=== PATIENT | male | born 1955 | race Caucasian/White ===

== ENCOUNTER 2017-01-02 00:42 | Observation (INO) ==
[2017-01-02] MEDS ORDERED: 0.9 % Sodium Chloride 1,000 ML IVC ONE (00:58)
[2017-01-02] MEDS ORDERED: Ondansetron 4 MG/2 ML VIAL IVP ONE (01:01)
[2017-01-02 01:06] LABS: Basophils # 0.1 K/mcL (0.0-0.2); Basophils % 0.8 %; Eosinophils % 0.2 %; Hematocrit 44.1 % (37.5-50.1); Hemoglobin 15.4 g/dL (12.9-16.9); Immature Granulocytes % 0.3 % (0-4); Lymphocytes # 1.6 K/mcL (0.6-4.6); Lymphocytes % 24.7 %; Mean Corpuscular HGB Conc 34.9 g/dL (31.6-35.5); Mean Corpuscular Hemoglobin 32.9 pg (28.0-33.3); Mean Corpuscular Volume 94.2 fL (83.0-100.0); Mean Platelet Volume 9.6 fL (9.4-12.4); Monocytes # 0.7 K/mcL (0.0-1.3); Monocytes % 10.8 %; Platelet Count 380 K/mcL (140-400); Red Blood Count 4.68 M/mcL (4.19-5.50); Red Cell Distribution Width 13.6 % (11.5-14.5); Segmented Neutrophils % 63.2 %
[2017-01-02 01:17] LABS: Alanine Aminotransferase 23 Units/L (0-55); Albumin 4.1 g/dL (3.5-5.0); Albumin/Globulin Ratio 1.1 (1.1-2.2); Alkaline Phosphatase 78 Units/L (38-126); Aspartate Amino Transferase 31 Units/L (5-34); BUN/Creatinine Ratio 8 (6-26); Bilirubin,Total 0.4 mg/dL (0.2-1.2); Blood Urea Nitrogen 6 mg/dL (8-26); Calcium 9.8 mg/dL (8.6-10.8); Carbon Dioxide 26 mEq/L (19-29); Chloride 92 mEq/L (98-109); Ethanol 34 mg/dL (0-10); Globulin 3.9 g/dL (2.4-3.5); Glucose 122 mg/dL (70-99); Lipase 61 Units/L (8-78); Magnesium 1.7 mg/dL (1.6-2.6); Osmolality,Calculated 271 (280-300); Phosphorous 2.1 mg/dL (2.3-4.7); Potassium 4.5 mEq/L (3.5-4.5); Sodium 131 mEq/L (136-145); eGFR For African Americans > 60 (> 60); eGFR For Non-African Americans > 60 (> 60)
[2017-01-02] MEDS ORDERED: *HR* LORazepam 2 MG/ML VIAL IVP ONE (01:19)
[2017-01-02] MEDS ORDERED: Folic Acid 1 MG TABLET PO ONE (01:28)
--- NOTE | 2017-01-02 01:31 | Emergency Department Note ---
Disposition Clinical Impression: Elevated blood pressure reading, Hyponatremia Alcohol withdrawal syndrome Qualifiers: Complication of substance-induced condition: uncomplicated Qualified Code(s): F10.230 - Alcohol dependence with withdrawal, uncomplicated Disposition: Admitted As Inpatient Condition: Fair Time of Disposition: 02:49 Alcohol HPI - General Chief Complaint: ED Alcohol Abuse Stated Complaint: ETOH withdrawal Time Seen by Provider: 01/02/17 00:48 Source: patient, EMS Mode of arrival: EMS Limitations: no limitations Nursing Notes Reviewed: Yes Vital Signs Reviewed: Yes - History of Present Illness HPI Narrative: 61-year-old male with a history of alcoholic disease presents for evaluation of alcohol withdrawal. Patient states that his last alcohol beverages approximately 18 hours ago. States that he typically drinks 10-15, 12-24 ounce out all beverages a day. States that he would like to withdraw and stop drinking. Recalls approximately year ago the patient did require inpatient management for alcohol withdrawal. Notes that he began to have midepigastric abdominal pain as well as persistent nausea vomiting that occurred around noon today. Denies any fevers or chest pain. Denies any cough. Patient states that earlier today started C black spots but denies any delusions or hallucinations. - Related Data Allergies Allergy/AdvReac Type Severity Reaction Status Date / Time No Known Allergies Allergy Verified 01/02/17 00:44 All systems ED: reviewed and negative except as stated. Constitutional: Reports: as per HPI. Denies: fever Eyes: Reports: as per HPI ENT ED: Reports: as per HPI Cardiovascular: Reports: as per HPI. Denies: chest pain Respiratory: Reports: as per HPI. Denies: dyspnea Gastrointestinal: Reports: as per HPI, abdominal pain, nausea, vomiting Genitourinary: Reports: as per HPI Musculoskeletal: Reports: as per HPI Integumentary: Reports: as per HPI Neurological: Reports: as per HPI Psychiatric: Reports: as per HPI Endocrine: Reports: as per HPI Hematological/Lymphatic: Reports: as per HPI Past Medical History - Past Medical History Medical history: Reports: no medical history Psychiatric history: Reports: no psych history - Social History Smoking Status: Current every day smoker Smokeless Tobacco Status: No Alcohol use: Reports: heavy Drug use: Reports: none Physical Exam - General Limitations: no limitations General appearance: alert, in no apparent distress, anxious, other (Diaphoresis) - Head Head exam: atraumatic, normocephalic, normal inspection - Eye Eye exam: Present: normal appearance, EOMI - ENT ENT exam: normal exam, mucous membranes moist - Neck Neck exam: Present: normal inspection - Chest Chest inspection: Present: normal inspection, symmetric chest wall rise - Respiratory Respiratory exam: Present: prolonged expiratory phase. Absent: respiratory distress - Cardiovascular Cardiovascular exam: Present: regular rate, normal rhythm - Abdominal Exam Abdominal exam: Present: soft, tenderness (Mild epigastric). Absent: distention , guarding, rebound - Extremities Exam Extremities exam: Present: normal inspection. Absent: pedal edema - Back Exam Back exam: Present: normal inspection - Neurological Exam Neurological exam: Present: alert, oriented X3, CN II-XII intact - Psychiatric Psychiatric exam: Present: anxious - Skin Skin exam: Present: warm, dry, intact, normal color Course Course Narrative: 61-year-old male with history of alcohol disease presents for evaluation of alcohol withdrawal. Patient's last of all beverages approximately 18 hours prior to arrival. Patient appears to be going through acute withdrawal. Patient's borderline tachycardic with diaphoresis. Patient is not witnessing any delusions or hallucinations. Patient is requesting help from alcohol withdrawal. Does have a strong alcohol history with 10-15 alcoholic beverages a day. Patient received labs IV fluids anti-medics and anxiolytics. Patient's EKG shows normal sinus rhythm with no acute ST or T-wave changes. Patient was given thiamine and folate. - Reevaluation(s) Reevaluation #1: Patient symptoms have appeared to improve following the ativan. Appears more relaxed. Awaiting hospitalist Time: 02:32 Reevaluation #2: Patient updated on plan of care. Patient appears resting comfortably. Nicotine patch ordered. Awaiting transfer to the floor. Time: 02:47 Vital Signs Temperature 98.4 F 01/02/17 00:44 Pulse Rate 100 01/02/17 00:44 Respiratory Rate 24 01/02/17 00:44 Blood Pressure 153/110 01/02/17 00:44 O2 Sat by Pulse Oximetry 98 01/02/17 00:44 Temperature 98.4 F 01/02/17 00:44 Pulse Rate 88 01/02/17 02:31 Respiratory Rate 18 01/02/17 02:31 Blood Pressure 162/93 01/02/17 02:31 O2 Sat by Pulse Oximetry 98 01/02/17 02:31 Oxygen Delivery Oxygen Delivery Room Air Alcohol - MDM Narrative Medical decision making narrative: 61-year-old male penis for evaluation for alcohol withdrawal. Patient does have an extensive alcohol history. Patient did appear to be in acute withdrawal. Patient's blood alcohol level was noted to be low. Patient was borderline tachycardic and diaphoretic on exam. Patient was vomiting. The patient's abdominal exam was nonsurgical. Patient basically laboratory evaluation for electrolytes as well as lipase. Patient's labs reviewed. Patient was supplemented with thiamine and folate. Patient's hyponatremia likely secondary to alcohol. Patient received a milligram of Ativan. Patient was resting comfortably. Patient received IV fluids. Patient was not experiencing any delusions or hallucinations in the emergency department. Patient does wish to quit drinking. Patient will be admitted to hospital service for alcohol withdrawal. - Lab Data Lab results reviewed: Yes I reviewed the patient's lab results. Result diagrams: 01/02/17 00:53 01/02/17 00:53 Lab Results 01/02/17 01/02/17 Range/Units 00:53 00:53 WBC 6.3 (4.3-11.1) K/mcL RBC 4.68 (4.19-5.50) M/mcL Hgb 15.4 (12.9-16.9) g/dL Hct 44.1 (37.5-50.1) % MCV 94.2 (83.0-100.0) fL MCH 32.9 (28.0-33.3) pg MCHC 34.9 (31.6-35.5) g/dL RDW 13.6 (11.5-14.5) % Plt Count 380 (140-400) K/mcL MPV 9.6 (9.4-12.4) fL Immature Gran % 0.3 (0-4) % Seg Neutrophils % 63.2 % Lymphocytes % 24.7 % Monocytes % 10.8 % Eosinophils % 0.2 % Basophils % 0.8 % Neutrophils # 4.0 (1.6-8.9) K/mcL Lymphocytes # 1.6 (0.6-4.6) K/mcL Monocytes # 0.7 (0.0-1.3) K/mcL Eosinophils # 0.0 (0.0-0.6) K/mcL Basophils # 0.1 (0.0-0.2) K/mcL Sodium 131 L (136-145) mEq/L Potassium 4.5 (3.5-4.5) mEq/L Chloride 92 L (98-109) mEq/L Carbon Dioxide 26 (19-29) mEq/L BUN 6 L (8-26) mg/dL Creatinine 0.73 (0.72-1.25) mg/dL Est GFR ( Amer) > 60 (> 60) Est GFR (Non-Af Amer) > 60 (> 60) BUN/Creatinine Ratio 8 (6-26) Glucose 122 H (70-99) mg/dL Calculated Osmolality 271 L (280-300) Calcium 9.8 (8.6-10.8) mg/dL Phosphorus 2.1 L (2.3-4.7) mg/dL Magnesium 1.7 (1.6-2.6) mg/dL Total Bilirubin 0.4 (0.2-1.2) mg/dL AST 31 (5-34) Units/L ALT 23 (0-55) Units/L Alkaline Phosphatase 78 (38-126) Units/L Serum Total Protein 8.0 (6.0-8.3) g/dL Albumin 4.1 (3.5-5.0) g/dL Globulin 3.9 H (2.4-3.5) g/dL Albumin/Globulin Ratio 1.1 (1.1-2.2) Lipase 61 (8-78) Units/L Ethyl Alcohol 34 H (0-10) mg/dL - EKG Data EKG attestation: Yes I reviewed and interpreted this EKG. EKG shows normal: sinus rhythm Rate: normal Rhythm: NSR Smiley/QRS: normal P waves: other (Inversions in V1) Q waves: aVL T wave inversions noted in: aVR Interpretation: no acute changes Attestation Statement - Attestation Attestation: I, Nash Berger MD, personally evaluated this patient and discussed their management with the resident physician. I reviewed the resident's note and agree with the documented findings, medical decision making, and plan of care. 61-year-old male presents to the emergency department with a complaint of alcohol withdrawal symptoms. Patient states he drinks 12-18 beers daily. His last beer was about 18 hours prior to arrival. He states he wants to quit. He presents complaining of shakes with nausea and vomiting. No chest pain. No seizures. On examination patient is a well-developed well-nourished male in no acute distress. He is alert and oriented 3. There is no cyanosis or diaphoresis. He is mildly tremulous. Chest is nontender to palpation. Breath sounds are clear and equal bilaterally. Heart regular with a mild tachycardia. Abdomen soft and nontender with normal bowel sounds. No gross focal neurological deficits. Labs reviewed. The hospitalist, Dr. Mane, was consulted and accepted admission of the patient.
[2017-01-02] MEDS ORDERED: Thiamine (B-1) 100 MG TABLET PO SCH ×3 (01:34→09:00)
[2017-01-02] MEDS ORDERED: Nicotine 21 MG PATCH.TD24 TD ONE (02:36)
[2017-01-02] MEDS ORDERED: *HR* LORazepam 2 MG/ML VIAL IVP PRN (03:16)
[2017-01-02] MEDS ORDERED: Naloxone 0.4 MG/ML INJ IVP PRN (03:17)
[2017-01-02] MEDS ORDERED: Magnesium Sulfate 2 GM in D5% in Water 100 ML IVPB ONE (03:21)
[2017-01-02] MEDS ORDERED: Albuterol 2.5 MG/3 ML NEBULIZER IH PRN (03:56)
--- NOTE | 2017-01-02 04:02 | Internal Med History&Physical ---
Date of Encounter: 01/02/17 Time of Encounter: 03:57 Assessment and Plan (1) Alcohol withdrawal syndrome Current visit: Yes Status: Acute patient with heavy alcohol use comes in with signs and symptoms concerning for alcohol withdrawal, we will admit for CIWA protocol, aspiration, fall and seizure precautions will be observed, he has been counseled on cessation, will add multivites, replace electrolytes PRN Qualifiers: Complication of substance-induced condition: uncomplicated Qualified Code(s ): F10.230 - Alcohol dependence with withdrawal, uncomplicated (2) COPD (chronic obstructive pulmonary disease) Current visit: Yes Status: Chronic heavy smoking hx and has COPD on inhalers at home, he was wheezing at the time of exam, we will continue inhalers with nebs PRN Qualifiers: COPD type: chronic bronchitis Chronic bronchitis type: simple Qualified Code(s): J41.0 - Simple chronic bronchitis (3) Tobacco abuse Current visit: Yes Status: Chronic 3ppd since a tender age, we have counseled him on cessation, he will be placed on a patch meanwhile Internal Medicine - H&P: HPI Chief complaint: tremors from not drinking alcohol Admitted From: Emergency Dept Plans for Post Hospital Care: Home History of present illness: Mr. Aldana is a 61 year old male with a hx of alcohol abuse was brought in via [facility] for tremors concerning for alcohol withdrawal. He reports that he was in his usual state of health until the morning of 01/01 at around 6am when he started shaking so he went for a 3 pack of beer and after consuming it he still felt the shakes. He reports that he has been trying to quit so he rather tried ice cubes in an attempt to avoid drinking more alcohol but it was not working and his tremors continued, he was also sweating and felt nauseous, with vomiting and abdominal pain. He at that point called [facility] to be brought to the ER for further management. In the ER he was tachycardic and hypertensive. PAST MEDICAL HISTORY COPD EtoH abuse PAST SURGICAL HISTORY None SOCIAL HISTORY He is single, has 5 adult children, 3 males and 2 females, he has been drinking alcohol since the age of [age] years old about 10-18 cans daily, he was sober for a period of 2 years at the [place] rehab but started drinking again, smokes 3ppd of cigarettes since the age of 8 years. He used cocaine briefly-via snorting, denies heroin use but admits to prescriptions drug abuse at some point. Patient is a . FAMILY HISTORY Both parents are , mother was on multiple medications but he has no idea what medical condition his mother had, father had CAD s/p CABG, maternal uncle had colon cancer Past Med Surg Social Fam HX - Past Medical History Medical history: no medical history Psychiatric history: no psych history - Social History Smoking Status: Current every day smoker Smokeless Tobacco Status: No Alcohol use: heavy Drug use: none - Family History Father Hx Family Cardiac Disorders: Yes (CAD, Bypass) Hx Family Respiratory Disorders: No Hx Family Cancer: No Hx Family GI Disorders: No Hx Family Genitourinary Disorders: No Hx Family Endocrine Disorder: No Hx Family Musculoskeletal Disorders: No Hx Family Neuromuscular Disorders: No Hx Family Neurologic Disorders: Yes (Alzheimers) Hx Family HEENT Disorders: No Hx Family Autoimmune Disorders: No Hx Family Reproductive Disorders: No Hx Family Psychosocial Disorders: No Hx Family Medical Disorders: No Internal Medicine - H&P: Meds Allergies No Known Allergies Allergy (Verified 01/02/17 00:44) All Systems PM: A 10-system review of systems was performed and is negative for pertinent findings except as documented above in the HPI. - Constitutional Vitals: Temp Pulse Resp BP Pulse Ox 98.5 F 92 18 156/84 95 01/02/17 03:13 01/02/17 03:13 01/02/17 03:13 01/02/17 03:13 01/02/17 03:13 GENERAL: Adult male, looks far older than stated age, thin habitus, heavily bearded, Alert, not in acute distress, HEENT: NC/AT, EOMI, PERRLA, anicteric sclera, normal conjunctiva, supple, clear nares, moist mucous membranes, RESP: End expiratory wheeze through all nascimento with prolonged expiratory phase , CARDIO: Normal hearts sounds; S1 and 2, RRR with no murmurs, no JVD, no ankle edema GI: Soft, full, no tenderness, no organomegaly felt, normal bowel sounds heard MUSCULOSKELETAL: grossly normal movements bilaterally, no deformities noted, NEUROLOGIC: CN 2-12 intact grossly. No gross motor/sensory deficit appreciated, PSYCHIATRY: AAO x 3, SKIN: multiple tattoos with sun lopez on the upper extremities Internal Med - H&P Results - Labs CBC & Chem 7: 01/02/17 00:53 01/02/17 00:53 - EKG Data -: EKG Interpreted by Myself EKG shows normal: sinus rhythm
[2017-01-02] MEDS: Nicotine 21 MG PATCH.TD24 TD SCH (07:48)
[2017-01-02] MEDS: Vitamin B Complex/Vit C/Vit E 1 EACH TABLET PO SCH (07:48)
[2017-01-02] MEDS: *HR* LORazepam 2 MG/ML VIAL IVP PRN ×2 (07:49→20:02)
[2017-01-02] MEDS: Budesonide/Formoterol 160/4.5 MDI IH SCH ×2 (08:08→23:10)
[2017-01-02] MEDS: Tiotropium 18 MCG inhalation IH SCH (08:14)
[2017-01-02] MEDS ORDERED: Folic Acid 1 MG TABLET PO SCH (09:00)
--- NOTE | 2017-01-02 10:29 | Electrocardiograph Report ---
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
[2017-01-02] MEDS ORDERED: Melatonin 3 MG TABLET PO PRN (14:57)
[2017-01-02] MEDS ORDERED: Methocarbamol 750 MG TABLET PO PRN (14:57)
[2017-01-02] MEDS ORDERED: Acetaminophen 325 MG TABLET PO SCH (18:00)
--- NOTE | 2017-01-02 18:40 | Event Note ---
Date of Encounter: 01/02/17 Time of Encounter: 18:33 61-year-old male with past medical history of COPD and heavy alcohol abuse who was brought because of severe tremors and concerns for alcohol withdrawal. Patient is trying to quit alcohol but it is not working and he complains of severe tremors, diaphoresis, nausea, vomiting and abdominal pain. She was started on CIWA protocol including IV fluids, and IV Ativan. During my examination, patient is alert oriented 3. He denies any complaints at this time. He reports that his tremors are better. Chest clear to position bilaterally. Heart regular rate. Abdomen soft nontender nondistended. Extremities no edema. Mild intentional tremors. Gait not assessed. A/P: 1) alcohol withdrawal. 2) heavy alcohol abuse. IV fluids. Thiamine. po Ativan tid. CIWA protocol. 3) COPD. not in exacerbation. nebs. symbicort.
[2017-01-02] MEDS: Acetaminophen 325 MG TABLET PO PRN (18:54)
[2017-01-02] MEDS ORDERED: Water for inj. (sterile) 10 ML IV ONE (19:58)
[2017-01-02] MEDS: *HR* LORazepam 1 MG TABLET PO SCH (22:30)
[2017-01-02] MEDS ORDERED: traZODone 50 MG TABLET PO SCH (22:30)
[2017-01-02] MEDS: Budesonide/Formoterol 80/4.5 MDI IH SCH (23:10)
[2017-01-03] MEDS: Acetaminophen 325 MG TABLET PO PRN (05:15)
[2017-01-03 05:40] LABS: Basophils % 0.5 %; Eosinophils % 0.3 %; Hematocrit 39.2 % (37.5-50.1); Hemoglobin 13.3 g/dL (12.9-16.9); Immature Granulocytes % 0.3 % (0-4); Lymphocytes # 1.5 K/mcL (0.6-4.6); Mean Corpuscular HGB Conc 33.9 g/dL (31.6-35.5); Mean Corpuscular Hemoglobin 32.8 pg (28.0-33.3); Mean Corpuscular Volume 96.8 fL (83.0-100.0); Mean Platelet Volume 10.1 fL (9.4-12.4); Monocytes # 0.8 K/mcL (0.0-1.3); Monocytes % 11.4 %; Neutrophils # 4.3 K/mcL (1.6-8.9); Platelet Count 279 K/mcL (140-400); Red Blood Count 4.05 M/mcL (4.19-5.50); Red Cell Distribution Width 13.8 % (11.5-14.5); Segmented Neutrophils % 65.5 %
[2017-01-03 05:59] LABS: BUN/Creatinine Ratio 7 (6-26); Calcium 9.6 mg/dL (8.6-10.8); Carbon Dioxide 30 mEq/L (19-29); Chloride 100 mEq/L (98-109); Glucose 100 mg/dL (70-99); Magnesium 1.9 mg/dL (1.6-2.6); Osmolality,Calculated 279 (280-300); Potassium 3.9 mEq/L (3.5-4.5); Sodium 136 mEq/L (136-145); eGFR For African Americans > 60 (> 60); eGFR For Non-African Americans > 60 (> 60)
[2017-01-03] MEDS ORDERED: *HR* Enoxaparin 30 MG/0.3 ML SYRINGE SQ SCH (06:00)
[2017-01-03 06:05] LABS: Blood Urea Nitrogen 5 mg/dL (8-26)
[2017-01-03 06:43] VITALS: BP 136/78
[2017-01-03] MEDS: Budesonide/Formoterol 80/4.5 MDI IH SCH (08:30)
[2017-01-03] MEDS: Tiotropium 18 MCG inhalation IH SCH (08:30)
[2017-01-03] MEDS: Nicotine 21 MG PATCH.TD24 TD SCH (08:52)
[2017-01-03] MEDS: *HR* LORazepam 1 MG TABLET PO SCH (08:52)
[2017-01-03] MEDS: Vitamin B Complex/Vit C/Vit E 1 EACH TABLET PO SCH (08:52)
[2017-01-03] MEDS ORDERED: Thiamine (B-1) 100 MG TABLET PO SCH (09:00)
[2017-01-03] MEDS ORDERED: Folic Acid 1 MG TABLET PO SCH (09:00)
[2017-01-03] MEDS ORDERED: Venlafaxine XR (24 HR) 150 MG CAP.ER.24H PO SCH (09:00)
--- NOTE | 2017-01-03 09:17 | Discharge Summary ---
Date of Encounter: 01/03/17 Time of Encounter: 09:12 - Discharge Diagnosis (1) Alcohol withdrawal syndrome Priority: Primary Status: Acute Qualifiers: Complication of substance-induced condition: uncomplicated Qualified Code(s ): F10.230 - Alcohol dependence with withdrawal, uncomplicated (2) COPD (chronic obstructive pulmonary disease) Priority: Secondary Status: Chronic Qualifiers: COPD type: chronic bronchitis Chronic bronchitis type: simple Qualified Code(s): J41.0 - Simple chronic bronchitis (3) Tobacco abuse Priority: Secondary Status: Chronic - Discharge Medications Prescriptions: Ipratropium/Albuterol Neb [Duoneb] 3 ml IH Q6HR PRN 30 Days PRN Reason: BREATHING Fluticasone/Salmeterol [Advair 100-50 Diskus] 1 each IH BID #1 blst.w.dev Ipratropium/Albuterol Sulfate [Combivent Respimat Inhal [place]] 1 puff IH QID PRN #1 PRN Reason: BREATHING LORazepam [Ativan] 1 mg PO AD #16 tab Nicotine Patch [Nicoderm] 21 mg TD DAILY #30 Tiotropium [Spiriva] 18 mcg IH DAILY@0700 #1 inh Home Medications: Acetaminophen [Tylenol] 650 mg PO Q6HR PRN 01/02/17 [History] Cholecalciferol (Vitamin D3) [Vitamin D3] 1,200 units PO DAILY 01/02/17 [History ] Folic Acid 2 mg PO DAILY 01/02/17 [History] Gabapentin [Neurontin] 800 mg PO TID 01/02/17 [History] GuaiFENesin/Dextromethorphan [Tussin Dm Syrup] 10 ml PO Q6H PRN 01/02/17 [ History] Melatonin [Melatin] 12 mg PO HS PRN 01/02/17 [History] Methocarbamol [Robaxin-750] 750 mg PO QID PRN 01/02/17 [History] Omeprazole [PriLOSEC] 20 mg PO BID 01/02/17 [History] Thiamine (B-1) [Vitamin B-1] 100 mg PO DAILY 01/02/17 [History] Trazodone HCl 200 mg PO HS 01/02/17 [History] Venlafaxine XR (24 HR) [Effexor Xr] 150 mg PO DAILY 01/02/17 [History] Fluticasone/Salmeterol [Advair 100-50 Diskus] 1 each IH BID #1 blst.w.dev [Rx] Ipratropium/Albuterol Neb [Duoneb] 3 ml IH Q6HR PRN 30 Days 01/03/17 [Rx] Ipratropium/Albuterol Sulfate [Combivent Respimat Inhal [place]] 1 puff IH QID PRN #1 01/03/17 [Rx] LORazepam [Ativan] 1 mg PO AD #16 tab 01/03/17 [Rx] Meloxicam 15 mg PO DAILY PRN #0 01/03/17 [Rx] Nicotine Patch [Nicoderm] 21 mg TD DAILY #30 01/03/17 [Rx] Tiotropium [Spiriva] 18 mcg IH DAILY@0700 #1 inh 01/03/17 [Rx] Allergies/Adverse Reactions: Allergies No Known Allergies Allergy (Verified 01/02/17 09:35) Date of admission: 01/02/17 02:44 [facility] - Patient Status Disposition: Home, Self-Care Condition: Good Functional capacity at discharge: independent ambulation Overall status at discharge: patient is progressing back to baseline - Discharge Instructions Instructions: Lorazepam (By mouth), Nicotine (Absorbed through the skin), Ipratropium/Albuterol (By breathing), Fluticasone/Salmeterol (By breathing), Tiotropium (By breathing), Hyponatremia (DC), Alcohol Withdrawal (DC) Follow [facility]: [facility] [Primary Care Provider[facility] - - Diet and Activity Activity: resume usual activities as tolerated Diet: regular diet Interval History: Patient has no complains. He is eager to go home. Hospital course: Mr. Aldana is a 61 year old male with past medical history of chronic alcohol abuse and COPD who presented with a chief complaint of severe tremors due to alcohol withdrawal syndrome. Patient admits his eagerness to quit drinking alcohol, he was started on oral lorazepam, IV fluids and CIWA protocol with improvement of his tremors. PLAN: Oral lorazepam. Patient will follow up in the detox center on Thursday. - Time Spent with Patient Total time spent providing and/or coordinating discharge services: - Constitutional Vitals: Temp Pulse Resp BP Pulse Ox 98.1 F 59 16 136/78 96 01/03/17 06:42 01/03/17 06:42 01/03/17 08:32 01/03/17 06:42 01/03/17 08:32 General appearance: Present: cooperative, A&O X 3, pleasant, no acute distress, answers questions appropriately - Neck Neck exam general surgery: Present: supple, trachea midline. Absent: lymphadenopathy - Respiratory Respiratory exam: Present: CTAB. Absent: wheezes - Cardiovascular Cardiovascular exam: Present: RRR - GI/Abdominal GI/Abdominal exam: Present: normal bowel sounds, soft. Absent: distended, tenderness - Extremities Exam Extremities exam: Absent: pedal edema - Back Exam Back exam: Absent: CVA tenderness (L), CVA tenderness (R) - Neurological Exam Neurological exam: Present: alert, oriented X3, no focal deficits, strengths equal and symetr throughout. Absent: facial droop, speech deficit - Skin Skin exam: Absent: rash
== END 2017-01-03 09:57 | disposition home or self-care (01) ==
LOC: 3BNU 00:42 → EMEROO 00:42 → SUATTDRO 02:44 → 3BNU 03:18
PROVIDERS: ADMIT Internal Medicine; ATTEND Internal Medicine

== ENCOUNTER 2018-02-23 19:09 | Observation (INO) ==
[2018-02-23] MEDS ORDERED: *HR* LORazepam 2 MG/ML VIAL IVP ONE (19:11)
[2018-02-23] MEDS ORDERED: MVI, adult with vitamin K 10 ML in 0.9 % Sodium Chloride 1,000 ML IVC ONE (19:11)
[2018-02-23] MEDS ORDERED: 0.9 % Sodium Chloride 1,000 ML IVC ONE (19:11)
[2018-02-23] MEDS ORDERED: *HR* Dextrose 50 % in Water (Syg) 50 ML SYRINGE IVP ONE (19:11)
--- NOTE | 2018-02-23 19:24 | Emergency Department Note ---
Disposition Clinical Impression: Alcohol dependence with withdrawal Qualifiers: Complication of substance-induced condition: uncomplicated Qualified Code(s): F10.230 - Alcohol dependence with withdrawal, uncomplicated Disposition: Admitted As Inpatient General Adult HPI - General Chief complaint: ED Fall Stated complaint: ETOH withdrawl and fall Time Seen by Provider: 02/23/18 19:10 Source: patient, EMS Limitations: no limitations - History of Present Illness Pain Scale: 6 - Related Data Home Medications Medication Instructions Recorded Confirmed Acetaminophen [Tylenol] 650 mg PO Q6HR PRN 01/02/17 03/05/17 Cholecalciferol (Vitamin D3) 1,200 units PO DAILY 01/02/17 03/05/17 [Vitamin D3] Folic Acid 2 mg PO DAILY 01/02/17 03/05/17 Gabapentin [Neurontin] 800 mg PO TID 01/02/17 03/05/17 GuaiFENesin/Dextromethorphan 10 ml PO Q6H PRN 01/02/17 03/05/17 [Tussin Dm Syrup] Melatonin [Melatin] 12 mg PO HS PRN 01/02/17 03/05/17 Methocarbamol [Robaxin-750] 750 mg PO QID PRN 01/02/17 03/05/17 Omeprazole [PriLOSEC] 20 mg PO BID 01/02/17 03/05/17 Thiamine (B-1) [Vitamin B-1] 100 mg PO DAILY 01/02/17 03/05/17 Trazodone HCl 200 mg PO HS 01/02/17 03/05/17 Venlafaxine XR (24 HR) [Effexor Xr] 150 mg PO DAILY 01/02/17 03/05/17 Albuterol Neb [AccuNeb] 1 aerosol IH Q4H PRN 03/05/17 03/05/17 Albuterol Sulfate [Albuterol 2 puff IH Q4H PRN 03/05/17 03/05/17 Inhaler] Benzonatate [Tessalon] 100 mg PO TID PRN 03/05/17 03/05/17 Budesonide/Formoterol 80/4.5 2 puff IH BID 03/05/17 03/05/17 [Symbicort] Tiotropium [Spiriva] 2 puff IH DAILY 09/21/17 09/21/17 Previous Rx's Medication Instructions Recorded Meloxicam 15 mg PO DAILY PRN #0 01/03/17 Doxycycline 100 mg PO BID #14 capsule 09/22/17 PredniSONE [Deltasone] 60 mg PO DAILY #15 tablet 09/22/17 Allergies Allergy/AdvReac Type Severity Reaction Status Date / Time No Known Allergies Allergy Verified 01/02/17 09:35 Past Medical History - Past Medical History Medical history: Reports: asthma, COPD, GERD Psychiatric history: Reports: no psych history - Social History Smoking Status: Current every day smoker Smokeless Tobacco Status: No Alcohol use: Reports: heavy Drug use: Reports: none Physical Exam - General Limitations: no limitations General appearance: alert, in no apparent distress Course Vital Signs Temperature 96.9 F L 02/23/18 19:09 Pulse Rate 89 02/23/18 19:09 Respiratory Rate 18 02/23/18 19:09 Blood Pressure 168/95 02/23/18 19:09 O2 Sat by Pulse Oximetry 99 02/23/18 19:09 Temperature 96.9 F L 02/23/18 19:09 Pulse Rate 89 02/23/18 19:09 Respiratory Rate 18 02/23/18 19:09 Blood Pressure 168/95 02/23/18 19:09 O2 Sat by Pulse Oximetry 99 02/23/18 19:09 Oxygen Delivery Oxygen Delivery Room Air Attestation Statement - Attestation Attestation: I examined this patient and my medical decision-making was reviewed with the Resident Physician. I agree with the documented findings, disposition and treatment plan as described except to the extent set forth below. 62 year old male presents to the ED with complaints of ETOH withdralw and fall yesterday. Hao states that he is a chronic alcoholic and [facility] and just finished a 3 weeks drinking binge and ran out of money and his last drink was 0630 this morning and states that last night he fell and injured his head and right side of his neck and right lower lateral side of his chest with rib pain. Hao appears to be agitated and anxious at bedside and appears to midly tremulous. We will start CIWA protocol for etoh withdralw and a trauma evaluation in addition to rule out bleed or cervical fracture in addition to placing cerivcal collar and CT chest to josh out fracture vs pnuemo. breath sound bilaterally and neurovascuarly in tact
--- NOTE | 2018-02-23 19:30 | Emergency Department Note ---
Disposition Clinical Impression: Chest wall pain Alcohol dependence with withdrawal Qualifiers: Complication of substance-induced condition: uncomplicated Qualified Code(s): F10.230 - Alcohol dependence with withdrawal, uncomplicated Fall Qualifiers: Encounter type: initial encounter Qualified Code(s): W19.XXXA - Unspecified fall, initial encounter Disposition: Admitted As Inpatient Condition: Fair [facility]errals: [facility]Primary Care Provider[facility] - Forms: ED Satisfaction Letter Time of Disposition: 20:37 General Adult HPI - General Chief complaint: ED Fall Stated complaint: ETOH withdrawl and fall Time Seen by Provider: 02/23/18 19:10 Source: patient, EMS Mode of arrival: EMS Limitations: no limitations Nursing Notes Reviewed: Yes Vital Signs Reviewed: Yes - History of Present Illness HPI Narrative: 62-year-old male with a history of alcoholism presents for evaluation of possibility with an alcohol withdrawal. Patient also notes right-sided rib and flank pain. States that he fell yesterday. States the reason for the fall was that he was drunk. States he caught himself between it coffee table and a wall. This was unwitnessed. States he did lose consciousness. Notes pain is primarily along the right lateral chest wall. Denies any vomiting but did note some nausea this morning. No shortness of breath, fevers or cough. Patient does admit to drinking approximately 11 - 26 ounces of beer a day. Notes his last drink was this morning because he ran out of money. States that he feels like he is about to go and withdrawal. States that he has been admitted for withdrawal symptoms in the past. Pain Scale: 6 - Related Data Home Medications Medication Instructions Recorded Confirmed Acetaminophen [Tylenol] 650 mg PO Q6HR PRN 01/02/17 03/05/17 Cholecalciferol (Vitamin D3) 1,200 units PO DAILY 01/02/17 03/05/17 [Vitamin D3] Folic Acid 2 mg PO DAILY 01/02/17 03/05/17 Gabapentin [Neurontin] 800 mg PO TID 01/02/17 03/05/17 GuaiFENesin/Dextromethorphan 10 ml PO Q6H PRN 01/02/17 03/05/17 [Tussin Dm Syrup] Melatonin [Melatin] 12 mg PO HS PRN 01/02/17 03/05/17 Methocarbamol [Robaxin-750] 750 mg PO QID PRN 01/02/17 03/05/17 Omeprazole [PriLOSEC] 20 mg PO BID 01/02/17 03/05/17 Thiamine (B-1) [Vitamin B-1] 100 mg PO DAILY 01/02/17 03/05/17 Trazodone HCl 200 mg PO HS 01/02/17 03/05/17 Venlafaxine XR (24 HR) [Effexor Xr] 150 mg PO DAILY 01/02/17 03/05/17 Albuterol Neb [AccuNeb] 1 aerosol IH Q4H PRN 03/05/17 03/05/17 Albuterol Sulfate [Albuterol 2 puff IH Q4H PRN 03/05/17 03/05/17 Inhaler] Benzonatate [Tessalon] 100 mg PO TID PRN 03/05/17 03/05/17 Budesonide/Formoterol 80/4.5 2 puff IH BID 03/05/17 03/05/17 [Symbicort] Tiotropium [Spiriva] 2 puff IH DAILY 03/05/17 03/05/17 Previous Rx's Medication Instructions Recorded Meloxicam 15 mg PO DAILY PRN #0 01/03/17 Doxycycline 100 mg PO BID #14 capsule 09/22/17 PredniSONE [Deltasone] 60 mg PO DAILY #15 tablet 09/22/17 Allergies Allergy/AdvReac Type Severity Reaction Status Date / Time No Known Allergies Allergy Verified 01/02/17 09:35 All systems ED: reviewed and negative except as stated. Constitutional: Denies: fever, chills Cardiovascular: Reports: chest pain Respiratory: Denies: cough, dyspnea Gastrointestinal: Reports: nausea. Denies: abdominal pain Past Medical History - Past Medical History Source: patient Medical history: Reports: asthma, COPD, GERD Psychiatric history: Reports: no psych history - Social History Smoking Status: Current every day smoker Smokeless Tobacco Status: No Alcohol use: Reports: heavy Drug use: Reports: none Physical Exam - General Limitations: no limitations General appearance: alert, in no apparent distress, other (Appears chronically ill) - Head Head exam: atraumatic, normocephalic, normal inspection - Eye Eye exam: Present: normal appearance, PERRL, EOMI. Absent: scleral icterus - ENT ENT exam: normal exam, normal oropharynx - Neck Neck exam: Present: normal inspection. Absent: tenderness - Chest Chest inspection: Present: normal inspection, symmetric chest wall rise - Respiratory Respiratory exam: Present: normal lung sounds bilaterally - Cardiovascular Cardiovascular exam: Present: regular rate, normal rhythm. Absent: systolic murmur - Abdominal Exam Abdominal exam: Present: soft, Non-Tender - Extremities Exam Extremities exam: Present: normal inspection. Absent: pedal edema - Expanded Lower Extremity Exam Neurovascular/Tendon exam: Present: normal capillary refill - Back Exam Back exam: Present: normal inspection - Neurological Exam Neurological exam: Present: alert, oriented X3, CN II-XII intact - Skin Skin exam: Present: warm, dry, intact, normal color Course Course Narrative: Patient seen and examined. Patient does appear older than stated age. Does admit to chronic alcoholism. Patient does present after a fall. Will get CT imaging of the head chest and neck. Patient also get basic labs, Ativan as well as multivitamins. Disposition likely admission as the patient is high risk for detox as he does live alone and is out of money for his EtOH. Vital Signs Temperature 96.9 F L 02/23/18 19:09 Pulse Rate 89 02/23/18 19:09 Respiratory Rate 18 02/23/18 19:09 Blood Pressure 168/95 02/23/18 19:09 O2 Sat by Pulse Oximetry 99 02/23/18 19:09 Temperature 96.9 F L 02/23/18 19:09 Pulse Rate 80 02/23/18 20:18 Respiratory Rate 18 02/23/18 20:18 Blood Pressure 161/100 02/23/18 20:18 O2 Sat by Pulse Oximetry 98 02/23/18 20:18 Oxygen Delivery Oxygen Delivery Room Air Medical Decision Making - [facility] Narrative Medical decision making narrative: Patients is 62-year-old male presented for evaluation of a fall. States he fell yesterday unwitnessed. States he was talking. Patient does have a pretty extensive alcoholic history. States that he does not have any money for alcohol feels that he may be in withdrawal. Patient had a mechanical fall yesterday. He imaging of the described area. Likely muscular skeletal etiology of the pain. Given the patient's apical is a CT of the head as well as cervical spine was obtained. Patient was given Ativan. Patient was given a Lidoderm patch. Given the patient having chronic alcoholism with negative alcoholism currently the patient is high risk of withdrawal. Patient will be admitted for concerns of withdrawal symptoms. Patient was counseled on alcohol abuse. Patient is denying any hallucinations or delusions. - Lab Data Lab results reviewed: Yes I reviewed the patient's lab results. Result diagrams: 02/23/18 19:20 02/23/18 19:20 Lab Results 02/23/18 02/23/18 02/23/18 Range/Units 19:20 19:20 19:20 WBC 9.2 (4.3-11.1) K/mcL RBC 4.36 (4.19-5.50) M/mcL Hgb 13.2 (12.9-16.9) g/dL Hct 39.0 (37.5-50.1) % MCV 89.4 (83.0-100.0) fL MCH 30.3 (28.0-33.3) pg MCHC 33.8 (31.6-35.5) g/dL RDW 17.8 H (11.5-14.5) % Plt Count 275 (140-400) K/mcL MPV 9.9 (9.4-12.4) fL Immature Gran % 0.5 (0-4) % Seg Neutrophils % 63.7 % Lymphocytes % 23.3 % Monocytes % 10.4 % Eosinophils % 1.7 % Basophils % 0.4 % Neutrophils # 5.9 (1.6-8.9) K/mcL Lymphocytes # 2.2 (0.6-4.6) K/mcL Monocytes # 1.0 (0.0-1.3) K/mcL Eosinophils # 0.2 (0.0-0.6) K/mcL Basophils # 0.0 (0.0-0.2) K/mcL PT 10.9 (9.4-12.1) Seconds INR 1.0 Sodium 132 L (136-145) mEq/L Potassium 4.0 (3.5-5.1) mEq/L Chloride 97 L (98-107) mEq/L Carbon Dioxide 28 (23-29) mEq/L BUN 5 L (8-23) mg/dL Creatinine 0.59 L (0.70-1.30) mg/dL Est GFR ( Amer) > 60 (> 60) Est GFR (Non-Af Amer) > 60 (> 60) BUN/Creatinine Ratio 8 (6-26) Glucose 94 (70-105) mg/dL Calculated Osmolality 271 L (280-300) Calcium 9.5 (8.6-10.3) mg/dL Phosphorus 3.0 (2.7-4.5) mg/dL Magnesium 1.7 (1.6-2.6) mg/dL Total Bilirubin 0.4 (0.3-1.0) mg/dL AST 19 (13-39) Units/L ALT 13 (7-52) Units/L Alkaline Phosphatase 94 (34-104) Units/L Serum Total Protein 7.4 (6.4-8.9) g/dL Albumin 4.5 (3.5-5.7) g/dL Globulin 2.9 (2.4-3.5) g/dL Albumin/Globulin Ratio 1.6 (1.1-2.2) Lipase 38 (11-82) Units/L Urine Color (Yellow) Urine Clarity (Clear) Urine pH (5.0-8.0) pH Units Ur Specific [place] (1.010-1.025) Urine Protein (Neg-Trace) mg/dL Urine Glucose (UA) (Normal) mg/dL Urine Ketones (Negative) mg/dL Urine Blood (Negative) Urine Nitrite (Negative) Urine Bilirubin (Negative) Urine Urobilinogen (Normal) mg/dL Ur Leukocyte Esterase (Negative) Urine Opiates Screen (Qrnjnp=913) ng/mL Ur Barbiturates Screen (Huqnjg=082) ng/mL Ur Phencyclidine Scrn (Cutoff=25) ng/mL Ur Amphetamines Screen (Mmaxpy=5992) ng/mL U Benzodiazepines Scrn (Ufevbd=686) ng/mL Urine Cocaine Screen (Cutoff= 300) ng/mL U Marijuana (THC) Screen (Cutoff = 50) ng/mL Ur Drug Screen Interp Ethyl Alcohol < 10 (Less than 10) mg/dL 02/23/18 02/23/18 Range/Units 19:47 19:47 WBC (4.3-11.1) K/mcL RBC (4.19-5.50) M/mcL Hgb (12.9-16.9) g/dL Hct (37.5-50.1) % MCV (83.0-100.0) fL MCH (28.0-33.3) pg MCHC (31.6-35.5) g/dL RDW (11.5-14.5) % Plt Count (140-400) K/mcL MPV (9.4-12.4) fL Immature Gran % (0-4) % Seg Neutrophils % % Lymphocytes % % Monocytes % % Eosinophils % % Basophils % % Neutrophils # (1.6-8.9) K/mcL Lymphocytes # (0.6-4.6) K/mcL Monocytes # (0.0-1.3) K/mcL Eosinophils # (0.0-0.6) K/mcL Basophils # (0.0-0.2) K/mcL PT (9.4-12.1) Seconds INR Sodium (136-145) mEq/L Potassium (3.5-5.1) mEq/L Chloride (98-107) mEq/L Carbon Dioxide (23-29) mEq/L BUN (8-23) mg/dL Creatinine (0.70-1.30) mg/dL Est GFR ( Amer) (> 60) Est GFR (Non-Af Amer) (> 60) BUN/Creatinine Ratio (6-26) Glucose (70-105) mg/dL Calculated Osmolality (280-300) Calcium (8.6-10.3) mg/dL Phosphorus (2.7-4.5) mg/dL Magnesium (1.6-2.6) mg/dL Total Bilirubin (0.3-1.0) mg/dL AST (13-39) Units/L ALT (7-52) Units/L Alkaline Phosphatase (34-104) Units/L Serum Total Protein (6.4-8.9) g/dL Albumin (3.5-5.7) g/dL Globulin (2.4-3.5) g/dL Albumin/Globulin Ratio (1.1-2.2) Lipase (11-82) Units/L Urine Color Yellow (Yellow) Urine Clarity Clear (Clear) Urine pH 7.0 (5.0-8.0) pH Units Ur Specific [place] < 1.005 L (1.010-1.025) Urine Protein Negative (Neg-Trace) mg/dL Urine Glucose (UA) Normal (Normal) mg/dL Urine Ketones Negative (Negative) mg/dL Urine Blood Negative (Negative) Urine Nitrite Negative (Negative) Urine Bilirubin Negative (Negative) Urine Urobilinogen Normal (Normal) mg/dL Ur Leukocyte Esterase Negative (Negative) Urine Opiates Screen Negative (Rfhzcd=913) ng/mL Ur Barbiturates Screen Negative (Agtguz=852) ng/mL Ur Phencyclidine Scrn Negative (Cutoff=25) ng/mL Ur Amphetamines Screen Negative (Gdsieg=3190) ng/mL U Benzodiazepines Scrn Negative (Dzimpy=194) ng/mL Urine Cocaine Screen Negative (Cutoff= 300) ng/mL U Marijuana (THC) Screen Negative (Cutoff = 50) ng/mL Ur Drug Screen Interp See Below Ethyl Alcohol (Less than 10) mg/dL - Radiology Data Radiology results reviewed: Yes I reviewed the patient's radiology results. J Luis - J Luis Situation: Demographics Background: Presenting Complaint Assessment: Vital Signs, Course and respsone to treatment, Patient/Family Expectation Recommendation: Barrier(s) to disposition, Recommendation based on pending studies, treatments, or consults SMago Report Given to: Dr. Omi Dietz Repor Time: 20:33
[2018-02-23 19:32] LABS: Basophils % 0.4 %; Eosinophils # 0.2 K/mcL (0.0-0.6); Eosinophils % 1.7 %; Hemoglobin 13.2 g/dL (12.9-16.9); Immature Granulocytes % 0.5 % (0-4); Lymphocytes # 2.2 K/mcL (0.6-4.6); Lymphocytes % 23.3 %; Mean Corpuscular HGB Conc 33.8 g/dL (31.6-35.5); Mean Corpuscular Hemoglobin 30.3 pg (28.0-33.3); Mean Corpuscular Volume 89.4 fL (83.0-100.0); Mean Platelet Volume 9.9 fL (9.4-12.4); Monocytes % 10.4 %; Neutrophils # 5.9 K/mcL (1.6-8.9); Platelet Count 275 K/mcL (140-400); Red Blood Count 4.36 M/mcL (4.19-5.50); Red Cell Distribution Width 17.8 % (11.5-14.5); Segmented Neutrophils % 63.7 %
[2018-02-23 19:39] LABS: Prothrombin Time 10.9 Seconds (9.4-12.1)
[2018-02-23 19:58] LABS: Alanine Aminotransferase 13 Units/L (7-52); Albumin 4.5 g/dL (3.5-5.7); Albumin/Globulin Ratio 1.6 (1.1-2.2); Alkaline Phosphatase 94 Units/L (34-104); Aspartate Amino Transferase 19 Units/L (13-39); BUN/Creatinine Ratio 8 (6-26); Bilirubin,Total 0.4 mg/dL (0.3-1.0); Blood Urea Nitrogen 5 mg/dL (8-23); Calcium 9.5 mg/dL (8.6-10.3); Carbon Dioxide 28 mEq/L (23-29); Chloride 97 mEq/L (98-107); Ethanol < 10 mg/dL (Less than 10); Globulin 2.9 g/dL (2.4-3.5); Glucose 94 mg/dL (70-105); Lipase 38 Units/L (11-82); Magnesium 1.7 mg/dL (1.6-2.6); Osmolality,Calculated 271 (280-300); Sodium 132 mEq/L (136-145); Total Protein 7.4 g/dL (6.4-8.9); eGFR For Non-African Americans > 60 (> 60)
[2018-02-23 19:59] LABS: Bilirubin,Urine Negative (Negative); Blood,Urine Negative (Negative); Clarity,Urine Clear (Clear); Color,Urine Yellow (Yellow); Glucose,Urine (UA) Normal (Normal); Ketones,Urine Negative (Negative); Leukocyte Esterase,Urine Negative (Negative); Nitrite,Urine Negative (Negative); Protein,Urine Negative (Neg-Trace); Specific Gravity,Urine < 1.005 (1.010-1.025); Urobilinogen,Urine Normal (Normal)
[2018-02-23 20:18] LABS: Amphetamine Screen,Urine Negative ng/mL (Cutoff=1000); Barbiturate Screen,Urine Negative ng/mL (Cutoff=200); Benzodiazepines Screen,Urine Negative ng/mL (Cutoff=200); Cannabinoid Screen,Urine Negative ng/mL (Cutoff = 50); Cocaine Screen,Urine Negative ng/mL (Cutoff= 300); Opiate Screen,Urine Negative ng/mL (Cutoff=300); Phencyclidine Screen,Urine Negative ng/mL (Cutoff=25)
--- NOTE | 2018-02-23 21:02 | Emergency Department Note ---
Disposition Clinical Impression: Chest wall pain, Pulmonary nodules, Tobacco abuse, Lesion of adrenal gland Alcohol dependence with withdrawal Qualifiers: Complication of substance-induced condition: uncomplicated Qualified Code(s): F10.230 - Alcohol dependence with withdrawal, uncomplicated Fall Qualifiers: Encounter type: initial encounter Qualified Code(s): W19.XXXA - Unspecified fall, initial encounter Disposition: Admitted As Inpatient Condition: Fair [facility]: [facility] [Primary Care Provider[facility] - Forms: ED Satisfaction Letter General Adult HPI - General Chief complaint: ED Fall Stated complaint: ETOH withdrawl and fall Time Seen by Provider: 02/23/18 19:10 Source: patient, EMS Mode of arrival: EMS Limitations: no limitations - History of Present Illness Pain Scale: 6 - Related Data Home Medications Medication Instructions Recorded Confirmed Acetaminophen [Tylenol] 650 mg PO Q6HR PRN 01/02/17 03/05/17 Cholecalciferol (Vitamin D3) 1,200 units PO DAILY 01/02/17 03/05/17 [Vitamin D3] Folic Acid 2 mg PO DAILY 01/02/17 03/05/17 Gabapentin [Neurontin] 800 mg PO TID 01/02/17 03/05/17 GuaiFENesin/Dextromethorphan 10 ml PO Q6H PRN 01/02/17 03/05/17 [Tussin Dm Syrup] Melatonin [Melatin] 12 mg PO HS PRN 01/02/17 03/05/17 Methocarbamol [Robaxin-750] 750 mg PO QID PRN 01/02/17 03/05/17 Omeprazole [PriLOSEC] 20 mg PO BID 01/02/17 03/05/17 Thiamine (B-1) [Vitamin B-1] 100 mg PO DAILY 01/02/17 03/05/17 Trazodone HCl 200 mg PO HS 01/02/17 03/05/17 Venlafaxine XR (24 HR) [Effexor Xr] 150 mg PO DAILY 01/02/17 03/05/17 Albuterol Neb [AccuNeb] 1 aerosol IH Q4H PRN 03/05/17 03/05/17 Albuterol Sulfate [Albuterol 2 puff IH Q4H PRN 03/05/17 03/05/17 Inhaler] Benzonatate [Tessalon] 100 mg PO TID PRN 03/05/17 03/05/17 Budesonide/Formoterol 80/4.5 2 puff IH BID 03/05/17 03/05/17 [Symbicort] Tiotropium [Spiriva] 2 puff IH DAILY 03/05/17 03/05/17 Previous Rx's Medication Instructions Recorded Meloxicam 15 mg PO DAILY PRN #0 01/03/17 Doxycycline 100 mg PO BID #14 capsule 09/22/17 PredniSONE [Deltasone] 60 mg PO DAILY #15 tablet 09/22/17 Allergies Allergy/AdvReac Type Severity Reaction Status Date / Time No Known Allergies Allergy Verified 01/02/17 09:35 Constitutional: Denies: fever, chills Cardiovascular: Reports: chest pain Respiratory: Denies: cough, dyspnea Gastrointestinal: Reports: nausea. Denies: abdominal pain Past Medical History - Past Medical History Medical history: Reports: asthma, COPD, GERD Psychiatric history: Reports: no psych history - Social History Smoking Status: Current every day smoker Smokeless Tobacco Status: No Alcohol use: Reports: heavy Drug use: Reports: none Physical Exam - General Limitations: no limitations General appearance: alert, in no apparent distress, other (Appears chronically ill) Course Vital Signs Temperature 96.9 F L 02/23/18 19:09 Pulse Rate 89 02/23/18 19:09 Respiratory Rate 18 02/23/18 19:09 Blood Pressure 168/95 02/23/18 19:09 O2 Sat by Pulse Oximetry 99 02/23/18 19:09 Temperature 96.9 F L 02/23/18 19:09 Pulse Rate 86 02/23/18 20:43 Respiratory Rate 17 02/23/18 20:43 Blood Pressure 159/97 02/23/18 20:43 O2 Sat by Pulse Oximetry 96 02/23/18 20:43 Oxygen Delivery Oxygen Delivery Room Air Medical Decision Making - Lab Data Result diagrams: 02/23/18 19:20 02/23/18 19:20 Lab Results 02/23/18 02/23/18 02/23/18 Range/Units 19:20 19:20 19:20 WBC 9.2 (4.3-11.1) K/mcL RBC 4.36 (4.19-5.50) M/mcL Hgb 13.2 (12.9-16.9) g/dL Hct 39.0 (37.5-50.1) % MCV 89.4 (83.0-100.0) fL MCH 30.3 (28.0-33.3) pg MCHC 33.8 (31.6-35.5) g/dL RDW 17.8 H (11.5-14.5) % Plt Count 275 (140-400) K/mcL MPV 9.9 (9.4-12.4) fL Immature Gran % 0.5 (0-4) % Seg Neutrophils % 63.7 % Lymphocytes % 23.3 % Monocytes % 10.4 % Eosinophils % 1.7 % Basophils % 0.4 % Neutrophils # 5.9 (1.6-8.9) K/mcL Lymphocytes # 2.2 (0.6-4.6) K/mcL Monocytes # 1.0 (0.0-1.3) K/mcL Eosinophils # 0.2 (0.0-0.6) K/mcL Basophils # 0.0 (0.0-0.2) K/mcL PT 10.9 (9.4-12.1) Seconds INR 1.0 Sodium 132 L (136-145) mEq/L Potassium 4.0 (3.5-5.1) mEq/L Chloride 97 L (98-107) mEq/L Carbon Dioxide 28 (23-29) mEq/L BUN 5 L (8-23) mg/dL Creatinine 0.59 L (0.70-1.30) mg/dL Est GFR ( Amer) > 60 (> 60) Est GFR (Non-Af Amer) > 60 (> 60) BUN/Creatinine Ratio 8 (6-26) Glucose 94 (70-105) mg/dL Calculated Osmolality 271 L (280-300) Calcium 9.5 (8.6-10.3) mg/dL Phosphorus 3.0 (2.7-4.5) mg/dL Magnesium 1.7 (1.6-2.6) mg/dL Total Bilirubin 0.4 (0.3-1.0) mg/dL AST 19 (13-39) Units/L ALT 13 (7-52) Units/L Alkaline Phosphatase 94 (34-104) Units/L Serum Total Protein 7.4 (6.4-8.9) g/dL Albumin 4.5 (3.5-5.7) g/dL Globulin 2.9 (2.4-3.5) g/dL Albumin/Globulin Ratio 1.6 (1.1-2.2) Lipase 38 (11-82) Units/L Urine Color (Yellow) Urine Clarity (Clear) Urine pH (5.0-8.0) pH Units Ur Specific [place] (1.010-1.025) Urine Protein (Neg-Trace) mg/dL Urine Glucose (UA) (Normal) mg/dL Urine Ketones (Negative) mg/dL Urine Blood (Negative) Urine Nitrite (Negative) Urine Bilirubin (Negative) Urine Urobilinogen (Normal) mg/dL Ur Leukocyte Esterase (Negative) Urine Opiates Screen (Dpxhcw=045) ng/mL Ur Barbiturates Screen (Pnmngp=139) ng/mL Ur Phencyclidine Scrn (Cutoff=25) ng/mL Ur Amphetamines Screen (Lmvctc=1810) ng/mL U Benzodiazepines Scrn (Utwesi=834) ng/mL Urine Cocaine Screen (Cutoff= 300) ng/mL U Marijuana (THC) Screen (Cutoff = 50) ng/mL Ur Drug Screen Interp Ethyl Alcohol < 10 (Less than 10) mg/dL 02/23/18 02/23/18 Range/Units 19:47 19:47 WBC (4.3-11.1) K/mcL RBC (4.19-5.50) M/mcL Hgb (12.9-16.9) g/dL Hct (37.5-50.1) % MCV (83.0-100.0) fL MCH (28.0-33.3) pg MCHC (31.6-35.5) g/dL RDW (11.5-14.5) % Plt Count (140-400) K/mcL MPV (9.4-12.4) fL Immature Gran % (0-4) % Seg Neutrophils % % Lymphocytes % % Monocytes % % Eosinophils % % Basophils % % Neutrophils # (1.6-8.9) K/mcL Lymphocytes # (0.6-4.6) K/mcL Monocytes # (0.0-1.3) K/mcL Eosinophils # (0.0-0.6) K/mcL Basophils # (0.0-0.2) K/mcL PT (9.4-12.1) Seconds INR Sodium (136-145) mEq/L Potassium (3.5-5.1) mEq/L Chloride (98-107) mEq/L Carbon Dioxide (23-29) mEq/L BUN (8-23) mg/dL Creatinine (0.70-1.30) mg/dL Est GFR ( Amer) (> 60) Est GFR (Non-Af Amer) (> 60) BUN/Creatinine Ratio (6-26) Glucose (70-105) mg/dL Calculated Osmolality (280-300) Calcium (8.6-10.3) mg/dL Phosphorus (2.7-4.5) mg/dL Magnesium (1.6-2.6) mg/dL Total Bilirubin (0.3-1.0) mg/dL AST (13-39) Units/L ALT (7-52) Units/L Alkaline Phosphatase (34-104) Units/L Serum Total Protein (6.4-8.9) g/dL Albumin (3.5-5.7) g/dL Globulin (2.4-3.5) g/dL Albumin/Globulin Ratio (1.1-2.2) Lipase (11-82) Units/L Urine Color Yellow (Yellow) Urine Clarity Clear (Clear) Urine pH 7.0 (5.0-8.0) pH Units Ur Specific [place] < 1.005 L (1.010-1.025) Urine Protein Negative (Neg-Trace) mg/dL Urine Glucose (UA) Normal (Normal) mg/dL Urine Ketones Negative (Negative) mg/dL Urine Blood Negative (Negative) Urine Nitrite Negative (Negative) Urine Bilirubin Negative (Negative) Urine Urobilinogen Normal (Normal) mg/dL Ur Leukocyte Esterase Negative (Negative) Urine Opiates Screen Negative (Genkjv=585) ng/mL Ur Barbiturates Screen Negative (Tfinok=675) ng/mL Ur Phencyclidine Scrn Negative (Cutoff=25) ng/mL Ur Amphetamines Screen Negative (Ltdrbo=0629) ng/mL U Benzodiazepines Scrn Negative (Jgbevj=185) ng/mL Urine Cocaine Screen Negative (Cutoff= 300) ng/mL U Marijuana (THC) Screen Negative (Cutoff = 50) ng/mL Ur Drug Screen Interp See Below Ethyl Alcohol (Less than 10) mg/dL - Radiology Data Radiology results reviewed: Yes I reviewed the patient's radiology results. Cervical Spine CT 02/23/18 19:11 IMPRESSION: No acute abnormality of the cervical spine. D/ / Donnell Lewis MD / Donnell Lewis MD Interpreting Provider: Donnell Lewis MD Chest CT 02/23/18 19:11 IMPRESSION: No acute intrathoracic process identified. Emphysema. 2 noncalcified right upper lobe pulmonary nodules, each measuring 9 mm. Comparison with prior remote studies would be helpful to confirm stability. Otherwise, short-term follow-up is recommended as below. Very large bilateral adrenal gland lesions measuring up to 5.5 cm. Again, comparison with remote studies would be helpful. Although they are low in attention and may represent benign adenomas, surgical consultation is recommended given their large size. RECOMMENDATIONS: Fleischner Society guidelines for follow-up and management of incidentally detected pulmonary nodules: Nodule size greater than 8 mm In a low-risk patient, CT at 3-6 months, then consider CT at 18-24 months. In a high-risk patient, CT at 3-6 months, then CT at 18-24 months. - Low risk patients include individuals with minimal or absent history of smoking and other known risk factors. - High risk patients include individuals with a history or smoking or known risk factors. Radiology 2017 http://pubs.rsna.org/doi/full/10.1148/radiol.[email or web address] D/ / Ruma Lange Cha, MD / Ruma Lange Cha, MD Interpreting Provider: Ruma Lange Cha, MD Head CT 02/23/18 19:11 IMPRESSION: No acute intracranial abnormality. D/ / Donnell Lewis MD / Donnell Lewis MD Interpreting Provider: Donnell Lewis MD - EKG Data EKG #1 EKG attestation: Yes I reviewed and interpreted this EKG. EKG shows normal: sinus rhythm Rate: normal Rhythm: NSR [place]/QRS: normal T wave inversions noted in: v1 Interpretation: no acute changes, nonspecific ST-T wave changes
[2018-02-23] MEDS ORDERED: Naloxone 0.4 MG/ML INJ IVP PRN (23:00)
[2018-02-23] MEDS ORDERED: *HR* LORazepam 2 MG/ML VIAL IVP PRN ×3 (23:00)
--- NOTE | 2018-02-23 23:41 | Internal Med History&Physical ---
Date of Encounter: 02/24/18 Time of Encounter: 23:39 Internal Medicine - H&P: HPI Chief complaint: right rib pain Admitted From: Home Plans for Post Hospital Care: Home History of present illness: Mr. Aldana is a 62 year old male presented with chief complaint of right rib pain. Patient reports yesterday he fell in his living room while being intoxicated and her alcohol. Patient fell forward onto some furniture and hit his right ribs, mid upper abdomen and his head and reported that he was unconscious for a couple hours. He lives at home alone. After he woke up he continued to have right rib pain is sharp, worsened with deep inspiration and cough. Patient reports he drinks extensive amount of alcohol: 11x 26 ounces of beer a day. His last drink was this morning. He states since then he has started having diaphoresis, upper extremity tremors. He reports he has had withdrawal symptoms in the past but denies seizures, DTs. In the ER, underwent ct head, chest, cervical spine which were all negative for acute abnormalities. Patient reports he does not want to drink alcohol anymore and would like help with withdrawal. Past Med Surg Social Fam HX - Past Medical History Medical history: asthma, COPD, GERD Psychiatric history: no psych history - Past Surgical History Additional surgical history: b/l femer fracture repair - Social History Smoking Status: Current every day smoker Packs per day: 2 1/2 Smokeless Tobacco Status: No Alcohol use: heavy Drug use: none Current living situation: Home - Independent Activity Level: Independent ambulation - Family History Father Hx Family Cardiac Disorders: Yes (CAD, Bypass) Hx Family Respiratory Disorders: No Hx Family Cancer: No Hx Family GI Disorders: No Hx Family Endocrine Disorder: No Hx Family Neuromuscular Disorders: No Hx Family Neurologic Disorders: Yes (Alzheimers) Hx Family HEENT Disorders: No Hx Family Autoimmune Disorders: No Brother Adopted: No Family Member Ethnicity: Non- Living Status: Still Living Hx Family Cardiac Disorders: No Hx Family Respiratory Disorders: No Hx Family Cancer: Yes (bowel) Hx Family GI Disorders: Yes (CA bowels) Hx Family Endocrine Disorder: No Hx Family Neuromuscular Disorders: No Hx Family Neurologic Disorders: No Hx Family HEENT Disorders: No Hx Family Autoimmune Disorders: No Internal Medicine - H&P: Meds Cholecalciferol (Vitamin D3) [Vitamin D3] 1,200 units PO DAILY 01/02/17 [History ] Melatonin [Melatin] 12 mg PO HS PRN 01/02/17 [History] Methocarbamol [Robaxin-750] 750 mg PO QID PRN 01/02/17 [History] Omeprazole [PriLOSEC] 20 mg PO BID 01/02/17 [History] Venlafaxine XR (24 HR) [Effexor Xr] 150 mg PO DAILY 01/02/17 [History] Albuterol Neb [AccuNeb] 1 aerosol IH Q4H PRN 03/05/17 [History] Albuterol Sulfate [Albuterol Inhaler] 2 puff IH Q4H PRN 03/05/17 [History] Budesonide/Formoterol 80/4.5 [Symbicort] 2 puff IH BID 03/05/17 [History] Tiotropium [Spiriva] 2 puff IH DAILY 03/05/17 [History] Trazodone HCl 100 mg PO HS 02/23/18 [History] clonazePAM [Clonazepam] 0.5 mg PO HS 02/23/18 [History] 3 Allergy/AdvReac Type Severity Reaction Status Date / Time No Known Allergies Allergy Verified 02/23/18 21:42 All Systems PM: A 10-system review of systems was performed and is negative for pertinent findings except as documented above in the HPI. Review of systems: Constitutional: Denies fever, chills HEENT: Denies headache, blurry vision, eye discharge, ear pain, ear discharge neck pain, sore throat, rhinorrhea. reports fall with head trauma Heart: Denies chest pain palpitations, LE edema Lungs: Denies shortness of breath cough Abdomen: Denies abdominal pain nausea vomiting diarrhea MSK: Denies back pain, joint pain. Reports right rib pain Kidney: Denies dysuria, hematuria Skin: Denies rash, ulcers Neuro: Denies numbness and tingling Psych: denies axniety, depression - Constitutional Vitals: Temp Pulse Resp BP Pulse Ox 96.9 F L 86 20 145/74 96 02/23/18 19:09 02/23/18 20:43 02/23/18 21:46 02/23/18 21:46 02/23/18 20:43 Exam: General: pleasant, without distress HEENT: Head atraumatic, normocephalic, EOMI, PERRL, absent ear discharge or trauma, Moist Mucous Membranes, uvula midline Neck: nontender to palpation, absent lymphadenopathy, Cardiovascualr: Regular rate and rhythm with no murmur, absent gallops or rubs, absent pedal edema, radial pulses 2 out of 4 Lungs: Clear to auscultation bilaterally, not in respiratory distress Abdomen: Soft nontender, nondistended positive bowel sounds, absent hepatomegaly Skin: warm and dry, absent rash, absent open wounds and nodules MSK: absent clubbing, cyanosis, joints without swelling. Right rib wall pain with palpation Neuro: Cranial nerves II through XII intact, UE and LE sensation equal bilaterally, UE and LEstrength 5/5, alert oriented 3, Psych: poor insight and judgment, Internal Med - H&P Results - Labs CBC & Chem 7: 02/23/18 19:20 02/23/18 19:20 - Assessment and plan (1) Alcohol dependence with withdrawal Current Visit: Yes Status: Acute Assessment and plan: patient drinks 11x25 ounces of beer a day last drink was this morning he reports tremors and diaphoresis reports having hx of alcohol withdrawal. Denies DTs/seizure plan: CIWA protocol, ativan, folic acid, vitamin B complex, regular diet Qualifiers: Complication of substance-induced condition: uncomplicated Qualified Code(s ): F10.230 - Alcohol dependence with withdrawal, uncomplicated (2) Fall Current Visit: Yes Status: Acute Assessment and plan: 62M presents with cc of right chest wall pain after fall while under intoxicaion of alcohol Ct chest, cervical spine and head negative continues to have right chest wall pain likley MSK lidocaine patch applied. Qualifiers: Encounter type: initial encounter Qualified Code(s): W19.XXXA - Unspecified fall, initial encounter (3) COPD (chronic obstructive pulmonary disease) Current Visit: Yes Status: Chronic Assessment and plan: hx of copd not in exacerbation continue home meds Qualifiers: COPD type: chronic bronchitis Chronic bronchitis type: simple Qualified Code(s): J41.0 - Simple chronic bronchitis (4) Tobacco abuse Current Visit: Yes Status: Chronic Assessment and plan: 120pack year history patient educated on smoking cessation nicotine patch (5) Pulmonary nodules Current Visit: Yes Status: Acute Assessment and plan: Chest ct showed 2 right upper lobe pulmonary nodules 9mm each follow up with pcp (6) Lesion of adrenal gland Current Visit: Yes Status: Acute Assessment and plan: Chest Ct also showed b/l adrenal gland lesions 5.5cm each patient will need to followup with his pcp for further evaluation - Time Spent With Patient Total time spent is greater than 50% in coordination of care (as documented) at patient's floor/unit and/or counseling patient:
[2018-02-24] MEDS: Melatonin 3 MG TABLET PO PRN ×2 (00:54→21:39)
[2018-02-24] MEDS: Methocarbamol 750 MG TABLET PO PRN ×4 (01:08→21:39)
[2018-02-24] MEDS: Nicotine 21 MG PATCH.TD24 TD SCH ×2 (01:08→21:39)
[2018-02-24] MEDS: traZODone 50 MG TABLET PO SCH ×2 (01:08→21:38)
[2018-02-24] MEDS: *HR* Heparin 5,000 UNIT/ML VIAL SQ SCH ×2 (05:47→18:09)
[2018-02-24] MEDS ORDERED: Nicotine 21 MG PATCH.TD24 TD SCH (09:00)
[2018-02-24] MEDS: Thiamine (B-1) 100 MG TABLET PO SCH (10:37)
[2018-02-24] MEDS: Vitamin B Complex/Vit C/Vit E 1 EACH TABLET PO SCH (10:37)
[2018-02-24] MEDS: Folic Acid 1 MG TABLET PO SCH (10:37)
--- NOTE | 2018-02-24 11:27 | Internal Med Progress Note ---
Hospitalist Progress Note - Encounter Date of Encounter: 02/24/18 Time of Encounter: 11:28 - Subjective Interval History: Pt denies chest pain or SOB. He does complain of R rib pain. He is requesting is effexor and something for pain. He denies fever, chills, N/V or diarrhea. - Exam Vitals: Temp Pulse Resp BP Pulse Ox 98.0 F 78 17 169/85 94 02/24/18 06:55 02/24/18 06:55 02/24/18 06:55 02/24/18 06:55 02/24/18 06:55 Exam: General: pleasant, without distress HEENT: Head atraumatic, normocephalic, EOMI, PERRL, absent ear discharge or trauma, Moist Mucous Membranes, uvula midline Neck: nontender to palpation, absent lymphadenopathy, Cardiovascualr: Regular rate and rhythm with no murmur, absent gallops or rubs, absent pedal edema, radial pulses 2 out of 4 Lungs: Clear to auscultation bilaterally, not in respiratory distress Abdomen: Soft nontender, nondistended positive bowel sounds, absent hepatomegaly Skin: warm and dry, absent rash, absent open wounds and nodules MSK: absent clubbing, cyanosis, joints without swelling. Right rib wall pain with palpation Neuro: Cranial nerves II through XII intact, UE and LE sensation equal bilaterally, UE and LEstrength 5/5, alert oriented 3, Psych: poor insight and judgment, - Assessment and Plan (1) Adrenal mass Current Visit: Yes Status: Acute Assessment and Plan: Pt with known hx of HTN. Pt noted to have B/L adrenal masses measuring about 5.5 cm. Case discussed with Endocrinology and recommending 24 hr catecholamine plasma renin 24 hour and random Cortisol level Aldosterone level Metanephrine levels Adrenal masses size are concerning because of their sizes. Immediate adrenalectomy is recommended for a hyperfunctioning mass of any size and for nonfunctioning masses >4 cm. Pt will need endocrinology follow up at discharge and possible surgical consult. Will give referral for Dr. Preciado out pt. (2) Alcohol dependence with withdrawal Current Visit: Yes Status: Acute Assessment and Plan: Currently not in withdrawal. ETOH level <10. Will monitor for withdrawal symptoms. (3) Incidental lung nodule, greater than or equal to 8mm Current Visit: Yes Status: Acute Assessment and Plan: Per guideline, Pt will need repeat chest CT in 3 to 6 months. (4) Fall Current Visit: Yes Status: Acute Assessment and Plan: Pt's non contrast CTH negative for acute process. Cervical x ray negative. Ambulating without assistance and with steady gait. (5) COPD (chronic obstructive pulmonary disease) Current Visit: Yes Status: Chronic Assessment and Plan: Not in exacerbation. Will add prn nebs (6) Tobacco abuse Current Visit: Yes Status: Chronic Assessment and Plan: Cessation strongly advised. (7) Hyponatremia Current Visit: No Status: Acute Assessment and Plan: Will check Na level today. DVT Prophylaxis: Heparin - Summary of Assessment and Plan Summary of Assessment and Plan: Mr. Aldana is a 62 year old male presented with chief complaint of right rib pain. Patient reports yesterday he fell in his living room while being intoxicated and her alcohol. Patient fell forward onto some furniture and hit his right ribs, mid upper abdomen and his head and reported that he was unconscious for a couple hours. He lives at home alone. After he woke up he continued to have right rib pain is sharp, worsened with deep inspiration and cough. Patient reports he drinks extensive amount of alcohol: 11x 26 ounces of beer a day. His last drink was this morning, 02/23/2018. - Time Spent with Patient Total time spent is greater than 50% in coordination of care (as documented) at patient's floor/unit and/or counseling patient: 25 - 35 minutes Plan of Care Discussed with: patient Internal Medicine: Result - Labs CBC & Chem 7: 02/23/18 19:20 02/23/18 19:20 - ABG Interpretation ABG results: PT/INR, D-dimer PT 10.9 Seconds (9.4-12.1) 02/23/18 19:20 Consult Discharge Plan - Plan [facility]errals: [facility] [Primary Care Provider[facility] - (2) Alcohol dependence with withdrawal Qualifiers: Complication of substance-induced condition: uncomplicated Qualified Code(s) : F10.230 - Alcohol dependence with withdrawal, uncomplicated (4) Fall Qualifiers: Encounter type: initial encounter Qualified Code(s): W19.XXXA - Unspecified fall, initial encounter (5) COPD (chronic obstructive pulmonary disease) Qualifiers: COPD type: chronic bronchitis Chronic bronchitis type: simple Qualified Code (s): J41.0 - Simple chronic bronchitis
--- NOTE | 2018-02-24 11:32 | Internal Med Progress Note ---
Hospitalist Progress Note - Encounter Date of Encounter: 02/24/18 - Exam Vitals: Temp Pulse Resp BP Pulse Ox 98.0 F 78 17 169/85 94 02/24/18 06:55 02/24/18 06:55 02/24/18 06:55 02/24/18 06:55 02/24/18 06:55 - Time Spent with Patient Total time spent is greater than 50% in coordination of care (as documented) at patient's floor/unit and/or counseling patient: Internal Medicine: Result - Labs CBC & Chem 7: 02/23/18 19:20 02/23/18 19:20 - ABG Interpretation ABG results: PT/INR, D-dimer PT 10.9 Seconds (9.4-12.1) 02/23/18 19:20 Consult Discharge Plan - Plan Referrals: [facility] [Primary Care Provider] -
[2018-02-24] MEDS: *HR* HYDROcodone/Acet 5/325 mg TABLET PO PRN (11:59)
[2018-02-24] MEDS: Venlafaxine XR (24 HR) 75 MG CAP.ER.24H PO SCH (13:25)
--- NOTE | 2018-02-24 17:52 | Electrocardiograph Report ---
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
[2018-02-24] MEDS ORDERED: traZODone 50 MG TABLET PO SCH (21:00)
[2018-02-25] MEDS: *HR* Heparin 5,000 UNIT/ML VIAL SQ SCH (05:33)
[2018-02-25] MEDS: *HR* HYDROcodone/Acet 5/325 mg TABLET PO PRN ×2 (05:34→13:44)
[2018-02-25] MEDS: Thiamine (B-1) 100 MG TABLET PO SCH (07:39)
[2018-02-25] MEDS: Folic Acid 1 MG TABLET PO SCH (07:39)
[2018-02-25] MEDS: Venlafaxine XR (24 HR) 75 MG CAP.ER.24H PO SCH (07:39)
[2018-02-25] MEDS: Vitamin B Complex/Vit C/Vit E 1 EACH TABLET PO SCH (07:40)
[2018-02-25] MEDS: Methocarbamol 750 MG TABLET PO PRN (09:55)
--- NOTE | 2018-02-25 11:00 | Internal Med Progress Note ---
Hospitalist Progress Note - Encounter Date of Encounter: 02/25/18 Time of Encounter: 09:00 - Subjective Interval History: Patient was admitted d/t fall and concerns for alcohol withdrawal s/s. Further review of lab work revealed low sodium of 132, Chlorides low @97. CT scan of chest was reviewed and shows emphysematous changes, with 2 9mm non- calcified nodules in the upper right lobe. Ancillary findings of bilateral adrenal mass and lesions, measuring up to 5.5 cm. Surgical consult was made and patient is to f/u with Dr. Flores as outpatient for further evaluation. Will repeat CT chest in 6 months to evaluate stability of pulmonary nodules. CT of cervical spine was negative for any acute changes . - Exam Vitals: Temp Pulse Resp BP Pulse Ox 98.0 F 64 17 160/92 93 02/25/18 07:57 02/25/18 07:57 02/25/18 07:57 02/25/18 07:57 02/25/18 07:57 Exam: no acute distress, back to baseline , will discharge to home today with out patient f/u with Dr. Flores - Assessment and Plan (1) COPD (chronic obstructive pulmonary disease) Current Visit: Yes Status: Chronic Assessment and Plan: Denies dyspnea , continues with feelings of shortness of breath, cough, wheezing , chronic , d/t nursing home hx of smoking Discussed quitting smoking after discharge. Not willing at this time (2) Tobacco abuse Current Visit: Yes Status: Chronic Assessment and Plan: Advised and encouraged to quit smoking (3) Alcohol dependence with withdrawal Current Visit: Yes Status: Acute Assessment and Plan: Discussed alcohol cessation , encouraged to attend AA/DA routinely. (4) Fall Current Visit: Yes Status: Acute Assessment and Plan: Continues with MSK pain and discomfort right lateral ribs. no bruising noted. Advised use of home Tylenol and ice upon discharge (5) Pulmonary nodules Current Visit: Yes Status: Acute Assessment and Plan: 9mm nodules noted per CT on 02/23/2018 non-calcified right upper lobe x 2 . Will have f/u CT scan in 6 months to check for stability (6) Lesion of adrenal gland Current Visit: Yes Status: Acute Assessment and Plan: CT scan chest positive for ancillary findings of bilateral adrenal gland lesion measuring up to 5.5cm. Surgical consult was completed with Dr. Flores . Patient is to f/u with Dr. Flores on an outpatient basis. - Summary of Assessment and Plan Summary of Assessment and Plan: Mr. Aldana is a 62 year old male presented with chief complaint of right rib pain. Patient reports he fell in his living room while being intoxicated; alcohol. Patient fell forward onto some furniture and hit his right ribs, mid upper abdomen and his head and reported that he was unconscious for a couple hours. He lives at home alone. After he woke up he continued to have right rib pain is sharp, worsened with deep inspiration and cough. Patient reports he drinks extensive amount of alcohol: 11x 26 ounces of beer a day. His last drink was 02/23/2018. Patient was admitted d/t fall and concerns for alcohol withdrawal s/s. Further review of lab work revealed low sodium of 132, Chlorides low @97. CT scan of chest was reviewed and shows emphysematous changes, with 2 9mm non- calcified nodules in the upper right lobe. Ancillary findings of bilateral adrenal mass and lesions, measuring up to 5.5 cm. Surgical consult was made and patient is to f/u with Dr. Flores as outpatient for further evaluation. Will repeat CT chest in 6 months to evaluate stability of pulmonary nodules. CT of cervical spine was negative for any acute changes . Patient has returned to base line, and is willing to be discharged today, with f /u with Dr. Flores for sugical consult as outpatient. Will discharge home today - Time Spent with Patient Total time spent is greater than 50% in coordination of care (as documented) at patient's floor/unit and/or counseling patient: less than 15 minutes Plan of Care Discussed with: patient Internal Medicine: Result - Labs CBC & Chem 7: 02/23/18 19:20 02/23/18 19:20 - ABG Interpretation ABG results: PT/INR, D-dimer PT 10.9 Seconds (9.4-12.1) 02/23/18 19:20 Consult Discharge Plan - Plan Instructions: Chest Pain (DC), Fall Prevention (DC) Referrals: Tj Flores MD [Partnered Physician] - [facility]Primary Care Provider[facility] - (To schedule with Dr. Flores Surgical consult regarding adrenal mass ) (1) COPD (chronic obstructive pulmonary disease) Qualifiers: COPD type: chronic bronchitis Chronic bronchitis type: mucopurulent Qualified Code(s): J41.1 - Mucopurulent chronic bronchitis (3) Alcohol dependence with withdrawal Qualifiers: Complication of substance-induced condition: uncomplicated Qualified Code(s) : F10.230 - Alcohol dependence with withdrawal, uncomplicated (4) Fall Qualifiers: Encounter type: initial encounter Qualified Code(s): W19.XXXA - Unspecified fall, initial encounter
--- NOTE | 2018-02-25 11:03 | Discharge Summary ---
- NOTES TO OUTPATIENT PROVIDER Notes to Outpatient Provider: Dr. Flores Orders not resulted at time of discharge: Pending orders 02/24/18 11:23 Catecholamine,Ur [place] or 24hr Routine Cortisol Fr,Ur Random or 24hr Routine 02/24/18 11:36 Aldosterone, Blood Routine Metanephrines, Plasma (Free) Routine Renin, Activity Routine Date of Encounter: 02/25/18 Time of Encounter: 11:01 - Discharge Diagnosis (1) Fall Priority: Primary Status: Acute Assessment and Plan: 62M presents with cc of right chest wall pain after fall while under intoxicaion of alcohol Ct chest, cervical spine and head negative continues to have right chest wall pain likley MSK lidocaine patch applied. Comments: Reports that he was haging a wall clock, while intoxicated, lost his balance and fell striking a coffee table and bedside stand, on the right rib and lateral back area. Qualifiers: Encounter type: initial encounter Qualified Code(s): W19.XXXA - Unspecified fall, initial encounter (2) COPD (chronic obstructive pulmonary disease) Priority: Primary Status: Chronic Assessment and Plan: hx of copd not in exacerbation continue home meds Comments: Discussed continuation of smoking sensation. Encouraged to quit smoking d/t 9 mm lung nodules , and emphysema, per CT scan on 02/23/2018. Qualifiers: (3) Pulmonary nodules Priority: Secondary Status: Acute Assessment and Plan: 9mm nodules noted per CT on 02/23/2018 non-calcified right upper lobe x 2 . Will have f/u CT scan in 6 months to check for stability (4) Lesion of adrenal gland Priority: Secondary Status: Acute Assessment and Plan: CT scan chest positive for ancillary findings of bilateral adrenal gland lesion measuring up to 5.5cm. Surgical consult was completed with Dr. Flores . Patient is to f/u with Dr. Flores on an outpatient basis. (5) Alcohol dependence with withdrawal Priority: Secondary Status: Acute Assessment and Plan: Discussed alcohol cessation , encouraged to attend AA/DA routinely. Qualifiers: Complication of substance-induced condition: uncomplicated Qualified Code(s ): F10.230 - Alcohol dependence with withdrawal, uncomplicated (6) Tobacco abuse Priority: Secondary Status: Chronic Assessment and Plan: Advised and encouraged to quit smoking Hospital course: Mr. Aldana is a 62 year old male whom was admitted from ED on 02/23/2018 after sustaining a fall while hanging a wall clock. States he lost his balance falling and striking his right ribs, and lower abdomen on 2 pieces of furniture side (table and TV stand). When was admitted to patient was found to be intoxicated with alcohol level of < 10. Well known history of alcohol dependence. Patient was admitted d/t fall and concerns for alcohol withdrawal s /s. Further review of lab work revealed low sodium of 132, Chlorides low @97. CT scan of chest was reviewed and shows emphysematous changes, with 2 9mm non- calcified nodules in the upper right lobe. Ancillary findings of bilateral adrenal mass and lesions, measuring up to 5.5 cm. Surgical consult was made and patient is to f/u with Dr. Flores as outpatient for further evaluation. Will repeat CT chest in 6 months to evaluate stability of pulmonary nodules. CT of cervical spine was negative for any acute changes . Hospital course was uneventful. Will discharge home with current medications as listed. Referral for outpatient consult with Dr. Flores kathe be placed and patient is to repeat CT chest in 6 months. Encouraged to quit smoking,and to stop Alcohol use and abuse, will give information on AA/DA and encourage to attend regular meetings. Discharge discussed with: patient Time spent discussing smoking cessation with patient: 3 to 10 minutes - Time Spent with Patient Total time spent providing and/or coordinating discharge services: Less than 30 minutes - Discharge Medications Home Medications: Cholecalciferol (Vitamin D3) [Vitamin D3] 1,200 units PO DAILY 01/02/17 [History ] Methocarbamol [Robaxin-750] 750 mg PO QID PRN 01/02/17 [History] Omeprazole [PriLOSEC] 20 mg PO BID 01/02/17 [History] Venlafaxine XR (24 HR) [Effexor Xr] 150 mg PO DAILY 01/02/17 [History] Albuterol Neb [AccuNeb] 1 aerosol IH Q4H PRN 03/05/17 [History] Albuterol Sulfate [Albuterol Inhaler] 2 puff IH Q4H PRN 03/05/17 [History] Budesonide/Formoterol 80/4.5 [Symbicort 80/4.5] 2 puff IH BID 03/05/17 [History ] Tiotropium [Spiriva] 2 puff IH DAILY 03/05/17 [History] Trazodone HCl 100 mg PO HS 02/23/18 [History] Folic Acid 1 mg PO DAILY tablet 02/25/18 [Rx] Nicotine Patch [Nicoderm] 21 mg TD HS patch.td24 02/25/18 [Rx] Thiamine (B-1) [Vitamin B-1] 100 mg PO DAILY tablet 02/25/18 [Rx] Vitamin B Complex/Vit C/Vit E [Stresstab] 1 each PO DAILY tablet 02/25/18 [Rx] Allergies/Adverse Reactions: 3 Allergy/AdvReac Type Severity Reaction Status Date / Time No Known Allergies Allergy Verified 02/23/18 21:42 Date of admission: 02/23/18 21:25 [facility] care [facility]: [facility] Consults: 02/25/18 10:50 Consult to Surgery [CONS] Routine Consulting Provider: [facility] Reason for Consult: 5.5 cm mass bilateral adrenasl Time Notified: 10:56 Call Completed: Yes To follow up with Dr. Flores as outpatient Discharging clinician: Chinyere Martínez Anticipated date of discharge: 02/25/18 - Constitutional Vitals: Temp Pulse Resp BP Pulse Ox 98.0 F 64 17 160/92 93 02/25/18 07:57 02/25/18 07:57 02/25/18 07:57 02/25/18 07:57 02/25/18 07:57 General appearance: Present: A&O X 3, no acute distress Exam: No acute distress today, denies, dizziness, chest pain, swelling of feet or legs , anxiety, visual hallucination. Continues to have CC of right lateral chest wall pain with movement and deep breath. - Head Head exam: Present: atraumatic, normocephalic - Eye Eye exam: Present: PERRL, conjuntiva pink, sclera anicteric Pupils: Present: PERRL - Neck Neck exam general surgery: Present: supple, trachea midline. Absent: lymphadenopathy - Respiratory Respiratory exam: Present: wheezes Additional comments: mildly diminished breath sounds bilateral bases - Cardiovascular Cardiovascular exam: Present: RRR, +S1, +S2. Absent: diastolic murmur, gallop, rubs, systolic murmur - GI/Abdominal GI/Abdominal exam: Present: normal bowel sounds Additional comments: mild right lower quad tenderness with palp, with noted bruising from previous fall . no mass flluid shift, wave, or rebound was noted - Extremities Exam Extremities exam: Present: warm, radial pulses palpable and symmetrical. Absent : calf tenderness, cyanotic, pedal edema - Back Exam Back exam: Present: full ROM, tenderness Additional comments: positive right lateral tenderness with palp, intercostal muscles, no s/s of bruising. - Neurological Exam Neurological exam: Present: CN II-XII intact, oriented X3, no focal deficits. Absent: pronater drift, facial droop, speech deficit - Skin Skin exam: Present: dry, intact - Patient Status Disposition: Home, Self-Care Condition: Fair Functional capacity at discharge: independent ambulation Overall status at discharge: patient is back to baseline - Discharge Instructions Instructions: Fall Prevention (DC), Chest Pain (DC) Follow Up With: [facility] [Primary Care Provider] - (To schedule with Dr. Flores Surgical consult regarding adrenal mass ) Tj Flores MD [Partnered Physician] - - Diet and Activity Activity: resume usual activities as tolerated Diet: regular diet
[2018-02-25 14:04] VITALS: BP 142/82
[2018-02-26 20:41] LABS: Metanephrine, Plasma 0.14 nmol/L (0.00-0.49)
[2018-03-01 13:09] LABS: Urine Collection Duration 24 hr; Urine Collection Volume 2819 mL
[2018-03-02 13:20] LABS: Urine Creatinine mg/d 846 mg/d (800-2100)
== END 2018-02-25 14:34 | disposition home or self-care (01) ==
LOC: EMEROOARM 19:09 → 3BNU 19:09
PROVIDERS: ADMIT Family Medicine; ATTEND Family Medicine

== ENCOUNTER 2018-07-26 13:55 | Inpatient (IN) ==
[2018-07-26 16:28] LABS: Bacteria,Urine None Seen per hpf (None-Few); Bilirubin,Urine Moderate (Negative); Blood,Urine Trace (Negative); Clarity,Urine Clear (Clear); Color,Urine Yellow (Yellow); Glucose,Urine (UA) Normal (Normal); Hyaline Casts,Urine None Seen per lpf (None-Few); Ketones,Urine 40 mg/dL (Negative); Leukocyte Esterase,Urine Negative (Negative); Nitrite,Urine Negative (Negative); PH,Urine 5.5 pH Units (5.0-8.0); Protein,Urine Negative (Neg-Trace); RBC,Urine 0-3 per hpf (0-3); Specific Gravity,Urine 1.022 (1.010-1.025); Squamous Epithelial Cell,Urine Moderate per lpf (None-Few); Urobilinogen,Urine Normal (Normal); WBC,Urine 0-3 per hpf (0-3)
[2018-07-26] MEDS ORDERED: 0.9 % Sodium Chloride 1,000 ML IVC ONE (16:39)
[2018-07-26] MEDS ORDERED: *HR* Morphine 2 MG/ML SYRINGE IVP ONE (16:39)
[2018-07-26] MEDS ORDERED: Ondansetron 4 MG/2 ML VIAL IVP ONE (16:39)
--- NOTE | 2018-07-26 16:42 | Emergency Department Note ---
Disposition Clinical Impression: Hyponatremia, Adrenal mass Abdominal pain Qualifiers: Abdominal location: generalized Qualified Code(s): R10.84 - Generalized abdominal pain Disposition: Admitted As Inpatient Condition: Fair Time of Disposition: 18:19 Abdominal Pain HPI - General Chief Complaint: ED Abdominal Pain Stated Complaint: Weakness Time Seen by Provider: 07/26/18 16:15 Nursing Notes Reviewed: Yes Vital Signs Reviewed: Yes - History of Present Illness HPI Narrative: 63-year-old male who presents from a urology office with complaints of abdominal pain, nausea, and generalized weakness, worsening over the last few days. He was diagnosed with cancer, likely primary lung in late June of this year at the [facility]. He was scheduled to with the urologist today and was told to come to the emergency department for further evaluation. He states he has been unable to eat or drink for the past several days and feels very weak. He notes significant pain which is keeping him awake at night. The pain is worse in his lower abdomen. He otherwise denies any shortness of breath, chest pain, fever, chills, diarrhea, dysuria, hematuria. Pain Scale: 8 - Related Data Home Medications Medication Instructions Recorded Confirmed Cholecalciferol (Vitamin D3) 1,200 units PO DAILY 01/02/17 02/23/18 [Vitamin D3] Methocarbamol [Robaxin-750] 750 mg PO QID PRN 01/02/17 02/23/18 Omeprazole [PriLOSEC] 20 mg PO BID 01/02/17 02/23/18 Venlafaxine XR (24 HR) [Effexor Xr] 150 mg PO DAILY 01/02/17 02/23/18 Albuterol Neb [AccuNeb] 1 aerosol IH Q4H PRN 03/05/17 02/23/18 Albuterol Sulfate [Albuterol 2 puff IH Q4H PRN 03/05/17 02/23/18 Inhaler] Budesonide/Formoterol 80/4.5 2 puff IH BID 03/05/17 02/23/18 [Symbicort 80/4.5] Tiotropium [Spiriva] 2 puff IH DAILY 03/05/17 02/23/18 Trazodone HCl 100 mg PO HS 02/23/18 02/23/18 Previous Rx's Medication Instructions Recorded Folic Acid 1 mg PO DAILY tablet 02/25/18 Nicotine Patch [Nicoderm] 21 mg TD HS patch.td24 02/25/18 Thiamine (B-1) [Vitamin B-1] 100 mg PO DAILY tablet 02/25/18 Vitamin B Complex/Vit C/Vit E 1 each PO DAILY tablet 02/25/18 [Stresstab] Allergies Allergy/AdvReac Type Severity Reaction Status Date / Time No Known Allergies Allergy Verified 02/23/18 21:42 Review of Systems: In addition to that documented in the HPI above, the additional ROS was obtained: General: Denies fever. Denies chills. ADMITS weight loss. Denies behavioral change. Eyes: Denies visual changes. ENT: Denies nasal congestion. Denies sore throat. Denies hearing change. Cardio: Denies chest pain. Denies palpitations. Respiratory: Denies cough. Denies shortness of breath. Denies wheezing. GI: ADMITS nausea, DENIES vomiting or diarrhea. Denies hematochezia or melena. ADMITS abdominal pain. ADMITS constipation. : Denies dysuria, hematuria, or urinary retention MSK: ADMITS back pain. Denies joint swelling. Neuro: Denies slurred speech. ADMITS numbness or tingling. Denies focal weakness. Denies headache. Denies loss of consciousness. Psych: Denies mood changes. All systems ED: reviewed and negative except as stated. Abdominal Pain PMH - Past Medical History Medical history: Reports: asthma, COPD, GERD Male Surgical History: Reports: no surgical history, orthopedic, other Psychiatric history: Reports: no psych history - Social History Smoking status: Current every day smoker Alcohol use: Reports: heavy Drug use: Reports: none Physical Exam General: Conversant. No apparent distress. Follow commands. Appears stated age. Cachectic. Neck: No JVD. Trachea midline. Neck supple. Eyes: PERRL. No scleral icterus. HENT: Normocephalic and atraumatic. Moist mucus membranes. Cardiovascular: Regular rate and rhythm. Normal S1 and S2. No murmurs appreciated. Normal capillary refill. Extremities well perfused with 2+ distal pulses bilaterally. No edema. Pulmonary: Normal and equal breath sounds bilaterally, anteriorly and posteriorly. No wheezes, rales, or rhonchi. Not in respiratory distress. Speaks in full sentences. Abdomen: Significant diffuse tenderness, nondistended, No bruits or masses. Mild guarding. Neuro: Alert and oriented x3. No slurred speech. No focal deficits noted. Skin: No rashes noted on visualized skin. Musculoskeletal: No bony abnormalities visualized. Moves all extremities. Psych: Normal mood. Pleasant. Makes appropriate eye contact. - General Limitations: no limitations Course Vital Signs Temperature 97.4 F L 07/26/18 14:49 Pulse Rate 92 07/26/18 14:49 Respiratory Rate 16 07/26/18 14:49 Blood Pressure 93/71 07/26/18 14:49 O2 Sat by Pulse Oximetry 99 07/26/18 14:49 Temperature 97.4 F L 07/26/18 16:33 Pulse Rate 80 07/26/18 18:36 Respiratory Rate 18 07/26/18 18:36 Blood Pressure 103/67 07/26/18 18:36 O2 Sat by Pulse Oximetry 100 07/26/18 18:36 Oxygen Delivery Oxygen Delivery Room Air Abdominal Pain - MDM Narrative Medical decision making narrative: 63-year-old male with history of lung cancer and adrenal masses who presents the emergency department from urologist office complaining of abdominal pain. On initial exam the patient's abdomen is diffusely tender. His vital signs show slight hypertension but no tachycardia or fever. He does note weakness to bilateral lower extremities but neuro exam shows no focal deficits. Obtained basic lab work including CBC, BMP, troponin, EKG, CT lumbar spine and CT abdomen pelvis. Lab work does show evidence of hyponatremia which could explain his weakness. Pain well controlled here with IV morphine and zofran Otherwise CT abdomen shows no evidence of small bowel obstruction or other acute findings. CT lumbar spine shows no evidence of osteolytic lesions. EKG unremarkable. 1 L fluid bolus of normal saline given and initiated 125 mL per hour for hyponatremia. Discussed case with on-call hospitalist Dr. Trinh who agrees with plan for admission and accepts the patient to the inpatient service. Patient agrees with and understands course of treatment plan including plan for admission. All questions answered. - Medical Records Medical records reviewed: Yes I reviewed the patient's medical records. - Lab Data Lab results reviewed: Yes I reviewed the patient's lab results. Result diagrams: 07/26/18 17:18 07/26/18 17:18 Lab Results 07/26/18 07/26/18 07/26/18 Range/Units 15:45 17:18 17:18 WBC 10.2 (4.3-11.1) K/mcL RBC 4.66 (4.19-5.50) M/mcL Hgb 13.3 (12.9-16.9) g/dL Hct 38.1 (37.5-50.1) % MCV 81.8 L (83.0-100.0) fL MCH 28.5 (28.0-33.3) pg MCHC 34.9 (31.6-35.5) g/dL RDW 15.5 H (11.5-14.5) % Plt Count 401 H (140-400) K/mcL MPV 10.5 (9.4-12.4) fL Immature Gran % 0.7 (0-4) % Seg Neutrophils % 69.7 % Lymphocytes % 17.9 % Monocytes % 10.2 % Eosinophils % 1.0 % Basophils % 0.5 % Neutrophils # 7.1 (1.6-8.9) K/mcL Lymphocytes # 1.8 (0.6-4.6) K/mcL Monocytes # 1.0 (0.0-1.3) K/mcL Eosinophils # 0.1 (0.0-0.6) K/mcL Basophils # 0.1 (0.0-0.2) K/mcL Sodium 112 L* (136-145) mEq/L Potassium 5.1 (3.5-5.1) mEq/L Chloride 77 L (98-107) mEq/L Carbon Dioxide 22 L (23-29) mEq/L BUN 14 (8-23) mg/dL Creatinine 0.87 (0.70-1.30) mg/dL Est GFR ( Amer) > 60 (> 60) Est GFR (Non-Af Amer) > 60 (> 60) BUN/Creatinine Ratio 16 (6-26) Glucose 67 L (70-105) mg/dL Calculated Osmolality 233 L (280-300) Lactic Acid (0.5-2.2) mmol/L Calcium 10.1 (8.6-10.3) mg/dL Magnesium 1.7 (1.6-2.6) mg/dL Urine Color Yellow (Yellow) Urine Clarity Clear (Clear) Urine pH 5.5 (5.0-8.0) pH Units Ur Specific [place] 1.022 (1.010-1.025) Urine Protein Negative (Neg-Trace) mg/dL Urine Glucose (UA) Normal (Normal) mg/dL Urine Ketones 40 H (Negative) mg/dL Urine Blood Trace H (Negative) Urine Nitrite Negative (Negative) Urine Bilirubin Moderate H (Negative) Urine Urobilinogen Normal (Normal) mg/dL Ur Leukocyte Esterase Negative (Negative) Urine Microscopic RBC 0-3 (0-3) per hpf Urine Microscopic WBC 0-3 (0-3) per hpf Ur Squamous Epith Cells Moderate H (None-Few) per lpf Urine Bacteria None Seen (None-Few) per hpf Hyaline Casts None Seen (None-Few) per lpf Ur Culture Indicated? NO (NO) 07/26/18 Range/Units 17:18 WBC (4.3-11.1) K/mcL RBC (4.19-5.50) M/mcL Hgb (12.9-16.9) g/dL Hct (37.5-50.1) % MCV (83.0-100.0) fL MCH (28.0-33.3) pg MCHC (31.6-35.5) g/dL RDW (11.5-14.5) % Plt Count (140-400) K/mcL MPV (9.4-12.4) fL Immature Gran % (0-4) % Seg Neutrophils % % Lymphocytes % % Monocytes % % Eosinophils % % Basophils % % Neutrophils # (1.6-8.9) K/mcL Lymphocytes # (0.6-4.6) K/mcL Monocytes # (0.0-1.3) K/mcL Eosinophils # (0.0-0.6) K/mcL Basophils # (0.0-0.2) K/mcL Sodium (136-145) mEq/L Potassium (3.5-5.1) mEq/L Chloride (98-107) mEq/L Carbon Dioxide (23-29) mEq/L BUN (8-23) mg/dL Creatinine (0.70-1.30) mg/dL Est GFR ( Amer) (> 60) Est GFR (Non-Af Amer) (> 60) BUN/Creatinine Ratio (6-26) Glucose (70-105) mg/dL Calculated Osmolality (280-300) Lactic Acid 1.5 (0.5-2.2) mmol/L Calcium (8.6-10.3) mg/dL Magnesium (1.6-2.6) mg/dL Urine Color (Yellow) Urine Clarity (Clear) Urine pH (5.0-8.0) pH Units Ur Specific [place] (1.010-1.025) Urine Protein (Neg-Trace) mg/dL Urine Glucose (UA) (Normal) mg/dL Urine Ketones (Negative) mg/dL Urine Blood (Negative) Urine Nitrite (Negative) Urine Bilirubin (Negative) Urine Urobilinogen (Normal) mg/dL Ur Leukocyte Esterase (Negative) Urine Microscopic RBC (0-3) per hpf Urine Microscopic WBC (0-3) per hpf Ur Squamous Epith Cells (None-Few) per lpf Urine Bacteria (None-Few) per hpf Hyaline Casts (None-Few) per lpf Ur Culture Indicated? (NO) - Radiology Data Radiology results reviewed: Yes I reviewed the patient's radiology results. Abdomen/Pelvis CT 07/26/18 16:33 IMPRESSION: Bilateral adrenal gland metastases. Suspected mild fatty infiltration of the liver. D/ / Ruma Lange Cha, MD / Ruma Lange Cha, MD Interpreting Provider: Ruma Lange Cha, MD Lumbar Spine CT 07/26/18 16:33 IMPRESSION: No destructive osseous lesion in the lumbar spine. Suspect moderate-severe degenerative canal stenosis at L4-5 and L5-S1. There is significant multilevel neural foraminal narrowing. D/ / Herber Gates MD / Herber Gates MD Interpreting Provider: Herber Gates MD Chest X-Ray 07/26/18 16:35 IMPRESSION: No acute findings. D/ / Herber Gates MD / Herber Gates MD Interpreting Provider: Herber Gates MD - EKG Data EKG attestation: Yes I reviewed and interpreted this EKG. EKG results narrative: Normal sinus rhythm rate of 93. Normal axis. MS depression but no evidence of ST elevations. MS 146, QRS 103, QTC 345, QTC 430.
--- NOTE | 2018-07-26 16:54 | Emergency Department Note ---
Disposition Clinical Impression: Hyponatremia, Adrenal mass Abdominal pain Qualifiers: Abdominal location: generalized Qualified Code(s): R10.84 - Generalized abdominal pain Disposition: Admitted As Inpatient Condition: Fair General Adult HPI - General Chief complaint: ED Abdominal Pain Stated complaint: Weakness Time Seen by Provider: 07/26/18 16:15 Source: patient Limitations: no limitations Nursing Notes Reviewed: Yes Vital Signs Reviewed: Yes - History of Present Illness Pain Scale: 8 - Related Data Home Medications Medication Instructions Recorded Confirmed Cholecalciferol (Vitamin D3) 1,200 units PO DAILY 01/02/17 02/23/18 [Vitamin D3] Methocarbamol [Robaxin-750] 750 mg PO QID PRN 01/02/17 02/23/18 Omeprazole [PriLOSEC] 20 mg PO BID 01/02/17 02/23/18 Venlafaxine XR (24 HR) [Effexor Xr] 150 mg PO DAILY 01/02/17 02/23/18 Albuterol Neb [AccuNeb] 1 aerosol IH Q4H PRN 03/05/17 02/23/18 Albuterol Sulfate [Albuterol 2 puff IH Q4H PRN 03/05/17 02/23/18 Inhaler] Budesonide/Formoterol 80/4.5 2 puff IH BID 03/05/17 02/23/18 [Symbicort 80/4.5] Tiotropium [Spiriva] 2 puff IH DAILY 03/05/17 02/23/18 Trazodone HCl 100 mg PO HS 02/23/18 02/23/18 Previous Rx's Medication Instructions Recorded Folic Acid 1 mg PO DAILY tablet 02/25/18 Nicotine Patch [Nicoderm] 21 mg TD HS patch.td24 02/25/18 Thiamine (B-1) [Vitamin B-1] 100 mg PO DAILY tablet 02/25/18 Vitamin B Complex/Vit C/Vit E 1 each PO DAILY tablet 02/25/18 [Stresstab] Allergies Allergy/AdvReac Type Severity Reaction Status Date / Time No Known Allergies Allergy Verified 02/23/18 21:42 Past Medical History - Past Medical History Medical history: Reports: asthma, COPD, GERD Psychiatric history: Reports: anxiety, depression - Social History Smoking Status: Current every day smoker Smokeless Tobacco Status: No Alcohol use: Reports: heavy Drug use: Reports: none Physical Exam - General Limitations: no limitations General appearance: alert Course Vital Signs Temperature 97.4 F L 07/26/18 14:49 Pulse Rate 92 07/26/18 14:49 Respiratory Rate 16 07/26/18 14:49 Blood Pressure 93/71 07/26/18 14:49 O2 Sat by Pulse Oximetry 99 07/26/18 14:49 Temperature 97.6 F 07/26/18 19:57 Pulse Rate 82 07/26/18 19:57 Respiratory Rate 16 07/26/18 19:57 Blood Pressure 131/103 07/26/18 19:57 O2 Sat by Pulse Oximetry 98 07/26/18 19:57 Oxygen Delivery Oxygen Delivery Room Air Medical Decision Making - Lab Data Result diagrams: 07/26/18 17:18 07/26/18 17:18 Lab Results 07/26/18 07/26/18 07/26/18 Range/Units 15:45 17:18 17:18 WBC 10.2 (4.3-11.1) K/mcL RBC 4.66 (4.19-5.50) M/mcL Hgb 13.3 (12.9-16.9) g/dL Hct 38.1 (37.5-50.1) % MCV 81.8 L (83.0-100.0) fL MCH 28.5 (28.0-33.3) pg MCHC 34.9 (31.6-35.5) g/dL RDW 15.5 H (11.5-14.5) % Plt Count 401 H (140-400) K/mcL MPV 10.5 (9.4-12.4) fL Immature Gran % 0.7 (0-4) % Seg Neutrophils % 69.7 % Lymphocytes % 17.9 % Monocytes % 10.2 % Eosinophils % 1.0 % Basophils % 0.5 % Neutrophils # 7.1 (1.6-8.9) K/mcL Lymphocytes # 1.8 (0.6-4.6) K/mcL Monocytes # 1.0 (0.0-1.3) K/mcL Eosinophils # 0.1 (0.0-0.6) K/mcL Basophils # 0.1 (0.0-0.2) K/mcL Sodium 112 L* (136-145) mEq/L Potassium 5.1 (3.5-5.1) mEq/L Chloride 77 L (98-107) mEq/L Carbon Dioxide 22 L (23-29) mEq/L BUN 14 (8-23) mg/dL Creatinine 0.87 (0.70-1.30) mg/dL Est GFR ( Amer) > 60 (> 60) Est GFR (Non-Af Amer) > 60 (> 60) BUN/Creatinine Ratio 16 (6-26) Glucose 67 L (70-105) mg/dL Calculated Osmolality 233 L (280-300) Lactic Acid (0.5-2.2) mmol/L Calcium 10.1 (8.6-10.3) mg/dL Magnesium 1.7 (1.6-2.6) mg/dL Urine Color Yellow (Yellow) Urine Clarity Clear (Clear) Urine pH 5.5 (5.0-8.0) pH Units Ur Specific [place] 1.022 (1.010-1.025) Urine Protein Negative (Neg-Trace) mg/dL Urine Glucose (UA) Normal (Normal) mg/dL Urine Ketones 40 H (Negative) mg/dL Urine Blood Trace H (Negative) Urine Nitrite Negative (Negative) Urine Bilirubin Moderate H (Negative) Urine Urobilinogen Normal (Normal) mg/dL Ur Leukocyte Esterase Negative (Negative) Urine Microscopic RBC 0-3 (0-3) per hpf Urine Microscopic WBC 0-3 (0-3) per hpf Ur Squamous Epith Cells Moderate H (None-Few) per lpf Urine Bacteria None Seen (None-Few) per hpf Hyaline Casts None Seen (None-Few) per lpf Ur Culture Indicated? NO (NO) 07/26/18 Range/Units 17:18 WBC (4.3-11.1) K/mcL RBC (4.19-5.50) M/mcL Hgb (12.9-16.9) g/dL Hct (37.5-50.1) % MCV (83.0-100.0) fL MCH (28.0-33.3) pg MCHC (31.6-35.5) g/dL RDW (11.5-14.5) % Plt Count (140-400) K/mcL MPV (9.4-12.4) fL Immature Gran % (0-4) % Seg Neutrophils % % Lymphocytes % % Monocytes % % Eosinophils % % Basophils % % Neutrophils # (1.6-8.9) K/mcL Lymphocytes # (0.6-4.6) K/mcL Monocytes # (0.0-1.3) K/mcL Eosinophils # (0.0-0.6) K/mcL Basophils # (0.0-0.2) K/mcL Sodium (136-145) mEq/L Potassium (3.5-5.1) mEq/L Chloride (98-107) mEq/L Carbon Dioxide (23-29) mEq/L BUN (8-23) mg/dL Creatinine (0.70-1.30) mg/dL Est GFR ( Amer) (> 60) Est GFR (Non-Af Amer) (> 60) BUN/Creatinine Ratio (6-26) Glucose (70-105) mg/dL Calculated Osmolality (280-300) Lactic Acid 1.5 (0.5-2.2) mmol/L Calcium (8.6-10.3) mg/dL Magnesium (1.6-2.6) mg/dL Urine Color (Yellow) Urine Clarity (Clear) Urine pH (5.0-8.0) pH Units Ur Specific [place] (1.010-1.025) Urine Protein (Neg-Trace) mg/dL Urine Glucose (UA) (Normal) mg/dL Urine Ketones (Negative) mg/dL Urine Blood (Negative) Urine Nitrite (Negative) Urine Bilirubin (Negative) Urine Urobilinogen (Normal) mg/dL Ur Leukocyte Esterase (Negative) Urine Microscopic RBC (0-3) per hpf Urine Microscopic WBC (0-3) per hpf Ur Squamous Epith Cells (None-Few) per lpf Urine Bacteria (None-Few) per hpf Hyaline Casts (None-Few) per lpf Ur Culture Indicated? (NO) Critical Care Time Critical Care Time: Yes Total Critical Care Time: 35 Attestation: Critical care performed: Time is exclusive of separately billable procedures. Time includes: direct patient care, patient reassessment, coordination of patient care, interpretation of data (laboratory data, radiology data, and respiratory data), review of patient's medical records, medical consultation and documentation of patient care. Procedures included in critical care time: Procedures excluded from critical care time: Attestation Statement - Attestation Attestation: I examined this patient and my medical decision-making was reviewed with the Resident Physician. I agree with the documented findings, disposition and treatment plan as described except to the extent set forth below. Patient presents to the ED with a chief complaint of weakness. Decreased appetite. Patient was recently seen at the [facility] and diagnosed with metastatic cancer. He states he has not had an appetite. His been nauseated. Unable to eat. Losing weight. Was sent for follow-up with urology. They sent him here. He has not followed up with oncology yet. Heart exam he is cachectic. Flat affect. Dry mucous membranes. Lungs clear. Abdomen soft with diffuse tenderness. Plan. Patient's workup shows a hyponatremia. Normal mental status. He has not had a seizure. Likely hypovolemic. Patient will be admitted.
[2018-07-26 17:40] LABS: Basophils # 0.1 K/mcL (0.0-0.2); Basophils % 0.5 %; Eosinophils # 0.1 K/mcL (0.0-0.6); Hematocrit 38.1 % (37.5-50.1); Hemoglobin 13.3 g/dL (12.9-16.9); Immature Granulocytes % 0.7 % (0-4); Lymphocytes # 1.8 K/mcL (0.6-4.6); Lymphocytes % 17.9 %; Mean Corpuscular HGB Conc 34.9 g/dL (31.6-35.5); Mean Corpuscular Hemoglobin 28.5 pg (28.0-33.3); Mean Corpuscular Volume 81.8 fL (83.0-100.0); Mean Platelet Volume 10.5 fL (9.4-12.4); Monocytes % 10.2 %; Neutrophils # 7.1 K/mcL (1.6-8.9); Platelet Count 401 K/mcL (140-400); Red Blood Count 4.66 M/mcL (4.19-5.50); Red Cell Distribution Width 15.5 % (11.5-14.5); Segmented Neutrophils % 69.7 %
[2018-07-26 18:01] LABS: BUN/Creatinine Ratio 16 (6-26); Blood Urea Nitrogen 14 mg/dL (8-23); Calcium 10.1 mg/dL (8.6-10.3); Carbon Dioxide 22 mEq/L (23-29); Chloride 77 mEq/L (98-107); Glucose 67 mg/dL (70-105); Magnesium 1.7 mg/dL (1.6-2.6); Osmolality,Calculated 233 (280-300); Potassium 5.1 mEq/L (3.5-5.1); Sodium 112 mEq/L (136-145); eGFR For Non-African Americans > 60 (> 60)
[2018-07-26] MEDS ORDERED: 0.9 % Sodium Chloride 1,000 ML IVC SCH (18:15)
[2018-07-26] MEDS ORDERED: Ipratropium/Albuterol Neb 3 ML IH ONE (20:31)
[2018-07-26] MEDS ORDERED: *HR* LORazepam 2 MG/ML VIAL IVP PRN ×3 (20:42)
[2018-07-26] MEDS ORDERED: Methocarbamol 750 MG TABLET PO PRN (20:44)
--- NOTE | 2018-07-26 20:51 | Internal Med History&Physical ---
<Justin Mcneil - Last Filed: 07/26/18 22:12> Date of Encounter: 07/26/18 Time of Encounter: 20:51 Internal Medicine - H&P: HPI Chief complaint: abdominal pain, back pain, weakness History of present illness: Mr. Aldana is a 63 year old male who presented to the emergency department today from the urology office with concern for abdominal pain and back pain. Reports from previous documentation states that patient has lung cancer. CT scan of the abdomen and pelvis reveals evidence of bilateral adrenal metastasis. Patient is unaware of those as well. Patient moved to the hospital secondary to hyponatremia. He had a sodium of 112 in the emergency department. He was given a liter of normal saline bolus. Patient reports recent weight loss of 15 pounds in the last 2 months. He also states that he drinks nine 25 ounce bud ice cans daily. Past Med Surg Social Fam HX - Past Medical History Medical history: asthma, COPD, GERD Additional medical history: recent lung dx Psychiatric history: no psych history - Past Surgical History Surgical History: orthopedic, other Additional surgical history: b/l femer fracture repair. screw to right hip - Social History Smoking Status: Current every day smoker Packs per day: 2 Smokeless Tobacco Status: No Alcohol use: heavy Drug use: none - Family History Father Living Status: Hx Family Cardiac Disorders: Yes (CAD, Bypass) Hx Family Respiratory Disorders: No Hx Family Cancer: No Hx Family GI Disorders: No Hx Family Endocrine Disorder: No Hx Family Neuromuscular Disorders: No Hx Family Neurologic Disorders: Yes (Alzheimers) Hx Family HEENT Disorders: No Hx Family Autoimmune Disorders: No Hx Family Reproductive Disorders: No Hx Family Psychosocial Disorders: No Hx Family Medical Disorders: No Brother Adopted: No Family Member Ethnicity: Non- Living Status: Still Living Hx Family Cardiac Disorders: No Hx Family Respiratory Disorders: No Hx Family Cancer: Yes (bowel) Hx Family GI Disorders: Yes (CA bowels) Hx Family Endocrine Disorder: No Hx Family Neuromuscular Disorders: No Hx Family Neurologic Disorders: No Hx Family HEENT Disorders: No Hx Family Autoimmune Disorders: No Internal Medicine - H&P: Meds Cholecalciferol (Vitamin D3) [Vitamin D3] 1,200 units PO DAILY 01/02/17 [History] Methocarbamol [Robaxin-750] 750 mg PO QID PRN 01/02/17 [History] Omeprazole [PriLOSEC] 20 mg PO BID 01/02/17 [History] Venlafaxine XR (24 HR) [Effexor Xr] 150 mg PO DAILY 01/02/17 [History] Albuterol Neb [AccuNeb] 1 aerosol IH Q4H PRN 03/05/17 [History] Albuterol Sulfate [Albuterol Inhaler] 2 puff IH Q4H PRN 03/05/17 [History] Budesonide/Formoterol 80/4.5 [Symbicort 80/4.5] 2 puff IH BID 03/05/17 [History] Tiotropium [Spiriva] 2 puff IH DAILY 03/05/17 [History] Trazodone HCl 100 mg PO HS 02/23/18 [History] Folic Acid 1 mg PO DAILY tablet 02/25/18 [Rx] Nicotine Patch [Nicoderm] 21 mg TD HS patch.td24 02/25/18 [Rx] Thiamine (B-1) [Vitamin B-1] 100 mg PO DAILY tablet 02/25/18 [Rx] Vitamin B Complex/Vit C/Vit E [Stresstab] 1 each PO DAILY tablet 02/25/18 [Rx] Allergy/AdvReac Type Severity Reaction Status Date / Time No Known Allergies Allergy Verified 02/23/18 21:42 All Systems PM: A 10-system review of systems was performed and is negative for pertinent findings except as documented above in the HPI. - Constitutional Constitutional: anorexia, weakness, weight loss - Cardiovascular Cardiovascular ROS IM: dyspnea on exertion - Respiratory Respiratory: no cough - Gastrointestinal Gastrointestinal: abdominal pain, no hematochezia - Musculoskeletal Musculoskeletal ROS IM: back pain - Neurological Neurological ROS: no paresthesias - Constitutional Vitals: Temp Pulse Resp BP Pulse Ox 97.6 F 82 16 131/103 98 07/26/18 19:57 07/26/18 19:57 07/26/18 19:57 07/26/18 19:57 07/26/18 19:57 General appearance: Present: cachectic, A&O X 3 Exam: Patient not in any acute distress - Head Head exam: Present: normal inspection, normocephalic - ENT ENT exam: Present: mucous membranes dry - Neck Neck exam general surgery: Present: full ROM - Respiratory Respiratory exam: Present: CTAB. Absent: respiratory distress - Cardiovascular Cardiovascular exam: Present: RRR. Absent: JVD - GI/Abdominal GI/Abdominal exam: Present: soft. Absent: distended, guarding - Extremities Exam Extremities exam: Absent: calf tenderness - Neurological Exam Neurological exam: Present: oriented X3, no focal deficits - Skin Skin exam: Absent: rash Internal Med - H&P Results - Labs CBC & Chem 7: 07/26/18 17:18 07/26/18 20:55 Labs: Short CBC 07/26/18 Range/Units 17:18 WBC 10.2 (4.3-11.1) K/mcL Hgb 13.3 (12.9-16.9) g/dL Hct 38.1 (37.5-50.1) % Plt Count 401 H (140-400) K/mcL Neutrophils # 7.1 (1.6-8.9) K/mcL BMP 07/26/18 17:18 Sodium 112 L* Potassium 5.1 Chloride 77 L Carbon Dioxide 22 L BUN 14 Creatinine 0.87 Glucose 67 L Calcium 10.1 Urine 07/26/18 Range/Units 15:45 Urine Color Yellow (Yellow) Urine Clarity Clear (Clear) Urine pH 5.5 (5.0-8.0) pH Units Ur Specific [place] 1.022 (1.010-1.025) Urine Protein Negative (Neg-Trace) mg/dL Urine Glucose (UA) Normal (Normal) mg/dL - Impressions ITS Impressions Abdomen/Pelvis CT 07/26/18 16:33 IMPRESSION: Bilateral adrenal gland metastases. Suspected mild fatty infiltration of the liver. D/ / Ruma Lange Cha, MD / Ruma Lange Cha, MD Interpreting Provider: Ruma Lange Cha, MD Lumbar Spine CT 07/26/18 16:33 IMPRESSION: No destructive osseous lesion in the lumbar spine. Suspect moderate-severe degenerative canal stenosis at L4-5 and L5-S1. There is significant multilevel neural foraminal narrowing. D/ / Herber Gates MD / Herber Gates MD Interpreting Provider: Herber Gates MD Chest X-Ray 07/26/18 16:35 IMPRESSION: No acute findings. D/ / Herber Gates MD / Herber Gates MD Interpreting Provider: Herber Gates MD - Assessment and plan (1) Hyponatremia Current Visit: Yes Status: Acute Assessment and plan: Sodium was 112 in the emergency department. It is currently 114 after administration of 1 L normal saline. Patient's hyponatremia could be multifactorial. Patient has adrenal masses which may have made patient have adrenal insufficiency. Patient also has a primary lung mass which could be causing SIADH. Patient also consumes over a 12 pack of beer daily which could be contributing as well. -50 mg hydrocortisone every 8 hours -Fluid restrictions to 1 can of beer 3 times daily -Plan to consult nephrology tomorrow -Every 4 hour BMP to monitor sodium (2) Adrenal insufficiency Current Visit: Yes Status: Acute Assessment and plan: Patient has random cortisol of 7.0. Blood pressures have become soft with a systolic in the low 90s. Treatment as mentioned above. (3) Alcohol withdrawal syndrome Current Visit: Yes Status: Acute Assessment and plan: Patient has extensive history of alcohol abuse and is alcohol dependent. He has had episodes of withdrawal before. -Give 50 mg of Librium every 8 hours -Give one can of beer 3 times daily -CIWA protocol (4) Pulmonary nodules Current Visit: No Status: Acute Assessment and plan: Consult oncology tomorrow (5) Adrenal mass Current Visit: Yes Status: Acute Assessment and plan: See above (6) Hypoglycemia Current Visit: Yes Status: Acute Assessment and plan: Patient's initial glucose in the emergency department was 67. Repeat was 100. -Full diet (7) COPD (chronic obstructive pulmonary disease) Current Visit: No Status: Chronic Assessment and plan: Normal chest x-ray, patient not in an acute exacerbation. Give one DuoNeb every 4 hours as needed. Qualifiers: COPD type: chronic bronchitis Chronic bronchitis type: mucopurulent Qualified Code(s): J41.1 - Mucopurulent chronic bronchitis (8) Tobacco abuse Current Visit: No Status: Chronic Assessment and plan: Nicotine patch 14 mg every 24 hours (9) DVT prophylaxis Current Visit: Yes Status: Acute Assessment and plan: SCDs until normal hepatic function as patient could be coagulopathic secondary to his chronic alcoholism. - Time Spent With Patient Total time spent is greater than 50% in coordination of care (as documented) at patient's floor/unit and/or counseling patient: <Neftali Chambers - Last Filed: 07/27/18 02:38> Date of Encounter: 07/26/18 Time of Encounter: 22:45 - Constitutional Constitutional: anorexia, weight loss, no fever(s) - EENT Eyes: no blurry vision, no change in vision Ears: no ear pain, no tinnitus Nose, mouth and throat: no nasal congestion, no sinus pressure, no sore throat - Cardiovascular Cardiovascular ROS IM: dyspnea on exertion, no chest pain, no dyspnea, no orthopnea, no paroxysmal nocturnal dyspnea - Respiratory Respiratory: wheezing, no hemoptysis, no chest congestion, no excessive phlegm production, no change in phlegm color - Gastrointestinal Gastrointestinal: diarrhea, nausea, no hematemesis, no hematochezia, no melena, no vomiting - Musculoskeletal Musculoskeletal ROS IM: back pain, muscle weakness, no myalgias - Integumentary Integumentary IM: no rash, no jaundice - Neurological Neurological ROS: no convulsions, no disequilibrium, no dizziness, no focal wea kness, no frequent falls, no headache(s) - Psychiatric Psychiatric: no anxiety, no depression - Endocrine Endocrine IM: fatigue, no cold intolerance, no heat intolerance, no polydipsia, no polyphagia - Allergic/Immunologic Allergic/Immunologic: no GI upset with certain foods - Constitutional Vitals: Temp Pulse Resp BP Pulse Ox 97.6 F 72 16 88/58 95 07/27/18 00:00 07/27/18 02:00 07/27/18 02:00 07/27/18 02:00 07/27/18 02:00 General appearance: Present: cachectic, A&O X 3, no acute distress, answers questions appropriately Exam: appears euvolemic - Head Head exam: Present: atraumatic, normal inspection - Eye Eye exam: Present: EOMI, PERRL. Absent: scleral icterus Pupils: Present: normal accommodation - ENT ENT exam: Present: mucous membranes moist, normal exam, normal oropharynx - Neck Neck exam general surgery: Present: supple, trachea midline - Respiratory Respiratory exam: Present: CTAB. Absent: chest wall tenderness, rales, rhonchi, wheezes - Cardiovascular Cardiovascular exam: Present: RRR, +S1, +S2. Absent: diastolic murmur, systolic murmur - GI/Abdominal GI/Abdominal exam: Present: normal bowel sounds, soft. Absent: hepatomegaly, mass, splenomegaly, tenderness - Extremities Exam Extremities exam: Present: normal capillary refill, warm, radial pulses palpable and symmetrical. Absent: calf tenderness, joint swelling, pedal edema, tenderness - Back Exam Back exam: Absent: CVA tenderness (L), CVA tenderness (R) - Neurological Exam Neurological exam: Present: alert, oriented X3, no focal deficits, strengths equal and symetr throughout - Psychiatric Psychiatric exam: Present: normal affect, normal mood - Skin Skin exam: Present: dry, intact, warm Internal Med - H&P Results - Labs CBC & Chem 7: 07/26/18 17:18 07/26/18 20:55 Labs: Short CBC 07/26/18 Range/Units 17:18 WBC 10.2 (4.3-11.1) K/mcL Hgb 13.3 (12.9-16.9) g/dL Hct 38.1 (37.5-50.1) % Plt Count 401 H (140-400) K/mcL Neutrophils # 7.1 (1.6-8.9) K/mcL BMP 07/26/18 07/26/18 07/26/18 11:05 17:18 20:55 Sodium 115 L* 112 L* 114 L* Potassium 4.3 5.1 4.6 Chloride 83 L 77 L 81 L Carbon Dioxide 23 22 L 25 BUN 12 14 13 Creatinine 0.68 L 0.87 0.75 Glucose 98 67 L 130 H Calcium 9.3 10.1 9.3 Urine 07/26/18 Range/Units 15:45 Urine Color Yellow (Yellow) Urine Clarity Clear (Clear) Urine pH 5.5 (5.0-8.0) pH Units Ur Specific [place] 1.022 (1.010-1.025) Urine Protein Negative (Neg-Trace) mg/dL Urine Glucose (UA) Normal (Normal) mg/dL - Impressions ITS Impressions Abdomen/Pelvis CT 07/26/18 16:33 IMPRESSION: Bilateral adrenal gland metastases. Suspected mild fatty infiltration of the liver. D/ / Ruma Lange Cha, MD / Ruma Lange Cha, MD Interpreting Provider: Ruma Lange Cha, MD Lumbar Spine CT 07/26/18 16:33 IMPRESSION: No destructive osseous lesion in the lumbar spine. Suspect moderate-severe degenerative canal stenosis at L4-5 and L5-S1. There is significant multilevel neural foraminal narrowing. D/ / Herber Gates MD / Herber Gates MD Interpreting Provider: Herber Gates MD Chest X-Ray 07/26/18 16:35 IMPRESSION: No acute findings. D/ / Herber Gates MD / Herber Gates MD Interpreting Provider: Herber Gates MD - Diagnostic Studies Chest x-ray Status: image reviewed by me (negative) - Time Spent With Patient Total time spent is greater than 50% in coordination of care (as documented) at patient's floor/unit and/or counseling patient: - Attending Attestation I discussed the patient [place], past medical history, review of systems, lab data, exam findings, and imaging findings with Dr. Jacinto. I then saw and examined patient independently. Patient gives a vague history of possible lung cancer diagnosed at the [facility] recently. However, he is unsure of the diagnoses and has not had a biopsy. CT scan imaging performed today by ER reveals patient has bilateral adrenal masses concerning for malignancy. He complains of unintentional weight loss, nausea, fatigue, muscle weakness, and diarrhea. He also reports excessive alcohol use roughly 12-18 beers per day or 6-9 beers of 25 ounce cans. He has gone through alcohol withdrawal in the past, and he has had a seizure in the past with alcohol withdrawal. Given his critical hyponatremia, alcohol abuse history, suspected adrenal insufficiency, and likely yet to be diagnosed lung cancer, I am quite concerned about his critical state. We will treat him prophylactically with beer and scheduled Librium to blunt any alcohol withdrawal. Additionally, we will keep him on CIWA protocol. Meanwhile, we will keep him on frequent chemistry lab draws and allow him to eat regular diet. He appears to be euvolemic. Additionally, for concerns of adrenal insufficiency, we will give him IV Solu-Cortef and monitor him closely. Other than my comments above and noted exam findings, I agree with Dr. Jacinto's assessment and plan.
[2018-07-26 21:53] LABS: BUN/Creatinine Ratio 17 (6-26); Blood Urea Nitrogen 13 mg/dL (8-23); Calcium 9.3 mg/dL (8.6-10.3); Carbon Dioxide 25 mEq/L (23-29); Chloride 81 mEq/L (98-107); Glucose 130 mg/dL (70-105); Osmolality,Calculated 240 (280-300); Potassium 4.6 mEq/L (3.5-5.1); Sodium 114 mEq/L (136-145); eGFR For Non-African Americans > 60 (> 60)
[2018-07-26] MEDS: Hydrocortisone 10 MG TABLET PO SCH (22:36)
[2018-07-26] MEDS ORDERED: Ipratropium/Albuterol Neb 3 ML IH PRN (22:45)
[2018-07-26] MEDS: Beer can PO SCH (22:50)
[2018-07-26 23:42] LABS: BUN/Creatinine Ratio 18 (6-26); Blood Urea Nitrogen 12 mg/dL (8-23); Calcium 9.3 mg/dL (8.6-10.3); Carbon Dioxide 23 mEq/L (23-29); Chloride 83 mEq/L (98-107); Glucose 98 mg/dL (70-105); Osmolality,Calculated 240 (280-300); Potassium 4.3 mEq/L (3.5-5.1); Sodium 115 mEq/L (136-145); eGFR For Non-African Americans > 60 (> 60)
[2018-07-27 03:26] LABS: Basophils % 0.1 %; Eosinophils % 0.1 %; Hematocrit 33.2 % (37.5-50.1); Hemoglobin 11.7 g/dL (12.9-16.9); Immature Granulocytes % 0.5 % (0-4); Lymphocytes # 0.8 K/mcL (0.6-4.6); Lymphocytes % 9.5 %; Mean Corpuscular HGB Conc 35.2 g/dL (31.6-35.5); Mean Corpuscular Hemoglobin 28.7 pg (28.0-33.3); Mean Corpuscular Volume 81.4 fL (83.0-100.0); Mean Platelet Volume 10.1 fL (9.4-12.4); Monocytes # 0.5 K/mcL (0.0-1.3); Monocytes % 6.4 %; Neutrophils # 6.8 K/mcL (1.6-8.9); Platelet Count 379 K/mcL (140-400); Red Blood Count 4.08 M/mcL (4.19-5.50); Red Cell Distribution Width 15.7 % (11.5-14.5); Segmented Neutrophils % 83.4 %
[2018-07-27 03:48] LABS: Alanine Aminotransferase 8 Units/L (7-52); Albumin 4.3 g/dL (3.5-5.7); Albumin/Globulin Ratio 1.3 (1.1-2.2); Alkaline Phosphatase 85 Units/L (34-104); Aspartate Amino Transferase 17 Units/L (13-39); BUN/Creatinine Ratio 16 (6-26); Bilirubin,Total 0.3 mg/dL (0.3-1.0); Blood Urea Nitrogen 12 mg/dL (8-23); Calcium 9.9 mg/dL (8.6-10.3); Carbon Dioxide 24 mEq/L (23-29); Chloride 84 mEq/L (98-107); Globulin 3.3 g/dL (2.4-3.5); Glucose 118 mg/dL (70-105); Osmolality,Calculated 247 (280-300); Sodium 118 mEq/L (136-145); Total Protein 7.6 g/dL (6.4-8.9); eGFR For Non-African Americans > 60 (> 60)
[2018-07-27] MEDS: Hydrocortisone 10 MG TABLET PO SCH ×3 (06:06→21:15)
[2018-07-27] MEDS: *HR* Heparin 5,000 UNIT/ML VIAL SQ SCH ×2 (06:06→18:01)
[2018-07-27] MEDS: Beer can PO SCH ×2 (08:11→11:42)
--- NOTE | 2018-07-27 08:39 | Event Note ---
Date of Encounter: 07/27/18 Time of Encounter: 08:32 Patient was seen and examined. I agree with the progress note as written by the resident physician Patient is not the best historian but he is here from [place] [facility] due to hyponatremia. Not exactly sure what prompted him to go to the [facility] but he tells me he had abdominal pain. He is currently is pain-free. He had laboratory workup that showed significant hyponatremia. His sodium was as low as 112. In our ER he had a CT abdomen and pelvis which showed findings consistent with tika al metastatic disease. He says that he was told that he has [facility] couple [facility] but has not followed with anybody yet. He is a CT of chest done in our system back in February 2018 that showed 2 noncalcified right upper lobe pulmonary nodules each measuring 9 mm. There was a very large bilateral adrenal gland lesions measuring up to 5.[address] head at that time that was negative. There is an those scans were done is because the patient had presented to our ED intoxicated and had right-sided rib and flank pain after a fall while intoxicated. The patient still is a daily drinker and now admitted had put him on Beer areas he is also on Librium as well as Ativan. GEN: NAD CVS: RRR. S1, S2, No m/r/g RESP: CTAB ABD: Soft, NT, ND, +BS EXT: No edema. 2+ DP. No rashes NEURO: Nonfocal Hyponatremia is improving. Multifactorial possibly with chronic alcohol use, tachycardia lung cancer causing SIADH, malnourishment, dehydration, adrenal insufficiency and He was given IV fluids. Also on Cortef for possible adrenal insufficiency. Consult nephrology. Serial sodium checks Check TSH. Consult oncology Repeat CT chest with contrast. May need MRI of brain but we will leave that up to oncology. [facility] protocol stop beer Banana bag today and do PO vitamins tomorrow DVT prophylaxis
[2018-07-27] MEDS ORDERED: Thiamine (B-1) 100 MG, Folic Acid 1 MG, MVI, adult with vitamin K 10 ML in 0.9 % Sodi... IVPB ONE (08:45)
[2018-07-27 08:53] LABS: BUN/Creatinine Ratio 14 (6-26); Blood Urea Nitrogen 10 mg/dL (8-23); Calcium 9.9 mg/dL (8.6-10.3); Carbon Dioxide 25 mEq/L (23-29); Chloride 87 mEq/L (98-107); Glucose 136 mg/dL (70-105); Osmolality,Calculated 251 (280-300); Potassium 5.1 mEq/L (3.5-5.1); Sodium 120 mEq/L (136-145); eGFR For Non-African Americans > 60 (> 60)
[2018-07-27] MEDS ORDERED: Nicotine 14 MG PATCH.TD24 TD SCH (09:00)
--- NOTE | 2018-07-27 09:54 | Internal Med Progress Note ---
Hospitalist Progress Note - Encounter Date of Encounter: 07/27/18 Time of Encounter: 09:00 - Subjective Interval History: The patient was seen at bed side this morning in no acute distress. He admits mild nausea that persists for about 20 minutes and resolves on its own as well as some lightheadedness when first standing from a seated position. Another c omplaint is that he has noticed a hernia in the left lower pubic area that is tender to touch that began about a week ago. He cannot recall a specific trauma or straining and the pain is dull but constant. The patient also admits a chronic cough with white sputum and dyspnea on exertion. - Exam Vitals: Temp Pulse Resp BP Pulse Ox 97.5 F L 77 18 94/72 97 07/27/18 08:41 07/27/18 06:00 07/27/18 06:00 07/27/18 06:00 07/27/18 06:00 Exam: General: well developed, well nourished male in no acute distress Head: normocephalic and atraumatic Eyes: PERRL, EOMI, sclera anicteric, conjunctiva pink Neck: supple, trachea midline Lungs: CTA brianna, no wheezes, rales, or rhonchi Heart: RRR +s1 +s2 No murmurs, clicks, or rubs GI: L inguinal hernia ~0.5 inch tender to palpation, irreducible, abdomen soft, non-distended. normoactive bowel sounds x4 Extremities: warm, peripheral pulses palpable and symmetrical. no edema, cyanosis, or calf tenderness. Neuro: A&Ox3. CNII-XII grossly intact, no focal deficits. no speech difficulty or abnormality Skin: warm, dry, intact - Assessment and Plan (1) Hyponatremia Current Visit: Yes Status: Acute Assessment and Plan: Hyponatremia likely multifactorial including adrenal insufficiency from brianna adrenal masses, SIADH from lung masses, and effects of alcohol intake. Na at 120, up from 115 that was 24 hours prior. -Check TSH -Continue hydrocortisone -Start banana bag today with transition to PO vitamins tomorrow -Fluid restriction up to 1.5L -Monitor BMP q4H with neuro checks (2) Adrenal insufficiency Current Visit: Yes Status: Acute Assessment and Plan: Random cortisol of 7.0. BP stabilizing to around >100/80. -Management as above (3) Alcohol withdrawal syndrome Current Visit: Yes Status: Acute Assessment and Plan: History of extensive use and dependence with prior withdrawal -Continue librium; discontinue beer -CIWA protocol (4) Pulmonary nodules Current Visit: No Status: Acute Assessment and Plan: CXR without acute findings. CT chest from February 2018 showed 2 noncalcified RUL nodules each 9mm. Oncology to be consulted; appreciate their recommendations for management. May consider MRI of brain for metastasis pending oncology. -Repeat CT chest with contrast (5) Adrenal mass Current Visit: Yes Status: Acute Assessment and Plan: CT abdomen significant for brianna adrenal gland masses, larger on left 5.6x3.9 cm, most compatible with metastatic disease. Oncology to be consulted as above. -Management as above pulmonary nodules (6) COPD (chronic obstructive pulmonary disease) Current Visit: No Status: Chronic Assessment and Plan: Patient not in acute exacerbation -Duonebx1 q4H PRN (7) Hypoglycemia Current Visit: Yes Status: Resolved Assessment and Plan: Serum glucose 118, stabilizing >100. -Continue full diet (8) Tobacco abuse Current Visit: No Status: Chronic Assessment and Plan: History of >50 pack-years -Continue nicotine patch 14 mg q24H DVT Prophylaxis: Heparin 5k units q12H SQ - Time Spent with Patient Total time spent is greater than 50% in coordination of care (as documented) at patient's floor/unit and/or counseling patient: Internal Medicine: Result - Labs CBC & Chem 7: 07/27/18 02:59 07/27/18 12:17 Labs: Short CBC 07/26/18 07/27/18 Range/Units 17:18 02:59 WBC 10.2 8.1 (4.3-11.1) K/mcL Hgb 13.3 11.7 L D (12.9-16.9) g/dL Hct 38.1 33.2 L (37.5-50.1) % Plt Count 401 H 379 (140-400) K/mcL Neutrophils # 7.1 6.8 (1.6-8.9) K/mcL BMP 07/26/18 07/26/18 07/26/18 11:05 17:18 20:55 Sodium 115 L* 112 L* 114 L* Potassium 4.3 5.1 4.6 Chloride 83 L 77 L 81 L Carbon Dioxide 23 22 L 25 BUN 12 14 13 Creatinine 0.68 L 0.87 0.75 Glucose 98 67 L 130 H Calcium 9.3 10.1 9.3 07/27/18 07/27/18 02:59 08:14 Sodium 118 L* 120 L* Potassium 5.0 5.1 Chloride 84 L 87 L Carbon Dioxide 24 25 BUN 12 10 Creatinine 0.73 0.70 Glucose 118 H 136 H Calcium 9.9 9.9 Liver Function 07/27/18 Range/Units 02:59 Total Bilirubin 0.3 (0.3-1.0) mg/dL AST 17 (13-39) Units/L ALT 8 (7-52) Units/L Alkaline Phosphatase 85 (34-104) Units/L Albumin 4.3 (3.5-5.7) g/dL Urine 07/26/18 Range/Units 15:45 Urine Color Yellow (Yellow) Urine Clarity Clear (Clear) Urine pH 5.5 (5.0-8.0) pH Units Ur Specific [place] 1.022 (1.010-1.025) Urine Protein Negative (Neg-Trace) mg/dL Urine Glucose (UA) Normal (Normal) mg/dL - ABG Interpretation ABG results: PT/INR, D-dimer PT 11.0 Seconds (9.4-12.1) 07/27/18 02:59 - Impressions Impressions Abdomen/Pelvis CT 07/26/18 16:33 IMPRESSION: Bilateral adrenal gland metastases. Suspected mild fatty infiltration of the liver. D/ / Ruma Lange Cha, MD / Ruma Lange Cha, MD Interpreting Provider: Ruma Lange Cha, MD Lumbar Spine CT 07/26/18 16:33 IMPRESSION: No destructive osseous lesion in the lumbar spine. Suspect moderate-severe degenerative canal stenosis at L4-5 and L5-S1. There is significant multilevel neural foraminal narrowing. D/ / Herber Gates MD / Herber Gates MD Interpreting Provider: Herber Gates MD Chest X-Ray 07/26/18 16:35 IMPRESSION: No acute findings. D/ / Herber Gates MD / Herber Gates MD Interpreting Provider: Herber Gates MD Consult Discharge Plan - Plan [facility]errals: [facility] [Primary Care Provider] - (3) Alcohol withdrawal syndrome Qualifiers: Complication of substance-induced condition: uncomplicated Qualified Code(s): F10.230 - Alcohol dependence with withdrawal, uncomplicated (6) COPD (chronic obstructive pulmonary disease) Qualifiers: COPD type: chronic bronchitis Chronic bronchitis type: mucopurulent Qualified Code(s): J41.1 - Mucopurulent chronic bronchitis
[2018-07-27 12:51] LABS: BUN/Creatinine Ratio 17 (6-26); Blood Urea Nitrogen 14 mg/dL (8-23); Carbon Dioxide 24 mEq/L (23-29); Chloride 87 mEq/L (98-107); Glucose 114 mg/dL (70-105); Osmolality,Calculated 251 (280-300); Potassium 4.9 mEq/L (3.5-5.1); Sodium 120 mEq/L (136-145); eGFR For Non-African Americans > 60 (> 60)
[2018-07-27] MEDS ORDERED: Isovue-370 500 ML BOTTLE IVP ONE (14:38)
[2018-07-27 17:01] LABS: BUN/Creatinine Ratio 18 (6-26); Blood Urea Nitrogen 17 mg/dL (8-23); Calcium 9.2 mg/dL (8.6-10.3); Carbon Dioxide 25 mEq/L (23-29); Chloride 87 mEq/L (98-107); Glucose 96 mg/dL (70-105); Osmolality,Calculated 257 (280-300); Potassium 4.6 mEq/L (3.5-5.1); Sodium 123 mEq/L (136-145); eGFR For Non-African Americans > 60 (> 60)
--- NOTE | 2018-07-27 18:28 | Oncology Inp Consult Note ---
<Haley Silver Chayito - Last Filed: 07/28/18 06:34> Date of Encounter: 07/27/18 Time of Encounter: 15:00 Assessment and Plan (1) Adrenal mass Status: Acute Assessment and plan: Mr. Aldana is a 63 year old male who presented from urology for abdominal pain and severe hyponatremia Oncology consulted for further evaluation of CT imaging. CT chest obtained today reveals- (report lists conflicting left versus right? will need to clarify) suspicious hilar lymph node measures 2.4 x 1.7 cm which appears to be new from prior exam in February 2018, Large bilateral adrenal nodules are not significantly changed but are noted to be concerning for metas tatic disease, as well as noted bilateral pulmonary nodules that are not significantly changes since exam in February 2018, however there is note of spiculated nodule in medial left lung apex measuring 3.0 x 1.7 cm that is said not not significant had changed, however, I do not see mention of this on prior imaging. In meantime, we will also obtain records from [place]-there seems to be some conflicting information as patient records state he has "diagnosed metastatic lung CA" however, patient states he has not had prior biopsy/evaluation by oncology. Nothing in [facility] to confirm prior pathology report. Plan: Will need to discuss imaging further with radiology/discuss in tumor board---further plan for biopsy is TBD [facility] May consider abdominal MRI (2) Hyponatremia Status: Acute Assessment and plan: Improving since admission, likely multifactorial in setting of heavy alcohol abuse and concern for adrenal insufficiency Currently on hydrocortisone and fluid restriction, banana bag - Data of Consult Patient: new to practice Consult date: 07/28/18 Requesting Physician: Bijan Trinh MD Primary Care Provider[facility] - Consult Narrative Reason for consult: Lung nodules, bilateral adrenal masses History of present illness: Mr. Aldana is a 63 year old male with past medical history significant for COPD, GERD, alcohol abuse (drinks about 10 give or take 25 ounce bud ice cans/day), long standing tobacco abuse (avg. ~2-3 PPD x55 years). He was asked to present to [facility] ED by urology for concern for abdominal/back pain. He was found to be severly hyponatremic with Na 115 on presentation. He had a CT of the abdomen/pelvis with IV contrast which had shown bilateral adrenal gland masses, larger on the left measuring 5.6 x 3.9 cm, noted on CT imaging to be most compatible with metastatic disease, as well as mild hepatic steatosis. Of note, patient had CT imaging of chest in 02/2018 which had shown 2 small ANSON noncalcified lung nodules each measuring about 9 mm as well as large bilateral adrenal lesions measuring about 5.5 cm felt to be consistent with benign adenomas. Outpatient surgical consultation was arranged with Dr. Flores. It appears that there has been documentation that patient has "diagnosed metastatic lung cancer", however, patient states he has never had a prior biopsy, been evaluated or treated by oncology. [facility] or pathology report, he has not previously been evaluated by oncology at [place]. [facility]. Mr. Aldana lives in housing arranged by [facility], apparently was previously homeless. Alcohol use and tobacco abuse as noted above. He lives alone. Has arranged transportation with [facility] hospice social worker. He does endorse about a 15 pound weight loss over past month, states this is secondary to not eating, states he drinks beer all day with very little, if any, food intake. He has SOB and cough at baseline, does not use home O2. Denies fevers, chills, nausea, vomiting, bowel changes, urinary complaint. reports chronic back pain. History of falls at home, denies hitting head or losing consciousness. Past Med Surg Social Fam HX - Past Medical History Medical history: asthma, COPD, GERD Additional medical history: recent lung dx Psychiatric history: no psych history - Past Surgical History Surgical History: orthopedic, other Additional surgical history: b/l femer fracture repair. screw to right hip - Social History Smoking Status: Current every day smoker Packs per day: 2 Smokeless Tobacco Status: No Alcohol use: heavy Drug use: none - Family History Brother Adopted: No Family Member Ethnicity: Non- Living Status: Still Living Hx Family Cardiac Disorders: No Hx Family Respiratory Disorders: No Hx Family Cancer: Yes (bowel) Hx Family GI Disorders: Yes (CA bowels) Hx Family Endocrine Disorder: No Hx Family Neuromuscular Disorders: No Hx Family Neurologic Disorders: No Hx Family HEENT Disorders: No Hx Family Autoimmune Disorders: No Father Living Status: Hx Family Cardiac Disorders: Yes (CAD, Bypass) Hx Family Respiratory Disorders: No Hx Family Cancer: No Hx Family GI Disorders: No Hx Family Endocrine Disorder: No Hx Family Neuromuscular Disorders: No Hx Family Neurologic Disorders: Yes (Alzheimers) Hx Family HEENT Disorders: No Hx Family Autoimmune Disorders: No Hx Family Reproductive Disorders: No Hx Family Psychosocial Disorders: No Hx Family Medical Disorders: No Medications and Allergies RX: Cholecalciferol (Vitamin D3) [Vitamin D3] 2,000 units PO DAILY 01/02/17 [History] RX: Methocarbamol [Robaxin-750] 750 mg PO QID PRN 01/02/17 [History] RX: Albuterol Sulfate [Albuterol Inhaler] 2 puff IH Q4H PRN 03/05/17 [History] RX: Tiotropium [Spiriva] 2 puff IH DAILY 03/05/17 [History] RX: Trazodone HCl 100 mg PO HS PRN 02/23/18 [History] RX: Folic Acid 1 mg PO DAILY tablet 02/25/18 [Rx] RX: Thiamine (B-1) [Vitamin B-1] 100 mg PO DAILY tablet 02/25/18 [Rx] RX: HYDROcodone/Acet 5/325 mg [[place] 5-325 mg] 1 tab PO Q6H PRN 07/27/18 [History] RX: Lactobacillus [Culturelle] 1 each PO BID 07/27/18 [History] RX: Melatonin [Melatin] 9 mg PO HS 07/27/18 [History] RX: Naproxen [Naprosyn] 500 mg PO BIDWM 07/27/18 [History] RX: Paroxetine HCl [Paxil] 20 mg PO DAILY 07/27/18 [History] RX: Ranitidine HCl [Heartburn Relief] 150 mg PO BID 07/27/18 [History] RX: hydrOXYzine pamoate [HydrOXYzine Pamoate] 25 mg PO QID PRN 07/27/18 [History] Hydrocortisone [Cortef] 10 mg PO TAPER #31 tablet 07/28/18 [Rx] Allergy/AdvReac Type Severity Reaction Status Date / Time No Known Allergies Allergy Verified 02/23/18 21:42 Constitutional: Present: anorexia, fatigue, frequent falls, weakness, weight loss. Absent: chills, fever(s) Eyes: Absent: change in vision Nose, mouth and throat: Absent: dysphagia, odynophagia Cardiovascular: Absent: chest pain Respiratory: Present: cough, dyspnea on exertion Gastrointestinal: Present: abdominal pain. Absent: change in bowel habits, diarrhea, hematemesis, hematochezia, melena, nausea, vomiting Genitourinary: Absent: dysuria Musculoskeletal: Present: muscle weakness Integumentary: Absent: rash, wounds Neurological: Present: disequilibrium, frequent falls. Absent: focal weakness, headache(s), syncope Psychiatric: Present: as per HPI Endocrine: Present: as per HPI Hematologic/Lymphatic: Present: as per HPI Oncology - Exam - Constitutional General appearance: cooperative, disheveled, no acute distress, thin, no febrile - Head Head exam: Present: atraumatic - ENT ENT exam: Present: mucous membranes moist, normal oropharynx - Neck Neck exam: Absent: lymphadenopathy - Respiratory Respiratory exam: Present: decreased breath sounds. Absent: respiratory distress - Cardiovascular Cardiovascular exam: Present: RRR, +S1, +S2 - GI/Abdominal GI/Abdominal exam: Present: normal bowel sounds, soft. Absent: tenderness - Extremities Exam Extremities exam: Present: normal inspection. Absent: calf tenderness - Neurological Exam Neurological exam: Present: alert, oriented X3, no focal deficits, strengths equal and symetr throughout - Psychiatric Psychiatric exam: Present: normal affect, normal mood - Skin Skin exam: Present: dry, intact, normal color, warm Consult Discharge Plan - Plan [facility]errals: [facility] [Primary Care Provider] - Prescriptions: Hydrocortisone [Cortef] 10 mg PO TAPER #31 tablet Inpatient Charges Provider: Dr. Cj Gray <IsaacMissael S - Last Filed: 07/28/18 22:39> Date of Encounter: 07/27/18 - Data of Consult Requesting Physician: Bijan Trinh MD Primary Care Provider: PCP [facility] Inpatient Charges Provider: Dr. Cj Gray Consult - Inpatient: [id number] - Attending Attestation I examined this patient and my medical decision-making was reviewed with the Advanced Practice Nurse. I agree with the documented findings, disposition and treatment plan as described except to the extent set forth below. 1. Hyponatremia sodium 115 on admission currently improved to 123. This is multifactorial. Chronic alcohol use place a role. Also adrenal insufficiency is playing a role. On hydrocortisone supplement 2. Bilateral adrenal masses about 5 cm. Could be benign adenomavs metastasis. These were reported on CAT scan chest February 2019. Also reviewed the CAT scan chest from today 07/27/2018. 3 cam subpleural lung lesion was mentioned.. Emphysema mostly in the upper lobes. We will discuss the adrenal lesions further at thoracic tumor Board on 07/29/18. If necessary would evaluate this further with MRIor biopsy. 3. Chronic tobacco abuse since age 8. Strongly advised to quit smoking w
--- NOTE | 2018-07-27 18:45 | Electrocardiograph Report ---
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
[2018-07-27 20:49] LABS: BUN/Creatinine Ratio 23 (6-26); Blood Urea Nitrogen 19 mg/dL (8-23); Calcium 9.4 mg/dL (8.6-10.3); Carbon Dioxide 25 mEq/L (23-29); Chloride 89 mEq/L (98-107); Glucose 135 mg/dL (70-105); Osmolality,Calculated 258 (280-300); Potassium 4.9 mEq/L (3.5-5.1); Sodium 122 mEq/L (136-145); eGFR For Non-African Americans > 60 (> 60)
[2018-07-27] MEDS ORDERED: Melatonin 3 MG TABLET PO PRN (21:14)
[2018-07-28 00:13] LABS: BUN/Creatinine Ratio 26 (6-26); Blood Urea Nitrogen 18 mg/dL (8-23); Calcium 9.4 mg/dL (8.6-10.3); Carbon Dioxide 24 mEq/L (23-29); Chloride 89 mEq/L (98-107); Glucose 189 mg/dL (70-105); Osmolality,Calculated 259 (280-300); Potassium 4.6 mEq/L (3.5-5.1); Sodium 121 mEq/L (136-145); eGFR For Non-African Americans > 60 (> 60)
[2018-07-28 05:23] LABS: BUN/Creatinine Ratio 28 (6-26); BUN/Creatinine Ratio 29 (6-26); Blood Urea Nitrogen 16 mg/dL (8-23); Calcium 9.8 mg/dL (8.6-10.3); Calcium 9.9 mg/dL (8.6-10.3); Carbon Dioxide 25 mEq/L (23-29); Chloride 90 mEq/L (98-107); Glucose 142 mg/dL (70-105); Osmolality,Calculated 262 (280-300); Potassium 4.6 mEq/L (3.5-5.1); Sodium 124 mEq/L (136-145); eGFR For Non-African Americans > 60 (> 60)
[2018-07-28] MEDS: Hydrocortisone 10 MG TABLET PO SCH (06:31)
[2018-07-28] MEDS: *HR* Heparin 5,000 UNIT/ML VIAL SQ SCH (06:31)
--- NOTE | 2018-07-28 08:42 | Internal Med Progress Note ---
Hospitalist Progress Note - Encounter Date of Encounter: 07/28/18 Time of Encounter: 09:30 - Subjective Interval History: The patient was seen at bed side this morning in no acute distress. He admits mild nausea that persists for about 20 minutes and resolves on its own as well as some lightheadedness when first standing from a seated position. Another c omplaint is that he has noticed a hernia in the left lower pubic area that is tender to touch that began about a week ago. He cannot recall a specific trauma or straining and the pain is dull but constant. The patient also admits a chronic cough with white sputum and dyspnea on exertion. - Exam Vitals: Temp Pulse Resp BP Pulse Ox 97.4 F L 82 22 119/79 97 07/28/18 06:46 07/28/18 06:46 07/28/18 06:46 07/28/18 06:46 07/28/18 06:46 - Assessment and Plan (1) Hyponatremia Current Visit: Yes Status: Acute (2) Adrenal insufficiency Current Visit: Yes Status: Acute (3) Alcohol withdrawal syndrome Current Visit: Yes Status: Acute (4) Pulmonary nodules Current Visit: No Status: Acute (5) Adrenal mass Current Visit: Yes Status: Acute (6) COPD (chronic obstructive pulmonary disease) Current Visit: No Status: Chronic (7) Hypoglycemia Current Visit: Yes Status: Resolved (8) Tobacco abuse Current Visit: No Status: Chronic - Time Spent with Patient Total time spent is greater than 50% in coordination of care (as documented) at patient's floor/unit and/or counseling patient: Internal Medicine: Result - Labs CBC & Chem 7: 07/27/18 02:59 07/28/18 04:20 Labs: BMP 07/27/18 07/27/18 07/27/18 08:14 12:17 16:17 Sodium 120 L* 120 L* 123 L Potassium 5.1 4.9 4.6 Chloride 87 L 87 L 87 L Carbon Dioxide 25 24 25 BUN 10 14 17 Creatinine 0.70 0.84 0.96 Glucose 136 H 114 H 96 Calcium 9.9 10.0 9.2 07/27/18 07/27/18 07/28/18 19:58 23:41 04:20 Sodium 122 L 121 L 124 L Potassium 4.9 4.6 4.6 Chloride 89 L 89 L 90 L Carbon Dioxide 25 24 25 BUN 19 18 16 Creatinine 0.83 0.70 0.58 L Glucose 135 H 189 H 142 H Calcium 9.4 9.4 9.8 07/28/18 04:20 Sodium 124 L Potassium 4.6 Chloride 90 L Carbon Dioxide 25 BUN 16 Creatinine 0.56 L Glucose 142 H Calcium 9.9 - ABG Interpretation ABG results: PT/INR, D-dimer PT 11.0 Seconds (9.4-12.1) 07/27/18 02:59 - Impressions Impressions Chest CT 07/27/18 17:00 IMPRESSION: Bilateral pulmonary nodules have not significantly changed in size. Right hilar lymph node is consistent with metastatic disease. Large bilateral adrenal nodules are not significantly changed and are concerning for metastatic disease. D/ / 07/27/2018 18:35:03 Robert Trinh MD / bcarter Interpreting Provider: Robert Trinh MD Consult Discharge Plan - Plan [facility]errals: [facility] [Primary Care Provider] - (3) Alcohol withdrawal syndrome Qualifiers: Complication of substance-induced condition: uncomplicated Qualified Code(s): F10.230 - Alcohol dependence with withdrawal, uncomplicated (6) COPD (chronic obstructive pulmonary disease) Qualifiers: COPD type: chronic bronchitis Chronic bronchitis type: mucopurulent Qualified Code(s): J41.1 - Mucopurulent chronic bronchitis
[2018-07-28] MEDS ORDERED: Multivit/Ca/Min/Fe/FA 1 TAB TABLET PO SCH (09:00)
[2018-07-28] MEDS ORDERED: Thiamine (B-1) 100 MG TABLET PO SCH (09:00)
[2018-07-28] MEDS ORDERED: Folic Acid 1 MG TABLET PO SCH (09:00)
[2018-07-28] MEDS ORDERED: Hydrocortisone 10 MG TABLET PO SCH (10:45)
[2018-07-28 11:31] VITALS: BP 99/74
[2018-07-28 12:21] LABS: BUN/Creatinine Ratio 22 (6-26); Blood Urea Nitrogen 16 mg/dL (8-23); Calcium 9.5 mg/dL (8.6-10.3); Carbon Dioxide 25 mEq/L (23-29); Chloride 90 mEq/L (98-107); Glucose 333 mg/dL (70-105); Osmolality,Calculated 270 (280-300); Potassium 3.6 mEq/L (3.5-5.1); Sodium 123 mEq/L (136-145); eGFR For Non-African Americans > 60 (> 60)
--- NOTE | 2018-07-28 14:18 | Discharge Summary ---
<Kody Nathan - Last Filed: 07/28/18 14:16> - NOTES TO OUTPATIENT PROVIDER Notes to Outpatient Provider: Patient presented with low back pain and lower abdominal pain found ot have hyponatremia, left ama. Sodium on discharge was 123. Orders not resulted at time of discharge: Pending orders 07/28/18 16:00 BMP [Basic Metabolic Panel] Q4H 07/28/18 20:00 BMP [Basic Metabolic Panel] Q4H Date of Encounter: 07/28/18 Time of Encounter: 14:16 - Discharge Diagnosis (1) Hyponatremia Priority: Primary Status: Acute (2) Alcohol withdrawal syndrome Priority: Secondary Status: Acute Qualifiers: Complication of substance-induced condition: uncomplicated Qualified Code(s): F10.230 - Alcohol dependence with withdrawal, uncomplicated (3) COPD (chronic obstructive pulmonary disease) Priority: Secondary Status: Chronic Qualifiers: COPD type: chronic bronchitis Chronic bronchitis type: mucopurulent Qualified Code(s): J41.1 - Mucopurulent chronic bronchitis (4) Pulmonary nodules Priority: Secondary Status: Acute (5) Adrenal mass Priority: Secondary Status: Acute (6) Adrenal insufficiency Priority: Secondary Status: Acute Hospital course: Mr. Aldana is a 63 year old male presented for abdominal pain and weakness. Patient underwent CT abdomen pelvis and was found to have b/l adrenal masses. [facility] which showed a lung mass. Patient was also found to have hyponatremia and hypotension. He reprots he drinks nine 25 ounce cans of bud light. Hyponatremia 2nd to adrenal insufficiency, possible SIADH, and beer potomania. He was started on solucortef. Improved with 1L normal saline and then was on fluid restricted diet as well as regular diet with increased salt. Sodium improved from 112 to 123 over 48 hours. However this is not at baseline. Oncology was consulted for evaluation and CT chest showeed b/l pulmonary nodules (not changed since previous) and right hilar lymphnode consistent with metastatic disease. Oncology unclear if this is malignancy. Patient wanted to leave today. He was explained the risks of leaving and how he still needs treatment to resolve his hyponatremia as well as workup for the lung/adrenal masses. Patient was explained the risks of , coma, seizure, and worsening weakness. He understood and repeated the situation as well as the consequences back to me and Dr. Walters. He still decided to leave [place]. He was given a solucoref taper. Discharge discussed with: patient, family - Time Spent with Patient Total time spent providing and/or coordinating discharge services: - Discharge Medications Prescriptions: Hydrocortisone [Cortef] 10 mg PO TAPER #31 tablet Home Medications: Cholecalciferol (Vitamin D3) [Vitamin D3] 2,000 units PO DAILY 01/02/17 [History] Methocarbamol [Robaxin-750] 750 mg PO QID PRN 01/02/17 [History] Albuterol Sulfate [Albuterol Inhaler] 2 puff IH Q4H PRN 03/05/17 [History] Tiotropium [Spiriva] 2 puff IH DAILY 03/05/17 [History] Trazodone HCl 100 mg PO HS PRN 02/23/18 [History] Folic Acid 1 mg PO DAILY tablet 02/25/18 [Rx] Thiamine (B-1) [Vitamin B-1] 100 mg PO DAILY tablet 02/25/18 [Rx] HYDROcodone/Acet 5/325 mg [[place] 5-325 mg] 1 tab PO Q6H PRN 07/27/18 [History] Lactobacillus [Culturelle] 1 each PO BID 07/27/18 [History] Melatonin [Melatin] 9 mg PO HS 07/27/18 [History] Naproxen [Naprosyn] 500 mg PO BIDWM 07/27/18 [History] Paroxetine HCl [Paxil] 20 mg PO DAILY 07/27/18 [History] Ranitidine HCl [Heartburn Relief] 150 mg PO BID 07/27/18 [History] hydrOXYzine pamoate [HydrOXYzine Pamoate] 25 mg PO QID PRN 07/27/18 [History] Hydrocortisone [Cortef] 10 mg PO TAPER #31 tablet 07/28/18 [Rx] Allergies/Adverse Reactions: Allergy/AdvReac Type Severity Reaction Status Date / Time No Known Allergies Allergy Verified 02/23/18 21:42 Date of admission: 07/26/18 23:27 Primary care physician: [facility] Consults: 07/26/18 20:14 Consult to Nutrition [CONS] Routine Comment: recent weight loss of 15# Consulting Provider: NUTRITION Reason for Dietary Consult: Other Consult to Curriculum Coach [CONS] Routine Reason for SW Consult: discharge planning, primarily deals with [facility]. 07/27/18 08:07 Consult to Oncology [CONS] Routine Consulting Provider: [facility] Reason for Consult: metastatic lung cancer Call Completed: Yes 07/28/18 10:34 Consult to Occupational Therapy [CONS] Routine Comment: Evaluate, develop and implement POC Reason for Consult: physical deconditioning Does patient have active BEDREST order?: No Is patient medically & hemodynamically stable?: Yes Consult to Physical Therapy [CONS] Routine Comment: Evaluate, develop and implement POC Reason for Consult: physical deconditioning Does patient have active BEDREST order?: No Is patient medically & hemodynamically stable?: Yes Discharging clinician: Kody Nathan Anticipated date of discharge: 07/28/18 - Constitutional Vitals: Temp Pulse Resp BP Pulse Ox 97.4 F L 75 17 99/74 94 07/28/18 11:24 07/28/18 11:24 07/28/18 11:24 07/28/18 11:24 07/28/18 11:24 General appearance: Present: cachectic, A&O X 3, no acute distress, answers questions appropriately Exam: General: well developed, well nourished male in no acute distress Head: normocephalic and atraumatic Eyes: PERRL, EOMI, sclera anicteric, conjunctiva pink Neck: supple, trachea midline Lungs: CTA brianna, no wheezes, rales, or rhonchi Heart: RRR +s1 +s2 No murmurs, clicks, or rubs GI: abdomen soft, non-distended. normoactive bowel sounds x4 Extremities: warm, peripheral pulses palpable and symmetrical. no edema, cyanosis, or calf tenderness. Neuro: A&Ox3. CNII-XII grossly intact, no focal deficits. no speech difficulty or abnormality Skin: warm, dry, intact - Patient Status Disposition: Left Against Medical Advice Condition: Fair Functional capacity at discharge: independent ambulation Overall status at discharge: patient is not back to baseline - Discharge Instructions Follow Up With: [facility] [Primary Care Provider] - - Diet and Activity Activity: increase activity as tolerated Diet: advance to your usual diet <Ronnie Walters - Last Filed: 07/28/18 18:42> Date of Encounter: 07/28/18 Hospital course: Mr. Aldana is a 63 year old male - Time Spent with Patient Total time spent providing and/or coordinating discharge services: Date of admission: 07/26/18 23:27 Primary care physician: [facility] Consults: 07/26/18 20:14 Consult to Nutrition [CONS] Routine Comment: recent weight loss of 15# Consulting Provider: NUTRITION Reason for Dietary Consult: Other Consult to Curriculum Coach [CONS] Routine Reason for SW Consult: discharge planning, primarily deals with [facility]. 07/27/18 08:07 Consult to Oncology [CONS] Routine Consulting Provider: [facility] Reason for Consult: metastatic lung cancer Call Completed: Yes 07/28/18 10:34 Consult to Occupational Therapy [CONS] Routine Comment: Evaluate, develop and implement POC Reason for Consult: physical deconditioning Does patient have active BEDREST order?: No Is patient medically & hemodynamically stable?: Yes Consult to Physical Therapy [CONS] Routine Comment: Evaluate, develop and implement POC Reason for Consult: physical deconditioning Does patient have active BEDREST order?: No Is patient medically & hemodynamically stable?: Yes - Constitutional Vitals: Temp Pulse Resp BP Pulse Ox 97.4 F L 75 17 99/74 94 07/28/18 11:24 07/28/18 11:24 07/28/18 11:24 07/28/18 11:24 07/28/18 11:24 - Attending Attestation I examined this patient and my medical decision-making was reviewed with the Resident Physician. I agree with the documented findings, disposition and treatment plan as described except to the extent set forth below. Patient desired to leave AMA despite not completing treatment of AMS, hyponatremia, possible adrenal insufficiency. He did exhibit adequate decision- making capacity. Risks of leaving AMA explained to patient including worsening hyponatremia, weakness, seizures, encephalopahty and in severe cases. Patient understood these risks and decided to leave AMA despite this.
--- NOTE | 2018-07-28 15:09 | Oncology Inp Progress Note ---
Date of Encounter: 07/28/18 Time of Encounter: 13:00 (1) Adrenal mass Status: Acute Assessment and plan: Mr. Aldana is a 63 year old male who presented from urology for abdominal pain and severe hyponatremia Oncology consulted for further evaluation of CT imaging. CT chest obtained today reveals- (report lists conflicting left versus right? will need to clarify) suspicious hilar lymph node measures 2.4 x 1.7 cm which appears to be new from prior exam in February 2018, Large bilateral adrenal nodules are not significantly changed but are noted to be concerning for metastatic disease, as well as noted bilateral pulmonary nodules that are not significantly changes since exam in February 2018, however there is note of spiculated nodule in medial left lung apex measuring 3.0 x 1.7 cm that is said to have not significantly changed, however, I do not see mention of this on prior imaging. Plan: Will need to discuss imaging further with radiology/discuss in tumor board I discussed new findings on CT chest imaging concerning for malignant process, likely primary metastatic lung CA, and that biopsy would be warranted next step. Patient understands that he has concerning findings on CT as well as hyponatremia, placing him at risk for deterioration at home, however, he is adamant that he is leaving today with no further treatment or workup as an inpatient. Discussed with Dr. Walters that patient is requesting to leave AMA, according to their documentation despite their attempts to warn patients of risks of leaving AMA, patient did indeed proceed to do so. We will arrange for outpatient follow up with Dr. Gray [facility]btain [facility] records May consider abdominal MRI Likely recommend CT guided adrenal lesion biopsy Oncology: Subj Interval history: Mr. Aldana was seen and examined at bedside with his brother and sister present. [place] through our conversation patients [facility] case technician arrived. Patient is agitated and sitting in chair, fully dressed and stating that he is leaving. He is alert and oriented but appears to be somewhat drowsy. We discussed his CT of the chest which is concerning for malignant process and that biopsy would be warranted. He appears to understand points from our discussion but is adamant that he is leaving today. - Constitutional General appearance: disheveled, no acute distress, thin, no febrile - Head Head exam: Present: atraumatic - ENT ENT exam: Present: mucous membranes moist, normal oropharynx - Respiratory Respiratory exam: Present: decreased breath sounds. Absent: respiratory distress - Cardiovascular Cardiovascular exam: Present: RRR, +S1, +S2 - GI/Abdominal GI/Abdominal exam: Present: normal bowel sounds, soft. Absent: guarding, rebound Additional comments: diffuse tenderness - Extremities Exam Extremities exam: Present: normal inspection. Absent: calf tenderness - Neurological Exam Neurological exam: Present: alert, oriented X3, no focal deficits, strengths equal and symetr throughout - Psychiatric Psychiatric exam: Present: normal affect, normal mood - Skin Skin exam: Present: dry, intact, normal color, warm Oncology: Obj Data - Labs CBC & Chem 7: 07/27/18 02:59 07/28/18 11:42 Consult Discharge Plan - Plan Referrals: [facility] [Primary Care Provider] - Prescriptions: Hydrocortisone [Cortef] 10 mg PO TAPER #31 tablet
== END 2018-07-28 14:50 | disposition left against medical advice (07) | DRG 426 ==
LOC: EMEROOARM 13:55 → ICNU 13:55 → SUATTDRO 23:27 → 2SOUTHHOLD 07-28 06:21
PROVIDERS: ADMIT Internal Medicine; ATTEND Student in an Organized Health Care Education/Training Program

== ENCOUNTER 2018-08-07 16:20 | Inpatient (IN) ==
[2018-08-07] MEDS ORDERED: Isovue-370 500 ML BOTTLE IVP ONE (16:41)
[2018-08-07] MEDS ORDERED: 0.9 % Sodium Chloride 1,000 ML IVC ONE (16:42)
[2018-08-07] MEDS ORDERED: Ondansetron 4 MG/2 ML VIAL IVP ONE (16:42)
[2018-08-07] MEDS ORDERED: *HR* FentaNYL (PF) 100 MCG/2 ML VIAL IVP ONE (16:42)
--- NOTE | 2018-08-07 16:53 | Emergency Department Note ---
Disposition Clinical Impression: Hyponatremia Abdominal pain Qualifiers: Abdominal location: periumbilical Qualified Code(s): R10.33 - Periumbilical pain Disposition: Still a Patient Condition: Good Referrals: [facility],PCP [Primary Care Provider] - Forms: ED Satisfaction Letter, Work/School Release Abdominal Pain HPI - General Chief Complaint: ED Abdominal Pain Stated Complaint: abd pain Time Seen by Provider: 08/07/18 16:27 Source: EMS Mode of arrival: EMS Limitations: no limitations Nursing Notes Reviewed: Yes Vital Signs Reviewed: Yes - History of Present Illness HPI Narrative: 63-year-old male with a history of chronic alcoholism with recent diagnosis of suspected cancer who presents to the ER with abdominal pain. He has had abdominal pain for the last 2-3 days. It is around his umbilicus. Also reports some suprapubic tenderness. He states he has been nauseous but no vomiting. Has had some loose bowel movement. No dysuria, hematuria, penile discharge, testicular pain or tenderness. No prior history of abdominal surgeries. No other complaints. Pt Subjective Complaint: abdominal pain Onset (ago): day(s) Consistency: constant Location: periumbilical Pain Scale: 7 Migration to: no migration Improves with: nothing Worsens with: nothing Associated symptoms: Reports: nausea, vomiting, diarrhea. Denies: fever, dysuria, hematuria Treatments prior to arrival: none - Related Data Home Medications Medication Instructions Recorded Confirmed Cholecalciferol (Vitamin D3) 2,000 units PO DAILY 01/02/17 07/27/18 [Vitamin D3] Methocarbamol [Robaxin-750] 750 mg PO QID PRN 01/02/17 07/27/18 Albuterol Sulfate [Albuterol 2 puff IH Q4H PRN 03/05/17 07/27/18 Inhaler] Tiotropium [Spiriva] 2 puff IH DAILY 03/05/17 07/27/18 Trazodone HCl 100 mg PO HS PRN 02/23/18 07/27/18 HYDROcodone/Acet 5/325 mg [[place] 1 tab PO Q6H PRN 07/27/18 07/27/18 5-325 mg] Lactobacillus [Culturelle] 1 each PO BID 07/27/18 07/27/18 Melatonin [Melatin] 9 mg PO HS 07/27/18 07/27/18 Naproxen [Naprosyn] 500 mg PO BIDWM 07/27/18 07/27/18 Paroxetine HCl [Paxil] 20 mg PO DAILY 07/27/18 07/27/18 Ranitidine HCl [Heartburn Relief] 150 mg PO BID 07/27/18 07/27/18 hydrOXYzine pamoate [HydrOXYzine 25 mg PO QID PRN 07/27/18 07/27/18 Pamoate] Previous Rx's Medication Instructions Recorded Folic Acid 1 mg PO DAILY tablet 02/25/18 Thiamine (B-1) [Vitamin B-1] 100 mg PO DAILY tablet 02/25/18 Hydrocortisone [Cortef] 10 mg PO TAPER #31 tablet 07/28/18 Allergies Allergy/AdvReac Type Severity Reaction Status Date / Time No Known Allergies Allergy Verified 02/23/18 21:42 All systems ED: reviewed and negative except as stated. Constitutional: Denies: fever Gastrointestinal: Reports: abdominal pain, nausea, diarrhea. Denies: vomiting Genitourinary: Denies: dysuria, hematuria, discharge, testicular pain, testicular mass Abdominal Pain PMH - Past Medical History Medical history: Reports: asthma, COPD, GERD Male Surgical History: Reports: no surgical history, orthopedic, other Psychiatric history: Reports: no psych history - Social History Smoking status: Current every day smoker Alcohol use: Reports: heavy Drug use: Reports: none Physical Exam - General Limitations: no limitations General appearance: alert, in no apparent distress - Head Head exam: atraumatic, normocephalic, normal inspection - Eye Eye exam: Present: normal appearance - ENT ENT exam: normal exam - Neck Neck exam: Present: normal inspection - Chest Chest inspection: Present: normal inspection, symmetric chest wall rise - Respiratory Respiratory exam: Present: normal lung sounds bilaterally - Cardiovascular Cardiovascular exam: Present: regular rate, normal rhythm, normal heart sounds - Abdominal Exam Abdominal exam: Present: soft, tenderness (Patient has moderate tenderness around the umbilicus without distention guarding or rigidity. Suprapubically there is a firm mobile tender roughly 0.5 x 0.5 cm area that feels like a lymph node.) - Male exam: Present: normal inspection, normal testicular lie - Extremities Exam Extremities exam: Present: normal inspection, full ROM - Expanded Upper Extremity Exam Shoulder exam: Present: normal inspection, full ROM Arm exam: Present: normal inspection, full ROM Elbow exam: Present: normal inspection, full ROM Forearm/Wrist exam: Present: normal inspection, full ROM Hand exam: Present: normal inspection, full ROM - Expanded Lower Extremity Exam Hip/Pelvis exam: Present: normal inspection, full ROM Upper leg exam: Present: normal inspection, full ROM Knee exam: Present: normal inspection, full ROM Lower leg exam: Present: normal inspection, full ROM Ankle exam: Present: normal inspection, full ROM Foot/toe exam: Present: normal inspection, full ROM - Skin Skin exam: Present: warm, dry Course Course Narrative: Patient seen and examined. Vital signs reviewed. Plan for CT imaging, labs and urinalysis. We will give him some IV fluids, antiemetics and analgesics. Vital Signs Temperature 97.8 F 08/07/18 16:27 Pulse Rate 99 08/07/18 16:27 Respiratory Rate 18 08/07/18 16:27 Blood Pressure 109/77 08/07/18 16:27 O2 Sat by Pulse Oximetry 96 08/07/18 16:27 Temperature 97.8 F 08/07/18 16:27 Pulse Rate 99 08/07/18 16:27 Respiratory Rate 18 08/07/18 16:27 Blood Pressure 109/77 08/07/18 16:27 O2 Sat by Pulse Oximetry 96 08/07/18 16:27 Oxygen Delivery Oxygen Delivery Room Air Abdominal Pain - MDM Narrative Medical decision making narrative: 63-year-old male presenting with abdominal pain. Recent admission for hyponatremia as well as concern for a new malignancy. He is noted to again have hyponatremia here 117. Labs are otherwise unremarkable. Patient signed out pending imaging of the abdomen. - Medical Records Medical records reviewed: Yes I reviewed the patient's medical records. - Lab Data Lab results reviewed: Yes I reviewed the patient's lab results. Result diagrams: 08/07/18 16:57 08/07/18 16:57 Lab Results 08/07/18 08/07/18 08/07/18 Range/Units 16:42 16:57 16:57 WBC 10.8 (4.3-11.1) K/mcL RBC 4.29 (4.19-5.50) M/mcL Hgb 12.2 L (12.9-16.9) g/dL Hct 35.4 L (37.5-50.1) % MCV 82.5 L (83.0-100.0) fL MCH 28.4 (28.0-33.3) pg MCHC 34.5 (31.6-35.5) g/dL RDW 16.1 H (11.5-14.5) % Plt Count 349 (140-400) K/mcL MPV 9.0 L (9.4-12.4) fL Immature Gran % 0.7 (0-4) % Seg Neutrophils % 67.5 % Lymphocytes % 17.0 % Monocytes % 13.5 % Eosinophils % 0.7 % Basophils % 0.6 % Neutrophils # 7.3 (1.6-8.9) K/mcL Lymphocytes # 1.8 (0.6-4.6) K/mcL Monocytes # 1.5 H (0.0-1.3) K/mcL Eosinophils # 0.1 (0.0-0.6) K/mcL Basophils # 0.1 (0.0-0.2) K/mcL Sodium 117 L* (136-145) mEq/L Potassium 4.6 (3.5-5.1) mEq/L Chloride 82 L (98-107) mEq/L Carbon Dioxide 22 L (23-29) mEq/L BUN 8 (8-23) mg/dL Creatinine 0.53 L (0.70-1.30) mg/dL Est GFR ( Amer) > 60 (> 60) Est GFR (Non-Af Amer) > 60 (> 60) BUN/Creatinine Ratio 15 (6-26) Glucose 64 L (70-105) mg/dL Calculated Osmolality 240 L (280-300) Calcium 9.5 (8.6-10.3) mg/dL Total Bilirubin 0.4 (0.3-1.0) mg/dL Direct Bilirubin 0.0 (0.0-0.2) mg/dL Indirect Bilirubin 0.4 (0.0-1.2) mg/dL AST 15 (13-39) Units/L ALT 8 (7-52) Units/L Alkaline Phosphatase 100 (34-104) Units/L Serum Total Protein 7.5 (6.4-8.9) g/dL Albumin 4.2 (3.5-5.7) g/dL Globulin 3.3 (2.4-3.5) g/dL Albumin/Globulin Ratio 1.3 (1.1-2.2) Lipase 23 (11-82) Units/L Urine Color Yellow (Yellow) Urine Clarity Clear (Clear) Urine pH 5.5 (5.0-8.0) pH Units Ur Specific [place] 1.020 (1.010-1.025) Urine Protein Negative (Neg-Trace) mg/dL Urine Glucose (UA) Normal (Normal) mg/dL Urine Ketones Trace H (Negative) mg/dL Urine Blood Moderate H (Negative) Urine Nitrite Negative (Negative) Urine Bilirubin Negative (Negative) Urine Urobilinogen Normal (Normal) mg/dL Ur Leukocyte Esterase Negative (Negative) Urine Microscopic RBC 3-5 H (0-3) per hpf Urine Microscopic WBC 0-3 (0-3) per hpf Ur Squamous Epith Cells None Seen (None-Few) per lpf Urine Bacteria None Seen (None-Few) per hpf Hyaline Casts None Seen (None-Few) per lpf Ur Culture Indicated? NO (NO) S.B.A.R. - S.B.A.R. Situation: Demographics, MOA Background: Presenting Complaint, Relevant PMH, Meds, & Allergies Assessment: Course and respsone to treatment, Exam Concerns, Patient/Family Expectation, Pertinant Lab Results Recommendation: Barrier(s) to disposition, Recommendation based on pending studies, treatments, or consults S.B.A.R. Report Given to: Dr. Maher/Shawn Attestation Statement - Attestation Attestation: Patient was seen with resident physician. I reviewed the history, physical, assessment and plan, and agree with the findings. I also personally evaluated this patient and had eviw-na-rjue time with this patient. 63-year-old male presents emergency Department chief complaint of abdominal pain and not over groin. Patient is recent diagnosis of cancer. Scheduled to see cancer specialists within the week. However he said over the last day or so he has developed abdominal pain around the umbilical area. He also noticed that he has got a knot now in the suprapubic area. He is not sure what that is but it is tender to palpation. He denies nausea vomiting diarrhea or dysuria. Review of systems as above remainder negative. Physical exam vital signs are stable. ENT is unremarkable. Heart regular rhythm and rate lungs clear. Abdomen soft no guarding rigidity but he is tender on the periumbilical area. Patient also has what feels like a swollen lymph node in the suprapubic area. It is tender to palpation there is no overlying erythema or warmth. Neurologically intact. Skin no rashes. Psych normal. ED course. With the patient's history of recent cancer, we will repeat a CT scan to try to evaluate the extent of possible metastatic disease in the abdomen. Ensure this is not causing the patient's pain. We will also treat patient's pain and check lab tests and disposition according to findings of the workup. Patient was hyponatremic worse than his usual hyponatremia. CT scan was pending at the time of shift change. Patient was signed out to the welder 2nd shift team for final disposition and follow-up on the CT scan. Hemodynamically he remained stable while in the emergency department. Agree with resident physician assessment and plan.
[2018-08-07 17:05] LABS: Bilirubin,Urine Negative (Negative); Blood,Urine Moderate (Negative); Clarity,Urine Clear (Clear); Color,Urine Yellow (Yellow); Glucose,Urine (UA) Normal (Normal); Ketones,Urine Trace mg/dL (Negative); Leukocyte Esterase,Urine Negative (Negative); Nitrite,Urine Negative (Negative); PH,Urine 5.5 pH Units (5.0-8.0); Protein,Urine Negative (Neg-Trace); Urobilinogen,Urine Normal (Normal)
[2018-08-07 17:07] LABS: Bacteria,Urine None Seen per hpf (None-Few); Hyaline Casts,Urine None Seen per lpf (None-Few); Squamous Epithelial Cell,Urine None Seen per lpf (None-Few); WBC,Urine 0-3 per hpf (0-3)
[2018-08-07 17:09] LABS: Basophils # 0.1 K/mcL (0.0-0.2); Basophils % 0.6 %; Eosinophils # 0.1 K/mcL (0.0-0.6); Eosinophils % 0.7 %; Hematocrit 35.4 % (37.5-50.1); Hemoglobin 12.2 g/dL (12.9-16.9); Immature Granulocytes % 0.7 % (0-4); Lymphocytes # 1.8 K/mcL (0.6-4.6); Mean Corpuscular HGB Conc 34.5 g/dL (31.6-35.5); Mean Corpuscular Hemoglobin 28.4 pg (28.0-33.3); Mean Corpuscular Volume 82.5 fL (83.0-100.0); Monocytes # 1.5 K/mcL (0.0-1.3); Monocytes % 13.5 %; Neutrophils # 7.3 K/mcL (1.6-8.9); Platelet Count 349 K/mcL (140-400); Red Blood Count 4.29 M/mcL (4.19-5.50); Red Cell Distribution Width 16.1 % (11.5-14.5); Segmented Neutrophils % 67.5 %
[2018-08-07 17:33] LABS: Alanine Aminotransferase 8 Units/L (7-52); Albumin 4.2 g/dL (3.5-5.7); Albumin/Globulin Ratio 1.3 (1.1-2.2); Alkaline Phosphatase 100 Units/L (34-104); Aspartate Amino Transferase 15 Units/L (13-39); BUN/Creatinine Ratio 15 (6-26); Bilirubin,Indirect 0.4 mg/dL (0.0-1.2); Bilirubin,Total 0.4 mg/dL (0.3-1.0); Blood Urea Nitrogen 8 mg/dL (8-23); Calcium 9.5 mg/dL (8.6-10.3); Carbon Dioxide 22 mEq/L (23-29); Chloride 82 mEq/L (98-107); Globulin 3.3 g/dL (2.4-3.5); Glucose 64 mg/dL (70-105); Lipase 23 Units/L (11-82); Osmolality,Calculated 240 (280-300); Potassium 4.6 mEq/L (3.5-5.1); Sodium 117 mEq/L (136-145); Total Protein 7.5 g/dL (6.4-8.9); eGFR For Non-African Americans > 60 (> 60)
--- NOTE | 2018-08-07 19:12 | Emergency Department Note ---
Disposition Clinical Impression: Hyponatremia Abdominal pain Qualifiers: Abdominal location: periumbilical Qualified Code(s): R10.33 - Periumbilical pain Disposition: Admitted As Inpatient Condition: Good [facility] Care Provider[facility] - Forms: ED Satisfaction Letter, Work/School Release Time of Disposition: 20:08 General Adult HPI - General Chief complaint: ED Abdominal Pain Stated complaint: abd pain Time Seen by Provider: 08/07/18 16:27 Source: EMS Mode of arrival: EMS Limitations: no limitations - History of Present Illness Pain Scale: 7 - Related Data Home Medications Medication Instructions Recorded Confirmed Cholecalciferol (Vitamin D3) 2,000 units PO DAILY 01/02/17 07/27/18 [Vitamin D3] Methocarbamol [Robaxin-750] 750 mg PO QID PRN 01/02/17 07/27/18 Albuterol Sulfate [Albuterol 2 puff IH Q4H PRN 03/05/17 07/27/18 Inhaler] Tiotropium [Spiriva] 2 puff IH DAILY 03/05/17 07/27/18 Trazodone HCl 100 mg PO HS PRN 02/23/18 07/27/18 HYDROcodone/Acet 5/325 mg [[place] 1 tab PO Q6H PRN 07/27/18 07/27/18 5-325 mg] Lactobacillus [Culturelle] 1 each PO BID 07/27/18 07/27/18 Melatonin [Melatin] 9 mg PO HS 07/27/18 07/27/18 Naproxen [Naprosyn] 500 mg PO BIDWM 07/27/18 07/27/18 Paroxetine HCl [Paxil] 20 mg PO DAILY 07/27/18 07/27/18 Ranitidine HCl [Heartburn Relief] 150 mg PO BID 07/27/18 07/27/18 hydrOXYzine pamoate [HydrOXYzine 25 mg PO QID PRN 07/27/18 07/27/18 Pamoate] Previous Rx's Medication Instructions Recorded Folic Acid 1 mg PO DAILY tablet 02/25/18 Thiamine (B-1) [Vitamin B-1] 100 mg PO DAILY tablet 02/25/18 Hydrocortisone [Cortef] 10 mg PO TAPER #31 tablet 07/28/18 Allergies Allergy/AdvReac Type Severity Reaction Status Date / Time No Known Allergies Allergy Verified 02/23/18 21:42 Constitutional: Denies: fever Gastrointestinal: Reports: abdominal pain, nausea, diarrhea. Denies: vomiting Genitourinary: Denies: dysuria, hematuria, discharge, testicular pain, testicular mass Past Medical History - Past Medical History Medical history: Reports: asthma, COPD, GERD Surgical history: Reports: orthopedic, other Psychiatric history: Reports: no psych history - Social History Smoking Status: Current every day smoker Smokeless Tobacco Status: No Alcohol use: Reports: heavy Drug use: Reports: none Physical Exam - General Limitations: no limitations General appearance: alert, in no apparent distress Course Vital Signs Temperature 97.8 F 08/07/18 16:27 Pulse Rate 99 08/07/18 16:27 Respiratory Rate 18 08/07/18 16:27 Blood Pressure 109/77 08/07/18 16:27 O2 Sat by Pulse Oximetry 96 08/07/18 16:27 Temperature 97.8 F 08/07/18 16:27 Pulse Rate 99 08/07/18 16:27 Respiratory Rate 18 08/07/18 16:27 Blood Pressure 109/77 08/07/18 16:27 O2 Sat by Pulse Oximetry 96 08/07/18 16:27 Oxygen Delivery Oxygen Delivery Room Air Medical Decision Making - Lab Data Result diagrams: 08/07/18 16:57 08/07/18 16:57 Lab Results 08/07/18 08/07/18 08/07/18 Range/Units 16:42 16:57 16:57 WBC 10.8 (4.3-11.1) K/mcL RBC 4.29 (4.19-5.50) M/mcL Hgb 12.2 L (12.9-16.9) g/dL Hct 35.4 L (37.5-50.1) % MCV 82.5 L (83.0-100.0) fL MCH 28.4 (28.0-33.3) pg MCHC 34.5 (31.6-35.5) g/dL RDW 16.1 H (11.5-14.5) % Plt Count 349 (140-400) K/mcL MPV 9.0 L (9.4-12.4) fL Immature Gran % 0.7 (0-4) % Seg Neutrophils % 67.5 % Lymphocytes % 17.0 % Monocytes % 13.5 % Eosinophils % 0.7 % Basophils % 0.6 % Neutrophils # 7.3 (1.6-8.9) K/mcL Lymphocytes # 1.8 (0.6-4.6) K/mcL Monocytes # 1.5 H (0.0-1.3) K/mcL Eosinophils # 0.1 (0.0-0.6) K/mcL Basophils # 0.1 (0.0-0.2) K/mcL Sodium 117 L* (136-145) mEq/L Potassium 4.6 (3.5-5.1) mEq/L Chloride 82 L (98-107) mEq/L Carbon Dioxide 22 L (23-29) mEq/L BUN 8 (8-23) mg/dL Creatinine 0.53 L (0.70-1.30) mg/dL Est GFR ( Amer) > 60 (> 60) Est GFR (Non-Af Amer) > 60 (> 60) BUN/Creatinine Ratio 15 (6-26) Glucose 64 L (70-105) mg/dL Calculated Osmolality 240 L (280-300) Calcium 9.5 (8.6-10.3) mg/dL Total Bilirubin 0.4 (0.3-1.0) mg/dL Direct Bilirubin 0.0 (0.0-0.2) mg/dL Indirect Bilirubin 0.4 (0.0-1.2) mg/dL AST 15 (13-39) Units/L ALT 8 (7-52) Units/L Alkaline Phosphatase 100 (34-104) Units/L Serum Total Protein 7.5 (6.4-8.9) g/dL Albumin 4.2 (3.5-5.7) g/dL Globulin 3.3 (2.4-3.5) g/dL Albumin/Globulin Ratio 1.3 (1.1-2.2) Lipase 23 (11-82) Units/L Urine Color Yellow (Yellow) Urine Clarity Clear (Clear) Urine pH 5.5 (5.0-8.0) pH Units Ur Specific [place] 1.020 (1.010-1.025) Urine Protein Negative (Neg-Trace) mg/dL Urine Glucose (UA) Normal (Normal) mg/dL Urine Ketones Trace H (Negative) mg/dL Urine Blood Moderate H (Negative) Urine Nitrite Negative (Negative) Urine Bilirubin Negative (Negative) Urine Urobilinogen Normal (Normal) mg/dL Ur Leukocyte Esterase Negative (Negative) Urine Microscopic RBC 3-5 H (0-3) per hpf Urine Microscopic WBC 0-3 (0-3) per hpf Ur Squamous Epith Cells None Seen (None-Few) per lpf Urine Bacteria None Seen (None-Few) per hpf Hyaline Casts None Seen (None-Few) per lpf Ur Culture Indicated? NO (NO) Attestation Statement - Attestation Attestation: I, Mark Escobar DO, examined this patient [id number] and my medical decision-making was reviewed with Dr. Linwood Maher, Resident Physician. I agree with the documented findings, disposition and treatment plan as described except to the extent set forth below. Please see my progress notes for details. Patient was signed out by the daytime physician Dr. Banegas as well as Dr. Beck. Discussion was had with the patient's medical history including alcoholism. He also has cyclic cancer and poorly controlled hyponatremia. Patient had stable labs otherwise. CT imaging of the abdomen is still pending secondary to abdominal pain and discomfort. Patient otherwise has chronic issues that were noted on chest x-ray in the labs. EKG is unremarkable. Disposition will be admission wants a CT imaging is resulted. Appropriate fluid restriction has been started this time. Patient's vital signs otherwise stable. Patient will be monitored here until the imaging modality is resulted and then the findings will be discussed at length. Hospitals will be contacted at that time. Patient is otherwise clinically stable. No emergent intervention required. See detailed documentation of the repeat physical exam, medical intervention, medical decision-making and disposition in the resident physician's note. No critical care applied the patient's treatment course at this time. 1999 Patient was discussed with the hospitalist Dr. Chambers. Recommended stress dose steroids urine osmoles and urine sodium to be collected. Otherwise he had no other requested this time. Patient will be fluid restricted and then admission process will be established. Patient will monitor here in the emergency department until admission process is completed
[2018-08-07] MEDS ORDERED: methylPREDNISolone 125 MG/2 ML VIAL IVP ONE (19:51)
[2018-08-07] MEDS ORDERED: Ipratropium/Albuterol Neb 3 ML IH ONE (19:51)
[2018-08-07] MEDS ORDERED: Hydrocortisone Sodium Succ 100 MG/2 ML VIAL IVP ONE (20:06)
--- NOTE | 2018-08-07 20:13 | Emergency Department Note ---
Disposition Clinical Impression: Hyponatremia Abdominal pain Qualifiers: Abdominal location: periumbilical Qualified Code(s): R10.33 - Periumbilical pain Disposition: Admitted As Inpatient Condition: Good [facility]: [facility] [Primary Care Provider[facility] - Forms: ED Satisfaction Letter, Work/School Release Time of Disposition: 20:12 General Adult HPI - General Chief complaint: ED Abdominal Pain Stated complaint: abd pain Time Seen by Provider: 08/07/18 16:27 Source: EMS Mode of arrival: EMS Limitations: no limitations - History of Present Illness HPI Narrative: This patient was signed out to me via the day team Dr. Beck/Bassam please refer to their note for full history and physical. Pain Scale: 7 - Related Data Home Medications Medication Instructions Recorded Confirmed Cholecalciferol (Vitamin D3) 2,000 units PO DAILY 01/02/17 07/27/18 [Vitamin D3] Methocarbamol [Robaxin-750] 750 mg PO QID PRN 01/02/17 07/27/18 Albuterol Sulfate [Albuterol 2 puff IH Q4H PRN 03/05/17 07/27/18 Inhaler] Tiotropium [Spiriva] 2 puff IH DAILY 03/05/17 07/27/18 Trazodone HCl 100 mg PO HS PRN 02/23/18 07/27/18 HYDROcodone/Acet 5/325 mg [[place] 1 tab PO Q6H PRN 07/27/18 07/27/18 5-325 mg] Lactobacillus [Culturelle] 1 each PO BID 07/27/18 07/27/18 Melatonin [Melatin] 9 mg PO HS 07/27/18 07/27/18 Naproxen [Naprosyn] 500 mg PO BIDWM 07/27/18 07/27/18 Paroxetine HCl [Paxil] 20 mg PO DAILY 07/27/18 07/27/18 Ranitidine HCl [Heartburn Relief] 150 mg PO BID 07/27/18 07/27/18 hydrOXYzine pamoate [HydrOXYzine 25 mg PO QID PRN 07/27/18 07/27/18 Pamoate] Previous Rx's Medication Instructions Recorded Folic Acid 1 mg PO DAILY tablet 02/25/18 Thiamine (B-1) [Vitamin B-1] 100 mg PO DAILY tablet 09/13/18 Hydrocortisone [Cortef] 10 mg PO TAPER #31 tablet 07/28/18 Allergies Allergy/AdvReac Type Severity Reaction Status Date / Time No Known Allergies Allergy Verified 02/23/18 21:42 Constitutional: Denies: fever Gastrointestinal: Reports: abdominal pain, nausea, diarrhea. Denies: vomiting Genitourinary: Denies: dysuria, hematuria, discharge, testicular pain, testicu lar mass Past Medical History - Past Medical History Medical history: Reports: asthma, COPD, GERD Surgical history: Reports: orthopedic, other Psychiatric history: Reports: no psych history - Social History Smoking Status: Current every day smoker Smokeless Tobacco Status: No Alcohol use: Reports: heavy Drug use: Reports: none Physical Exam - General Limitations: no limitations General appearance: alert, in no apparent distress - Chest Chest inspection: Present: normal inspection, symmetric chest wall rise - Respiratory Respiratory exam: Present: wheezes. Absent: respiratory distress, accessory muscle use, prolonged expiratory phase - Cardiovascular Cardiovascular exam: Present: regular rate, normal rhythm, normal heart sounds - Abdominal Exam Abdominal exam: Present: soft, tenderness (Generalized tenderness throughout the whole abdomen). Absent: distention, guarding, rebound, rigidity Course Vital Signs Temperature 97.8 F 08/07/18 16:27 Pulse Rate 99 08/07/18 16:27 Respiratory Rate 18 08/07/18 16:27 Blood Pressure 109/77 08/07/18 16:27 O2 Sat by Pulse Oximetry 96 08/07/18 16:27 Temperature 97.8 F 08/07/18 16:27 Pulse Rate 99 08/07/18 16:27 Respiratory Rate 18 08/07/18 16:27 Blood Pressure 109/77 08/07/18 16:27 O2 Sat by Pulse Oximetry 96 08/07/18 16:27 Oxygen Delivery Oxygen Delivery Room Air Medical Decision Making - [facility] Narrative Medical decision making narrative: I was following up CT of the abdomen and pelvis and the plan was to admit the patient via the day team due to hyponatremia.. CT came back stable showing no changes in his adrenal masses or no acute findings. Patient's sodium is still lowered at 117. I spoke with the hospitalist Dr. Chambers who agreed to admit the patient to their service. They did request that we order urine osmoles and urine sodium which were ordered. Also to give 100 mg Solu-Cortef IV once. This was ordered in the emergency department. Patient does have history of a lcoholism. Patient is not in DTs at this time. Patient is stable to be admitted to the hospitalist service. Abdomen/Pelvis CT 08/07/18 16:41 IMPRESSION: 1. No acute abdominopelvic process demonstrated 2. No appreciable change in appearance of bilateral adrenal metastases and retroperitoneal lymph node 3. Pelvic right kidney 4. 1.5 cm subcutaneous nodule in the mons pubis. Subcutaneous metastasis not excluded D/ / Arturo Simmons MD / Arturo Simmons MD Interpreting Provider: Arturo Simmons MD - Medical Records Medical records reviewed: Yes I reviewed the patient's medical records. - Lab Data Lab results reviewed: Yes I reviewed the patient's lab results. Result diagrams: 08/07/18 16:57 08/07/18 16:57 Lab Results 08/07/18 08/07/18 08/07/18 Range/Units 16:42 16:57 16:57 WBC 10.8 (4.3-11.1) K/mcL RBC 4.29 (4.19-5.50) M/mcL Hgb 12.2 L (12.9-16.9) g/dL Hct 35.4 L (37.5-50.1) % MCV 82.5 L (83.0-100.0) fL MCH 28.4 (28.0-33.3) pg MCHC 34.5 (31.6-35.5) g/dL RDW 16.1 H (11.5-14.5) % Plt Count 349 (140-400) K/mcL MPV 9.0 L (9.4-12.4) fL Immature Gran % 0.7 (0-4) % Seg Neutrophils % 67.5 % Lymphocytes % 17.0 % Monocytes % 13.5 % Eosinophils % 0.7 % Basophils % 0.6 % Neutrophils # 7.3 (1.6-8.9) K/mcL Lymphocytes # 1.8 (0.6-4.6) K/mcL Monocytes # 1.5 H (0.0-1.3) K/mcL Eosinophils # 0.1 (0.0-0.6) K/mcL Basophils # 0.1 (0.0-0.2) K/mcL Sodium 117 L* (136-145) mEq/L Potassium 4.6 (3.5-5.1) mEq/L Chloride 82 L (98-107) mEq/L Carbon Dioxide 22 L (23-29) mEq/L BUN 8 (8-23) mg/dL Creatinine 0.53 L (0.70-1.30) mg/dL Est GFR ( Amer) > 60 (> 60) Est GFR (Non-Af Amer) > 60 (> 60) BUN/Creatinine Ratio 15 (6-26) Glucose 64 L (70-105) mg/dL Calculated Osmolality 240 L (280-300) Calcium 9.5 (8.6-10.3) mg/dL Total Bilirubin 0.4 (0.3-1.0) mg/dL Direct Bilirubin 0.0 (0.0-0.2) mg/dL Indirect Bilirubin 0.4 (0.0-1.2) mg/dL AST 15 (13-39) Units/L ALT 8 (7-52) Units/L Alkaline Phosphatase 100 (34-104) Units/L Serum Total Protein 7.5 (6.4-8.9) g/dL Albumin 4.2 (3.5-5.7) g/dL Globulin 3.3 (2.4-3.5) g/dL Albumin/Globulin Ratio 1.3 (1.1-2.2) Lipase 23 (11-82) Units/L Urine Color Yellow (Yellow) Urine Clarity Clear (Clear) Urine pH 5.5 (5.0-8.0) pH Units Ur Specific [place] 1.020 (1.010-1.025) Urine Protein Negative (Neg-Trace) mg/dL Urine Glucose (UA) Normal (Normal) mg/dL Urine Ketones Trace H (Negative) mg/dL Urine Blood Moderate H (Negative) Urine Nitrite Negative (Negative) Urine Bilirubin Negative (Negative) Urine Urobilinogen Normal (Normal) mg/dL Ur Leukocyte Esterase Negative (Negative) Urine Microscopic RBC 3-5 H (0-3) per hpf Urine Microscopic WBC 0-3 (0-3) per hpf Ur Squamous Epith Cells None Seen (None-Few) per lpf Urine Bacteria None Seen (None-Few) per hpf Hyaline Casts None Seen (None-Few) per lpf Ur Culture Indicated? NO (NO) - Radiology Data Radiology results reviewed: Yes I reviewed the patient's radiology results. Attestation Statement - Attestation Attestation: I, Mark Escobar DO, examined this patient [id number] and my medical decision-making was reviewed with Dr. Linwood Maher, Resident Physician. I agree with the documented findings, disposition and treatment plan as described except to the extent set forth below. Please see my progress notes for details.
--- NOTE | 2018-08-07 21:42 | Internal Med History&Physical ---
<Liana Mcneild - Last Filed: 08/08/18 00:29> Date of Encounter: 08/08/18 Time of Encounter: 21:42 Internal Medicine - H&P: HPI Chief complaint: abdominal pain, hyponatremia Admitted From: Emergency Dept History of present illness: Mr. Aldana is a 63 year old male who presented to the emergency department with concern for abdominal pain. Patient was recently admitted and had a stay in the intensive care unit for concern for hyponatremia. 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 CT scan of the abdomen and pelvis did not reveal any acute surgical intra-abdominal pelvic abnormality. However, there is concern for 1.5 cm subcutaneous nodule that may be metastatic in the mons pubis with the patient's abdominal pain was reported to be. Patient denies any fevers, chills, nausea, vomiting, does report intermittent diarrhea. Patient drinks one 12 pack per day. Past Med Surg Social Fam HX - Past Medical History Medical history: asthma, COPD, GERD Additional medical history: recent lung dx Psychiatric history: no psych history - Past Surgical History Surgical History: orthopedic, other Additional surgical history: b/l femer fracture repair. screw to right hip - Social History Smoking Status: Current every day smoker Smokeless Tobacco Status: No Alcohol use: heavy Drug use: none - Family History Father Living Status: Hx Family Cardiac Disorders: Yes (CAD, Bypass) Hx Family Respiratory Disorders: No Hx Family Cancer: No Hx Family GI Disorders: No Hx Family Endocrine Disorder: No Hx Family Neuromuscular Disorders: No Hx Family Neurologic Disorders: Yes (Alzheimers) Hx Family HEENT Disorders: No Hx Family Autoimmune Disorders: No Brother Adopted: No Family Member Ethnicity: Non- Living Status: Still Living Hx Family Cardiac Disorders: No Hx Family Respiratory Disorders: No Hx Family Cancer: Yes (bowel) Hx Family GI Disorders: Yes (CA bowels) Hx Family Endocrine Disorder: No Hx Family Neuromuscular Disorders: No Hx Family Neurologic Disorders: No Hx Family HEENT Disorders: No Hx Family Autoimmune Disorders: No Internal Medicine - H&P: Meds Albuterol Sulfate [Albuterol Inhaler] 2 puff IH Q4H PRN 03/05/17 [History] Tiotropium [Spiriva] 2 puff IH 1200 03/05/17 [History] Trazodone HCl 100 mg PO HS PRN 02/23/18 [History] Folic Acid 1 mg PO DAILY tablet 02/25/18 [Rx] Thiamine (B-1) [Vitamin B-1] 100 mg PO DAILY tablet 02/25/18 [Rx] Melatonin [Melatin] 9 mg PO HS PRN 07/27/18 [History] Naproxen [Naprosyn] 500 mg PO BIDWM 07/27/18 [History] hydrOXYzine pamoate [HydrOXYzine Pamoate] 25 mg PO QID PRN 07/27/18 [History] Cholecalciferol (D-3) [Vitamin D] 2,000 unit PO DAILY 08/07/18 [History] Gabapentin [Neurontin] 200 mg PO BID 08/07/18 [History] Methocarbamol [Robaxin] 750 mg PO QID PRN 08/07/18 [History] Paroxetine HCl [Paxil] 20 mg PO DAILY 08/07/18 [History] Allergy/AdvReac Type Severity Reaction Status Date / Time No Known Allergies Allergy Verified 02/23/18 21:42 All Systems PM: A 10-system review of systems was performed and is negative for pertinent findings except as documented above in the HPI. Review of systems: Patient reports abdominal pain, diarrhea. Patient denies: Chest pain, pressure, tightness, fevers, nausea, vomiting. - Constitutional Vitals: Temp Pulse Resp BP Pulse Ox 97.8 F 99 18 109/77 95 08/07/18 16:27 08/07/18 16:27 08/07/18 20:23 08/07/18 16:27 08/07/18 20:23 General appearance: Present: cachectic, A&O X 3 Exam: General: Cachectic appearing male, in no acute distress Head: autraumatic, EOMI, no conjuncitval pallor, no scleral icterus, Neck: neck soft, trachea midline Chest:: Equal chest wall rise Lungs: Normal lungs sounds bilaterally, no wheezes, no respiratory distress Heart: normal heart sounds, normal rhythm, Abdomen: soft, diffuse tenderness, some rebound Integumentary: Skin warm, dry, and intact Neuro: Alert Psych: normal affect, normal mood Internal Med - H&P Results - Labs CBC & Chem 7: 08/07/18 16:57 08/07/18 22:24 Labs: Short CBC 08/07/18 Range/Units 16:57 WBC 10.8 (4.3-11.1) K/mcL Hgb 12.2 L (12.9-16.9) g/dL Hct 35.4 L (37.5-50.1) % Plt Count 349 (140-400) K/mcL Neutrophils # 7.3 (1.6-8.9) K/mcL BMP 08/07/18 16:57 Sodium 117 L* Potassium 4.6 Chloride 82 L Carbon Dioxide 22 L BUN 8 Creatinine 0.53 L Glucose 64 L Calcium 9.5 Liver Function 08/07/18 Range/Units 16:57 Total Bilirubin 0.4 (0.3-1.0) mg/dL Direct Bilirubin 0.0 (0.0-0.2) mg/dL AST 15 (13-39) Units/L ALT 8 (7-52) Units/L Alkaline Phosphatase 100 (34-104) Units/L Albumin 4.2 (3.5-5.7) g/dL Urine 08/07/18 Range/Units 16:42 Urine Color Yellow (Yellow) Urine Clarity Clear (Clear) Urine pH 5.5 (5.0-8.0) pH Units Ur Specific [place] 1.020 (1.010-1.025) Urine Protein Negative (Neg-Trace) mg/dL Urine Glucose (UA) Normal (Normal) mg/dL - Impressions ITS Impressions Abdomen/Pelvis CT 08/07/18 16:41 IMPRESSION: 1. No acute abdominopelvic process demonstrated 2. No appreciable change in appearance of bilateral adrenal metastases and retroperitoneal lymph node 3. Pelvic right kidney 4. 1.5 cm subcutaneous nodule in the mons pubis. Subcutaneous metastasis not excluded D/ / Arturo Simmons MD / Arturo Simmons MD Interpreting Provider: Arturo Simmons MD - Assessment and plan (1) Hyponatremia Current Visit: Yes Status: Acute Assessment and plan: Patient's initial sodium was 117 in the emergency department. A repeat BMP reveals that it is 122. Patient will be on fluid restriction at this time. He received 1 L of normal saline in the emergency department. We will not start maintenance fluids at this time. Hyponatremia is most likely multifactorial. Patient has SIADH, beer potomania, possible adrenal insufficiency secondary to adrenal metastasis. -Patient is on fluid restriction at this time - He is to only have 1 beer 3 times daily by mouth -BMP every 4 hours, sodium to not rise more than 10 and 24 hours -urine sodium -urine osmolality -Consult to nephrology (2) Alcohol dependence with withdrawal Current Visit: Yes Status: Acute Assessment and plan: Patient consumes one 12 pack of beer every day -1 beer 3 times daily -Chlordiazepoxide 50 mg by mouth 3 times daily -CINM protocol Qualifiers: Complication of substance-induced condition: uncomplicated Qualified Code(s): F10.230 - Alcohol dependence with withdrawal, uncomplicated (3) Adrenal insufficiency Current Visit: Yes Status: Acute Assessment and plan: Most likely secondary to the adrenal lesions, patient with normal vital signs at this time - hydrocortisone 50mg every 8 hours - consulted heme/onc for adrenal metastasis (4) Lesion of adrenal gland Current Visit: Yes Status: Acute Assessment and plan: -see above (5) Tobacco abuse Current Visit: Yes Status: Chronic Assessment and plan: 14 mg daily (6) Abdominal pain Current Visit: Yes Status: Acute Assessment and plan: CT scan of the abdomen and pelvis revealed subcutaneous nodule localized at the mons pubis most likely secondary to metastasis is most likely the cause of his abdominal pain - oncology was consulted - morphine 30mg immediate release every 6 hours Qualifiers: Abdominal location: periumbilical Qualified Code(s): R10.33 - Periumbilical pain (7) COPD (chronic obstructive pulmonary disease) Current Visit: No Status: Chronic Assessment and plan: Not in acute exacerbation -DuoNeb every 4 hours on as-needed basis Qualifiers: COPD type: chronic bronchitis Chronic bronchitis type: mucopurulent Qualified Code(s): J41.1 - Mucopurulent chronic bronchitis (8) DVT prophylaxis Current Visit: Yes Status: Acute Assessment and plan: Lovenox 40mg daily (9) DNR (do not resuscitate) Current Visit: Yes Status: Acute Assessment and plan: Patient currently DNR-comfort care arrest-DNI - Time Spent With Patient Total time spent is greater than 50% in coordination of care (as documented) at patient's floor/unit and/or counseling patient: <Neftali Chambers - Last Filed: 08/08/18 02:21> Date of Encounter: 08/08/18 Time of Encounter: 01:30 - Constitutional Constitutional: no chills, no fever(s) - EENT Eyes: no blurry vision, no change in vision Ears: no ear pain, no tinnitus Nose, mouth and throat: no sore throat - Cardiovascular Cardiovascular ROS IM: dyspnea, no chest pain, no orthopnea, no syncope - Respiratory Respiratory: cough, dyspnea, wheezing, no hemoptysis, no chest congestion, no excessive phlegm production, no change in phlegm color, no pain with cough - Gastrointestinal Gastrointestinal: abdominal pain, cramping, heartburn, no diarrhea, no hematemesis, no hematochezia, no melena, no nausea, no vomiting - Genitourinary Genitourinary ROS male: no dysuria, no flank pain, no hematuria - Musculoskeletal Musculoskeletal ROS IM: no arthralgias, no back pain - Integumentary Integumentary IM: no rash, no jaundice - Neurological Neurological ROS: no convulsions, no disequilibrium, no dizziness, no focal weakness, no frequent falls, no headache(s) - Psychiatric Psychiatric: no anxiety, no depression - Endocrine Endocrine IM: no polydipsia, no polyuria - Allergic/Immunologic Allergic/Immunologic: no GI upset with certain foods - Constitutional Vitals: Temp Pulse Resp BP Pulse Ox 98.7 F 93 20 122/76 95 08/07/18 22:30 08/07/18 22:30 08/07/18 22:30 08/07/18 22:30 08/07/18 22:30 General appearance: Present: cooperative, A&O X 3, pleasant - Head Head exam: Present: normal inspection - Eye Eye exam: Present: EOMI, PERRL. Absent: scleral icterus Pupils: Present: normal accommodation - ENT ENT exam: Present: mucous membranes dry, normal exam - Neck Neck exam general surgery: Present: supple, trachea midline. Absent: tenderness, nuchal rigidity, thyromegaly - Respiratory Respiratory exam: Present: prolonged expiratory phase, rhonchi, wheezes. Absent: chest wall tenderness, rales, respiratory distress - Cardiovascular Cardiovascular exam: Present: distant heart sounds, RRR, +S1, +S2. Absent: d iastolic murmur, systolic murmur - GI/Abdominal GI/Abdominal exam: Present: normal bowel sounds, tenderness (epigastric). Absent: guarding, hepatomegaly, rebound, splenomegaly - Extremities Exam Extremities exam: Present: full ROM, normal capillary refill, warm, radial pulses palpable and symmetrical. Absent: calf tenderness, pedal edema, tenderness - Back Exam Back exam: Present: normal inspection. Absent: CVA tenderness (L), CVA tenderness (R) - Neurological Exam Neurological exam: Present: alert, CN II-XII intact, oriented X3, no focal deficits - Psychiatric Psychiatric exam: Present: normal affect, normal mood - Skin Skin exam: Present: dry, intact, warm. Absent: rash Internal Med - H&P Results - Labs CBC & Chem 7: 08/07/18 16:57 08/07/18 22:24 Labs: Short CBC 08/07/18 Range/Units 16:57 WBC 10.8 (4.3-11.1) K/mcL Hgb 12.2 L (12.9-16.9) g/dL Hct 35.4 L (37.5-50.1) % Plt Count 349 (140-400) K/mcL Neutrophils # 7.3 (1.6-8.9) K/mcL BMP 08/07/18 08/07/18 16:57 22:24 Sodium 117 L* 122 L Potassium 4.6 4.4 Chloride 82 L 87 L Carbon Dioxide 22 L 24 BUN 8 10 Creatinine 0.53 L 0.62 L Glucose 64 L 115 H Calcium 9.5 9.4 Liver Function 08/07/18 Range/Units 16:57 Total Bilirubin 0.4 (0.3-1.0) mg/dL Direct Bilirubin 0.0 (0.0-0.2) mg/dL AST 15 (13-39) Units/L ALT 8 (7-52) Units/L Alkaline Phosphatase 100 (34-104) Units/L Albumin 4.2 (3.5-5.7) g/dL Urine 08/07/18 Range/Units 16:42 Urine Color Yellow (Yellow) Urine Clarity Clear (Clear) Urine pH 5.5 (5.0-8.0) pH Units Ur Specific [place] 1.020 (1.010-1.025) Urine Protein Negative (Neg-Trace) mg/dL Urine Glucose (UA) Normal (Normal) mg/dL - Impressions ITS Impressions Abdomen/Pelvis CT 08/07/18 16:41 IMPRESSION: 1. No acute abdominopelvic process demonstrated 2. No appreciable change in appearance of bilateral adrenal metastases and retroperitoneal lymph node 3. Pelvic right kidney 4. 1.5 cm subcutaneous nodule in the mons pubis. Subcutaneous metastasis not excluded D/ / Arturo Simmons MD / Arturo Simmons MD Interpreting Provider: Arturo Simmons MD - Time Spent With Patient Total time spent is greater than 50% in coordination of care (as documented) at patient's floor/unit and/or counseling patient: - Attending Attestation I discussed the patient YAKUTAT, past medical history, review of systems, lab data, imaging findings, and exam findings with Dr. Jacinto. I then saw and examined patient independently as well. Patient has yet to have tissue diagnosis of presumptive metastatic cancer. He was noted to have adrenal lesions concerning for metastatic disease. He also has what appears to be adrenal insufficiency based upon history and laboratory data. He presents again to the hospital with acute hyponatremia, epigastric pain, and concern for alcohol withdrawal. He denies any fevers or chills. His does complain of coughing and wheezing, however. Appetite and oral intake are diminished as well. My concern is that he was discharged home on tapering course of hydrocortisone, but I am unsure if he's been taking it correctly and/or at all. When ER contacted me to admit patient, I requested they give him a dose of hydrocortisone for presumptive adrenal insufficiency. We will continue oral dose of hydrocortisone and follow him clinically as well. Of further concern, he drinks an excessive amount of alcohol. In addition to CIWA protocol, we will give him beer 3 times per day to help blunt any withdrawal effects. I will liberalize his fluid restriction to 1500 ml per day. We will watch his sodium levels closely and monitor him clinically. Other than my comments above and noted exam findings, I agree with Dr. Jacinto's assessment and plan.
[2018-08-07] MEDS ORDERED: *HR* LORazepam 2 MG/ML VIAL IVP PRN (22:46)
[2018-08-07] MEDS ORDERED: *HR* Promethazine 25 MG/ML VIAL IVP PRN (22:46)
[2018-08-07] MEDS: Beer can PO SCH (22:47)
[2018-08-07 23:00] LABS: BUN/Creatinine Ratio 16 (6-26); Blood Urea Nitrogen 10 mg/dL (8-23); Calcium 9.4 mg/dL (8.6-10.3); Carbon Dioxide 24 mEq/L (23-29); Chloride 87 mEq/L (98-107); Glucose 115 mg/dL (70-105); Osmolality,Calculated 254 (280-300); Potassium 4.4 mEq/L (3.5-5.1); Sodium 122 mEq/L (136-145); eGFR For Non-African Americans > 60 (> 60)
[2018-08-07] MEDS ORDERED: Ipratropium/Albuterol Neb 3 ML IH PRN (23:28)
[2018-08-07] MEDS: *HR* Morphine Immed Rel 30 MG TABLET PO PRN (23:40)
[2018-08-08] MEDS: *HR* LORazepam 2 MG/ML VIAL IVP PRN ×3 (00:13→19:40)
[2018-08-08] MEDS: Nicotine 14 MG PATCH.TD24 TD SCH ×2 (00:57→07:29)
[2018-08-08] MEDS: *HR* Enoxaparin 40 MG/0.4 ML SYRINGE SQ SCH (06:27)
[2018-08-08] MEDS: Hydrocortisone 10 MG TABLET PO SCH ×3 (06:28→21:15)
[2018-08-08] MEDS: Beer can PO SCH ×2 (07:29→21:50)
[2018-08-08 08:30] LABS: Hemoglobin 11.7 g/dL (12.9-16.9); Immature Granulocytes % 0.9 % (0-4); Lymphocytes # 0.4 K/mcL (0.6-4.6); Lymphocytes % 8.9 %; Mean Corpuscular HGB Conc 33.4 g/dL (31.6-35.5); Mean Corpuscular Hemoglobin 28.4 pg (28.0-33.3); Mean Platelet Volume 9.4 fL (9.4-12.4); Monocytes # 0.2 K/mcL (0.0-1.3); Monocytes % 3.3 %; Platelet Count 359 K/mcL (140-400); Red Blood Count 4.12 M/mcL (4.19-5.50); Red Cell Distribution Width 16.1 % (11.5-14.5); Segmented Neutrophils % 86.9 %
[2018-08-08 08:49] LABS: BUN/Creatinine Ratio 18 (6-26); Blood Urea Nitrogen 12 mg/dL (8-23); Calcium 9.7 mg/dL (8.6-10.3); Carbon Dioxide 21 mEq/L (23-29); Chloride 93 mEq/L (98-107); Glucose 178 mg/dL (70-105); Osmolality,Calculated 268 (280-300); Potassium 4.6 mEq/L (3.5-5.1); Sodium 127 mEq/L (136-145); eGFR For Non-African Americans > 60 (> 60)
--- NOTE | 2018-08-08 08:49 | Internal Med Progress Note ---
Hospitalist Progress Note - Encounter Date of Encounter: 08/08/18 Time of Encounter: 08:50 - Subjective Interval History: Patient seen and examined this morning at bedside. No acute overnight events. Abdomen pain localized to suprapubic region around the nodule. Denies any fevers, chills, difficulty breathing chest pain bowel or urinary complaints. - Exam Vitals: Temp Pulse Resp BP Pulse Ox 98.3 F 78 18 109/69 93 08/08/18 07:25 08/08/18 07:25 08/08/18 07:25 08/08/18 07:25 08/08/18 07:25 Exam: General: In no acute distress. Conversant. Respiratory exam: CTAB. no accessory muscle use, rales, rhonchi, wheezes Cardiovascular exam: RRR, +S1, +S2. no murmur, gallop, rubs. GI/Abdominal exam: Non-tender, Non-distended, normal bowel sounds, soft, no peritoneal signs. Localized 2x2 cm nodule located on suprapubic region which is painful. Extremities exam: full ROM, no pedal edema, warm, pulses palpable in b/l lower extremities. no calf tenderness Neurological exam: CN II-XII intact, AO X3, no focal deficits. no pronater drift, facial droop, speech deficit Skin exam: No skin rash, ulcer, purpura or ecchymosis. - Summary of Assessment and Plan Summary of Assessment and Plan: Hyponatremia - Initially with Na of 117 in the emergency department. - Has adrenal lesions bilaterally presumptive of metastasis. Also with daily alcohol intake with possible beer potomania. SIADH also possible given possible lung ca. - Was recently discharged on tapered hydrocortisone on last discharge - c/w fluid restriction of 1.5 L. Received 1 Lit NS in ER. - BMP every 4 hours, sodium to not rise more than 8-10 in 24 hours - Consult to nephrology Alcohol dependence with withdrawal - Patient consumes one 12 pack of beer every day - Will stop beer and keep patient on CIWA protocol given hyponatremia - Chlordiazepoxide 50 mg by mouth 3 times daily to prevent withdrawal. Prn lorazepam Adrenal insufficiency - Diagnosed on last discharge. Possibly from adrenal metastasis. - c/w hydrocortisone 50mg every 8 hours Lesion of adrenal gland - CT chest imaging concerning likely primary metastatic lung CA - Plan was for biopsy of subcutaneous nodule. - Spoke with Oncology. Will get abdomen MRI to evaluate further for metastatic lesion. Abdominal pain - CT with subcutaneous nodule. likely secondary to metastasis is most likely the cause of his abdominal pain - oncology was consulted - morphine 30mg immediate release every 6 hours COPD - Not in acute exacerbation - DuoNeb every 8 hours schedule DVT prophylaxis - Lovenox 40mg daily - Time Spent with Patient Total time spent is greater than 50% in coordination of care (as documented) at patient's floor/unit and/or counseling patient: Internal Medicine: Result - Labs CBC & Chem 7: 08/08/18 08:10 08/07/18 22:24 Labs: Short CBC 08/07/18 08/08/18 Range/Units 16:57 08:10 WBC 10.8 4.6 D (4.3-11.1) K/mcL Hgb 12.2 L 11.7 L (12.9-16.9) g/dL Hct 35.4 L 35.0 L (37.5-50.1) % Plt Count 349 359 (140-400) K/mcL Neutrophils # 7.3 4.0 (1.6-8.9) K/mcL BMP 08/07/18 08/07/18 16:57 22:24 Sodium 117 L* 122 L Potassium 4.6 4.4 Chloride 82 L 87 L Carbon Dioxide 22 L 24 BUN 8 10 Creatinine 0.53 L 0.62 L Glucose 64 L 115 H Calcium 9.5 9.4 Liver Function 08/07/18 Range/Units 16:57 Total Bilirubin 0.4 (0.3-1.0) mg/dL Direct Bilirubin 0.0 (0.0-0.2) mg/dL AST 15 (13-39) Units/L ALT 8 (7-52) Units/L Alkaline Phosphatase 100 (34-104) Units/L Albumin 4.2 (3.5-5.7) g/dL Urine 08/07/18 Range/Units 16:42 Urine Color Yellow (Yellow) Urine Clarity Clear (Clear) Urine pH 5.5 (5.0-8.0) pH Units Ur Specific [place] 1.020 (1.010-1.025) Urine Protein Negative (Neg-Trace) mg/dL Urine Glucose (UA) Normal (Normal) mg/dL - Impressions Impressions Abdomen/Pelvis CT 08/07/18 16:41 IMPRESSION: 1. No acute abdominopelvic process demonstrated 2. No appreciable change in appearance of bilateral adrenal metastases and retroperitoneal lymph node 3. Pelvic right kidney 4. 1.5 cm subcutaneous nodule in the mons pubis. Subcutaneous metastasis not excluded D/ / Arturo Simmons MD / Arturo Simmons MD Interpreting Provider: Arturo Simmons MD Consult Discharge Plan - Plan [facility]errals: [facility] [Primary Care Provider] -
[2018-08-08] MEDS ORDERED: Thiamine (B-1) 100 MG TABLET PO SCH (09:00)
[2018-08-08] MEDS ORDERED: Thiamine (B-1) 100 MG in D5% in Water 50 ML IVPB ONE (09:12)
[2018-08-08] MEDS: Thiamine (B-1) 100 MG TABLET PO SCH (09:34)
--- NOTE | 2018-08-08 10:39 | Nephrology Consult Note ---
Date of Encounter: 08/08/18 Time of Encounter: 09:20 Assessment and Plan (1) Hyponatremia Current Visit: Yes Status: Acute Acute on recurrent/chronic. Multifactorial from Beer Potomania and possibly from his adrenal mass. I recommend 6-8mEq improvement for safe/slow correction. He has already started to improve, so will initiation first the fluid restriction today. Tomorrow, I have ordered for NaCl tablets to be started to help further correct the hyponatremia. He is asymptomatic neurologically and so he will not require 3% saline. (2) Adrenal insufficiency Current Visit: Yes Status: Acute Likely associated with his adrenal lesion. (3) Alcohol dependence with withdrawal Current Visit: Yes Status: Acute Since his hyponatremia is associated with his XS beer consumptions, I would recommend not providing beer in the hospital for his WD symptoms. Discussed with the hospitalist. Qualifiers: Complication of substance-induced condition: uncomplicated Qualified Code(s): F10.230 - Alcohol dependence with withdrawal, uncomplicated (4) Lesion of adrenal gland Current Visit: Yes Status: Acute Oncology has seen the pt. (5) BPH w urinary obs/LUTS Current Visit: Yes Status: Acute Based upon his symptoms that he reported to me. I recommend checking a retroperitoneal U/S to screen for BPH and /or urinary retention. Of note, if he has this, then this too could be contributing to his hyponatremia (a partial urinary track obstruction is a know etiology for hyponatremia). History of Present Illness - Reason for Consult Consult date: 08/08/18 hyponatremia Requesting physician: Justin Mcneil - Chief Complaint Hyponatremia - History of Present Illness 63 y/o WM with a pmh of alcoholism, adrenal lesion and et al who presented with acute worsening hyponatremia. He said that has not had seizures in the past. He said that he does not take NSAIDs. He did not affirm active F/C/N/V/D or other major complaints. He had a [employer] beer at his tablet tray. He reported having frequent night time urination, and affirmed some difficulty with his urination stream starting. FHx: his brother require nephrectomy, and his sister has required HD. Past Med Surg Social Fam HX - Past Medical History Medical history: asthma, COPD, GERD Additional medical history: recent lung dx Psychiatric history: no psych history - Past Surgical History Surgical History: orthopedic, other Additional surgical history: b/l femer fracture repair. screw to right hip - Social History Smoking Status: Current every day smoker Packs per day: 2 Smokeless Tobacco Status: No Alcohol use: heavy Drug use: none - Family History Father Living Status: Hx Family Cardiac Disorders: Yes (CAD, Bypass) Hx Family Respiratory Disorders: No Hx Family Cancer: No Hx Family GI Disorders: No Hx Family Endocrine Disorder: No Hx Family Neuromuscular Disorders: No Hx Family Neurologic Disorders: Yes (Alzheimers) Hx Family HEENT Disorders: No Hx Family Autoimmune Disorders: No Brother Adopted: No Family Member Ethnicity: Non- Living Status: Still Living Hx Family Cardiac Disorders: No Hx Family Respiratory Disorders: No Hx Family Cancer: Yes (bowel) Hx Family GI Disorders: Yes (CA bowels) Hx Family Endocrine Disorder: No Hx Family Neuromuscular Disorders: No Hx Family Neurologic Disorders: No Hx Family HEENT Disorders: No Hx Family Autoimmune Disorders: No Medications and Allergies Albuterol Sulfate [Albuterol Inhaler] 2 puff IH Q4H PRN 03/05/17 [History] Tiotropium [Spiriva] 2 puff IH 1200 03/05/17 [History] Trazodone HCl 100 mg PO HS PRN 02/23/18 [History] Folic Acid 1 mg PO DAILY tablet 02/25/18 [Rx] Thiamine (B-1) [Vitamin B-1] 100 mg PO DAILY tablet 02/25/18 [Rx] Melatonin [Melatin] 9 mg PO HS PRN 07/27/18 [History] Naproxen [Naprosyn] 500 mg PO BIDWM 07/27/18 [History] hydrOXYzine pamoate [HydrOXYzine Pamoate] 25 mg PO QID PRN 07/27/18 [History] Cholecalciferol (D-3) [Vitamin D] 2,000 unit PO DAILY 08/07/18 [History] Gabapentin [Neurontin] 200 mg PO BID 08/07/18 [History] Methocarbamol [Robaxin] 750 mg PO QID PRN 08/07/18 [History] Paroxetine HCl [Paxil] 20 mg PO DAILY 08/07/18 [History] Allergy/AdvReac Type Severity Reaction Status Date / Time No Known Allergies Allergy Verified 02/23/18 21:42 Review of Systems All Systems: reviewed and no additional remarkable complaints except as stated Exam - Vital Signs Vital signs: Initial Vital Signs Temp Pulse Resp BP Pulse Ox 97.8 F 99 18 109/77 96 08/07/18 16:27 08/07/18 16:27 08/07/18 16:27 08/07/18 16:27 08/07/18 16:27 Vital Signs - Last 8 Hours Temp Pulse Resp BP Pulse Ox 08/08/18 07:25 98.3 F 78 18 109/69 93 08/08/18 04:22 98.3 F 85 20 104/77 98 Intake and Output 08/07/18 08/08/18 08/08/18 23:59 07:59 15:59 Intake Total 1000 / 1000 360 / 360 360 / 360 Output Total 1000 / 1000 Balance 1000 / 1000 -640 / -640 360 / 360 Intake: IV Fluids 1000 / 1000 0.9 % Sodium Chloride 1,000 ML 1000 / 1000 @ 999 mls/hr IVC .Q1H1M ONE Rx# :[id number] Oral 360 / 360 360 / 360 Output: Urine 1000 / 1000 Other: Meal Breakfast Percent of Meal Consumed 100% Weight 65.5 kg 65.2 kg Patient Weight 08/08/18 23:59 Weight 65.2 kg - General Appearance General appearance: well-developed, cachectic EENT: ATNC, PERRL, mucous membranes moist Neck: supple Respiratory: rhonchi Cardiology: no edema, regular rate, regular rhythm, normal S1, normal S2 Gastrointestinal: normoactive bowel sounds, no tenderness, no guarding Integumentary: warm and dry Neurologic: no focal deficit, no asterixis, alert and oriented x3 Musculoskeletal: no deformities, no erythema, no clubbing Results - Lab Results 08/08/18 08:10 08/08/18 20:14 Most recent lab results Calcium 9.7 mg/dL (8.6-10.3) 08/08/18 08:10 Urine Sodium 19.8 mEq/L 08/08/18 00:08 I reviewed the labs, vitals, med lists, and progress notes and imaging. Consult Discharge Plan - Plan [facility]errals: [facility] [Primary Care Provider] -
--- NOTE | 2018-08-08 11:33 | Oncology Inp Consult Note ---
Date of Encounter: 08/08/18 Time of Encounter: 11:31 - Data of Consult Requesting Physician: Bijan Trinh MD Primary Care Provider: PCP [place] - Consult Narrative Reason for consult: Concern for malignancy History of present illness: A: 1. Hyponatremia 2. Alcohol dependence with withdrawal 3. Adrenal insufficiency 4. Concern for adrenal gland metastases 5. Subcutaneous mon pubis lesion measuring 1.5 cm 6. Abdominal pain P: -Currently on fluid restriction for his hyponatremia. Neprology c/s. -On CIDC protocol for alcohol dependence and chlordiazepoxide -Remains on Hydrocortisone 50 mg PO q8h for adrenal insufficiency -Obtaining MRI of the abdomen to evaluate adrenal lesion -Recommend biopsy of subcutaneous mon pubic lesion -Pain currently controlled with Morphine IR 30 mg PO q6h -Patient has been staged with CT CAP recently HPI: Patient presented to the ER with abdominal pain and hyponatremia. He was recently seen at [facility] for similar issues two weeks ago, but left AMA before completing work up for metastatic disease. At that time, there were adrenal lesions that were concerning for disease but work up was not able to completed as the patient left against advice. Today, he is resting comfortably in bed and states his abdominal pain has improved. Otherwise, he denies any fevers, chills, chest pain, SOB, N/V/D, or urinary issues currently. He is now agreeable to having biopsies and work up completed on this admission. ROS: 10 point ROS performed. Pertinent positives in HPI. PE: Gen: AAO x 3, in NAD HEENT: NC/AT, PERRLA, EOMI CV: RRR, no MRGs Lungs: Decreased BS b/l, no w/r/r appreciated GI/: Soft, NT, ND, +BS. 2 x 2 cm, left sided supra-pubic lesion palpated. Ext: No c/c/e Neuro: No focal deficits. Past Med Surg Social Fam HX - Past Medical History Medical history: asthma, COPD, GERD Additional medical history: recent lung dx Psychiatric history: no psych history - Past Surgical History Surgical History: orthopedic, other Additional surgical history: b/l femer fracture repair. screw to right hip - Social History Smoking Status: Current every day smoker Packs per day: 2 Smokeless Tobacco Status: No Alcohol use: heavy Drug use: none - Family History Father Living Status: Hx Family Cardiac Disorders: Yes (CAD, Bypass) Hx Family Respiratory Disorders: No Hx Family Cancer: No Hx Family GI Disorders: No Hx Family Endocrine Disorder: No Hx Family Neuromuscular Disorders: No Hx Family Neurologic Disorders: Yes (Alzheimers) Hx Family HEENT Disorders: No Hx Family Autoimmune Disorders: No Brother Adopted: No Family Member Ethnicity: Non- Living Status: Still Living Hx Family Cardiac Disorders: No Hx Family Respiratory Disorders: No Hx Family Cancer: Yes (bowel) Hx Family GI Disorders: Yes (CA bowels) Hx Family Endocrine Disorder: No Hx Family Neuromuscular Disorders: No Hx Family Neurologic Disorders: No Hx Family HEENT Disorders: No Hx Family Autoimmune Disorders: No Medications and Allergies Albuterol Sulfate [Albuterol Inhaler] 2 puff IH Q4H PRN 03/05/17 [History] Tiotropium [Spiriva] 2 puff IH 1200 03/05/17 [History] Trazodone HCl 100 mg PO HS PRN 02/23/18 [History] Folic Acid 1 mg PO DAILY tablet 02/25/18 [Rx] Thiamine (B-1) [Vitamin B-1] 100 mg PO DAILY tablet 02/25/18 [Rx] Melatonin [Melatin] 9 mg PO HS PRN 07/27/18 [History] Naproxen [Naprosyn] 500 mg PO BIDWM 07/27/18 [History] hydrOXYzine pamoate [HydrOXYzine Pamoate] 25 mg PO QID PRN 07/27/18 [History] Cholecalciferol (D-3) [Vitamin D] 2,000 unit PO DAILY 08/07/18 [History] Gabapentin [Neurontin] 200 mg PO BID 08/07/18 [History] Methocarbamol [Robaxin] 750 mg PO QID PRN 08/07/18 [History] Paroxetine HCl [Paxil] 20 mg PO DAILY 08/07/18 [History] Allergy/AdvReac Type Severity Reaction Status Date / Time No Known Allergies Allergy Verified 02/23/18 21:42 Oncology Inpatient Results Labs: 08/08/18 08/08/18 08:10 08:10 WBC 4.6 D RBC 4.12 L Hgb 11.7 L Hct 35.0 L MCV 85.0 MCH 28.4 MCHC 33.4 RDW 16.1 H Plt Count 359 MPV 9.4 Immature Gran % 0.9 Seg Neutrophils % 86.9 Lymphocytes % 8.9 Monocytes % 3.3 Eosinophils % 0.0 Basophils % 0.0 Neutrophils # 4.0 Lymphocytes # 0.4 L Monocytes # 0.2 Eosinophils # 0.0 Basophils # 0.0 Sodium 127 L Potassium 4.6 Chloride 93 L Carbon Dioxide 21 L BUN 12 Creatinine 0.65 L Est GFR ( Amer) > 60 Est GFR (Non-Af Amer) > 60 BUN/Creatinine Ratio 18 Glucose 178 H Calculated Osmolality [address]/CT abd pelvis w iv no oral 08/07/2018 IMPRESSION: 1. No acute abdominopelvic process demonstrated 2. No appreciable change in appearance of bilateral adrenal metastases and retroperitoneal lymph node 3. Pelvic right kidney 4. 1.5 cm subcutaneous nodule in the mons pubis. Subcutaneous metastasis not excluded CT/CT chest w con 07/27/2018 IMPRESSION: Bilateral pulmonary nodules have not significantly changed in size. Right hilar lymph node is consistent with metastatic disease. Large bilateral adrenal nodules are not significantly changed and are concerning for metastatic disease. Consult Discharge Plan - Plan [facility] Care Provider[facility] - Inpatient Charges Provider: Dr. Lulu Quispe Consult - Inpatient: [id number]
[2018-08-08 12:31] LABS: BUN/Creatinine Ratio 23 (6-26); Blood Urea Nitrogen 15 mg/dL (8-23); Calcium 9.6 mg/dL (8.6-10.3); Carbon Dioxide 23 mEq/L (23-29); Chloride 95 mEq/L (98-107); Glucose 202 mg/dL (70-105); Osmolality,Calculated 269 (280-300); Potassium 4.7 mEq/L (3.5-5.1); Sodium 126 mEq/L (136-145); eGFR For Non-African Americans > 60 (> 60)
[2018-08-08] MEDS: Multivit/Ca/Min/Fe/FA 1 TAB TABLET PO SCH (13:55)
[2018-08-08] MEDS: Ipratropium/Albuterol Neb 3 ML IH SCH ×2 (15:14→22:39)
[2018-08-08 16:27] LABS: BUN/Creatinine Ratio 23 (6-26); Blood Urea Nitrogen 18 mg/dL (8-23); Calcium 9.6 mg/dL (8.6-10.3); Carbon Dioxide 25 mEq/L (23-29); Chloride 95 mEq/L (98-107); Glucose 121 mg/dL (70-105); Osmolality,Calculated 265 (280-300); Potassium 5.1 mEq/L (3.5-5.1); Sodium 126 mEq/L (136-145); eGFR For Non-African Americans > 60 (> 60)
[2018-08-08] MEDS: *HR* Morphine Immed Rel 30 MG TABLET PO PRN (19:40)
[2018-08-08] MEDS: Gabapentin 100 MG CAPSULE PO SCH (21:15)
[2018-08-08 21:23] LABS: BUN/Creatinine Ratio 26 (6-26); Blood Urea Nitrogen 19 mg/dL (8-23); Calcium 9.4 mg/dL (8.6-10.3); Carbon Dioxide 22 mEq/L (23-29); Chloride 100 mEq/L (98-107); Glucose 155 mg/dL (70-105); Osmolality,Calculated 267 (280-300); Sodium 126 mEq/L (136-145); eGFR For Non-African Americans > 60 (> 60)
[2018-08-08] MEDS: Dexmedetomidine HCl 400 MCG/100 ML MLS IVC SCH (22:53)
[2018-08-08] MEDS ORDERED: 0.9 % Sodium Chloride 500 ML ONE (23:05)
[2018-08-09 00:39] LABS: BUN/Creatinine Ratio 26 (6-26); Blood Urea Nitrogen 18 mg/dL (8-23); Calcium 9.5 mg/dL (8.6-10.3); Carbon Dioxide 25 mEq/L (23-29); Chloride 98 mEq/L (98-107); Glucose 138 mg/dL (70-105); Osmolality,Calculated 280 (280-300); Potassium 4.4 mEq/L (3.5-5.1); Sodium 133 mEq/L (136-145); eGFR For Non-African Americans > 60 (> 60)
[2018-08-09 04:45] LABS: INR 0.9; Prothrombin Time 10.6 Seconds (9.4-12.1)
[2018-08-09 04:47] LABS: BUN/Creatinine Ratio 30 (6-26); Blood Urea Nitrogen 17 mg/dL (8-23); Calcium 9.6 mg/dL (8.6-10.3); Carbon Dioxide 24 mEq/L (23-29); Chloride 101 mEq/L (98-107); Glucose 143 mg/dL (70-105); Osmolality,Calculated 278 (280-300); Potassium 4.4 mEq/L (3.5-5.1); Sodium 132 mEq/L (136-145); eGFR For Non-African Americans > 60 (> 60)
[2018-08-09] MEDS: Hydrocortisone 10 MG TABLET PO SCH ×3 (05:02→20:50)
[2018-08-09] MEDS: Ipratropium/Albuterol Neb 3 ML IH SCH ×3 (07:33→22:05)
[2018-08-09] MEDS: *HR* Enoxaparin 40 MG/0.4 ML SYRINGE SQ SCH (08:18)
[2018-08-09 09:58] LABS: BUN/Creatinine Ratio 25 (6-26); Blood Urea Nitrogen 16 mg/dL (8-23); Calcium 9.4 mg/dL (8.6-10.3); Carbon Dioxide 26 mEq/L (23-29); Chloride 100 mEq/L (98-107); Glucose 158 mg/dL (70-105); Osmolality,Calculated 282 (280-300); Potassium 4.1 mEq/L (3.5-5.1); Sodium 134 mEq/L (136-145); eGFR For Non-African Americans > 60 (> 60)
[2018-08-09] MEDS: Beer can PO SCH (10:51)
--- NOTE | 2018-08-09 11:08 | Oncology Inp Progress Note ---
<ShirazcarlotaCarlos - Last Filed: 08/09/18 17:05> Date of Encounter: 08/09/18 Oncology: Obj Data - Labs CBC & Chem 7: 08/08/18 08:10 08/09/18 12:59 Consult Discharge Plan - Plan [facility]errals: [facility] [Primary Care Provider[facility] - Inpatient Charges Provider: Dr. Lulu Quispe Follow up - Inpatient: [id number] - Attending Attestation I examined this patient and my medical decision-making was reviewed with the Advanced Practice Nurse. I agree with the documented findings, disposition and treatment plan as described except to the extent set forth below. Will plan for CT guided biopsy for adrenal metastases tomorrow Will perform anemia w/u and check SPEP Retroperitoneal US ordered by primary team <Amna Schaeffer - Last Filed: 08/09/18 17:59> Date of Encounter: 08/09/18 Time of Encounter: 09:50 (1) Alcohol dependence with withdrawal Current Visit: Yes Status: Acute Assessment and plan: Alcohol Dependence Patient drinks 6-10, 25oz beers daily. Plan: CIWA scale per hospital policy. No alcohol to be given at this time. Qualifiers: Complication of substance-induced condition: uncomplicated Qualified Code(s): F10.230 - Alcohol dependence with withdrawal, uncomplicated (2) Adrenal mass Current Visit: No Status: Acute Assessment and plan: Bilateral adrenal masses Left: 7.3cm x 3.1cm Right: 6.4cm x 2.2cm Left periaortic lymph node 1.7cm, concerning for metastasis Plan: Consult to Interventional Radiology for biopsy. . (3) Abdominal pain Current Visit: Yes Status: Acute Assessment and plan: Abdominal pain Denies pain at this time. Mass of mons pubis, measuring 1.5cm Plan: Continue to monitor for pain. Qualifiers: Abdominal location: periumbilical Qualified Code(s): R10.33 - Periumbilical pain (4) Adrenal insufficiency Current Visit: Yes Status: Acute Assessment and plan: Nephrology consulted. 08/09/18: Na 134, K 4.1 Plan: Fluid restriction: 1.5L free fluid daily. Monitor sodium levels daily. Strict I/O's (5) Anemia Current Visit: Yes Status: Acute Assessment and plan: Normocytic, normochromic anemia Hgb 11.7 Plan: Anemia workup: iron profile, ferritin, B12, folate, LDH, haptoglobin, retic, SPEP, serum free light chains, UPEP, immunofixation, and immunoglobuin panel Qualifiers: Anemia type: unspecified type Qualified Code(s): D64.9 - Anemia, unspecified Oncology: Subj Interval history: Taqueria, a 63yo male with bilateral adrenal masses, presented to the emergency department with abdominal pain. He was seen at [facility] about two weeks ago for h yponatremia and adrenal masses [facility]. He left against medical advice and did not complete a biopsy as previously discussed. This morning Taqueria is trying to get up out of his chair without assistance. His nurse, Keturah is present and trying to explain his need for assistance. Taqueria is weak with standing for five minutes to use the urinal. He is oriented to his name and birthday only. He states that he drinks 6-10, 25oz beers per day and smokes 2 ppd of cigarettes. He denies use of street drugs. He is complaining that he had not been given any water this morning. Attempted to discuss fluid restriction recommended by Nephrology, but patient unable to comprehend that he may not receive water at this time. He is scheduled for a biopsy today. Patient denies wanting biopsy and wants to eat. He verbalizes refusal to today's biopsy and states that he wants to eat and drink. Keturah, primary RN in room and states that she will notify the hospitalist of patient's refusal. Taqueria denies abdominal pain this morning. He complains of nausea and dry-heaving, but denies vomiting. He denies constipation and diarrhea. He denies fever or chills. Discussed with Dr. Trinh. Patient now open to having biopsy, as previously ordered. - Constitutional General appearance: disheveled, no cooperative - Respiratory Respiratory exam: Present: CTAB. Absent: accessory muscle use, rales, respiratory distress, rhonchi, wheezes - Cardiovascular Cardiovascular exam: Present: RRR - GI/Abdominal GI/Abdominal exam: Present: normal bowel sounds, soft. Absent: guarding, rebound - Extremities Exam Extremities exam: Present: normal capillary refill, normal inspection. Absent: calf tenderness, pedal edema - Neurological Exam Neurological exam: Present: altered, strengths equal and symetr throughout. Absent: facial droop, speech deficit - Skin Skin exam: Present: dry, normal color. Absent: erythema Oncology: Obj Data - Labs CBC & Chem 7: 08/08/18 08:10 08/09/18 12:59
[2018-08-09] MEDS: Gabapentin 100 MG CAPSULE PO SCH ×2 (11:20→20:49)
[2018-08-09] MEDS: Thiamine (B-1) 100 MG TABLET PO SCH (11:21)
[2018-08-09] MEDS: Multivit/Ca/Min/Fe/FA 1 TAB TABLET PO SCH (11:21)
[2018-08-09] MEDS: Cholecalciferol (D-3) 1,000 UNIT TABLET PO SCH (11:21)
[2018-08-09] MEDS: Nicotine 14 MG PATCH.TD24 TD SCH (11:24)
--- NOTE | 2018-08-09 11:26 | Nephrology Progress Note ---
Date of Encounter: 08/09/18 Time of Encounter: 10:00 - Assessment and Plan (1) Hyponatremia Current Visit: Yes Status: Acute Trending better. Continue the fluid restriction and avoidance of beer, if able. Cont the NaCl tablets. He is asymptomatic neurologically. Given that he has trended safely and slowly better, I will sign off at this point. Please feel free to call or page me with any nephrology questions. Thank you for having consulted the [facility]. (2) Adrenal insufficiency Current Visit: Yes Status: Acute (3) Alcohol dependence with withdrawal Current Visit: Yes Status: Acute Qualifiers: Complication of substance-induced condition: uncomplicated Qualified Code(s): F10.230 - Alcohol dependence with withdrawal, uncomplicated (4) Lesion of adrenal gland Current Visit: Yes Status: Acute (5) BPH w urinary obs/LUTS Current Visit: Yes Status: Acute Subjective Principal diagnosis: Hyponatremia Interval history: Pt was s/e in his 2N room. He did not affirm active N/V/D or recent seizures or confusion. Objective - Vital Signs Vital signs: Vital Signs Temp Pulse Resp BP Pulse Ox 08/09/18 07:34 18 96 08/09/18 07:22 97.6 F 69 18 93/65 95 08/09/18 07:00 121 08/09/18 06:59 59 104/73 08/09/18 05:15 62 95/60 08/09/18 04:15 66 95/86 08/09/18 04:00 61 87/58 08/09/18 03:45 62 90/55 08/09/18 03:30 62 92/57 08/09/18 03:16 97.4 F L 62 16 89/59 93 08/09/18 03:15 63 89/59 08/09/18 03:00 62 98/67 08/09/18 02:45 61 108/75 08/09/18 02:30 63 95/68 08/09/18 02:15 66 106/72 08/09/18 02:00 67 101/74 08/09/18 01:45 69 93/77 08/09/18 01:30 72 105/82 08/09/18 01:15 78 97/72 08/09/18 01:00 73 111/77 08/09/18 00:45 99 94/57 08/09/18 00:30 90 113/90 08/09/18 00:15 87 110/73 08/08/18 23:30 92 109/72 08/08/18 23:15 90 100/72 08/08/18 23:00 95 113/76 08/08/18 22:58 97.7 F 92 20 113/76 92 08/08/18 22:55 94 104/73 08/08/18 22:40 20 95 08/08/18 18:43 97.6 F 96 22 120/72 96 08/08/18 16:00 98.3 F 84 20 109/73 93 08/08/18 15:17 24 95 08/08/18 13:57 88 24 109/75 95 08/08/18 11:55 98.0 F 93 18 98/71 94 Intake and Output 08/08/18 08/09/18 08/09/18 23:59 07:59 15:59 Intake Total 1080 / 1080 29.5 / 29.5 0 / 0 Output Total 550 / 550 150 / 150 Balance 530 / 530 -120.5 / -120.5 0 / 0 Intake: IV Fluids 29.5 / 29.5 PRECEDEX Premix 400 mcg In 100 29.5 / 29.5 ml @ 0.2 MCG/KG/HR 3.26 mls/hr IVC .Q24H [facility] Rx#:[id number] Oral 1080 / 1080 0 / 0 Output: Urine 550 / 550 150 / 150 Other: Meal Dinner NPO Percent of Meal Consumed 100% 0% Blood Glucose* 152 - General Appearance Exam: General appearance: well-developed, cachectic EENT: ATNC, PERRL, mucous membranes moist Neck: supple Respiratory: rhonchi Cardiology: no edema, regular rate, regular rhythm, normal S1, normal S2 Gastrointestinal: normoactive bowel sounds, no tenderness, no guarding Integumentary: warm and dry Neurologic: no focal deficit, no asterixis, alert and oriented x3 Musculoskeletal: no deformities, no erythema, no clubbing - Lab 08/08/18 08:10 08/09/18 18:16 Most recent lab results Calcium 9.4 mg/dL (8.6-10.3) 08/09/18 09:23 Urine Sodium 19.8 mEq/L 08/08/18 00:08 Consult Discharge Plan - Plan [facility]errals: [facility] [Primary Care Provider] -
--- NOTE | 2018-08-09 11:48 | Internal Med Progress Note ---
Hospitalist Progress Note - Encounter Date of Encounter: 08/09/18 Time of Encounter: 11:35 - Subjective Interval History: Patient seen and examined this morning at bedside. Denies any difficulty breathing bowel or bladder complaints. Still has some pain around the nodule in his abdomen. Had some agitation and was started on Precedex yesterday as well as beer. Currently calm. Previously refused biopsy but agrees to get it done when asked by me. - Exam Vitals: Temp Pulse Resp BP Pulse Ox 97.9 F 61 18 85/53 93 08/09/18 11:26 08/09/18 11:26 08/09/18 11:26 08/09/18 11:08/09/18 11: Exam: General: In no acute distress. Conversant. Respiratory exam: CTAB. no accessory muscle use, rales, rhonchi, wheezes Cardiovascular exam: RRR, +S1, +S2. no M/R/G GI/Abdominal exam: Non-tender, Non-distended, normal bowel sounds, soft, no peritoneal signs. Localized 2x2 cm nodule located on suprapubic region which is painful. Extremities exam: full ROM, no pedal edema, warm, pulses palpable in b/l lower extremities. no calf tenderness Neurological exam: CN II-XII intact, AO X3, no focal deficits. no pronater drift, facial droop, speech deficit. - Summary of Assessment and Plan Summary of Assessment and Plan: Hyponatremia - Initially with Na of 117. Improving. - Has adrenal lesions bilaterally presumptive of metastasis . Also with daily alcohol intake with possible beer potomania. - c/w fluid restriction of 1.5 L. - Nephrology following. Appreciate recommendations. Started on NaCL tablets. Will get US. Target of 6-8 correction of Na. - repeat bmp q4hr. Alcohol dependence with withdrawal - Patient consumes one 12 pack of beer every day - restarted on beer, precedex due to agitation. Was on CIWA protocol with lorazepam and librium 50 TID. Will stop beer to allow better control of Adrenal insufficiency - Diagnosed on last discharge. Possibly from adrenal metastasis. - c/w hydrocortisone 50mg every 8 hours Lesion of adrenal gland - CT chest imaging concerning likely primary metastatic lung CA - Plan was for biopsy of subcutaneous nodule. Agrees to get it done. Keep NPO - MRI compatible with metastatic disease in adrenals - Oncology following Abdominal pain - CT with subcutaneous nodule. likely secondary to metastasis is most likely the cause of his abdominal pain - Pain in better controlled COPD - Not in acute exacerbation - DuoNeb every 8 hours schedule DVT prophylaxis - Lovenox 40mg daily - Time Spent with Patient Total time spent is greater than 50% in coordination of care (as documented) at patient's floor/unit and/or counseling patient: Internal Medicine: Result - Labs CBC & Chem 7: 08/08/18 08:10 08/09/18 09:23 Labs: BMP 08/08/18 08/08/18 08/08/18 12:01 15:48 20:14 Sodium 126 L 126 L 126 L Potassium 4.7 5.1 4.0 Chloride 95 L 95 L 100 Carbon Dioxide 23 25 22 L BUN 15 18 19 Creatinine 0.66 L 0.80 0.74 Glucose 202 H 121 H 155 H Calcium 9.6 9.6 9.4 08/09/18 08/09/18 08/09/18 00:06 04:17 09:23 Sodium 133 L 132 L 134 L Potassium 4.4 4.4 4.1 Chloride 98 101 100 Carbon Dioxide 25 24 26 BUN 18 17 16 Creatinine 0.70 0.56 L 0.63 L Glucose 138 H 143 H 158 H Calcium 9.5 9.6 9.4 - ABG Interpretation ABG results: PT/INR, D-dimer PT 10.6 Seconds (9.4-12.1) 08/09/18 04:17 - Impressions Impressions Abdomen MRI 08/09/18 09:23 IMPRESSION: Bilateral adrenal masses and suspicious left periaortic lymph node with similar signal characteristics, compatible with metastatic disease. Pelvic right kidney. Bilateral simple renal cysts. D/ / Thomas Rajput / Thomas Rajput Interpreting Provider: Thomas Rajput Consult Discharge Plan - Plan [facility]errals: [facility] [Primary Care Provider] -
[2018-08-09 13:45] LABS: BUN/Creatinine Ratio 29 (6-26); Blood Urea Nitrogen 15 mg/dL (8-23); Calcium 9.3 mg/dL (8.6-10.3); Carbon Dioxide 25 mEq/L (23-29); Chloride 101 mEq/L (98-107); Glucose 125 mg/dL (70-105); Osmolality,Calculated 276 (280-300); Potassium 4.4 mEq/L (3.5-5.1); Sodium 132 mEq/L (136-145); eGFR For Non-African Americans > 60 (> 60)
--- NOTE | 2018-08-09 15:42 | IR Progress Note ---
Vital Signs: Vital Signs/O2 Sat, Most Current Temp Pulse Resp BP Pulse Ox 97.9 F 61 18 85/53 93 08/09/18 11:26 08/09/18 11:26 08/09/18 11:26 08/09/18 11:26 08/09/18 11:26 Recent Labs: Lab Results 08/09/18 08/09/18 08/09/18 12:59 09:23 04:17 WBC RBC Hgb Hct MCV MCH MCHC RDW Plt Count MPV Neutrophils # Lymphocytes # Monocytes # Eosinophils # Basophils # Sodium 132 L 134 L 132 L Potassium 4.4 4.1 4.4 Chloride 101 100 101 Carbon Dioxide 25 26 24 BUN 15 16 17 Creatinine 0.51 L 0.63 L 0.56 L Est GFR ( Amer) > 60 > 60 > 60 Est GFR (Non-Af Amer) > 60 > 60 > 60 BUN/Creatinine Ratio 29 H 25 30 H Glucose 125 H 158 H 143 H Calcium 9.3 9.4 9.6 08/09/18 08/08/18 08/08/18 00:06 20:14 15:48 WBC RBC Hgb Hct MCV MCH MCHC RDW Plt Count MPV Neutrophils # Lymphocytes # Monocytes # Eosinophils # Basophils # Sodium 133 L 126 L 126 L Potassium 4.4 4.0 5.1 Chloride 98 100 95 L Carbon Dioxide 25 22 L 25 BUN 18 19 18 Creatinine 0.70 0.74 0.80 Est GFR ( Amer) > 60 > 60 > 60 Est GFR (Non-Af Amer) > 60 > 60 > 60 BUN/Creatinine Ratio 26 26 23 Glucose 138 H 155 H 121 H Calcium 9.5 9.4 9.6 08/08/18 08/08/18 08/08/18 12:01 08:10 08:10 WBC 4.6 D RBC 4.12 L Hgb 11.7 L Hct 35.0 L MCV 85.0 MCH 28.4 MCHC 33.4 RDW 16.1 H Plt Count 359 MPV 9.4 Neutrophils # 4.0 Lymphocytes # 0.4 L Monocytes # 0.2 Eosinophils # 0.0 Basophils # 0.0 Sodium 126 L 127 L Potassium 4.7 4.6 Chloride 95 L 93 L Carbon Dioxide 23 21 L BUN 15 12 Creatinine 0.66 L 0.65 L Est GFR ( Amer) > 60 > 60 Est GFR (Non-Af Amer) > 60 > 60 BUN/Creatinine Ratio 23 18 Glucose 202 H 178 H Calcium 9.6 9.7 08/07/18 08/07/18 08/07/18 22:24 16:57 16:57 WBC 10.8 RBC 4.29 Hgb 12.2 L Hct 35.4 L MCV 82.5 L MCH 28.4 MCHC 34.5 RDW 16.1 H Plt Count 349 MPV 9.0 L Neutrophils # 7.3 Lymphocytes # 1.8 Monocytes # 1.5 H Eosinophils # 0.1 Basophils # 0.1 Sodium 122 L 117 L* Potassium 4.4 4.6 Chloride 87 L 82 L Carbon Dioxide 24 22 L BUN 10 8 Creatinine 0.62 L 0.53 L Est GFR ( Amer) > 60 > 60 Est GFR (Non-Af Amer) > 60 > 60 BUN/Creatinine Ratio 16 15 Glucose 115 H 64 L Calcium 9.4 9.5 Assessment and Plan Pt referred for biopsy of ant pelvic wall subQ nodule or adrenal lesions. Conflicting noted whether patient would like anything done as he would not be pursuing further treatment if cancer. Spoke to Dr Trinh who will clarify with oncologist. Will hold off till further notice.
[2018-08-09 18:50] LABS: BUN/Creatinine Ratio 27 (6-26); Blood Urea Nitrogen 13 mg/dL (8-23); Calcium 9.4 mg/dL (8.6-10.3); Carbon Dioxide 25 mEq/L (23-29); Chloride 99 mEq/L (98-107); Glucose 137 mg/dL (70-105); Osmolality,Calculated 276 (280-300); Potassium 3.6 mEq/L (3.5-5.1); Sodium 132 mEq/L (136-145); eGFR For Non-African Americans > 60 (> 60)
[2018-08-09] MEDS: *HR* LORazepam 2 MG/ML VIAL IVP PRN (20:49)
[2018-08-09 23:01] LABS: BUN/Creatinine Ratio 18 (6-26); Blood Urea Nitrogen 13 mg/dL (8-23); Calcium 9.3 mg/dL (8.6-10.3); Carbon Dioxide 24 mEq/L (23-29); Chloride 99 mEq/L (98-107); Glucose 112 mg/dL (70-105); Osmolality,Calculated 277 (280-300); Sodium 133 mEq/L (136-145); eGFR For Non-African Americans > 60 (> 60)
[2018-08-09] MEDS: traZODone 50 MG TABLET PO PRN (23:29)
[2018-08-09] MEDS: *HR* Morphine Immed Rel 30 MG TABLET PO PRN (23:29)
[2018-08-10] MEDS: Dexmedetomidine HCl 400 MCG/100 ML MLS IVC SCH (06:35)
[2018-08-10] MEDS: Hydrocortisone 10 MG TABLET PO SCH ×2 (06:36→19:55)
[2018-08-10] MEDS: Ipratropium/Albuterol Neb 3 ML IH SCH ×3 (07:30→22:49)
[2018-08-10 07:43] LABS: Immature Reticulocyte % 15.1 % (11.0-38.0); Retculocyte # 0.05 M/mcL (0.05-0.10); Reticulocyte % 1.4 % (1.6-2.8)
[2018-08-10 08:03] LABS: % Iron Saturation 3 % (20-55); Iron 14 mcg/dL (65-175); Lactate Dehydrogenase 120 Units/L (140-271); Transferrin 322 mg/dL (203-362)
[2018-08-10 08:20] LABS: Ferritin 26 ng/mL (20-250)
[2018-08-10 08:26] LABS: Folate 11.3 ng/mL (3.0-16.0)
[2018-08-10] MEDS: *HR* Enoxaparin 40 MG/0.4 ML SYRINGE SQ SCH (08:35)
[2018-08-10] MEDS: Gabapentin 100 MG CAPSULE PO SCH ×2 (08:51→19:55)
[2018-08-10] MEDS: Cholecalciferol (D-3) 1,000 UNIT TABLET PO SCH (08:51)
[2018-08-10] MEDS: Multivit/Ca/Min/Fe/FA 1 TAB TABLET PO SCH (08:52)
[2018-08-10] MEDS: Nicotine 14 MG PATCH.TD24 TD SCH (08:52)
[2018-08-10] MEDS: Thiamine (B-1) 100 MG TABLET PO SCH (08:52)
[2018-08-10 09:26] LABS: BUN/Creatinine Ratio 19 (6-26); Blood Urea Nitrogen 12 mg/dL (8-23); Calcium 9.5 mg/dL (8.6-10.3); Carbon Dioxide 28 mEq/L (23-29); Chloride 99 mEq/L (98-107); Glucose 116 mg/dL (70-105); Osmolality,Calculated 283 (280-300); Potassium 4.4 mEq/L (3.5-5.1); Sodium 136 mEq/L (136-145); eGFR For Non-African Americans > 60 (> 60)
--- NOTE | 2018-08-10 09:35 | Oncology Inp Progress Note ---
<BrittaneyCarlos - Last Filed: 08/10/18 16:23> Date of Encounter: 08/10/18 Oncology: Obj Data - Labs CBC & Chem 7: 08/08/18 08:10 08/10/18 07:15 Consult Discharge Plan - Plan [facility]errals: [facility] [Primary Care Provider[facility] - Inpatient Charges Provider: Dr. Lulu Quispe Follow up - Inpatient: [id number] - Attending Attestation I examined this patient and my medical decision-making was reviewed with the Advanced Practice Nurse. I agree with the documented findings, disposition and treatment plan as described except to the extent set forth below. -Fe 14, % sat 3, Ferritin 26, Transferrin 322. Will administer IV Venfor 300 mg -B12 390, will begin B12 1000 mcg PO daily -CT guided biopsy of adrenal lesion pending <Amna Schaeffer - Last Filed: 08/10/18 16:30> Date of Encounter: 08/10/18 Time of Encounter: 08:30 (1) Alcohol dependence with withdrawal Current Visit: Yes Status: Acute Assessment and plan: Alcohol Dependence Patient drinks 6-10, 25oz beers daily. Plan: CIWA scale per hospital policy. No alcohol to be given at this time. Patient started on Librium per primary team. Qualifiers: Complication of substance-induced condition: uncomplicated Qualified Code(s): F10.230 - Alcohol dependence with withdrawal, uncomplicated (2) Adrenal mass Current Visit: No Status: Acute Assessment and plan: Bilateral adrenal masses Left: 7.3cm x 3.1cm Right: 6.4cm x 2.2cm Left periaortic lymph node 1.7cm, concerning for metastasis Plan: Consult to Interventional Radiology for biopsy. Patient NPO for today's biopsy. (3) Abdominal pain Current Visit: Yes Status: Acute Assessment and plan: Abdominal pain 6/10 left inguinal. Denies pain at this time. Mass of mons pubis, measuring 1.5cm Plan: Continue to monitor for pain. Qualifiers: Abdominal location: periumbilical Qualified Code(s): R10.33 - Periumbilical pain (4) Adrenal insufficiency Current Visit: Yes Status: Acute Assessment and plan: Nephrology consulted. 08/09/18: Na 134, K 4.1 : Na 133, K 4 Plan: Fluid restriction: 1.5L free fluid daily. Monitor sodium levels daily. Strict I/O's (5) Anemia Current Visit: Yes Status: Acute Assessment and plan: Normocytic, normochromic anemia Hgb 11.7 Fe 14, saturation 3% LDH 120 retic 0.05 Plan: Anemia workup: iron profile, ferritin, B12, folate, LDH, haptoglobin, retic, SPEP, serum free light chains, UPEP, immunofixation, and immunoglobuin panel Venofer 300 mg IV B12 1000 mcg PO daily Qualifiers: Anemia type: unspecified type Qualified Code(s): D64.9 - Anemia, unspecified Oncology: Subj Interval history: Taqueria is awake, alert, and cooperative, sitting up in a chair this morning. He states that he is ready for his testing (biopsy) this morning for his known adrenal masses. He is complains of left inguinal pain today, rating it as 6 out of 10. He denies shortness of breath, cough, or chest pain. He denies nausea, vomiting, diarrhea, or constipation. - Constitutional General appearance: cooperative, thin - Neck Neck exam: Present: normal inspection. Absent: lymphadenopathy - Respiratory Respiratory exam: Present: prolonged expiratory phase, wheezes - Cardiovascular Cardiovascular exam: Present: RRR, +S1, +S2 - GI/Abdominal GI/Abdominal exam: Present: normal bowel sounds, soft - Neurological Exam Neurological exam: Present: alert, oriented X3, strengths equal and symetr throughout. Absent: facial droop, speech deficit - Psychiatric Psychiatric exam: Present: normal affect, normal mood - Skin Skin exam: Present: dry Oncology: Obj Data - Labs CBC & Chem 7: 08/08/18 08:10 08/10/18 07:15
--- NOTE | 2018-08-10 13:01 | Internal Med Progress Note ---
Hospitalist Progress Note - Encounter Date of Encounter: 08/10/18 Time of Encounter: 09:00 - Subjective Interval History: Pt hungry but wants to get the biopsy today, is glad to know he's slated for it sometime later today. Says he's felt fatigued, with episodic severe headaches, and often dizzy with standing, but that he's felt better without these symptoms for the last few days. Compliant with fluid restrict. Does still have abd pain. - Exam Vitals: Temp Pulse Resp BP Pulse Ox 97.6 F 68 16 123/86 99 08/10/18 11:22 08/10/18 11:22 08/10/18 11:22 08/10/18 11:22 08/10/18 11:22 Exam: General: In no acute distress. Conversant. Respiratory exam: clear bilaterally without wheezes or crackles Cardiovascular exam: RRR, +S1, +S2. no M/R/G GI/Abdominal exam: mildly tender umbilical/epigastric, non-distended, normal bowel sounds, soft, no peritoneal signs. Localized 2x2 cm nodule located on suprapubic region which is painful. Extremities exam: full ROM, no pedal edema, warm, pulses palpable in b/l lower extremities. no calf tenderness Neurological exam: CN II-XII intact, AO X3, no focal deficits. speech fluent - Summary of Assessment and Plan Summary of Assessment and Plan: Kevin Aldana is a 63 M w hx smoker, COPD, EtOH abuse, recent diagnosis of adrenal insufficiency and hyponatremia, who presented with abdominal pain. Found to have Na 117, and CT abd showing adrenal masses concerning for metastasis. 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 Unknown primary. - Plan IR biopsy for subq nodule - Oncology following Adrenal insufficiency: possibly 2/2 adrenal mets (see above), diagnosed previous hospital admission, Neph following - d/c stress cortisone dosing - cortef 15/10 bid, consider bolus dosing if hypotensive after biopsy Hyponatremia: Na 117 on admit, resolved with fluid restrict and salt tabs, Neph following Smoker: nicotine patch offered EtOH use disorder, dependence, and withdrawal: beer 12 pack daily, no longer getting beer or precedex, continue CIWA COPD: home inhalers, duonebs prn PPx: lovenox FEN: NPO for biopsy then resume cardiac 1.5L, no MIVF Lines: PIV Consults: Neph, Onc, IR Code: DNRCC-A / DNI Dispo: patient requires inpatient eval and management at this time. Anticipate 1-2 days. Will be homegoing - Time Spent with Patient Total time spent is greater than 50% in coordination of care (as documented) at patient's floor/unit and/or counseling patient: Internal Medicine: Result - Labs CBC & Chem 7: 08/08/18 08:10 08/10/18 07:15 Labs: BMP 08/09/18 08/09/18 08/09/18 12:59 18:16 22:10 Sodium 132 L 132 L 133 L Potassium 4.4 3.6 4.0 Chloride 101 99 99 Carbon Dioxide 25 25 24 BUN 15 13 13 Creatinine 0.51 L 0.48 L 0.73 Glucose 125 H 137 H 112 H Calcium 9.3 9.4 9.3 08/10/18 07:15 Sodium 136 Potassium 4.4 Chloride 99 Carbon Dioxide 28 BUN 12 Creatinine 0.62 L Glucose 116 H Calcium 9.5 - ABG Interpretation ABG results: PT/INR, D-dimer PT 10.6 Seconds (9.4-12.1) 08/09/18 04:17 - Impressions Impressions Retroperitoneum Ultrasound 08/09/18 15:30 IMPRESSION: Moderate amount of postvoid residual. This is approximately 50% of the prevoid volume. Prostate size within normal limits D/ / Demond Gomez MD / Demond Gomez MD Interpreting Provider: Demond Gomez MD Consult Discharge Plan - Plan [facility]: [facility] [Primary Care Provider] -
[2018-08-10] MEDS ORDERED: 0.9 % Sodium Chloride 500 ML ONE (13:54)
[2018-08-10] MEDS: *HR* Morphine Immed Rel 30 MG TABLET PO PRN ×2 (17:02→23:09)
[2018-08-11 05:38] LABS: BUN/Creatinine Ratio 23 (6-26); Blood Urea Nitrogen 13 mg/dL (8-23); Calcium 9.3 mg/dL (8.6-10.3); Carbon Dioxide 31 mEq/L (23-29); Chloride 101 mEq/L (98-107); Glucose 108 mg/dL (70-105); Osmolality,Calculated 285 (280-300); Potassium 4.6 mEq/L (3.5-5.1); Sodium 137 mEq/L (136-145); eGFR For Non-African Americans > 60 (> 60)
[2018-08-11 05:41] LABS: Hematocrit 31.1 % (37.5-50.1); Hemoglobin 9.8 g/dL (12.9-16.9); Mean Corpuscular HGB Conc 31.5 g/dL (31.6-35.5); Mean Corpuscular Hemoglobin 28.1 pg (28.0-33.3); Mean Corpuscular Volume 89.1 fL (83.0-100.0); Platelet Count 340 K/mcL (140-400); Red Blood Count 3.49 M/mcL (4.19-5.50); Red Cell Distribution Width 17.3 % (11.5-14.5)
[2018-08-11] MEDS: Thiamine (B-1) 100 MG TABLET PO SCH (07:37)
[2018-08-11] MEDS: Gabapentin 100 MG CAPSULE PO SCH ×2 (07:37→20:09)
[2018-08-11] MEDS: Hydrocortisone 10 MG TABLET PO SCH ×2 (07:38→20:09)
[2018-08-11] MEDS: Multivit/Ca/Min/Fe/FA 1 TAB TABLET PO SCH (07:40)
[2018-08-11] MEDS: Cholecalciferol (D-3) 1,000 UNIT TABLET PO SCH (07:40)
[2018-08-11] MEDS: Nicotine 14 MG PATCH.TD24 TD SCH (07:41)
[2018-08-11] MEDS: Cyanocobalamin (B-12) 1,000 MCG TABLET PO SCH (07:41)
[2018-08-11] MEDS: *HR* Enoxaparin 40 MG/0.4 ML SYRINGE SQ SCH (07:43)
[2018-08-11] MEDS: Ipratropium/Albuterol Neb 3 ML IH SCH ×3 (07:46→23:33)
[2018-08-11] MEDS: *HR* Morphine Immed Rel 30 MG TABLET PO PRN (09:03)
--- NOTE | 2018-08-11 12:32 | Internal Med Progress Note ---
Hospitalist Progress Note - Encounter Date of Encounter: 08/11/18 Time of Encounter: 09:00 - Subjective Interval History: patient was seen and examined at bed side. has some supra pubic pain and is resting pain medications. denies diaphoresis, N/V/D. has no CP or SOB or palpitations tolerating PO diet - Exam Vitals: Temp Pulse Resp BP Pulse Ox 98.0 F 77 16 98/71 96 08/11/18 10:01 08/11/18 10:01 08/11/18 10:08/11/18 10:08/11/18 10:01 Exam: General: In no acute distress.speaks in full sentences Respiratory exam: clear bilaterally without wheezes or crackles Cardiovascular exam: RRR, +S1, +S2. no M/R/G GI/Abdominal exam: mildly tender umbilical/epigastric, non-distended, normal bowel sounds, soft, no peritoneal signs. Localized 2x2 cm nodule located on suprapubic region which is painful. Extremities exam: full ROM, no pedal edema, warm, pulses palpable in b/l lower extremities. no calf tenderness Neurological exam: CN II-XII intact, AO X3, no focal deficits. speech fluent however he takes time finding words - Assessment and Plan (1) Abdominal pain Current Visit: Yes Status: Acute (2) Adrenal insufficiency Current Visit: Yes Status: Acute (3) Alcohol dependence with withdrawal Current Visit: Yes Status: Acute (4) Anemia Current Visit: Yes Status: Acute (5) Hyponatremia Current Visit: Yes Status: Resolved (6) Tobacco abuse Current Visit: Yes Status: Chronic (7) Adrenal mass Current Visit: No Status: Acute (8) DVT prophylaxis Current Visit: Yes Status: Acute - Summary of Assessment and Plan Summary of Assessment and Plan: Kevin Aldana is a 63 M w hx smoker, COPD, EtOH abuse, recent diagnosis of adrenal insufficiency and hyponatremia, who presented with abdominal pain. Found to have Na 117, and CT abd showing adrenal masses concerning for metastasis. 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 Unknown primary. - s/p IR biopsy for subq nodule- will follow pathology - Oncology following Adrenal insufficiency: possibly 2/2 adrenal mets (see above), diagnosed previous hospital admission, Neph following - d/c stress cortisone dosing - cortef 15/10 bid Hyponatremia: Na 117 on admit, resolved with fluid restrict and salt tabs, Neph following Smoker: nicotine patch offered iron def anemia: Fe 14, % sat 3, Ferritin 26, Transferrin 322. IV Venfor 300 mg B12 deficiency B12 390, B12 1000 mcg PO daily EtOH use disorder, dependence, and withdrawal: beer 12 pack daily, no longer getting beer continue CIWA, thiamine nad folic acid COPD: home inhalers, duonebs prn PPx: lovenox FEN: cardiac 1.5L Lines: PIV Consults: Neph, Onc, IR Code: DNRCC-A / DNI Dispo: pendig SW and CM recommendatiosn as patient is homeless - Time Spent with Patient Total time spent is greater than 50% in coordination of care (as documented) at patient's floor/unit and/or counseling patient: Internal Medicine: Result - Labs CBC & Chem 7: 08/11/18 04:33 08/11/18 04:33 Labs: Short CBC 08/11/18 Range/Units 04:33 WBC 9.7 D (4.3-11.1) K/mcL Hgb 9.8 L D (12.9-16.9) g/dL Hct 31.1 L (37.5-50.1) % Plt Count 340 (140-400) K/mcL BMP 08/11/18 04:33 Sodium 137 Potassium 4.6 Chloride 101 Carbon Dioxide 31 H BUN 13 Creatinine 0.56 L Glucose 108 H Calcium 9.3 - ABG Interpretation ABG results: PT/INR, D-dimer PT 10.6 Seconds (9.4-12.1) 08/09/18 04:17 - Impressions Impressions Abdomen Biopsy CT 08/10/18 00:00 IMPRESSION: Successful CT guided core biopsy mons pubis subcutaneous nodule. D/ / Jens Kennedy MD / Jens Kennedy MD Interpreting Provider: Jens Kennedy MD Consult Discharge Plan - Plan [facility]errals: [facility] [Primary Care Provider] - (1) Abdominal pain Qualifiers: Abdominal location: periumbilical Qualified Code(s): R10.33 - Periumbilical pain (3) Alcohol dependence with withdrawal Qualifiers: Complication of substance-induced condition: uncomplicated Qualified Code(s): F10.230 - Alcohol dependence with withdrawal, uncomplicated (4) Anemia Qualifiers: Anemia type: unspecified type Qualified Code(s): D64.9 - Anemia, unspecified
--- NOTE | 2018-08-11 12:46 | Event Note ---
Date of Encounter: 08/11/18 Time of Encounter: 09:50 Patient moving to [facility] per transport team. Discussed low iron level and B12 level. Venofer infusing currently; however, iron infusion noted to leaking all of patient gown and bed. Medication bag near empty and uncertain how much, if any, was received. Will reorder iron infusion. Discussed with nurse in new patient care area.
[2018-08-11] MEDS ORDERED: Iron Sucrose Complex 200 MG in 0.9 % Sodium Chloride 100 ML IVPB ONE (13:00)
[2018-08-11] MEDS: *HR* LORazepam 2 MG/ML VIAL IVP PRN ×2 (17:35→20:09)
[2018-08-11] MEDS: traZODone 50 MG TABLET PO PRN (20:08)
[2018-08-12] MEDS: *HR* Enoxaparin 40 MG/0.4 ML SYRINGE SQ SCH (06:30)
[2018-08-12] MEDS: Beer can PO SCH (07:23)
[2018-08-12] MEDS: Ipratropium/Albuterol Neb 3 ML IH SCH ×6 (07:24→23:20)
[2018-08-12] MEDS ORDERED: Ipratropium/Albuterol Neb 3 ML IH SCH (09:15)
[2018-08-12 10:13] LABS: ABG Base Excess 8 mEq/L (-2 to 3); ABG HCO3 34 mEq/L (21-27); ABG Oxygen Saturation 91 % (95-98); ABG PCO2 55 mmHg (35-45); ABG PO2 61 mmHg (85-104); ABG TCO2 36 mEq/L (20-26)
[2018-08-12] MEDS: Nicotine 14 MG PATCH.TD24 TD SCH (10:16)
[2018-08-12] MEDS: Hydrocortisone 10 MG TABLET PO SCH (10:19)
[2018-08-12] MEDS: Cyanocobalamin (B-12) 1,000 MCG TABLET PO SCH (10:20)
[2018-08-12] MEDS: Gabapentin 100 MG CAPSULE PO SCH ×2 (10:20→20:37)
[2018-08-12] MEDS: Thiamine (B-1) 100 MG TABLET PO SCH (10:20)
[2018-08-12] MEDS: Multivit/Ca/Min/Fe/FA 1 TAB TABLET PO SCH (10:20)
[2018-08-12] MEDS: Cholecalciferol (D-3) 1,000 UNIT TABLET PO SCH (10:20)
--- NOTE | 2018-08-12 10:58 | Internal Med Progress Note ---
Hospitalist Progress Note - Encounter Date of Encounter: 08/12/18 Time of Encounter: 10:55 - Subjective Interval History: Patient was seen and examined at bedside. Drowsy, not following commands. Unable to provide any information. As per nurse at bedside he was given Ativan as per Cipro protocol for elevated see was score overnight, trazodone was given along with Librium. He was started on oxymask as he was desaturating over night. no MD was called overnight by the nursing staff. i saw the patient at 5pm yesterday evening as i was told by the nurse that he wanted to sign out AMA. medical hold was placed as his CIWA score was 14. - Exam Vitals: Temp Pulse Resp BP Pulse Ox 98.4 F 91 15 148/82 89 08/12/18 07:27 08/12/18 07:27 08/12/18 10:20 08/12/18 07:27 08/12/18 10:20 Exam: General: drowsy, thin Respiratory exam: clear bilaterally without wheezes or crackles Cardiovascular exam: RRR, +S1, +S2. no M/R/G GI/Abdominal exam: mildly tender umbilical/epigastric, non-distended, normal bowel sounds, soft, no peritoneal signs. Localized 2x2 cm nodule located on suprapubic region which is painful. Extremities exam: full ROM, no pedal edema, warm, pulses palpable in b/l lower extremities. no calf tenderness Neurological exam: drowsy, not following commands - Assessment and Plan (1) Acute metabolic encephalopathy Current Visit: Yes Status: Acute (2) Abdominal pain Current Visit: Yes Status: Acute (3) Adrenal insufficiency Current Visit: Yes Status: Acute (4) Alcohol dependence with withdrawal Current Visit: Yes Status: Acute (5) Anemia Current Visit: Yes Status: Acute (6) Hyponatremia Current Visit: Yes Status: Resolved (7) Tobacco abuse Current Visit: Yes Status: Chronic (8) Adrenal mass Current Visit: No Status: Acute (9) DVT prophylaxis Current Visit: Yes Status: Acute - Summary of Assessment and Plan Summary of Assessment and Plan: Kevin Aldana is a 63 M w hx smoker, COPD, EtOH abuse, recent diagnosis of adrenal insufficiency and hyponatremia, who presented with abdominal pain. Found to have Na 117, and CT abd showing adrenal masses concerning for metastasis. acute encephalopathy secondary to medications: -all sedatives and pain medications are held was started on librium and CIWA protocol in addition to trazadone PNRN and IV morphine since admission. my first encounter with the patient was 08/11 and he was Axox3 and had been taking those medications since admission. -ABG stat -neuro checks every hour -strict aspiration, seizure, fall precautions -NPO -Medications have been changed to IV -elevate head of the bed -continue with oxi mask and keep saturations above 92% -CT head stat -if he does not improve will consider flumazenil ( high risk for seizures due to chronic alcohol use disorder) -will transfer the patient to ICU- bed management called no beds available - plan discussed extensively with the nurse B/l adrenal glands masses, w met to mons pubis: CT and MRI compatible w metastatic disease in adrenals and pubis. Unknown primary. - s/p IR biopsy for subq nodule- will follow pathology - Oncology following Adrenal insufficiency: possibly 2/2 adrenal mets (see above), diagnosed previous hospital admission, Neph following - d/c stress cortisone dosing - cortef 15/10 bid- changed to IV Hyponatremia: Na 117 on admit, resolved with fluid restrict and salt tabs, Neph following Smoker: nicotine patch offered iron def anemia: Fe 14, % sat 3, Ferritin 26, Transferrin 322. IV Venfor 300 mg B12 deficiency B12 390, B12 1000 mcg PO daily EtOH use disorder, dependence, and withdrawal: beer 12 pack daily, no longer getting beer - holding CIWA as he has encephalopathy- continue with IV thiamine COPD: home inhalers, duonebs prn ? capacity: psych consulted for capacity - pending improvement in his mental status PPx: lovenox FEN: NPO Lines: PIV Consults: Neph, Onc, IR, Psych Code: DNRCC-A / DNI Dispo: >1 day pending improvement in his mental status and SW and CM recs( homeless) - Time Spent with Patient Total time spent is greater than 50% in coordination of care (as documented) at patient's floor/unit and/or counseling patient: Internal Medicine: Result - Labs CBC & Chem 7: 08/11/18 04:33 08/11/18 04:33 - ABG Interpretation ABG results: ABG ABG pH 7.40 pH Units (7.32-7.45) 08/12/18 10:10 ABG pCO2 55 mmHg (35-45) H 08/12/18 10:10 ABG pO2 61 mmHg (85-104) L 08/12/18 10:10 ABG O2 Saturation 91 % (95-98) L 08/12/18 10:10 PT/INR, D-dimer PT 10.6 Seconds (9.4-12.1) 08/09/18 04:17 Consult Discharge Plan - Plan [facility]errals: [facility] [Primary Care Provider] - __ (2) Abdominal pain Qualifiers: Abdominal location: periumbilical Qualified Code(s): R10.33 - Periumbilical pain (4) Alcohol dependence with withdrawal Qualifiers: Complication of substance-induced condition: uncomplicated Qualified Code(s): F10.230 - Alcohol dependence with withdrawal, uncomplicated (5) Anemia Qualifiers: Anemia type: unspecified type Qualified Code(s): D64.9 - Anemia, unspecified
[2018-08-12 12:45] LABS: Immunoglobulin A 208 mg/dL (68-408); Immunoglobulin G 808 mg/dL (768-1632); Immunoglobulin M 36 mg/dL (35-263)
[2018-08-12] MEDS: Hydrocortisone Sodium Succ 100 MG/2 ML VIAL IVP SCH ×2 (13:32→17:26)
[2018-08-12 14:20] LABS: Bilirubin,Urine Negative (Negative); Blood,Urine Negative (Negative); Clarity,Urine Clear (Clear); Color,Urine Yellow (Yellow); Glucose,Urine (UA) Normal (Normal); Ketones,Urine Negative (Negative); Leukocyte Esterase,Urine Negative (Negative); Nitrite,Urine Negative (Negative); PH,Urine 5.5 pH Units (5.0-8.0); Protein,Urine Negative (Neg-Trace); Specific Gravity,Urine 1.014 (1.010-1.025); Urobilinogen,Urine Normal (Normal)
[2018-08-12 14:51] LABS: ABG Base Excess 8 mEq/L (-2 to 3); ABG HCO3 35 mEq/L (21-27); ABG Oxygen Saturation 92 % (95-98); ABG PCO2 55 mmHg (35-45); ABG PH 7.41 pH Units (7.32-7.45); ABG PO2 65 mmHg (85-104); ABG TCO2 36 mEq/L (20-26)
--- NOTE | 2018-08-12 15:27 | Oncology Inp Progress Note ---
<BrittaneyCarlos - Last Filed: 08/12/18 15:29> Date of Encounter: 08/12/18 Oncology: Obj Data - Labs CBC & Chem 7: 08/11/18 04:33 08/11/18 04:33 Consult Discharge Plan - Plan [facility]errals: [facility] [Primary Care Provider] - Inpatient Charges Provider: Dr. Lulu Quispe Follow up - Inpatient: [id number] - Attending Attestation I examined this patient and my medical decision-making was reviewed with the Advanced Practice Nurse. I agree with the documented findings, disposition and treatment plan as described except to the extent set forth below. -CT guided biopsy of mon pubis inconclusive -Patient with AMS overnight -Will need CT guided biopsy of adrenal mass for diagnosis once more stable <Bobby Schaefferanitha Crenshaw - Last Filed: 08/13/18 13:46> Date of Encounter: 08/13/18 Time of Encounter: 14:30 (1) Alcohol dependence with withdrawal Current Visit: Yes Status: Acute Assessment and plan: Alcohol Dependence Patient drinks 6-10, 25oz beers daily. Plan: CIWA scale per hospital policy. No alcohol to be given at this time. Patient started on Librium per primary team. Mental status changes noted. Psychiatric consulted to address patient's ability to make medical decisions. Qualifiers: Complication of substance-induced condition: uncomplicated Qualified Code(s): F10.230 - Alcohol dependence with withdrawal, uncomplicated (2) Adrenal mass Current Visit: No Status: Acute Assessment and plan: Bilateral adrenal masses Left: 7.3cm x 3.1cm Right: 6.4cm x 2.2cm Left periaortic lymph node 1.7cm, concerning for metastasis Plan: Mons pubis nodule was biopsied and found to have atypical cells, however not enough to be discern cells for malignancy. Would like to biopsy adrenal mass wit CT-guided biopsy. Patient unable to consent to procedure at this time due to mental status changes since admission. Consider biopsy as an outpatient. (3) Abdominal pain Current Visit: Yes Status: Acute Assessment and plan: Abdominal pain: unable to assess at this time. Denies pain at this time. Mass of mons pubis, measuring 1.5cm Plan: Continue to monitor for pain. Qualifiers: Abdominal location: periumbilical Qualified Code(s): R10.33 - Periumbilical pain (4) Adrenal insufficiency Current Visit: Yes Status: Acute Assessment and plan: Nephrology consulted. 08/09/18: Na 134, K 4.1 08/10/18: Na 133, K 4 08/11/18: Na 1.7 , K 4.6 Plan: Fluid restriction: 1.5L free fluid daily. Monitor sodium levels daily. Strict I/O's (5) Anemia Current Visit: Yes Status: Acute Assessment and plan: Normocytic, normochromic anemia Hgb 11.7 Fe 14, saturation 3% LDH 120 retic 0.05 Plan: Anemia workup: iron profile, ferritin, B12, folate, LDH, haptoglobin, retic, SPEP, serum free light chains, UPEP, immunofixation, and immunoglobuin panel Venofer 300 mg IV B12 1000 mcg PO daily Qualifiers: Anemia type: unspecified type Qualified Code(s): D64.9 - Anemia, unspecified Oncology: Subj Interval history: Patient transferred to new unit for closer monitoring. He is difficult to arouse and now on oxymask. Attempted to discuss results from biopsy of mons pubis. Patient unable to comprehend and stay awake for conversation. Will continue to monitor. - Head Head exam: Present: normal inspection, normocephalic - Neck Neck exam: Present: normal inspection - Respiratory Respiratory exam: Present: decreased breath sounds - GI/Abdominal GI/Abdominal exam: Present: normal bowel sounds, soft - Extremities Exam Extremities exam: Present: normal capillary refill, normal inspection. Absent: joint swelling - Neurological Exam Neurological exam: Present: altered Oncology: Obj Data - Labs CBC & Chem 7: 08/13/18 03:33 08/13/18 03:33
[2018-08-12] MEDS: Thiamine (B-1) 100 MG in D5% in Water 50 ML IVPB SCH (15:39)
--- NOTE | 2018-08-12 17:11 | Event Note ---
Date of Encounter: 08/12/18 Time of Encounter: 15:00 patient was seen and examined at bedside more awake and arousable AXOX3 ( can recall month, knows he is hospital and knows the president) however continues to be drowsy continue with neuro checks hold off all sedatives all medications switched to IV NPO elevated hob strict Aspiration, seizure and fall precautions. ABG repeated after the first one without retaining ( has baseline COPD and was hypercapnic at 55) CT head- non acute
[2018-08-13 03:16] LABS: Kappa Qnt Free Light Chains 1.53 mg/dL (0.33-1.94); Lambda Qnt Free Light Chains 2.23 mg/dL (0.57-2.63)
[2018-08-13 03:22] LABS: Alpha 2 Globulin (PEP) 0.88 g/dL (0.48-1.05); Beta Globulin (PEP) 0.84 g/dL (0.48-1.10)
[2018-08-13] MEDS: Ipratropium/Albuterol Neb 3 ML IH SCH ×6 (03:42→23:30)
[2018-08-13 04:09] LABS: Basophils % 0.1 %; Eosinophils % 0.3 %; Hematocrit 31.8 % (37.5-50.1); Hemoglobin 10.4 g/dL (12.9-16.9); Immature Granulocytes % 0.4 % (0-4); Lymphocytes % 14.8 %; Mean Corpuscular HGB Conc 32.7 g/dL (31.6-35.5); Mean Corpuscular Hemoglobin 28.3 pg (28.0-33.3); Mean Corpuscular Volume 86.4 fL (83.0-100.0); Mean Platelet Volume 9.9 fL (9.4-12.4); Monocytes # 1.1 K/mcL (0.0-1.3); Monocytes % 8.1 %; Neutrophils # 10.4 K/mcL (1.6-8.9); Platelet Count 341 K/mcL (140-400); Red Blood Count 3.68 M/mcL (4.19-5.50); Red Cell Distribution Width 16.7 % (11.5-14.5); Segmented Neutrophils % 76.3 %
[2018-08-13 04:26] LABS: BUN/Creatinine Ratio 18 (6-26); Blood Urea Nitrogen 9 mg/dL (8-23); Calcium 9.8 mg/dL (8.6-10.3); Carbon Dioxide 33 mEq/L (23-29); Chloride 94 mEq/L (98-107); Glucose 85 mg/dL (70-105); Osmolality,Calculated 260 (280-300); Potassium 3.6 mEq/L (3.5-5.1); Sodium 126 mEq/L (136-145); eGFR For Non-African Americans > 60 (> 60)
[2018-08-13] MEDS: *HR* Enoxaparin 40 MG/0.4 ML SYRINGE SQ SCH (06:22)
[2018-08-13] MEDS ORDERED: Dextrose Gel 15 GM/37.5 ML TUBE PO PRN ×2 (08:25)
[2018-08-13] MEDS ORDERED: *HR* Dextrose 50 % in Water (Syg) 50 ML SYRINGE IVP PRN (08:25)
[2018-08-13] MEDS ORDERED: D5% in Water 1,000 ML IVC PRN (08:25)
[2018-08-13] MEDS ORDERED: Dextrose 4 GM Chewable Tablets PO PRN ×2 (08:25)
[2018-08-13] MEDS: Hydrocortisone Sodium Succ 100 MG/2 ML VIAL IVP SCH ×2 (08:35→18:59)
[2018-08-13] MEDS: Nicotine 14 MG PATCH.TD24 TD SCH (08:36)
[2018-08-13] MEDS: Cyanocobalamin (B-12) 1,000 MCG TABLET PO SCH (08:58)
[2018-08-13] MEDS: Multivit/Ca/Min/Fe/FA 1 TAB TABLET PO SCH (08:59)
[2018-08-13] MEDS: Gabapentin 100 MG CAPSULE PO SCH ×2 (08:59→20:33)
[2018-08-13] MEDS: Cholecalciferol (D-3) 1,000 UNIT TABLET PO SCH (09:00)
[2018-08-13] MEDS: Thiamine (B-1) 100 MG in D5% in Water 50 ML IVPB SCH (09:13)
[2018-08-13 10:15] LABS: IFE Reflexed NOT DONE
--- NOTE | 2018-08-13 12:43 | Consult Note ---
Date of Encounter: 08/13/18 Time of Encounter: 10:00 Assessment & Recommendation (1) Alcohol withdrawal syndrome Current visit: No Status: Acute Assessment & Recommendation: -At this moment, patient does not completely understand what is involved with his diagnoses and what would happen if he does not get treatment. He reports "I do not know" to many questions. As such, he does not seem to have capacity to make medical decisions at this time. However, he was somnolent when seen, which is not thought to be due to benzodiazepine medication. Therefore, when more awake, he may have capacity to make these decisions, as he may be more mentally able to answer these questions. Important to note, at this moment, he is cooperative with treatment and is wanting to stay in the hospital. -Recommend continuing paroxetine 20 by mouth daily for mood. May recommend increase in this medication at a later date. -Please let us know if there are any other questions. Thank you for the consult. Qualifiers: Complication of substance-induced condition: uncomplicated Qualified Code(s): F10.230 - Alcohol dependence with withdrawal, uncomplicated (2) Adrenal insufficiency Current visit: Yes Status: Acute History of Present Illness Patient: new to practice Requesting Physician: Abner Lobo Reason for consult: capacity evaluation History of present illness: Mr. Aldana is a 63 year old male with a past psychiatric history of alcohol use disorder, being admitted on 08/11/2018 for abdominal pain and being consulted to psychiatry for capacity evaluation. Patient was also found to have alcohol use disorder and was not needing of alcohol detoxification. He was placed on the CIWA protocol, and required Ativan several times. He was also found to have adrenal masses, concerning for metastases. Patient had asked to leave [facility], which prompted a consult, as he is currently not medically stable. When seeing the patient, he was somnolent in nature, falling asleep a few times during the assessment. She did not appear to have full wakefulness for complex cognitive thought. When when asked what was wrong with the patient, he reports that he is "sick all the time." He continues to state that his "belly hurts" and reports that he has a hernia and he has a very productive cough at this time and when asked why he is a cough, he reports that he does not know. He is not able to discuss the kind imaging that was done for him during this admission, stating that "I do not care what they do as long as they make me better." He denies that he currently wants to leave, reporting that he has no one to help him at home and that you would like to be better. When asked what kind conditions he has, he reports that "I am an alcoholic." He denies that he had withdrawal issues at the hospital and does not know what has helped with any withdrawal issues while he has been here. When asked what is wrong with his kidneys, he reports that he has "spots" on his kidneys and lungs. He denies knowing what it could be. He reports that staff can find out what the spots could be with "tests." He denies knowing any of the tests that could be done. He reports that if the tests are done, he could "get worse." However, he reports that he does not know what would happen when he gets worse. He does admit to depression which she has often. He states the Paxil helps "sometimes." He reports anxiety that is "alright" right now area he states that he is sleeping "every now and then" and reports that he gets medication at night that assists with his sleep. He denies issues of appetite or side effects to psychiatric medication. She denies SI, HI, and . He does mean to artery hallucinations both inside the hospital note of people "telling me I am nuts" and "needing to get better." He is alert and oriented 3, reporting that the date is 07/27/2011. He reports smoking 2 packs a day of tobacco. Reports drinking 6 24 ounce beers in a day. He states that he uses MJ "once in a while." He denies other significant illicit drug use CC: Abner Lobo Past Med Surg Social Fam HX - Past Medical History Source: patient Medical history: asthma, COPD, GERD - Past Psychiatric History Psychiatric history: Reports: depression Family psychiatric history: Unknown Family History of Suicide: Unknown - Past Surgical History Surgical History: orthopedic, other - Social History Smoking Status: Current every day smoker Packs per day: 1 pack per day Smokeless Tobacco Status: No Alcohol use: heavy (6 24 ounce cans of beer a day) Drug use: marijuana ("Everyone stopped a while") Occupational status: unemployed Current living situation: Home (Reports living in an apartment) Activity Level: Other - Family History Father Living Status: Hx Family Cardiac Disorders: Yes (CAD, Bypass) Hx Family Respiratory Disorders: No Hx Family Cancer: No Hx Family GI Disorders: No Hx Family Endocrine Disorder: No Hx Family Neuromuscular Disorders: No Hx Family Neurologic Disorders: Yes (Alzheimers) Hx Family HEENT Disorders: No Hx Family Autoimmune Disorders: No Brother Adopted: No Family Member Ethnicity: Non- Living Status: Still Living Hx Family Cardiac Disorders: No Hx Family Respiratory Disorders: No Hx Family Cancer: Yes (bowel) Hx Family GI Disorders: Yes (CA bowels) Hx Family Endocrine Disorder: No Hx Family Neuromuscular Disorders: No Hx Family Neurologic Disorders: No Hx Family HEENT Disorders: No Hx Family Autoimmune Disorders: No Medications & Allergies Albuterol Sulfate [Albuterol Inhaler] 2 puff IH Q4H PRN 03/05/17 [History] Tiotropium [Spiriva] 2 puff IH 1200 03/05/17 [History] Trazodone HCl 100 mg PO HS PRN 02/23/18 [History] Folic Acid 1 mg PO DAILY tablet 02/25/18 [Rx] Thiamine (B-1) [Vitamin B-1] 100 mg PO DAILY tablet 02/25/18 [Rx] Melatonin [Melatin] 9 mg PO HS PRN 07/27/18 [History] Naproxen [Naprosyn] 500 mg PO BIDWM 07/27/18 [History] hydrOXYzine pamoate [HydrOXYzine Pamoate] 25 mg PO QID PRN 07/27/18 [History] Cholecalciferol (D-3) [Vitamin D] 2,000 unit PO DAILY 08/07/18 [History] Gabapentin [Neurontin] 200 mg PO BID 08/07/18 [History] Methocarbamol [Robaxin] 750 mg PO QID PRN 08/07/18 [History] Paroxetine HCl [Paxil] 20 mg PO DAILY 08/07/18 [History] Allergy/AdvReac Type Severity Reaction Status Date / Time No Known Allergies Allergy Verified 02/23/18 21:42 Review of Systems Gastrointestinal: Reports: abdominal pain Psychiatric: Reports: depression, auditory hallucinations. Denies: anxiety, abnormal sleep pattern, suicidal ideation, change in appetite, homicidal ideation, visual hallucinations Psychiatry Exam - Constitutional Vitals: Temp Pulse Resp BP Pulse Ox 99 F 96 12 101/63 92 08/13/18 07:27 08/13/18 07:27 08/13/18 11:14 08/13/18 07:27 08/13/18 11:14 General appearance: age & developmentally appropriate, unkempt, thin - Musculoskeletal Gait: other (Not assessed) Station: relaxed Strength & Tone: mild weakness (Grossly) - Psychiatric Patient Orientation: Yes Person, No Time (Reports the date was 07/27/2011), Yes Place, Yes Circumstance, Yes Other Level of alertness: Sedated (Somnolent), Follows commands Behavior: calm, cooperative, withdrawn (Due to somnolence) Psychomotor activity: Slowed Eye Contact: Fleeting Contact Mood Description: Depressed Patient description of mood: "Okay" Affect description: congruent with mood, blunted Speech Volume: Soft/Quiet Speech pattern: normal tone, spontaneous, slowed, slurred, mumbled Language & Vocabulary: consistent with education Thought Process: Logical, Linear, Goal Oriented Thought Content: No Suicidal ideation, No Homicidal ideation, No Overt delusions Perceptual Disturbances: No Reacting to internal stimuli, Yes Auditory hallucinations (Reports auditory hallucinations of people speaking to him), No Visual hallucinations Attention Span Ability: Capable of Focused Attention, Unable to Sustain Attention Memory Description: Grossly Intact Patient Reliability: Questionable Historian Fund of knowledge: Yes abstraction ability, Yes aware of current events Intelligence Estimate: Average Judgment: Limited Insight: Partial Results - Drug Levels and Toxicology Drug Levels and Toxicology: None noted this a.m. - Labs Labs: Laboratory Last Values WBC 13.7 K/mcL (4.3-11.1) H 08/13/18 03:33 RBC 3.68 M/mcL (4.19-5.50) L 08/13/18 03:33 Hgb 10.4 g/dL (12.9-16.9) L 08/13/18 03:33 Hct 31.8 % (37.5-50.1) L 08/13/18 03:33 MCV 86.4 fL (83.0-100.0) 08/13/18 03:33 MCH 28.3 pg (28.0-33.3) 08/13/18 03:33 MCHC 32.7 g/dL (31.6-35.5) 08/13/18 03:33 RDW 16.7 % (11.5-14.5) H 08/13/18 03:33 Plt Count 341 K/mcL (140-400) 08/13/18 03:33 MPV 9.9 fL (9.4-12.4) 08/13/18 03:33 Reticulocyte # 0.05 M/mcL (0.05-0.10) 08/10/18 07:15 Immature Gran % 0.4 % (0-4) 08/13/18 03:33 Seg Neutrophils % 76.3 % 08/13/18 03:33 Lymphocytes % 14.8 % 08/13/18 03:33 Monocytes % 8.1 % 08/13/18 03:33 Eosinophils % 0.3 % 08/13/18 03:33 Basophils % 0.1 % 08/13/18 03:33 Neutrophils # 10.4 K/mcL (1.6-8.9) H 08/13/18 03:33 Lymphocytes # 2.0 K/mcL (0.6-4.6) 08/13/18 03:33 Monocytes # 1.1 K/mcL (0.0-1.3) 08/13/18 03:33 Eosinophils # 0.0 K/mcL (0.0-0.6) 08/13/18 03:33 Basophils # 0.0 K/mcL (0.0-0.2) 08/13/18 03:33 Percent Retic 1.4 % (1.6-2.8) L 08/10/18 07:15 Immature Retic Fraction 15.1 % (11.0-38.0) 08/10/18 07:15 Retic Hgb Equivalent 33.0 pg (28.61-36.33) 08/10/18 07:15 Haptoglobin 259 mg/dL (30-200) H 08/10/18 07:15 PT 10.6 Seconds (9.4-12.1) 08/09/18 04:17 INR 0.9 08/09/18 04:17 Sample Site R Radial 08/12/18 14:48 ABG pH 7.41 pH Units (7.32-7.45) 08/12/18 14:48 ABG pCO2 55 mmHg (35-45) H 08/12/18 14:48 ABG pO2 65 mmHg (85-104) L 08/12/18 14:48 ABG HCO3 35 mEq/L (21-27) H 08/12/18 14:48 ABG Total CO2 36 mEq/L (20-26) H 08/12/18 14:48 ABG O2 Saturation 92 % (95-98) L 08/12/18 14:48 ABG Base Excess 8 mEq/L (-2 to 3) H 08/12/18 14:48 O2 Delivery Device Cannula 08/12/18 14:48 Inspired O2 45.0 (1-15=lpm vx37-644=%) 08/12/18 14:48 Sodium 126 mEq/L (136-145) L 08/13/18 03:33 Potassium 3.6 mEq/L (3.5-5.1) 08/13/18 03:33 Chloride 94 mEq/L (98-107) L 08/13/18 03:33 Carbon Dioxide 33 mEq/L (23-29) H 08/13/18 03:33 BUN 9 mg/dL (8-23) 08/13/18 03:33 Creatinine 0.51 mg/dL (0.70-1.30) L 08/13/18 03:33 Est GFR ( Amer) > 60 (> 60) 08/13/18 03:33 Est GFR (Non-Af Amer) > 60 (> 60) 08/13/18 03:33 BUN/Creatinine Ratio 18 (6-26) 08/13/18 03:33 Glucose 85 mg/dL (70-105) 08/13/18 03:33 POC Glucose 80 mg/dL (70-99) 08/13/18 06:32 Calculated Osmolality 260 (280-300) L 08/13/18 03:33 Calcium 9.8 mg/dL (8.6-10.3) 08/13/18 03:33 Magnesium 2.0 mg/dL (1.6-2.6) 08/11/18 04:33 Iron 14 mcg/dL (65-175) L 08/10/18 07:15 % Saturation 3 % (20-55) L 08/10/18 07:15 Transferrin 322 mg/dL (203-362) 08/10/18 07:15 Ferritin 26 ng/mL (20-250) 08/10/18 07:15 Total Bilirubin 0.4 mg/dL (0.3-1.0) 08/07/18 16:57 Direct Bilirubin 0.0 mg/dL (0.0-0.2) 08/07/18 16:57 Indirect Bilirubin 0.4 mg/dL (0.0-1.2) 08/07/18 16:57 AST 15 Units/L (13-39) 08/07/18 16:57 ALT 8 Units/L (7-52) 08/07/18 16:57 Alkaline Phosphatase 100 Units/L (34-104) 08/07/18 16:57 Lactate Dehydrogenase 120 Units/L (140-271) L 08/10/18 07:15 Prot Electrophor EER SEE NOTE 08/10/18 07:15 Serum Total Protein 7.5 g/dL (6.4-8.9) 08/07/18 16:57 Total Protein (PEP) 6.50 g/dL (6.00-8.30) 08/10/18 07:15 Albumin 4.2 g/dL (3.5-5.7) 08/07/18 16:57 Albumin (PEP) 3.55 g/dL (3.75-5.01) L 08/10/18 07:15 Globulin 3.3 g/dL (2.4-3.5) 08/07/18 16:57 Albumin/Globulin Ratio 1.3 (1.1-2.2) 08/07/18 16:57 Irfjc-8-Zkdszcysu 0.45 g/dL (0.19-0.46) 08/10/18 07:15 Cbmkp-7-Kmoingdff 0.88 g/dL (0.48-1.05) 08/10/18 07:15 Beta Globulins 0.84 g/dL (0.48-1.10) 08/10/18 07:15 Gamma Globulins 0.79 g/dL (0.62-1.51) 08/10/18 07:15 PEP Interpretation SEE NOTE 08/10/18 07:15 Lipase 23 Units/L (11-82) 08/07/18 16:57 Vitamin B12 390 pg/mL (250-1100) 08/10/18 07:15 Folate 11.3 ng/mL (3.0-16.0) 08/10/18 07:15 Random Cortisol 21.9 mcg/dl 08/09/18 04:17 Serum Immunofix Reflex NOT DONE 08/10/18 07:15 Urine Color Yellow (Yellow) 08/12/18 13:31 Urine Clarity Clear (Clear) 08/12/18 13:31 Urine pH 5.5 pH Units (5.0-8.0) 08/12/18 13:31 Ur Specific [place] 1.014 (1.010-1.025) 08/12/18 13:31 Urine Protein Negative mg/dL (Neg-Trace) 08/12/18 13:31 Urine Glucose (UA) Normal mg/dL (Normal) 08/12/18 13:31 Urine Ketones Negative mg/dL (Negative) 08/12/18 13:31 Urine Blood Negative (Negative) 08/12/18 13:31 Urine Nitrite Negative (Negative) 08/12/18 13:31 Urine Bilirubin Negative (Negative) 08/12/18 13:31 Urine Urobilinogen Normal mg/dL (Normal) 08/12/18 13:31 Ur Leukocyte Esterase Negative (Negative) 08/12/18 13:31 Urine Microscopic RBC 3-5 per hpf (0-3) H 08/07/18 16:42 Urine Microscopic WBC 0-3 per hpf (0-3) 08/07/18 16:42 Ur Squamous Epith Cells None Seen per lpf (None-Few) 08/07/18 16:42 Urine Bacteria None Seen per hpf (None-Few) 08/07/18 16:42 Hyaline Casts None Seen per lpf (None-Few) 08/07/18 16:42 Ur Culture Indicated? NO (NO) 08/12/18 13:31 Urine Osmolality 124 mOsm/kg (300-1090) L 08/08/18 00:08 Urine Sodium 19.8 mEq/L 08/08/18 00:08 IgG TNP 08/10/18 07:15 IgA TNP 08/10/18 07:15 IgM TNP 08/10/18 07:15 Free [place] LC, Quant 1.53 mg/dL (0.33-1.94) 08/10/18 07:15 Free [place] LC, Quant 2.23 mg/dL (0.57-2.63) 08/10/18 07:15 Free [place]/Lambda Ratio 0.69 (0.26-1.65) 08/10/18 07:15 - Impressions Impressions Head CT 08/12/18 10:19 IMPRESSION: No acute intracranial abnormality. D/ / 08/12/2018 12:25:33 Silvano Ramos MD / lay Interpreting Provider: Silvano Ramos MD Chest X-Ray 08/12/18 13:54 IMPRESSION: Emphysematous changes again noted in the lungs. New left basilar atelectasis has developed. Follow-up radiographs are recommended to ensure resolution. D/ / Cody De La Garza MD / Cody De La Garza MD Interpreting Provider: Cody De La Garza MD Consult Discharge Plan - Plan [facility]errals: [facility] [Primary Care Provider[facility] - - Attending Attestation I examined this patient and my medical decision-making was reviewed with the Resident Physician. I agree with the documented findings, disposition and treatment plan as described.
--- NOTE | 2018-08-13 18:34 | Internal Med Progress Note ---
Hospitalist Progress Note - Encounter Date of Encounter: 08/13/18 Time of Encounter: 11:00 - Subjective Interval History: 63 M w hx smoker, COPD, EtOH abuse, recent diagnosis of adrenal insufficiency and hyponatremia, who presented with abdominal pain. Found to have Na 117, and CT abd showing adrenal masses concerning for metastasis. Yesterday pt noted to be more lethargic/altered sedatives held, CT head neg, pt also dessated, wa s palced on oxymask, CXR done showed atelectases, currently off oxygen. Pt awake, alert but still very fatigued, sluggish. Pt oriented to self and place but not to time or situation (stated he was sick). Pt was able to participate in in bedside swallow eval and passed. - Exam Vitals: Temp Pulse Resp BP Pulse Ox 98 F 80 16 103/65 93 08/13/18 16:10 08/13/18 16:10 08/13/18 16:10 08/13/18 16:10 08/13/18 16:10 Exam: General: Awake but drowsy HEENT: NC/AT, dry MM Respiratory exam: clear bilaterally without wheezes or crackles Cardiovascular exam: RRR, +S1, +S2. no M/R/G GI/Abdominal exam: mildly tender umbilical/epigastric, non-distended, normal bowel sounds, soft Extremities exam: full ROM, no pedal edema, warm, pulses palpable in b/l lower extremities. no calf tenderness Neurological exam: drowsy, answering questions, not consistently following commands, I suspect due to overall weakness. exam limited but nonfocal. - Summary of Assessment and Plan Summary of Assessment and Plan: Kevin Aldana is a 63 M w hx smoker, COPD, EtOH abuse, recent diagnosis of adrenal insufficiency and hyponatremia, who presented with abdominal pain. Found to have Na 117, and CT abd showing adrenal masses concerning for metastasis. 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 Unknown primary. - s/p IR biopsy for subq nodule- pathology pending - Oncology following Adrenal insufficiency: possibly 2/2 adrenal mets (see above), diagnosed previous hospital admission, Neph following - c/w IV cortef -CT guided biopsy of pelvis - adipose tissue -Patient with AMS overnight -Will need CT guided biopsy of adrenal mass for diagnosis once more stable Hyponatremia: - Na 117 on admit, resolved with fluid restrict and salt tabs, - Neph following - - slightly down this morning, will cont to moniotr for now EtOH use disorder, dependence, and withdrawal: beer 12 pack daily, no longer getting beer - librium and ativan w/ CIWA, will re-eval when pt going into w/drawal to restart protocol - continue with IV thiamine COPD: home inhalers, duonebs prn PPx: lovenox Code: DNRCC-A / DNI Pt homeless, SW to eval - Time Spent with Patient Total time spent is greater than 50% in coordination of care (as documented) at patient's floor/unit and/or counseling patient: Internal Medicine: Result - Labs CBC & Chem 7: 08/13/18 03:33 08/13/18 03:33 Labs: Short CBC 08/13/18 Range/Units 03:33 WBC 13.7 H (4.3-11.1) K/mcL Hgb 10.4 L (12.9-16.9) g/dL Hct 31.8 L (37.5-50.1) % Plt Count 341 (140-400) K/mcL Neutrophils # 10.4 H (1.6-8.9) K/mcL BMP 08/13/18 03:33 Sodium 126 L Potassium 3.6 Chloride 94 L Carbon Dioxide 33 H BUN 9 Creatinine 0.51 L Glucose 85 Calcium 9.8 - ABG Interpretation ABG results: ABG ABG pH 7.41 pH Units (7.32-7.45) 08/12/18 14:48 ABG pCO2 55 mmHg (35-45) H 08/12/18 14:48 ABG pO2 65 mmHg (85-104) L 08/12/18 14:48 ABG O2 Saturation 92 % (95-98) L 08/12/18 14:48 PT/INR, D-dimer PT 10.6 Seconds (9.4-12.1) 08/09/18 04:17 Consult Discharge Plan - Plan [facility]errals: [facility] [Primary Care Provider] -
--- NOTE | 2018-08-14 01:24 | Event Note ---
Date of Encounter: 08/14/18 Time of Encounter: 01:22 Patient complained of rib pain and states recent fall. Obtained CXR which demonstrated acute/subacute 9th rib fracture nondisplaced. Unknown if from fall or if pathologic fracture from possible underlying metastatic disease. Holding opioid pain medications to avoid sedation due to recent history of encephalopathy. Will manage pain with Tylenol and Toradol.
[2018-08-14] MEDS: Ipratropium/Albuterol Neb 3 ML IH SCH ×6 (03:55→23:46)
[2018-08-14] MEDS: Ketorolac 15 MG/ML VIAL IVP PRN ×2 (04:01→16:42)
[2018-08-14 05:01] LABS: Basophils % 0.2 %; Eosinophils % 0.5 %; Hematocrit 29.6 % (37.5-50.1); Hemoglobin 9.5 g/dL (12.9-16.9); Immature Granulocytes % 0.4 % (0-4); Lymphocytes # 1.8 K/mcL (0.6-4.6); Lymphocytes % 22.1 %; Mean Corpuscular HGB Conc 32.1 g/dL (31.6-35.5); Mean Corpuscular Hemoglobin 27.8 pg (28.0-33.3); Mean Corpuscular Volume 86.5 fL (83.0-100.0); Mean Platelet Volume 10.2 fL (9.4-12.4); Monocytes # 1.3 K/mcL (0.0-1.3); Monocytes % 15.5 %; Neutrophils # 4.9 K/mcL (1.6-8.9); Platelet Count 352 K/mcL (140-400); Red Blood Count 3.42 M/mcL (4.19-5.50); Red Cell Distribution Width 16.8 % (11.5-14.5); Segmented Neutrophils % 61.3 %
[2018-08-14 05:19] LABS: BUN/Creatinine Ratio 22 (6-26); Blood Urea Nitrogen 12 mg/dL (8-23); Calcium 9.6 mg/dL (8.6-10.3); Carbon Dioxide 31 mEq/L (23-29); Chloride 95 mEq/L (98-107); Glucose 99 mg/dL (70-105); Magnesium 1.7 mg/dL (1.6-2.6); Osmolality,Calculated 272 (280-300); Phosphorous 3.8 mg/dL (2.7-4.5); Potassium 3.7 mEq/L (3.5-5.1); Sodium 131 mEq/L (136-145); eGFR For Non-African Americans > 60 (> 60)
[2018-08-14] MEDS: *HR* Enoxaparin 40 MG/0.4 ML SYRINGE SQ SCH (05:54)
[2018-08-14] MEDS: Hydrocortisone Sodium Succ 100 MG/2 ML VIAL IVP SCH ×2 (09:01→17:55)
[2018-08-14] MEDS: Gabapentin 100 MG CAPSULE PO SCH ×2 (09:01→20:31)
[2018-08-14] MEDS: Multivit/Ca/Min/Fe/FA 1 TAB TABLET PO SCH (09:02)
[2018-08-14] MEDS: Cholecalciferol (D-3) 1,000 UNIT TABLET PO SCH (09:02)
[2018-08-14] MEDS: Cyanocobalamin (B-12) 1,000 MCG TABLET PO SCH (09:03)
[2018-08-14] MEDS: Nicotine 14 MG PATCH.TD24 TD SCH (09:03)
[2018-08-14] MEDS: Thiamine (B-1) 100 MG in D5% in Water 50 ML IVPB SCH (10:13)
[2018-08-14] MEDS: Thiamine (B-1) 100 MG TABLET PO SCH (12:16)
--- NOTE | 2018-08-14 17:15 | Internal Med Progress Note ---
Hospitalist Progress Note - Encounter Date of Encounter: 08/14/18 Time of Encounter: 17:15 - Subjective Interval History: 63 M w hx smoker, COPD, EtOH abuse, recent diagnosis of adrenal insufficiency and hyponatremia, who presented with abdominal pain. Found to have Na 117, and CT abd showing adrenal masses concerning for metastasis. During admisson pt noted to be more lethargic/altered sedatives held, CT head neg, pt also dessated , wa spalced on oxymask, CXR done showed atelectases, currently off oxygen. Pt awake, alert but still very fatigued, sluggish. Pt oriented to self and place but not to time or situation (stated he was sick). Pt was able to participate in in bedside swallow eval and passed. 3/2 - Pt seen and examined at bedside. Pt more awake and alert today, states he feels tired, still confused. Pt reported rib pain o/n CXR done showed acute/subacute rib fracture nondisplaced, started on tylenel and toradol prn. - Exam Vitals: Temp Pulse Resp BP Pulse Ox 98.6 F 89 18 91/56 94 08/14/18 16:05 08/14/18 16:05 08/14/18 16:05 08/14/18 16:05 08/14/18 16:05 Exam: General: Pt more awake and alert today, still HEENT: NC/AT, dry MM Respiratory exam: clear bilaterally without wheezes or crackles Cardiovascular exam: RRR, +S1, +S2. no M/R/G GI/Abdominal exam: mildly tender umbilical/epigastric, non-distended, normal bowel sounds, soft Extremities exam: full ROM, no pedal edema, warm, pulses palpable in b/l lower extremities. no calf tenderness Neurological exam: more awake and alert compared to yesterday but still fatigued appearing, answering questions, confused, no focal deficits - Summary of Assessment and Plan Summary of Assessment and Plan: Kevin Aldana is a 63 M w/ PMHx of tobacco use, COPD, EtOH abuse, recent diagnosis of adrenal insufficiency and hyponatremia, who presented with abdominal pain. Found to have Na 117, and CT abd showing adrenal masses concerning for metastasis. Acute encephalopathy likely secondary to medications - cont to hold sedating meds including librium for now - neuro checks q4 -pt more awake and alert this morning, still confused - cont to elevate head of the bed - Pt evaluated by Psych for capacity (wanted to sign out AMA earlier in hospitalization ), pt deemed not to have capacity - continued on Paroxetine only for now Large B/l adrenal glands masses, w/ met to mons pubis: CT and MRI compatible w metastatic disease in adrenals and pubis. - s/p IR biopsy for subq nodule of mons pubis- showed adipose tissue - Oncology following - pt clinically imprved will place order for CT guided biopsy of mass Adrenal insufficiency: possibly 2/2 adrenal mets (see above) - Neph was following - on IV cortef, transition back to PO as pt more awake, alert. - BP stable Hyponatremia: - Na 117 on admit, resolved with fluid restrict and salt tabs, - Neph was following - slightly down back down yesterday but up again this morning EtOH use disorder, dependence, and withdrawal: beer 12 pack daily - keep on CIWA for now as patient becoming more awake and alert - continue with thiamine PO COPD: home inhalers, duonebs prn DVT PPx: lovenox Code: DNRCC-A / DNI Pt initially reported to previous provider he was homeless, however today pt adamant he is NOT homeless - Time Spent with Patient Total time spent is greater than 50% in coordination of care (as documented) at patient's floor/unit and/or counseling patient: Internal Medicine: Result - Labs CBC & Chem 7: 08/14/18 04:11 08/14/18 04:11 Labs: Short CBC 08/14/18 Range/Units 04:11 WBC 8.1 (4.3-11.1) K/mcL Hgb 9.5 L (12.9-16.9) g/dL Hct 29.6 L (37.5-50.1) % Plt Count 352 (140-400) K/mcL Neutrophils # 4.9 (1.6-8.9) K/mcL BMP 08/14/18 04:11 Sodium 131 L Potassium 3.7 Chloride 95 L Carbon Dioxide 31 H BUN 12 Creatinine 0.54 L Glucose 99 Calcium 9.6 - ABG Interpretation ABG results: ABG ABG pH 7.41 pH Units (7.32-7.45) 08/12/18 14:48 ABG pCO2 55 mmHg (35-45) H 08/12/18 14:48 ABG pO2 65 mmHg (85-104) L 08/12/18 14:48 ABG O2 Saturation 92 % (95-98) L 08/12/18 14:48 PT/INR, D-dimer PT 10.6 Seconds (9.4-12.1) 08/09/18 04:17 - Impressions Impressions Chest X-Ray 08/14/18 00:01 IMPRESSION: Acute/subacute nondisplaced right 9th rib fracture. No acute cardiopulmonary findings. Bullous emphysema. D/ / Lalo Polk / Lalo Polk Interpreting Provider: Lalo Polk Consult Discharge Plan - Plan Referrals: [facility] [Primary Care Provider] -
[2018-08-15] MEDS: Ipratropium/Albuterol Neb 3 ML IH SCH ×6 (03:57→23:19)
[2018-08-15] MEDS: *HR* Enoxaparin 40 MG/0.4 ML SYRINGE SQ SCH (05:55)
[2018-08-15 07:11] LABS: Basophils % 0.3 %; Eosinophils # 0.1 K/mcL (0.0-0.6); Eosinophils % 0.8 %; Hematocrit 26.4 % (37.5-50.1); Hemoglobin 8.5 g/dL (12.9-16.9); Immature Granulocytes % 0.6 % (0-4); Lymphocytes # 1.3 K/mcL (0.6-4.6); Lymphocytes % 20.2 %; Mean Corpuscular HGB Conc 32.2 g/dL (31.6-35.5); Mean Corpuscular Hemoglobin 28.4 pg (28.0-33.3); Mean Corpuscular Volume 88.3 fL (83.0-100.0); Monocytes # 0.8 K/mcL (0.0-1.3); Monocytes % 13.1 %; Platelet Count 362 K/mcL (140-400); Red Blood Count 2.99 M/mcL (4.19-5.50); Red Cell Distribution Width 17.1 % (11.5-14.5)
[2018-08-15 07:27] LABS: BUN/Creatinine Ratio 35 (6-26); Blood Urea Nitrogen 23 mg/dL (8-23); Calcium 9.1 mg/dL (8.6-10.3); Carbon Dioxide 31 mEq/L (23-29); Chloride 103 mEq/L (98-107); Glucose 127 mg/dL (70-105); Magnesium 1.9 mg/dL (1.6-2.6); Osmolality,Calculated 281 (280-300); Phosphorous 3.7 mg/dL (2.7-4.5); Potassium 3.6 mEq/L (3.5-5.1); Sodium 133 mEq/L (136-145); eGFR For Non-African Americans > 60 (> 60)
[2018-08-15] MEDS: Thiamine (B-1) 100 MG TABLET PO SCH (09:53)
[2018-08-15] MEDS: Hydrocortisone Sodium Succ 100 MG/2 ML VIAL IVP SCH ×2 (09:54→18:21)
[2018-08-15] MEDS: Cyanocobalamin (B-12) 1,000 MCG TABLET PO SCH (09:54)
[2018-08-15] MEDS: Gabapentin 100 MG CAPSULE PO SCH ×2 (09:54→20:38)
[2018-08-15] MEDS: Multivit/Ca/Min/Fe/FA 1 TAB TABLET PO SCH (09:54)
[2018-08-15] MEDS: Nicotine 14 MG PATCH.TD24 TD SCH (09:55)
[2018-08-15] MEDS: Ketorolac 15 MG/ML VIAL IVP PRN (09:57)
[2018-08-15] MEDS: Cholecalciferol (D-3) 1,000 UNIT TABLET PO SCH (09:57)
--- NOTE | 2018-08-15 11:02 | Internal Med Progress Note ---
Hospitalist Progress Note - Encounter Date of Encounter: 08/15/18 Time of Encounter: 11:00 - Subjective Interval History: PT feels OK, no new issues. He was expalined what happened, he stated that he is too weak to go home, will need rehab. - Exam Vitals: Temp Pulse Resp BP Pulse Ox 98.4 F 70 20 104/67 95 08/15/18 07:16 08/15/18 07:16 08/15/18 07:27 08/15/18 07:16 08/15/18 07:27 Exam: General: Pt more awake and alert today, still HEENT: NC/AT, dry MM Respiratory exam: clear bilaterally without wheezes or crackles Cardiovascular exam: RRR, +S1, +S2. no M/R/G GI/Abdominal exam: mildly tender umbilical/epigastric, non-distended, normal bowel sounds, soft Extremities exam: full ROM, no pedal edema, warm, pulses palpable in b/l lower extremities. no calf tenderness Neurological exam: more awake and alert compared to yesterday but still fatigued appearing, answering questions, confused, no focal deficits - Summary of Assessment and Plan Summary of Assessment and Plan: Kevin Aldana is a 63 M w/ PMHx of tobacco use, COPD, EtOH abuse, recent diagnosis of adrenal insufficiency and hyponatremia, who presented with abdominal pain. Found to have Na 117, and CT abd showing adrenal masses concerning for metastasis. Acute encephalopathy likely secondary to medications Pt is out ot DT range, will d/c the CIWA protocol doing well, more aleart. 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 - s/p IR biopsy for subq nodule of mons pubis- showed adipose tissue - Oncology following Thursday for CT biopsy, then pt can probbly go to rehab. Adrenal insufficiency: possibly 2/2 adrenal mets (see above) - Neph was following - on IV cortef, transition back to PO as pt more awake, alert. - BP stable Hyponatremia: - Na 117 on admit, resolved with fluid restrict and salt tabs, - Neph was following - slightly down back down yesterday but up again this morning EtOH use disorder, dependence, and withdrawal: beer 12 pack daily - keep on CIWA for now as patient becoming more awake and alert - continue with thiamine PO COPD: home inhalers, duonebs prn Dispo: At this time, pt will go to rehab after CT guided biopsy of adrenal glands Code: DNRCC-A / DNI - Time Spent with Patient Total time spent is greater than 50% in coordination of care (as documented) at patient's floor/unit and/or counseling patient: Internal Medicine: Result - Labs CBC & Chem 7: 08/15/18 06:31 08/15/18 06:31 Labs: Short CBC 08/15/18 Range/Units 06:31 WBC 6.2 (4.3-11.1) K/mcL Hgb 8.5 L (12.9-16.9) g/dL Hct 26.4 L (37.5-50.1) % Plt Count 362 (140-400) K/mcL Neutrophils # 4.0 (1.6-8.9) K/mcL BMP 08/15/18 06:31 Sodium 133 L Potassium 3.6 Chloride 103 Carbon Dioxide 31 H BUN 23 Creatinine 0.66 L Glucose 127 H Calcium 9.1 - ABG Interpretation ABG results: ABG ABG pH 7.41 pH Units (7.32-7.45) 08/12/18 14:48 ABG pCO2 55 mmHg (35-45) H 08/12/18 14:48 ABG pO2 65 mmHg (85-104) L 08/12/18 14:48 ABG O2 Saturation 92 % (95-98) L 08/12/18 14:48 PT/INR, D-dimer PT 10.6 Seconds (9.4-12.1) 08/09/18 04:17 Consult Discharge Plan - Plan [facility]errals: [facility] [Primary Care Provider] -
[2018-08-16] MEDS: Ipratropium/Albuterol Neb 3 ML IH SCH ×2 (03:42→07:27)
[2018-08-16 04:22] LABS: Urine Collection Volume RANDOM mL
[2018-08-16 04:34] LABS: Hematocrit 26.8 % (37.5-50.1); Hemoglobin 8.5 g/dL (12.9-16.9); Mean Corpuscular HGB Conc 31.7 g/dL (31.6-35.5); Mean Corpuscular Hemoglobin 27.9 pg (28.0-33.3); Mean Corpuscular Volume 87.9 fL (83.0-100.0); Mean Platelet Volume 9.9 fL (9.4-12.4); Platelet Count 394 K/mcL (140-400); Red Blood Count 3.05 M/mcL (4.19-5.50); Red Cell Distribution Width 17.2 % (11.5-14.5)
[2018-08-16 04:54] LABS: BUN/Creatinine Ratio 49 (6-26); Blood Urea Nitrogen 20 mg/dL (8-23); Calcium 8.9 mg/dL (8.6-10.3); Carbon Dioxide 28 mEq/L (23-29); Chloride 103 mEq/L (98-107); Glucose 108 mg/dL (70-105); Magnesium 1.9 mg/dL (1.6-2.6); Osmolality,Calculated 287 (280-300); Phosphorous 3.2 mg/dL (2.7-4.5); Potassium 3.5 mEq/L (3.5-5.1); Sodium 137 mEq/L (136-145); eGFR For Non-African Americans > 60 (> 60)
[2018-08-16 05:13] LABS: Eosinophils # 0.1 K/mcL (0.0-0.6); Lymphocytes # 1.3 K/mcL (0.6-4.6); Monocytes # 0.4 K/mcL (0.0-1.3); Neutrophils # 4.6 K/mcL (1.6-8.9); Platelet Estimate Normal (Normal)
[2018-08-16] MEDS: *HR* Enoxaparin 40 MG/0.4 ML SYRINGE SQ SCH (06:05)
--- NOTE | 2018-08-16 08:52 | IR Progress Note ---
Vital Signs: Vital Signs/O2 Sat, Most Current Temp Pulse Resp BP Pulse Ox 97.9 F 69 16 126/86 100 08/16/18 07:31 08/16/18 07:31 08/16/18 07:31 08/16/18 07:31 08/16/18 07:31 Recent Labs: Lab Results 08/16/18 08/16/18 08/15/18 03:38 03:38 06:31 WBC 6.4 RBC 3.05 L Hgb 8.5 L Hct 26.8 L MCV 87.9 MCH 27.9 L MCHC 31.7 RDW 17.2 H Plt Count 394 MPV 9.9 Neutrophils # 4.6 Lymphocytes # 1.3 Monocytes # 0.4 Eosinophils # 0.1 Basophils # Sodium 137 133 L Potassium 3.5 3.6 Chloride 103 103 Carbon Dioxide 28 31 H BUN 20 23 Creatinine 0.41 L 0.66 L Est GFR ( Amer) > 60 > 60 Est GFR (Non-Af Amer) > 60 > 60 BUN/Creatinine Ratio 49 H 35 H Glucose 108 H 127 H Calcium 8.9 9.1 Phosphorus 3.2 3.7 Magnesium 1.9 1.9 08/15/18 08/14/18 08/14/18 06:31 04:11 04:11 WBC 6.2 8.1 RBC 2.99 L 3.42 L Hgb 8.5 L 9.5 L Hct 26.4 L 29.6 L MCV 88.3 86.5 MCH 28.4 27.8 L MCHC 32.2 32.1 RDW 17.1 H 16.8 H Plt Count 362 352 MPV 10.0 10.2 Neutrophils # 4.0 4.9 Lymphocytes # 1.3 1.8 Monocytes # 0.8 1.3 Eosinophils # 0.1 0.0 Basophils # 0.0 0.0 Sodium 131 L Potassium 3.7 Chloride 95 L Carbon Dioxide 31 H BUN 12 Creatinine 0.54 L Est GFR ( Amer) > 60 Est GFR (Non-Af Amer) > 60 BUN/Creatinine Ratio 22 Glucose 99 Calcium 9.6 Phosphorus 3.8 Magnesium 1.7 Assessment and Plan Bilateral adrenal masses, scheduled for biopsy today. He was given Lovenox which is a 24 hour hold prior to biopsy. Plan to perform biopsy tomorrow morning and hold next dose of Lovenox.
[2018-08-16] MEDS: Nicotine 14 MG PATCH.TD24 TD SCH (10:14)
[2018-08-16] MEDS: Multivit/Ca/Min/Fe/FA 1 TAB TABLET PO SCH (10:17)
[2018-08-16] MEDS: Hydrocortisone Sodium Succ 100 MG/2 ML VIAL IVP SCH ×2 (10:17→19:06)
[2018-08-16] MEDS: Cholecalciferol (D-3) 1,000 UNIT TABLET PO SCH (10:18)
[2018-08-16] MEDS: Gabapentin 100 MG CAPSULE PO SCH ×2 (10:18→21:29)
[2018-08-16] MEDS: Thiamine (B-1) 100 MG TABLET PO SCH (10:18)
[2018-08-16] MEDS: Cyanocobalamin (B-12) 1,000 MCG TABLET PO SCH (10:18)
--- NOTE | 2018-08-16 10:47 | Internal Med Progress Note ---
Hospitalist Progress Note - Encounter Date of Encounter: 08/16/18 Time of Encounter: 10:45 - Subjective Interval History: Pt c/of of right sided abd pain, but the exam is benign, very soft indeed, it is not acute, had been ongoing for over three months now - Exam Vitals: Temp Pulse Resp BP Pulse Ox 97.9 F 69 16 126/86 100 08/16/18 07:31 08/16/18 07:31 08/16/18 07:31 08/16/18 07:31 08/16/18 07:31 Exam: General: Pt more awake and alert today, still HEENT: NC/AT, dry MM Respiratory exam: clear bilaterally without wheezes or crackles Cardiovascular exam: RRR, +S1, +S2. no M/R/G GI/Abdominal exam: mildly tender umbilical/epigastric, non-distended, normal bowel sounds, soft Extremities exam: full ROM, no pedal edema, warm, pulses palpable in b/l lower extremities. no calf tenderness Neurological exam: more awake and alert compared to yesterday but still fatigued appearing, answering questions, confused, no focal deficits - Summary of Assessment and Plan Summary of Assessment and Plan: Kevin Aldana is a 63 M w/ PMHx of tobacco use, COPD, EtOH abuse, recent diagnosis of adrenal insufficiency and hyponatremia, who presented with abdominal pain. Found to have Na 117, and CT abd showing adrenal masses concerning for metastasis. Acute encephalopathy likely secondary to medications Pt is out ot DT range, will d/c the CIWA protocol doing well, more aleart. 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 - s/p IR biopsy for subq nodule of mons pubis- showed adipose tissue - Oncology following Thursday for CT biopsy, then pt can probbly go to rehab. Adrenal insufficiency: possibly 2/2 adrenal mets (see above) - Neph was following - on IV cortef, transition back to PO as pt more awake, alert. - BP stable Hyponatremia: - Na 117 on admit, resolved with fluid restrict and salt tabs, - Neph was following - slightly down back down yesterday but up again this morning EtOH use disorder, dependence, and withdrawal: beer 12 pack daily - keep on CIWA for now as patient becoming more awake and alert - continue with thiamine PO COPD: home inhalers, duonebs prn Dispo: Pt got lovenox this AM, will attempt to do it again tomorrow. Then to rehab tomorrow. Code: DNRCC-A / DNI - Time Spent with Patient Total time spent is greater than 50% in coordination of care (as documented) at patient's floor/unit and/or counseling patient: Internal Medicine: Result - Labs CBC & Chem 7: 08/16/18 03:38 08/16/18 03:38 Labs: Short CBC 08/16/18 Range/Units 03:38 WBC 6.4 (4.3-11.1) K/mcL Hgb 8.5 L (12.9-16.9) g/dL Hct 26.8 L (37.5-50.1) % Plt Count 394 (140-400) K/mcL Neutrophils # 4.6 (1.6-8.9) K/mcL BMP 08/16/18 03:38 Sodium 137 Potassium 3.5 Chloride 103 Carbon Dioxide 28 BUN 20 Creatinine 0.41 L Glucose 108 H Calcium 8.9 - ABG Interpretation ABG results: ABG ABG pH 7.41 pH Units (7.32-7.45) 08/12/18 14:48 ABG pCO2 55 mmHg (35-45) H 08/12/18 14:48 ABG pO2 65 mmHg (85-104) L 08/12/18 14:48 ABG O2 Saturation 92 % (95-98) L 08/12/18 14:48 PT/INR, D-dimer PT 10.6 Seconds (9.4-12.1) 08/09/18 04:17 Consult Discharge Plan - Plan [facility]errals: [facility] [Primary Care Provider] -
[2018-08-16] MEDS ORDERED: Ipratropium/Albuterol Neb 3 ML IH PRN (11:10)
--- NOTE | 2018-08-16 17:28 | Oncology Inp Progress Note ---
<Amna Schaeffer M - Last Filed: 08/16/18 17:40> Date of Encounter: 08/16/18 Time of Encounter: 09:50 (1) Alcohol dependence with withdrawal Current Visit: Yes Status: Acute Assessment and plan: Alcohol Dependence Patient drinks 6-10, 25oz beers daily. Plan: CIWA scaled discontinued today. No alcohol to be given at this time. Qualifiers: Complication of substance-induced condition: uncomplicated Qualified Code(s): F10.230 - Alcohol dependence with withdrawal, uncomplicated (2) Adrenal mass Current Visit: No Status: Acute Assessment and plan: Bilateral adrenal masses Left: 7.3cm x 3.1cm Right: 6.4cm x 2.2cm Left periaortic lymph node 1.7cm, concerning for metastasis Plan: Mons pubis nodule was biopsied and found to have atypical cells, however not enough to be discern cells for malignancy. Would like to biopsy adrenal mass wit CT-guided biopsy. [facility] on hold for biopsy tomorrow, 08/17/18. (3) Abdominal pain Current Visit: Yes Status: Acute Assessment and plan: Abdominal pain Rates pain 7 out of 10. Mass of mons pubis, measuring 1.5cm Plan: Continue to monitor for pain. Qualifiers: Abdominal location: periumbilical Qualified Code(s): R10.33 - Periumbilical pain (4) Adrenal insufficiency Current Visit: Yes Status: Acute Assessment and plan: Nephrology consulted. 08/09/18: Na 134, K 4.1 08/16/18: Na 137, K 3.5 Plan: Fluid restriction: 1.5L free fluid daily. Monitor sodium levels daily. Strict I/O's (5) Anemia Current Visit: Yes Status: Acute Assessment and plan: Normocytic, normochromic anemia Hgb 8.5 Fe 14, saturation 3% LDH 120 retic 0.05 Anemia workup: iron profile, ferritin, B12, folate, LDH, haptoglobin, retic, SPEP, serum free light chains, UPEP, immunofixation, and immunoglobuin panel Bence Rabago Protein : + Moncolonal free kappa light chains UPEP: free kappa light chains: 93.7 free lambda light chains: 1.15 Ratio: 81.48 Plan: Venofer 300 mg IV B12 1000 mcg PO daily Qualifiers: Anemia type: unspecified type Qualified Code(s): D64.9 - Anemia, unspecified Oncology: Subj Interval history: Mr. Aldana is awake and alert this morning. He notes that he was supposed to have a biopsy, but was unable to do it this morning. It was noted that he had Lovenox and the procedure is rescheduled for 08/17/18. He is oriented to person, place, time, and location. He is aware of his medical condition and wants to find out what is going on to cause his recent issues. He complains of abdominal pain to his pelvis. He rates his pain as 7 out of 10 this morning. He has acetaminophen ordered for pain and may request it from his nurse. He denies nausea and vomiting. He denies fever or chills. Describes a 15 lb weight loss in the recent month. - Head Head exam: Present: normal inspection, normocephalic - Respiratory Respiratory exam: Present: decreased breath sounds, CTAB. Absent: rales, respiratory distress, rhonchi, wheezes - Cardiovascular Cardiovascular exam: Present: RRR, +S1, +S2 - GI/Abdominal GI/Abdominal exam: Present: normal bowel sounds, soft, tenderness - Extremities Exam Extremities exam: Present: normal capillary refill, normal inspection - Neurological Exam Neurological exam: Present: alert, oriented X3, strengths equal and symetr throughout. Absent: facial droop, speech deficit - Psychiatric Psychiatric exam: Present: normal affect, normal mood - Skin Skin exam: Present: dry, pallor, warm Oncology: Obj Data - Labs CBC & Chem 7: 08/16/18 03:38 08/16/18 03:38 Consult Discharge Plan - Plan [facility]errals: [facility] [Primary Care Provider[facility] - Inpatient Charges Provider: Dr. Kimmy Dan <Benito Dan - Last Filed: 08/16/18 20:32> Date of Encounter: 08/16/18 Oncology: Obj Data - Labs CBC & Chem 7: 08/16/18 03:38 08/16/18 03:38 Inpatient Charges Provider: Dr. Kimmy Dan Follow up - Inpatient: [id number] - Attending Attestation I examined this patient and my medical decision-making was reviewed with the Advanced Practice Nurse. I agree with the documented findings, disposition and treatment plan as described except to the extent set forth below. Confusion has improved, and he is feeling better. Evaluation thus far has found Bence Rabago proteinuria, however serum free light chains and SPEP normal. This may be indicative of monoclonal paraproteinemia. CT biopsy of an adrenal gland is planned tomorrow. If negative, we will consider bone marrow aspirate and biopsy.
[2018-08-17 06:17] LABS: Hematocrit 30.7 % (37.5-50.1); Hemoglobin 9.8 g/dL (12.9-16.9); Mean Corpuscular HGB Conc 31.9 g/dL (31.6-35.5); Mean Corpuscular Volume 87.7 fL (83.0-100.0); Mean Platelet Volume 9.8 fL (9.4-12.4); Platelet Count 440 K/mcL (140-400)
[2018-08-17 06:32] LABS: BUN/Creatinine Ratio 32 (6-26); Blood Urea Nitrogen 16 mg/dL (8-23); Calcium 9.3 mg/dL (8.6-10.3); Carbon Dioxide 28 mEq/L (23-29); Chloride 103 mEq/L (98-107); Glucose 85 mg/dL (70-105); Magnesium 1.8 mg/dL (1.6-2.6); Osmolality,Calculated 284 (280-300); Phosphorous 3.7 mg/dL (2.7-4.5); Potassium 3.5 mEq/L (3.5-5.1); Sodium 137 mEq/L (136-145); eGFR For Non-African Americans > 60 (> 60)
[2018-08-17 06:35] LABS: Lymphocytes # 1.6 K/mcL (0.6-4.6); Monocytes # 1.6 K/mcL (0.0-1.3); Platelet Estimate Increased (Normal)
[2018-08-17] MEDS: Gabapentin 100 MG CAPSULE PO SCH ×2 (08:46→20:07)
[2018-08-17] MEDS: Thiamine (B-1) 100 MG TABLET PO SCH (08:47)
[2018-08-17] MEDS: Multivit/Ca/Min/Fe/FA 1 TAB TABLET PO SCH (08:47)
[2018-08-17] MEDS: Cyanocobalamin (B-12) 1,000 MCG TABLET PO SCH (08:47)
[2018-08-17] MEDS: Hydrocortisone Sodium Succ 100 MG/2 ML VIAL IVP SCH ×2 (08:48→17:42)
[2018-08-17] MEDS: Nicotine 14 MG PATCH.TD24 TD SCH (08:48)
[2018-08-17] MEDS: Cholecalciferol (D-3) 1,000 UNIT TABLET PO SCH (08:48)
--- NOTE | 2018-08-17 11:10 | Discharge Summary ---
- NOTES TO OUTPATIENT PROVIDER Notes to Outpatient Provider: none Orders not resulted at time of discharge: Pending orders 08/17/18 07:21 CT guided biopsy [CT] Routine Date of Encounter: 08/17/18 Time of Encounter: 11:01 - Discharge Diagnosis (1) Abdominal pain Priority: Primary Status: Acute Qualifiers: Abdominal location: periumbilical Qualified Code(s): R10.33 - Periumbilical pain Hospital course: This is a AMA note, I was called by nursing staff, pt wanted to leave. He is aware that risk increasing . Pt is leaving AMA. - Time Spent with Patient Total time spent providing and/or coordinating discharge services: - Discharge Medications Prescriptions: No Action Albuterol Sulfate [Albuterol Inhaler] 2 puff IH Q4H PRN PRN Reason: Shortness Of Breath Tiotropium [Spiriva] 2 puff IH 1200 Trazodone HCl 100 mg PO HS PRN PRN Reason: Sleep Folic Acid 1 mg PO DAILY tablet Thiamine (B-1) [Vitamin B-1] 100 mg PO DAILY tablet hydrOXYzine pamoate [HydrOXYzine Pamoate] 25 mg PO QID PRN PRN Reason: Anxiety Naproxen [Naprosyn] 500 mg PO BIDWM Melatonin [Melatin] 9 mg PO HS PRN PRN Reason: Insomnia Cholecalciferol (D-3) [Vitamin D] 2,000 unit PO DAILY Gabapentin [Neurontin] 200 mg PO BID Paroxetine HCl [Paxil] 20 mg PO DAILY Methocarbamol [Robaxin] 750 mg PO QID PRN PRN Reason: Muscle Spasm Home Medications: Albuterol Sulfate [Albuterol Inhaler] 2 puff IH Q4H PRN 03/05/17 [History] Tiotropium [Spiriva] 2 puff IH 1200 03/05/17 [History] Trazodone HCl 100 mg PO HS PRN 02/23/18 [History] Folic Acid 1 mg PO DAILY tablet 02/25/18 [Rx] Thiamine (B-1) [Vitamin B-1] 100 mg PO DAILY tablet 02/25/18 [Rx] Melatonin [Melatin] 9 mg PO HS PRN 07/27/18 [History] Naproxen [Naprosyn] 500 mg PO BIDWM 07/27/18 [History] hydrOXYzine pamoate [HydrOXYzine Pamoate] 25 mg PO QID PRN 07/27/18 [History] Cholecalciferol (D-3) [Vitamin D] 2,000 unit PO DAILY 08/07/18 [History] Gabapentin [Neurontin] 200 mg PO BID 08/07/18 [History] Methocarbamol [Robaxin] 750 mg PO QID PRN 08/07/18 [History] Paroxetine HCl [Paxil] 20 mg PO DAILY 08/07/18 [History] Allergies/Adverse Reactions: Allergy/AdvReac Type Severity Reaction Status Date / Time No Known Allergies Allergy Verified 02/23/18 21:42 Date of admission: 08/08/18 02:02 [facility] care physician: [facility] Consults: 08/07/18 22:48 Consult to Oncology [CONS] Routine Consulting Provider: Oncology [facility] Reason for Consult: cancer with mets, repeat hospitilizations for hyponatremia Time Notified: 22:49 Call Completed: No 08/07/18 22:54 Consult to Nutrition [CONS] Routine Comment: Consulting Provider: NUTRITION Reason for Dietary Consult: MST Score 08/07/18 23:38 Consult to Nephrology [CONS] Routine Consulting Provider: Kidney April/DEBORAH/MANOJ/BERTHA Reason for Consult: hyponatremia Time Notified: 23:39 Call Completed: No 08/08/18 15:54 Consult to Interventional Radiology [CONS] Routine Consulting Provider: Radiology Interventional Cols Reason for Consult: US guided biopsy of subcutaneous nodule in abdomen Call Completed: No 08/12/18 07:49 Consult to Psychiatry [CONS] Routine Consulting Provider: Psychiatry April Reason consult: Other Other reason and/or additional details: capacity, has long history of alcohol use but im not sure if he understands his medical condition, homeless adn CIWA score was high yesterday. wants to sign out AMA Call Completed: No 08/16/18 15:32 Consult to Occupational Therapy [CONS] Routine Comment: Evaluate, develop and implement POC Reason for Consult: Falls at home; lives alone. Assess if needs rehab at discharge Does patient have active BEDREST order?: No Is patient medically & hemodynamically stable?: Yes Consult to Physical Therapy [CONS] Routine Comment: Evaluate, develop and implement POC Reason for Consult: Falls at home, lives alone; assess if needs rehab at discharge Does patient have active BEDREST order?: No Is patient medically & hemodynamically stable?: Yes - Constitutional Vitals: Temp Pulse Resp BP Pulse Ox 98.2 F 75 16 137/71 91 08/17/18 07:22 08/17/18 07:22 08/17/18 07:22 08/17/18 07:22 08/17/18 07:22 General appearance: Present: cooperative, A&O X 3, pleasant Exam: General: Pt more awake and alert today, still HEENT: NC/AT, dry MM Respiratory exam: clear bilaterally without wheezes or crackles Cardiovascular exam: RRR, +S1, +S2. no M/R/G GI/Abdominal exam: mildly tender umbilical/epigastric, non-distended, normal bowel sounds, soft Extremities exam: full ROM, no pedal edema, warm, pulses palpable in b/l lower extremities. 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
[2018-08-17] MEDS ORDERED: 0.9 % Sodium Chloride 500 ML ONE ×2 (13:49→17:30)
[2018-08-17] MEDS: Acetaminophen 325 MG TABLET PO PRN ×2 (17:47→23:44)
[2018-08-18 07:20] VITALS: BP 130/83
[2018-08-18] MEDS: Hydrocortisone Sodium Succ 100 MG/2 ML VIAL IVP SCH (07:34)
[2018-08-18] MEDS: Thiamine (B-1) 100 MG TABLET PO SCH (07:35)
[2018-08-18] MEDS: Gabapentin 100 MG CAPSULE PO SCH (07:35)
[2018-08-18] MEDS: Multivit/Ca/Min/Fe/FA 1 TAB TABLET PO SCH (07:35)
[2018-08-18] MEDS: Cholecalciferol (D-3) 1,000 UNIT TABLET PO SCH (07:35)
[2018-08-18] MEDS: Cyanocobalamin (B-12) 1,000 MCG TABLET PO SCH (07:35)
[2018-08-18] MEDS: Nicotine 14 MG PATCH.TD24 TD SCH (07:47)
--- NOTE | 2018-08-18 11:01 | Discharge Summary ---
- NOTES TO OUTPATIENT PROVIDER Notes to Outpatient Provider: As you being treated for adrenal insufficiency with hydrocortisone 15 mg in the morning and 10 mg in the evening, will need follow-up to hopefully wean off steroids. Also had biopsy of right adrenal mass and has scheduled outpatient oncology follow-up Date of Encounter: 08/18/18 Time of Encounter: 10:59 - Discharge Diagnosis (1) Hyponatremia Priority: Secondary Status: Resolved (2) Tobacco abuse Priority: Secondary Status: Chronic (3) Alcohol dependence with withdrawal Priority: Primary Status: Resolved Qualifiers: Complication of substance-induced condition: uncomplicated Qualified Code(s): F10.230 - Alcohol dependence with withdrawal, uncomplicated (4) Adrenal mass Priority: Primary Status: Acute (5) Adrenal insufficiency Priority: Primary Status: Acute (6) Anemia Priority: Secondary Status: Chronic Qualifiers: Anemia type: unspecified type Qualified Code(s): D64.9 - Anemia, unspecified (7) Acute metabolic encephalopathy Priority: Primary Status: Resolved Hospital course: Mr. Aldana is a 63 year old male with history of chronic alcohol use presents with acute encephalopathy and alcohol withdrawal. She was also found to have bilateral adrenal masses. Patient was treated for adrenal insufficiency with hydrocortisone. He has since been transitioned to by mouth and will continue to discharge. Will defer to PCP for weaning off steroids. Patient's alcohol withdrawal symptoms have resolved. I strongly encouraged him to abstain from alcohol completely. Of note patient has psychiatric evaluation during his acute withdrawal symptoms that found he did not have capacity to make decisions. My discussion with the patient today I feel like he does understand his current medical conditions and has capacity however I have asked psychiatry to reevaluate him. I did discuss the possibility of ECF placement and patient adamantly refused. Patient will be discharged home pending psychiatric evaluation. Discharge discussed with: patient - Time Spent with Patient Total time spent providing and/or coordinating discharge services: - Discharge Medications Prescriptions: New Hydrocortisone [Cortef] 15 mg PO QAM #30 tablet Hydrocortisone [Cortef] 10 mg PO QPM #30 tablet Sodium Chloride [Sodium Chloride Tab] 1 gm PO BID #60 tablet Continue Albuterol Sulfate [Albuterol Inhaler] 2 puff IH Q4H PRN PRN Reason: Shortness Of Breath Tiotropium [Spiriva] 2 puff IH 1200 Trazodone HCl 100 mg PO HS PRN PRN Reason: Sleep Folic Acid 1 mg PO DAILY tablet Thiamine (B-1) [Vitamin B-1] 100 mg PO DAILY tablet hydrOXYzine pamoate [HydrOXYzine Pamoate] 25 mg PO QID PRN PRN Reason: Anxiety Naproxen [Naprosyn] 500 mg PO BIDWM Melatonin [Melatin] 9 mg PO HS PRN PRN Reason: Insomnia Cholecalciferol (D-3) [Vitamin D] 2,000 unit PO DAILY Gabapentin [Neurontin] 200 mg PO BID Paroxetine HCl [Paxil] 20 mg PO DAILY Methocarbamol [Robaxin] 750 mg PO QID PRN PRN Reason: Muscle Spasm Home Medications: Albuterol Sulfate [Albuterol Inhaler] 2 puff IH Q4H PRN 03/05/17 [History] Tiotropium [Spiriva] 2 puff IH 1200 03/05/17 [History] Trazodone HCl 100 mg PO HS PRN 02/23/18 [History] Folic Acid 1 mg PO DAILY tablet 02/25/18 [Rx] Thiamine (B-1) [Vitamin B-1] 100 mg PO DAILY tablet 02/25/18 [Rx] Melatonin [Melatin] 9 mg PO HS PRN 07/27/18 [History] Naproxen [Naprosyn] 500 mg PO BIDWM 07/27/18 [History] hydrOXYzine pamoate [HydrOXYzine Pamoate] 25 mg PO QID PRN 07/27/18 [History] Cholecalciferol (D-3) [Vitamin D] 2,000 unit PO DAILY 08/07/18 [History] Gabapentin [Neurontin] 200 mg PO BID 08/07/18 [History] Methocarbamol [Robaxin] 750 mg PO QID PRN 08/07/18 [History] Paroxetine HCl [Paxil] 20 mg PO DAILY 08/07/18 [History] Hydrocortisone [Cortef] 10 mg PO QPM #30 tablet 08/18/18 [Rx] Hydrocortisone [Cortef] 15 mg PO QAM #30 tablet 08/18/18 [Rx] Sodium Chloride [Sodium Chloride Tab] 1 gm PO BID #60 tablet 08/18/18 [Rx] Allergies/Adverse Reactions: Allergy/AdvReac Type Severity Reaction Status Date / Time No Known Allergies Allergy Verified 02/23/18 21:42 Date of admission: 08/08/18 02:02 [facility] care physician: [facility] Consults: 08/07/18 22:48 Consult to Oncology [CONS] Routine Consulting Provider: Oncology [facility] Reason for Consult: cancer with mets, repeat hospitilizations for hyponatremia Time Notified: 22:49 Call Completed: No 08/07/18 22:54 Consult to Nutrition [CONS] Routine Comment: Consulting Provider: NUTRITION Reason for Dietary Consult: MST Score 08/07/18 23:38 Consult to Nephrology [CONS] Routine Consulting Provider: [facility] April/DEBORAH/MANOJ/BERTHA Reason for Consult: hyponatremia Time Notified: 23:39 Call Completed: No 08/08/18 15:54 Consult to Interventional Radiology [CONS] Routine Consulting Provider: Radiology Interventional [facility] Reason for Consult: US guided biopsy of subcutaneous nodule in abdomen Call Completed: No 08/12/18 07:49 Consult to Psychiatry [CONS] Routine Consulting Provider: Psychiatry [facility] Reason consult: Other Other reason and/or additional details: capacity, has long history of alcohol use but im not sure if he understands his medical condition, homeless adn CIWA score was high yesterday. wants to sign out AMA Call Completed: No 08/16/18 15:32 Consult to Occupational Therapy [CONS] Routine Comment: Evaluate, develop and implement POC Reason for Consult: Falls at home; lives alone. Assess if needs rehab at discharge Does patient have active BEDREST order?: No Is patient medically & hemodynamically stable?: Yes Consult to Physical Therapy [CONS] Routine Comment: Evaluate, develop and implement POC Reason for Consult: Falls at home, lives alone; assess if needs rehab at discharge Does patient have active BEDREST order?: No Is patient medically & hemodynamically stable?: Yes 08/18/18 10:48 Consult to Psychiatry [CONS] Routine Consulting Provider: Psychiatry [place] Reason consult: Capacity assessment Other reason and/or additional details: Had been seen previously and found not to have capacity but medically improved and stable for discharge, would like capacity reeval Time Notified: 10:49 Call Completed: Yes Discharging clinician: Kevin Tilley Anticipated date of discharge: 08/18/18 - Constitutional Vitals: Temp Pulse Resp BP Pulse Ox 97.9 F 74 16 130/83 95 08/18/18 07:17 08/18/18 07:17 08/18/18 07:17 08/18/18 07:17 08/18/18 07:41 General appearance: Present: cooperative, A&O X 3, pleasant Exam: . - Respiratory Respiratory exam: Present: CTAB. Absent: rales, rhonchi, wheezes - Cardiovascular Cardiovascular exam: Present: RRR. Absent: gallop, rubs, systolic murmur - Psychiatric Psychiatric exam: Present: normal affect, normal mood. Absent: agitated, anxious, depressed - Patient Status Disposition: Home, Self-Care Condition: Fair Functional capacity at discharge: independent ambulation Overall status at discharge: patient is progressing back to baseline - Discharge Instructions Instructions: Chest Pain (DC), Rib Fracture (DC), Chronic Obstructive Pulmonary Disease (DC), Viral Encephalitis (DC), Alcohol Intoxication (DC), Secondary Adrenal Insufficiency (DC), Anemia (GEN), Fall Prevention (DC), Cigarette Smoking and Your Health, Clinical Associate (GEN) Follow Up With: [facility] [Primary Care Provider] - (1 week) Benito Dan MD [Partnered Physician] - (As scheduled) Additional Instructions: Please follow-up with your primary care provider within one week. Please follow up with oncology as scheduled. Please resume your home medications. Please take hydrocortisone as directed until further instructions are given from your PCP. Please abstain from alcohol completely. Please return for any new or worsening symptoms. - Diet and Activity Activity: increase activity as tolerated Diet: advance to your usual diet
[2018-08-18] MEDS: Acetaminophen 325 MG TABLET PO PRN (12:53)
[2018-08-18] MEDS ORDERED: Hydrocortisone 10 MG TABLET PO SCH (18:00)
[2018-08-19] MEDS ORDERED: Hydrocortisone 10 MG TABLET PO SCH (09:00)
== END 2018-08-18 16:42 | disposition home or self-care (01) | DRG 424 ==
LOC: 2ANU 16:20 → EMEROOARM 16:20 → 2NNU 21:25 → SUATTDRO 08-08 02:02 → 3NENU 08-10 12:13 → 2SOUTHHOLD 08-11 09:47 → 2NENU 08-12 16:15
PROVIDERS: ADMIT Pediatrics; ATTEND Internal Medicine
PROC: IRDRAIN (2018-08-17 12:00)

== ENCOUNTER 2018-09-27 12:22 | Inpatient (IN) ==
[2018-09-27] MEDS ORDERED: Pantoprazole 40 MG VIAL IVP ONE (12:28)
[2018-09-27] MEDS ORDERED: 0.9 % Sodium Chloride 1,000 ML IVC ONE (12:28)
--- NOTE | 2018-09-27 12:33 | Emergency Department Note ---
Disposition Clinical Impression: Hyponatremia, Alcohol abuse Metastatic lung cancer (metastasis from lung to other site) Qualifiers: Laterality: unspecified laterality Qualified Code(s): C34.90 - Malignant neoplasm of unspecified part of unspecified bronchus or lung Disposition: Admitted As Inpatient Condition: Fair [facility]errals: [facility] [Primary Care Provider] - Time of Disposition: 15:16 Abdominal Pain HPI - General Stated Complaint: abd pain Time Seen by Provider: 09/27/18 12:22 Source: patient, EMS Mode of arrival: EMS Limitations: no limitations Nursing Notes Reviewed: Yes Vital Signs Reviewed: Yes - History of Present Illness HPI Narrative: 63-year-old male with history of bowel color use presents for Yanely abdominal pain and wanting detox. Patient states that his had abdominal pain is are yest erday. Has had some nonbloody diarrhea. Abdominal pain is localized to the epigastrium. Patient reports some nausea but no vomiting. No history of esophageal varices or bleeding ulcers. Patient states he drank approximately 12 beers in the past 24 hours with 2 beers earlier today. Patient denies any chest pain or shortness of breath. Patient does state that he is generally weak having difficulty ambulating. Denies any fevers. Patient denies history of any known coronary artery disease or heart failure. - Related Data Home Medications Medication Instructions Recorded Confirmed Albuterol Sulfate [Proair Hfa] 2 puff IH Q4H PRN 08/30/18 09/07/18 Ibuprofen [Ibu-200] 400 mg PO Q6H PRN 08/30/18 09/07/18 Ipratropium/Albuterol Neb [Duoneb] 3 ml IH Q6HR PRN 08/30/18 09/07/18 Melatonin [Melatin] 15 mg PO HS PRN 08/30/18 09/07/18 Methocarbamol [Robaxin] 750 mg PO Q8HR 08/30/18 09/07/18 Paroxetine HCl [Paxil] 20 mg PO DAILY 08/30/18 09/07/18 Tiotropium [place] [Spiriva 2 puff IH 1200 08/30/18 09/07/18 Respimat] Trazodone HCl 100 mg PO HS PRN 08/30/18 09/07/18 Cholecalciferol (D-3) [Vitamin D] 2,000 unit PO DAILY 09/07/18 09/07/18 Folic Acid 1 mg PO DAILY 09/07/18 09/07/18 Gabapentin [Neurontin] 200 mg PO BID 09/07/18 09/07/18 Naproxen [Naprosyn] 500 mg PO BIDWM PRN 09/07/18 09/07/18 Pantoprazole Sodium [Protonix] 40 mg PO DAILY 09/07/18 09/07/18 Sucralfate [Carafate] 1 gm PO Q6H 09/07/18 09/07/18 Thiamine Mononitrate [Vitamin B-1] 100 mg PO DAILY 09/07/18 09/07/18 hydrOXYzine HCl [Hydroxyzine HCl] 25 mg PO QID PRN 09/07/18 09/07/18 Allergies Allergy/AdvReac Type Severity Reaction Status Date / Time No Known Allergies Allergy Verified 09/07/18 09:22 All systems ED: reviewed and negative except as stated. Constitutional: Denies: fever Cardiovascular: Denies: chest pain Respiratory: Denies: cough, dyspnea Gastrointestinal: Reports: abdominal pain, nausea, diarrhea Abdominal Pain PMH - Past Medical History Medical history: Reports: asthma, cancer, COPD, GERD Male Surgical History: Reports: no surgical history, orthopedic, other Psychiatric history: Reports: no psych history - Social History Smoking status: Current every day smoker Alcohol use: Reports: heavy Drug use: Reports: marijuana Physical Exam - General Limitations: no limitations General appearance: alert, in no apparent distress - Head Head exam: atraumatic, normocephalic, normal inspection - Eye Eye exam: Present: normal appearance. Absent: scleral icterus - ENT ENT exam: normal exam, normal oropharynx - Neck Neck exam: Present: normal inspection - Chest Chest inspection: Present: normal inspection, symmetric chest wall rise - Respiratory Respiratory exam: Present: wheezes (Mild expiratory). Absent: respiratory distress - Cardiovascular Cardiovascular exam: Present: regular rate, normal rhythm. Absent: systolic murmur - Abdominal Exam Abdominal exam: Present: soft, Non-Tender. Absent: guarding, rebound - Extremities Exam Extremities exam: Present: normal inspection. Absent: pedal edema - Expanded Lower Extremity Exam Neurovascular/Tendon exam: Present: normal capillary refill - Back Exam Back exam: Present: normal inspection - Neurological Exam Neurological exam: Present: alert, oriented X3, CN II-XII intact - Expanded Neurological Exam Patient oriented to: Present: person, place, time Speech: Present: fluid speech Motor strength - LUE: 5/5 Motor strength - RUE: 5/5 Motor strength - LLE: 5/5 Motor strength - RLE: 5/5 Coma Scale Eye Opening: Spontaneous Coma Scale Motor Response: Obeys Commands Coma Scale Verbal Response: Oriented Coma Scale Total: 15 - Skin Skin exam: Present: warm, dry, intact, normal color Course Course Narrative: Patient will get pretty of O[facility] evaluation with EKG chest x-ray troponin. Patient will also get an abdominal/pelvis CT Scan basic labs including magnesium phosphorus. Disposition admission - Reevaluation(s) Reevaluation #1: Patient seen and examined. Patient's resting currently. Patient is is currently on hospice however hospice states that there waving his hospice until after his this current admission. Patient updated on plan of care. Abdominal exam is unremarkable. Time: 15:37 - Consultations Consultation #1: Spoke with Dr. Ciara telles, nephrology who recommends fluid restriction following euvolemia. Recommends every 2hr sodium checks Time: 16:03 Vital Signs Temperature 96 F L 09/27/18 12:36 Pulse Rate 60 09/27/18 12:36 Respiratory Rate 20 09/27/18 12:36 Blood Pressure 132/80 09/27/18 12:36 O2 Sat by Pulse Oximetry 95 09/27/18 12:36 Temperature 96 F L 09/27/18 12:36 Pulse Rate 60 09/27/18 12:36 Respiratory Rate 20 09/27/18 12:36 Blood Pressure 132/80 09/27/18 12:36 O2 Sat by Pulse Oximetry 95 09/27/18 12:36 Oxygen Delivery Oxygen Delivery Room Air Abdominal Pain - MDM Narrative Medical decision making narrative: Patient presents for wanting alcohol withdrawal. Did get social work involved. Patient does follow with the MD. Did speak with social human services assistants if the patient would have been medically cleared states that [facility]. However based on the patient's lab C has acute on chronic hyponatremia likely secondary to be reported tarsha. Patient does not require any hypertonic saline at this point based on his mental status. Patient case will be discussed with on-call nephrology. Patient's been given multivitamins [place] and thiamine. Patient will be admitted the ICU for critical care monitoring. - Lab Data Lab results reviewed: Yes I reviewed the patient's lab results. Result diagrams: 09/27/18 13:12 09/27/18 13:12 Lab Results 09/27/18 09/27/18 09/27/18 Range/Units 13:12 13:12 13:12 WBC 6.3 (4.3-11.1) K/mcL RBC 4.60 (4.19-5.50) M/mcL Hgb 12.9 (12.9-16.9) g/dL Hct 36.5 L (37.5-50.1) % MCV 79.3 L (83.0-100.0) fL MCH 28.0 (28.0-33.3) pg MCHC 35.3 (31.6-35.5) g/dL RDW 16.0 H (11.5-14.5) % Plt Count 356 (140-400) K/mcL MPV 10.1 (9.4-12.4) fL Immature Gran % 0.3 (0-4) % Seg Neutrophils % 60.3 % Lymphocytes % 25.8 % Monocytes % 10.9 % Eosinophils % 2.2 % Basophils % 0.5 % Neutrophils # 3.8 (1.6-8.9) K/mcL Lymphocytes # 1.6 (0.6-4.6) K/mcL Monocytes # 0.7 (0.0-1.3) K/mcL Eosinophils # 0.1 (0.0-0.6) K/mcL Basophils # 0.0 (0.0-0.2) K/mcL PT 12.7 H (9.4-12.1) Seconds INR 1.1 Sodium (136-145) mEq/L Potassium (3.5-5.1) mEq/L Chloride (98-107) mEq/L Carbon Dioxide (23-29) mEq/L BUN (8-23) mg/dL Creatinine (0.70-1.30) mg/dL Est GFR ( Amer) (> 60) Est GFR (Non-Af Amer) (> 60) BUN/Creatinine Ratio (6-26) Glucose (70-105) mg/dL Calculated Osmolality (280-300) Lactic Acid 1.3 (0.5-2.2) mmol/L Calcium (8.6-10.3) mg/dL Phosphorus (2.7-4.5) mg/dL Magnesium (1.6-2.6) mg/dL Total Bilirubin (0.3-1.0) mg/dL Direct Bilirubin (0.0-0.2) mg/dL Indirect Bilirubin (0.0-1.2) mg/dL AST (13-39) Units/L ALT (7-52) Units/L Alkaline Phosphatase (34-104) Units/L Troponin I (< 0.04) ng/mL Serum Total Protein (6.4-8.9) g/dL Albumin (3.5-5.7) g/dL Globulin (2.4-3.5) g/dL Albumin/Globulin Ratio (1.1-2.2) Lipase (11-82) Units/L Ethyl Alcohol (Less than 10) mg/dL 09/27/18 Range/Units 13:12 WBC (4.3-11.1) K/mcL RBC (4.19-5.50) M/mcL Hgb (12.9-16.9) g/dL Hct (37.5-50.1) % MCV (83.0-100.0) fL MCH (28.0-33.3) pg MCHC (31.6-35.5) g/dL RDW (11.5-14.5) % Plt Count (140-400) K/mcL MPV (9.4-12.4) fL Immature Gran % (0-4) % Seg Neutrophils % % Lymphocytes % % Monocytes % % Eosinophils % % Basophils % % Neutrophils # (1.6-8.9) K/mcL Lymphocytes # (0.6-4.6) K/mcL Monocytes # (0.0-1.3) K/mcL Eosinophils # (0.0-0.6) K/mcL Basophils # (0.0-0.2) K/mcL PT (9.4-12.1) Seconds INR Sodium 109 L* (136-145) mEq/L Potassium 5.4 H (3.5-5.1) mEq/L Chloride 75 L (98-107) mEq/L Carbon Dioxide 21 L (23-29) mEq/L BUN 7 L (8-23) mg/dL Creatinine 0.50 L (0.70-1.30) mg/dL Est GFR ( Amer) > 60 (> 60) Est GFR (Non-Af Amer) > 60 (> 60) BUN/Creatinine Ratio 14 (6-26) Glucose 79 (70-105) mg/dL Calculated Osmolality 225 L (280-300) Lactic Acid (0.5-2.2) mmol/L Calcium 9.7 (8.6-10.3) mg/dL Phosphorus 4.3 (2.7-4.5) mg/dL Magnesium 1.6 (1.6-2.6) mg/dL Total Bilirubin 0.4 (0.3-1.0) mg/dL Direct Bilirubin 0.1 (0.0-0.2) mg/dL Indirect Bilirubin 0.3 (0.0-1.2) mg/dL AST 22 (13-39) Units/L ALT 12 (7-52) Units/L Alkaline Phosphatase 115 H (34-104) Units/L Troponin I < 0.03 (< 0.04) ng/mL Serum Total Protein 7.5 (6.4-8.9) g/dL Albumin 4.5 (3.5-5.7) g/dL Globulin 3.0 (2.4-3.5) g/dL Albumin/Globulin Ratio 1.5 (1.1-2.2) Lipase 43 (11-82) Units/L Ethyl Alcohol < 10 (Less than 10) mg/dL - Radiology Data Radiology results reviewed: Yes I reviewed the patient's radiology results. Abdomen/Pelvis CT 09/27/18 12:28 IMPRESSION: Lack of intravenous contrast limits exam. However, relatively stable appearance of metastatic lesions in the abdomen and pelvis including bilateral adrenal masses, retroperitoneal lymphadenopathy and subcutaneous suprapubic soft tissue nodule. No evidence of bowel obstruction. Nonobstructing left renal stone. No evidence of obstructive uropathy or hydronephrosis. D/ /27/2018 14:10:30 Delio Valderrama MD / yael Interpreting Provider: Delio Valderrama MD Chest X-Ray 09/27/18 12:29 IMPRESSION: No radiograph evidence of acute process. Left upper lobe lesion seen on recent PET-CT is not visualized on this study. Hyperinflated lungs suggesting emphysematous changes. D/ / Kayode Evans / Kayode Evans Interpreting Provider: Kayode Evans - EKG Data EKG attestation: Yes I reviewed and interpreted this EKG. EKG shows normal: sinus rhythm Rate: normal Rhythm: NSR Vance/QRS: normal When compared to previous EKG there are: no significant changes S.B.A.R. - Guru.Mark Situation: Demographics Background: Presenting Complaint Assessment: Vital Signs, Course and respsone to treatment, Patient/Family Expectation Recommendation: Barrier(s) to disposition, Recommendation based on pending studies, treatments, or consults S.B.A.Stephany Report Given to: Dr. Kylah Dietz Repor Time: 15:34
[2018-09-27] MEDS ORDERED: Hyoscyamine 0.5 MG/ML MLS IVP ONE (12:34)
[2018-09-27] MEDS ORDERED: Thiamine (B-1) 100 MG TABLET PO ONE (13:15)
[2018-09-27] MEDS ORDERED: Folic Acid 1 MG, MVI, adult with vitamin K 10 ML in 0.9 % Sodium Chloride 500 ML IVPB SCH (13:20)
[2018-09-27 13:39] LABS: Basophils % 0.5 %; Eosinophils # 0.1 K/mcL (0.0-0.6); Eosinophils % 2.2 %; Hematocrit 36.5 % (37.5-50.1); Hemoglobin 12.9 g/dL (12.9-16.9); Immature Granulocytes % 0.3 % (0-4); Lymphocytes # 1.6 K/mcL (0.6-4.6); Lymphocytes % 25.8 %; Mean Corpuscular HGB Conc 35.3 g/dL (31.6-35.5); Mean Corpuscular Volume 79.3 fL (83.0-100.0); Mean Platelet Volume 10.1 fL (9.4-12.4); Monocytes # 0.7 K/mcL (0.0-1.3); Monocytes % 10.9 %; Neutrophils # 3.8 K/mcL (1.6-8.9); Platelet Count 356 K/mcL (140-400); Segmented Neutrophils % 60.3 %
[2018-09-27 13:46] LABS: INR 1.1; Prothrombin Time 12.7 Seconds (9.4-12.1)
[2018-09-27 14:00] LABS: Ethanol < 10 mg/dL (Less than 10); Magnesium 1.6 mg/dL (1.6-2.6); Phosphorous 4.3 mg/dL (2.7-4.5)
[2018-09-27 14:51] LABS: Troponin I < 0.03 ng/mL (< 0.04)
[2018-09-27 15:12] LABS: Alanine Aminotransferase 12 Units/L (7-52); Albumin 4.5 g/dL (3.5-5.7); Albumin/Globulin Ratio 1.5 (1.1-2.2); Alkaline Phosphatase 115 Units/L (34-104); Aspartate Amino Transferase 22 Units/L (13-39); BUN/Creatinine Ratio 14 (6-26); Bilirubin,Direct 0.1 mg/dL (0.0-0.2); Bilirubin,Indirect 0.3 mg/dL (0.0-1.2); Bilirubin,Total 0.4 mg/dL (0.3-1.0); Blood Urea Nitrogen 7 mg/dL (8-23); Calcium 9.7 mg/dL (8.6-10.3); Carbon Dioxide 21 mEq/L (23-29); Chloride 75 mEq/L (98-107); Glucose 79 mg/dL (70-105); Lipase 43 Units/L (11-82); Osmolality,Calculated 225 (280-300); Potassium 5.4 mEq/L (3.5-5.1); Sodium 109 mEq/L (136-145); Total Protein 7.5 g/dL (6.4-8.9); eGFR For Non-African Americans > 60 (> 60)
--- NOTE | 2018-09-27 15:23 | Emergency Department Note ---
Disposition Clinical Impression: Hyponatremia, Alcohol abuse Disposition: Admitted As Inpatient Condition: Fair [facility] [Primary Care Provider[facility] - General Adult HPI - General Chief complaint: ED Abdominal Pain Stated complaint: abd pain Time Seen by Provider: 09/27/18 12:22 Source: patient, EMS Mode of arrival: EMS Limitations: no limitations - History of Present Illness Pain Scale: 4 - Related Data Home Medications Medication Instructions Recorded Confirmed Albuterol Sulfate [Proair Hfa] 2 puff IH Q4H PRN 08/30/18 09/07/18 Ibuprofen [Ibu-200] 400 mg PO Q6H PRN 08/30/18 09/07/18 Ipratropium/Albuterol Neb [Duoneb] 3 ml IH Q6HR PRN 08/30/18 09/07/18 Melatonin [Melatin] 15 mg PO HS PRN 08/30/18 09/07/18 Methocarbamol [Robaxin] 750 mg PO Q8HR 08/30/18 09/07/18 Paroxetine HCl [Paxil] 20 mg PO DAILY 08/30/18 09/07/18 Tiotropium [place] [Spiriva 2 puff IH 1200 08/30/18 09/07/18 Respimat] Trazodone HCl 100 mg PO HS PRN 08/30/18 09/07/18 Cholecalciferol (D-3) [Vitamin D] 2,000 unit PO DAILY 09/07/18 09/07/18 Folic Acid 1 mg PO DAILY 09/07/18 09/07/18 Gabapentin [Neurontin] 200 mg PO BID 09/07/18 09/07/18 Naproxen [Naprosyn] 500 mg PO BIDWM PRN 09/07/18 09/07/18 Pantoprazole Sodium [Protonix] 40 mg PO DAILY 09/07/18 09/07/18 Sucralfate [Carafate] 1 gm PO Q6H 09/07/18 09/07/18 Thiamine Mononitrate [Vitamin B-1] 100 mg PO DAILY 09/07/18 09/07/18 hydrOXYzine HCl [Hydroxyzine HCl] 25 mg PO QID PRN 09/07/18 09/07/18 Allergies Allergy/AdvReac Type Severity Reaction Status Date / Time No Known Allergies Allergy Verified 09/07/18 09:22 Constitutional: Denies: fever Cardiovascular: Denies: chest pain Respiratory: Denies: cough, dyspnea Gastrointestinal: Reports: abdominal pain, nausea, diarrhea Past Medical History - Past Medical History Medical history: Reports: asthma, cancer, COPD, GERD Surgical history: Reports: orthopedic, other Psychiatric history: Reports: no psych history - Social History Smoking Status: Current every day smoker Smokeless Tobacco Status: No Alcohol use: Reports: heavy Drug use: Reports: marijuana Physical Exam - General Limitations: no limitations General appearance: alert, in no apparent distress Course Vital Signs Temperature 96 F L 09/27/18 12:36 Pulse Rate 60 09/27/18 12:36 Respiratory Rate 20 09/27/18 12:36 Blood Pressure 132/80 09/27/18 12:36 O2 Sat by Pulse Oximetry 95 09/27/18 12:36 Temperature 96 F L 09/27/18 12:36 Pulse Rate 60 09/27/18 12:36 Respiratory Rate 20 09/27/18 12:36 Blood Pressure 132/80 09/27/18 12:36 O2 Sat by Pulse Oximetry 95 09/27/18 12:36 Oxygen Delivery Oxygen Delivery Room Air Medical Decision Making - Lab Data Result diagrams: 09/27/18 13:12 09/27/18 13:12 Lab Results 09/27/18 09/27/18 09/27/18 Range/Units 13:12 13:12 13:12 WBC 6.3 (4.3-11.1) K/mcL RBC 4.60 (4.19-5.50) M/mcL Hgb 12.9 (12.9-16.9) g/dL Hct 36.5 L (37.5-50.1) % MCV 79.3 L (83.0-100.0) fL MCH 28.0 (28.0-33.3) pg MCHC 35.3 (31.6-35.5) g/dL RDW 16.0 H (11.5-14.5) % Plt Count 356 (140-400) K/mcL MPV 10.1 (9.4-12.4) fL Immature Gran % 0.3 (0-4) % Seg Neutrophils % 60.3 % Lymphocytes % 25.8 % Monocytes % 10.9 % Eosinophils % 2.2 % Basophils % 0.5 % Neutrophils # 3.8 (1.6-8.9) K/mcL Lymphocytes # 1.6 (0.6-4.6) K/mcL Monocytes # 0.7 (0.0-1.3) K/mcL Eosinophils # 0.1 (0.0-0.6) K/mcL Basophils # 0.0 (0.0-0.2) K/mcL PT 12.7 H (9.4-12.1) Seconds INR 1.1 Sodium (136-145) mEq/L Potassium (3.5-5.1) mEq/L Chloride (98-107) mEq/L Carbon Dioxide (23-29) mEq/L BUN (8-23) mg/dL Creatinine (0.70-1.30) mg/dL Est GFR ( Amer) (> 60) Est GFR (Non-Af Amer) (> 60) BUN/Creatinine Ratio (6-26) Glucose (70-105) mg/dL Calculated Osmolality (280-300) Lactic Acid 1.3 (0.5-2.2) mmol/L Calcium (8.6-10.3) mg/dL Phosphorus (2.7-4.5) mg/dL Magnesium (1.6-2.6) mg/dL Total Bilirubin (0.3-1.0) mg/dL Direct Bilirubin (0.0-0.2) mg/dL Indirect Bilirubin (0.0-1.2) mg/dL AST (13-39) Units/L ALT (7-52) Units/L Alkaline Phosphatase (34-104) Units/L Troponin I (< 0.04) ng/mL Serum Total Protein (6.4-8.9) g/dL Albumin (3.5-5.7) g/dL Globulin (2.4-3.5) g/dL Albumin/Globulin Ratio (1.1-2.2) Lipase (11-82) Units/L Ethyl Alcohol (Less than 10) mg/dL 09/27/18 Range/Units 13:12 WBC (4.3-11.1) K/mcL RBC (4.19-5.50) M/mcL Hgb (12.9-16.9) g/dL Hct (37.5-50.1) % MCV (83.0-100.0) fL MCH (28.0-33.3) pg MCHC (31.6-35.5) g/dL RDW (11.5-14.5) % Plt Count (140-400) K/mcL MPV (9.4-12.4) fL Immature Gran % (0-4) % Seg Neutrophils % % Lymphocytes % % Monocytes % % Eosinophils % % Basophils % % Neutrophils # (1.6-8.9) K/mcL Lymphocytes # (0.6-4.6) K/mcL Monocytes # (0.0-1.3) K/mcL Eosinophils # (0.0-0.6) K/mcL Basophils # (0.0-0.2) K/mcL PT (9.4-12.1) Seconds INR Sodium 109 L* (136-145) mEq/L Potassium 5.4 H (3.5-5.1) mEq/L Chloride 75 L (98-107) mEq/L Carbon Dioxide 21 L (23-29) mEq/L BUN 7 L (8-23) mg/dL Creatinine 0.50 L (0.70-1.30) mg/dL Est GFR ( Amer) > 60 (> 60) Est GFR (Non-Af Amer) > 60 (> 60) BUN/Creatinine Ratio 14 (6-26) Glucose 79 (70-105) mg/dL Calculated Osmolality 225 L (280-300) Lactic Acid (0.5-2.2) mmol/L Calcium 9.7 (8.6-10.3) mg/dL Phosphorus 4.3 (2.7-4.5) mg/dL Magnesium 1.6 (1.6-2.6) mg/dL Total Bilirubin 0.4 (0.3-1.0) mg/dL Direct Bilirubin 0.1 (0.0-0.2) mg/dL Indirect Bilirubin 0.3 (0.0-1.2) mg/dL AST 22 (13-39) Units/L ALT 12 (7-52) Units/L Alkaline Phosphatase 115 H (34-104) Units/L Troponin I < 0.03 (< 0.04) ng/mL Serum Total Protein 7.5 (6.4-8.9) g/dL Albumin 4.5 (3.5-5.7) g/dL Globulin 3.0 (2.4-3.5) g/dL Albumin/Globulin Ratio 1.5 (1.1-2.2) Lipase 43 (11-82) Units/L Ethyl Alcohol < 10 (Less than 10) mg/dL Attestation Statement - Attestation Attestation: I examined this patient and my medical decision-making was reviewed with the Resident Physician. I agree with the documented findings, disposition and treat ment plan as described except to the extent set forth below. 63 year old male presents to the ED with complaint of abdominal pain and is a chronic alcoholic and is reqesting to go through detox. Jevon appears to have a sodium of 109 which is likley beer potomania and a potassium of 5.[address] that shows chronic montse from lung cancer. Jevon was accepted to the [facility] detox but because of this medical necessity for admission he will not be medically cleared for admission. Admit to medicine
[2018-09-27] MEDS ORDERED: *HR* OxyCODONE Immed Rel 5 MG TABLET PO PRN (15:53)
[2018-09-27] MEDS ORDERED: Ondansetron 4 MG/2 ML VIAL IVP PRN (15:53)
[2018-09-27] MEDS ORDERED: Acetaminophen 325 MG TABLET PO PRN (15:53)
[2018-09-27] MEDS ORDERED: *HR* HYDROcodone/Acet 5/325 mg TABLET PO PRN (15:53)
[2018-09-27] MEDS ORDERED: Naloxone 0.4 MG/ML INJ IVP PRN (15:53)
--- NOTE | 2018-09-27 16:16 | Internal Med History&Physical ---
Date of Encounter: 09/27/18 Time of Encounter: 15:50 Internal Medicine - H&P: HPI Chief complaint: "detox" Admitted From: Home Plans for Post Hospital Care: Hospice - Home History of present illness: Mr. Aldana is a 63 year old male with history of metastatic lung cancer, chronic alcohol use, currently on home hospice, who presented to the ED for "alcohol detox". Collateral history was obtained from pt's [id number] regarding his issues at home. He states that he drinks 12 oz of beer x 12 every single day, last drink this morning. After the last drink, to be progressively more confused by the family member and wanted him to be evaluated for alcohol detox as well as hyponatremia as this is how he presented in August for similar issues. The only complaints the patient currently endorses is mild frontal headache that is nonradiating and without any aggravating or relieving factors as well as chronic abdominal pain that is unchanged. No fever/chills, nausea/vomiting, diaphoresis, blurring of vision, or focal weakness/numbness. No chest pain, shortness of breath, cough, sputum production, diarrhea, or dysuria. Patient states that he has had alcohol withdrawal symptoms in the past but not delirium tremens or seizure. In the ED, he was afebrile and hemodynamically stable. Labwork again demonstrated sodium level of 109 and K 5.4 but otherwise unremarkable. Alcohol level was surprisingly less than 10. CT Abdo/pelvis was done which did not show any new acute intra-abdominal finding. Chest x-ray was also negative for acute cardiopulmonary process. Patient was given 1 L of IV fluid, thiamine, folic acid, and admitted for further management for hyponatremia with nephrology consult. Patient again confirmed his DNR CCA DNI status in the presence of her [id number]. Past Med Surg Social Fam HX - Past Medical History Attestation: Yes The following information was validated with the patient. Medical history: asthma, cancer, COPD, GERD Additional medical history: lung and abd cancer Psychiatric history: no psych history - Past Surgical History Surgical History: orthopedic, other Additional surgical history: rt hip - Social History Smoking Status: Current every day smoker Smokeless Tobacco Status: No Alcohol use: heavy Drug use: marijuana - Family History Father Living Status: Hx Family Cardiac Disorders: Yes (CAD, Bypass) Hx Family Respiratory Disorders: No Hx Family Cancer: No Hx Family GI Disorders: No Hx Family Endocrine Disorder: No Hx Family Neuromuscular Disorders: No Hx Family Neurologic Disorders: Yes (Alzheimers) Hx Family HEENT Disorders: No Hx Family Autoimmune Disorders: No Brother Adopted: No Family Member Ethnicity: Non- Living Status: Still Living Hx Family Cardiac Disorders: No Hx Family Respiratory Disorders: No Hx Family Cancer: Yes (bowel) Hx Family GI Disorders: Yes (CA bowels) Hx Family Endocrine Disorder: No Hx Family Neuromuscular Disorders: No Hx Family Neurologic Disorders: No Hx Family HEENT Disorders: No Hx Family Autoimmune Disorders: No Internal Medicine - H&P: Meds Albuterol Sulfate [Proair Hfa] 2 puff IH Q4H PRN 08/30/18 [History] Ibuprofen [Ibu-200] 400 mg PO Q6H PRN 08/30/18 [History] Ipratropium/Albuterol Neb [Duoneb] 3 ml IH Q6HR PRN 08/30/18 [History] Melatonin [Melatin] 15 mg PO HS PRN 08/30/18 [History] Methocarbamol [Robaxin] 750 mg PO Q8HR 08/30/18 [History] Paroxetine HCl [Paxil] 20 mg PO DAILY 08/30/18 [History] Tiotropium [place] [Spiriva Respimat] 2 puff IH 1200 08/30/18 [History] Trazodone HCl 100 mg PO HS PRN 08/30/18 [History] Cholecalciferol (D-3) [Vitamin D] 2,000 unit PO DAILY 09/07/18 [History] Folic Acid 1 mg PO DAILY 09/07/18 [History] Gabapentin [Neurontin] 200 mg PO BID 09/07/18 [History] Naproxen [Naprosyn] 500 mg PO BIDWM PRN 09/07/18 [History] Pantoprazole Sodium [Protonix] 40 mg PO DAILY 09/07/18 [History] Sucralfate [Carafate] 1 gm PO Q6H 09/07/18 [History] Thiamine Mononitrate [Vitamin B-1] 100 mg PO DAILY 09/07/18 [History] hydrOXYzine HCl [Hydroxyzine HCl] 25 mg PO QID PRN 09/07/18 [History] 3 Allergy/AdvReac Type Severity Reaction Status Date / Time No Known Allergies Allergy Verified 09/07/18 09:22 All Systems PM: A 10-system review of systems was performed and is negative for pertinent findings except as documented above in the HPI. - Constitutional Vitals: Temp Pulse Resp BP Pulse Ox 96 F L 60 20 132/80 95 09/27/18 12:36 09/27/18 12:36 09/27/18 12:36 09/27/18 12:36 09/27/18 12:36 Exam: General: Alert and oriented, not in acute distress. HEENT:EOMI, pupils equal, round and reactive. Cardiovascular:Normal S1 & S2, No JVD. Pulse regular. Lungs: clear to auscultation, no wheezes/rales Abdomen:Soft, very mild, generalized tenderness without rebound/guar ding/rigidity. Extremities:No deformity or swelling Neurological:CN II-XII intact, power and sensation fully intact in all 4 limbs. No cerebellar signs, pronator drift -ve, Babinski downgoing bilaterally Skin:Normal color, no rash, no lesions. Pulses:Carotid and radial pulses normal +2. Rest of the physical exam is non contributory Internal Med - H&P Results - Labs CBC & Chem 7: 09/27/18 13:12 09/27/18 13:12 Labs: Short CBC 09/27/18 Range/Units 13:12 WBC 6.3 (4.3-11.1) K/mcL Hgb 12.9 (12.9-16.9) g/dL Hct 36.5 L (37.5-50.1) % Plt Count 356 (140-400) K/mcL Neutrophils # 3.8 (1.6-8.9) K/mcL BMP 09/27/18 13:12 Sodium 109 L* Potassium 5.4 H Chloride 75 L Carbon Dioxide 21 L BUN 7 L Creatinine 0.50 L Glucose 79 Calcium 9.7 Cardiac Enzymes 09/27/18 Range/Units 13:12 Troponin I < 0.03 (< 0.04) ng/mL Liver Function 09/27/18 Range/Units 13:12 Total Bilirubin 0.4 (0.3-1.0) mg/dL Direct Bilirubin 0.1 (0.0-0.2) mg/dL AST 22 (13-39) Units/L ALT 12 (7-52) Units/L Alkaline Phosphatase 115 H (34-104) Units/L Albumin 4.5 (3.5-5.7) g/dL - Impressions ITS Impressions Abdomen/Pelvis CT 09/27/18 12:28 IMPRESSION: Lack of intravenous contrast limits exam. However, relatively stable appearance of metastatic lesions in the abdomen and pelvis including bilateral adrenal masses, retroperitoneal lymphadenopathy and subcutaneous suprapubic soft tissue nodule. No evidence of bowel obstruction. Nonobstructing left renal stone. No evidence of obstructive uropathy or hydronephrosis. D/ / 09/27/2018 14:10:30 Delio Valderrama MD / yael Interpreting Provider: Delio Valderrama MD Chest X-Ray 09/27/18 12:29 IMPRESSION: No radiograph evidence of acute process. Left upper lobe lesion seen on recent PET-CT is not visualized on this study. Hyperinflated lungs suggesting emphysematous changes. D/ / Kayode Evans / Kayode Evans Interpreting Provider: Kayode Evans - Assessment and Plan (1) Hyponatremia Current Visit: Yes Status: Acute Assessment and plan: Sodium level of 109, similar presentation in mid August likely due to beer potomania given his hx of significant alcohol intake Was already given 1 L of normal saline in the ED BMP Q3 nephrology consult, fluid restrict 1L/day for now and follow up on their further recs based on the next sodium reading (2) Alcohol abuse Current Visit: Yes Status: Acute Assessment and plan: Chronic alcoholism complicated by severe hyponatremia EtOH level < 10 CIWA protocol (3) Metastatic lung cancer (metastasis from lung to other site) Current Visit: Yes Status: Chronic Assessment and plan: Known metastatic lung cancer to bilateral adrenal glands, retroperitoneal lymphadenopathy, and subcutaneous suprapubic soft tissue nodule on hospice care at home extremely guarded prognosis Qualifiers: Laterality: unspecified laterality Qualified Code(s): C34.90 - Malignant neoplasm of unspecified part of unspecified bronchus or lung (4) Abdominal pain Current Visit: Yes Status: Chronic Assessment and plan: Chronic, likely due to extensive metastatic disease CT scan did not show any acute intra-abdominal processes symptomatic management Qualifiers: Abdominal location: generalized Qualified Code(s): R10.84 - Generalized abdominal pain (5) COPD (chronic obstructive pulmonary disease) Current Visit: No Status: Chronic Assessment and plan: Not in exacerbation, resume home inhalers once reconciled PRN duoneb Qualifiers: COPD type: chronic bronchitis Chronic bronchitis type: mucopurulent Qualified Code(s): J41.1 - Mucopurulent chronic bronchitis (6) Goals of care, counseling/discussion Current Visit: Yes Status: Chronic Assessment and plan: Discussed again regarding his goals of care and confirmed his DNRCCADNI status (7) DVT prophylaxis Current Visit: No Status: Acute Assessment and plan: EPCD - Time Spent With Patient Total time spent is greater than 50% in coordination of care (as documented) at patient's floor/unit and/or counseling patient: Greater than 35 minutes
[2018-09-27] MEDS ORDERED: *HR* LORazepam 2 MG/ML VIAL IVP PRN ×3 (16:19)
[2018-09-27] MEDS ORDERED: Ipratropium/Albuterol Neb 3 ML IH PRN (16:22)
[2018-09-27 16:27] LABS: Bilirubin,Urine Negative (Negative); Blood,Urine Negative (Negative); Clarity,Urine Clear (Clear); Color,Urine Yellow (Yellow); Glucose,Urine (UA) Normal (Normal); Ketones,Urine 15 mg/dL (Negative); Leukocyte Esterase,Urine Small (Negative); Nitrite,Urine Negative (Negative); PH,Urine 6.5 pH Units (5.0-8.0); Protein,Urine Negative (Neg-Trace); Specific Gravity,Urine < 1.005 (1.010-1.025); Urobilinogen,Urine Normal (Normal)
[2018-09-27 16:36] LABS: Bacteria,Urine Few per hpf (None-Few); Hyaline Casts,Urine None Seen per lpf (None-Few); RBC,Urine 0-3 per hpf (0-3); Squamous Epithelial Cell,Urine Moderate per lpf (None-Few)
--- NOTE | 2018-09-27 16:38 | Nephrology Consult Note ---
Date of Encounter: 09/27/18 Time of Encounter: 16:36 Assessment and Plan (1) Hyponatremia Current Visit: Yes Status: Acute Asymptomatic, so I do not recommend rapid correction and so no indication for 3% saline. Beer potomania likely contributing, so I do not recommend using Beer for his alcohol WD protocol. Hyperkalemia: likely an element of A.I.. Start fluid restriction and frequent PNa checks. If his PNa worsening and/or if he becomes symptomatic, that's when I would recommend giving 3% saline 100mL over 2 hours. (2) Alcohol abuse Current Visit: Yes Status: Acute See above (3) Adrenal insufficiency Current Visit: No Status: Acute This can induce both hyponatremia and hyperkalemia. History of Present Illness - Reason for Consult Consult date: 09/27/18 hyponatremia, hyperkalemia Requesting physician: Gilson Coleman - Chief Complaint Hyponatremia, Beer Potomania - History of Present Illness 63 y/o WM with a pmh of several episodes of severe hyponatremia secondary to beer potomania who presents for the same. Nephrology was consulted for his hyponatremia. He was s/e while in the ICU, and he did not affirm seizures, N/V/D/F/C, burning urination or confusion. He said that he did not have fatigue or feel confused. He did not affirm CP but did affirm Past Med Surg Social Fam HX - Past Medical History Medical history: asthma, cancer, COPD, GERD Additional medical history: lung and abd cancer Psychiatric history: no psych history - Past Surgical History Surgical History: orthopedic, other Additional surgical history: rt hip - Social History Smoking Status: Current every day smoker Smokeless Tobacco Status: No Alcohol use: heavy Drug use: marijuana - Family History Father Living Status: Hx Family Cardiac Disorders: Yes (CAD, Bypass) Hx Family Respiratory Disorders: No Hx Family Cancer: No Hx Family GI Disorders: No Hx Family Endocrine Disorder: No Hx Family Neuromuscular Disorders: No Hx Family Neurologic Disorders: Yes (Alzheimers) Hx Family HEENT Disorders: No Hx Family Autoimmune Disorders: No Brother Adopted: No Family Member Ethnicity: Non- Living Status: Still Living Hx Family Cardiac Disorders: No Hx Family Respiratory Disorders: No Hx Family Cancer: Yes (bowel) Hx Family GI Disorders: Yes (CA bowels) Hx Family Endocrine Disorder: No Hx Family Neuromuscular Disorders: No Hx Family Neurologic Disorders: No Hx Family HEENT Disorders: No Hx Family Autoimmune Disorders: No Medications and Allergies Albuterol Sulfate [Proair Hfa] 2 puff IH Q4H PRN 08/30/18 [History] Ipratropium/Albuterol Neb [Duoneb] 3 ml IH Q6HR PRN 08/30/18 [History] Melatonin [Melatin] 9 mg PO HS PRN 08/30/18 [History] Methocarbamol [Robaxin] 750 mg PO Q8HR PRN 08/30/18 [History] Paroxetine HCl [Paxil] 20 mg PO DAILY 08/30/18 [History] Tiotropium [place] [Spiriva Respimat] 2 puff IH 1200 08/30/18 [History] Trazodone HCl 100 mg PO HS PRN 08/30/18 [History] Cholecalciferol (D-3) [Vitamin D] 2,000 unit PO DAILY 09/07/18 [History] Folic Acid 1 mg PO DAILY 09/07/18 [History] Gabapentin [Neurontin] 200 mg PO BID 09/07/18 [History] Naproxen [Naprosyn] 500 mg PO BIDWM PRN 09/07/18 [History] Pantoprazole Sodium [Protonix] 40 mg PO DAILY 09/07/18 [History] Sucralfate [Carafate] 1 gm PO Q6H 09/07/18 [History] Thiamine Mononitrate [Vitamin B-1] 100 mg PO DAILY 09/07/18 [History] hydrOXYzine HCl [Hydroxyzine HCl] 25 mg PO QID PRN 09/07/18 [History] Allergy/AdvReac Type Severity Reaction Status Date / Time No Known Allergies Allergy Verified 09/07/18 09:22 Review of Systems All Systems: reviewed and no additional remarkable complaints except as stated Exam - Vital Signs Vital signs: Initial Vital Signs Temp Pulse Resp BP Pulse Ox 96 F L 60 20 132/80 95 09/27/18 12:36 09/27/18 12:36 09/27/18 12:36 09/27/18 12:36 09/27/18 12:36 Vital Signs - Last 8 Hours Temp Pulse Resp BP Pulse Ox 09/27/18 15:30 76 20 123/99 100 09/27/18 13:47 77 24 117/76 100 09/27/18 12:36 96 F L 60 20 132/80 95 Intake and Output 09/27/18 09/27/18 09/27/18 07:59 15:59 23:59 Other: Weight 67.132 kg Patient Weight 09/27/18 23:59 Weight 67.132 kg - General Appearance General appearance: well-developed, appears started age, cachectic EENT: ATNC, PERRL, mucous membranes moist Neck: supple Respiratory: wheezing Cardiology: no edema, regular rate, regular rhythm, normal S1, normal S2 Integumentary: warm and dry Neurologic: no focal deficit, no asterixis, alert and oriented x3 Musculoskeletal: no deformities, no erythema Psychiatric: mood/affect appropriate, cooperative Results - Lab Results 09/27/18 13:12 09/27/18 16:38 Most recent lab results Calcium 9.7 mg/dL (8.6-10.3) 09/27/18 13:12 Phosphorus 4.3 mg/dL (2.7-4.5) 09/27/18 13:12 Magnesium 1.6 mg/dL (1.6-2.6) 09/27/18 13:12 Urine Sodium 35.6 mEq/L 09/27/18 16:04 Consult Discharge Plan - Plan [facility]errals: [facility] [Primary Care Provider] -
[2018-09-27 17:20] LABS: BUN/Creatinine Ratio 13 (6-26); Blood Urea Nitrogen 6 mg/dL (8-23); Carbon Dioxide 25 mEq/L (23-29); Chloride 78 mEq/L (98-107); Glucose 87 mg/dL (70-105); Osmolality,Calculated 221 (280-300); Potassium 4.8 mEq/L (3.5-5.1); Sodium 107 mEq/L (136-145); eGFR For Non-African Americans > 60 (> 60)
[2018-09-27] MEDS: *HR* Heparin 5,000 UNIT/ML VIAL SQ SCH (17:54)
[2018-09-27 19:51] LABS: BUN/Creatinine Ratio 13 (6-26); Blood Urea Nitrogen 6 mg/dL (8-23); Calcium 8.7 mg/dL (8.6-10.3); Carbon Dioxide 24 mEq/L (23-29); Chloride 79 mEq/L (98-107); Glucose 86 mg/dL (70-105); Osmolality,Calculated 225 (280-300); Potassium 5.1 mEq/L (3.5-5.1); Sodium 109 mEq/L (136-145); eGFR For Non-African Americans > 60 (> 60)
[2018-09-27 22:56] LABS: BUN/Creatinine Ratio 12 (6-26); Blood Urea Nitrogen 6 mg/dL (8-23); Calcium 9.4 mg/dL (8.6-10.3); Carbon Dioxide 24 mEq/L (23-29); Chloride 80 mEq/L (98-107); Glucose 80 mg/dL (70-105); Osmolality,Calculated 231 (280-300); Potassium 4.6 mEq/L (3.5-5.1); Sodium 112 mEq/L (136-145); eGFR For Non-African Americans > 60 (> 60)
[2018-09-28] MEDS ORDERED: Melatonin 3 MG TABLET PO PRN (00:51)
[2018-09-28] MEDS ORDERED: traZODone 50 MG TABLET PO SCH (01:00)
[2018-09-28 02:34] LABS: BUN/Creatinine Ratio 9 (6-26); Blood Urea Nitrogen 5 mg/dL (8-23); Calcium 9.3 mg/dL (8.6-10.3); Carbon Dioxide 25 mEq/L (23-29); Chloride 83 mEq/L (98-107); Glucose 89 mg/dL (70-105); Osmolality,Calculated 237 (280-300); Potassium 4.4 mEq/L (3.5-5.1); Sodium 115 mEq/L (136-145); eGFR For Non-African Americans > 60 (> 60)
[2018-09-28] MEDS: *HR* Heparin 5,000 UNIT/ML VIAL SQ SCH ×2 (06:01→16:57)
[2018-09-28 06:05] LABS: Hematocrit 34.4 % (37.5-50.1); Hemoglobin 12.2 g/dL (12.9-16.9); Mean Corpuscular HGB Conc 35.5 g/dL (31.6-35.5); Mean Corpuscular Hemoglobin 28.3 pg (28.0-33.3); Mean Corpuscular Volume 79.8 fL (83.0-100.0); Mean Platelet Volume 10.1 fL (9.4-12.4); Platelet Count 344 K/mcL (140-400); Red Blood Count 4.31 M/mcL (4.19-5.50); Red Cell Distribution Width 16.3 % (11.5-14.5)
[2018-09-28 06:27] LABS: BUN/Creatinine Ratio 9 (6-26); Blood Urea Nitrogen 5 mg/dL (8-23); Calcium 9.8 mg/dL (8.6-10.3); Carbon Dioxide 24 mEq/L (23-29); Chloride 85 mEq/L (98-107); Glucose 92 mg/dL (70-105); Magnesium 1.8 mg/dL (1.6-2.6); Osmolality,Calculated 241 (280-300); Phosphorous 4.5 mg/dL (2.7-4.5); Potassium 5.3 mEq/L (3.5-5.1); Sodium 117 mEq/L (136-145); eGFR For Non-African Americans > 60 (> 60)
--- NOTE | 2018-09-28 07:21 | Electrocardiograph Report ---
[facility] Test Date: 2018-09-27 Pat Name: Kevin Aldana Department: EXAM14 Room: 10 Gender: M Vp Site: : 1955 Requested By: Gilson Coleman Order Number: [id number] Reading MD: Papi White Measurements Intervals [place] Rate: 59 P: 87 IL: 184 QRS: 92 QRSD: 114 T: 76 QT: 435 QTc: 431 Interpretive Statements Sinus rhythm Borderline intraventricular conduction delay Minimal ST elevation, anterior leads Electronically Signed On 09-28-2018 7:19:34 EDT by Papi White
[2018-09-28 08:52] LABS: BUN/Creatinine Ratio 8 (6-26); Blood Urea Nitrogen 5 mg/dL (8-23); Calcium 9.7 mg/dL (8.6-10.3); Carbon Dioxide 23 mEq/L (23-29); Chloride 85 mEq/L (98-107); Glucose 97 mg/dL (70-105); Osmolality,Calculated 241 (280-300); Potassium 5.1 mEq/L (3.5-5.1); Sodium 117 mEq/L (136-145); eGFR For Non-African Americans > 60 (> 60)
[2018-09-28] MEDS ORDERED: Vitamin B Complex/Vit C/Vit E 1 EACH TABLET PO SCH (09:00)
[2018-09-28] MEDS ORDERED: Folic Acid 1 MG TABLET PO SCH (09:00)
--- NOTE | 2018-09-28 09:56 | Nephrology Progress Note ---
Date of Encounter: 09/28/18 Time of Encounter: 07:48 - Assessment and Plan (1) Hyponatremia Current Visit: Yes Status: Acute Asymptomatic, and slowly correcting with simply a fluid restriction and avoiding Beer. Recommend a slow rate of correction. Will continue to monitor PNa. Hyperkalemia: improved. Discussed with the [employer] and hospitalist. 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 He was Comfortably sleeping. Discussed with the [employer] and Hospitalist. Objective - Vital Signs Vital signs: Vital Signs Temp Pulse Resp BP Pulse Ox 09/28/18 09:00 94 18 100/73 96 09/28/18 08:00 61 16 100/73 97 09/28/18 07:25 98.0 F 09/28/18 07:15 60 09/28/18 07:00 58 16 78/64 96 09/28/18 06:00 81 16 79/52 99 09/28/18 05:00 48 14 95/64 100 09/28/18 04:00 67 12 93/76 100 09/28/18 03:54 97.9 F 09/28/18 03:00 68 12 86/67 96 09/28/18 02:00 53 12 116/98 98 09/28/18 01:00 63 16 109/77 100 09/28/18 00:16 97.8 F 09/28/18 00:00 67 16 123/77 98 09/27/18 23:00 58 12 107/71 98 09/27/18 22:00 60 16 117/74 100 09/27/18 21:00 55 14 111/74 100 09/27/18 20:05 97.7 F 09/27/18 20:00 60 19 110/80 100 09/27/18 19:00 57 16 123/86 100 09/27/18 18:09 61 14 122/72 100 09/27/18 17:25 96.8 F L 62 14 120/72 100 09/27/18 16:51 17 116/77 09/27/18 15:30 76 20 123/99 100 09/27/18 13:47 77 24 117/76 100 09/27/18 12:36 96 F L 60 20 132/80 95 Intake and Output 09/27/18 09/28/18 09/28/18 23:59 07:59 15:59 Intake Total 510.2 / 510.2 1000 / 1000 240 / 240 Output Total 1450 / 1450 1625 / 1625 Balance -939.8 / -939.8 -625 / -625 240 / 240 Intake: IV Fluids 510.2 / 510.2 1000 / 1000 Folvite 1 MG M.v.i. Adult 10 ml 510.2 / 510.2 In 0.9 % Sodium Chloride 500 ML @ 85.033 mls/hr IVPB DAILY@ 1800 [facility] Rx#:[id number] Oral 240 / 240 Output: Urine 1450 / 1450 1625 / 1625 Other: Meal Dinner Breakfast Percent of Meal Consumed 15% 100% Weight 65.8 kg 66.9 kg Blood Glucose* 110 Patient Weight 09/28/18 23:59 Weight 66.9 kg - General Appearance General appearance: Present: well-developed, well-nourished, cachectic Exam: sleeping comfortably Respiratory: Present: wheezing (faint wheezes) Cardiology: Present: no edema, normal S1, normal S2 Integumentary: Present: warm and dry Musculoskeletal: Present: no cyanosis - Lab 09/28/18 05:42 09/28/18 18:58 Most recent lab results Calcium 9.7 mg/dL (8.6-10.3) 09/28/18 08:18 Phosphorus 4.5 mg/dL (2.7-4.5) 09/28/18 05:42 Magnesium 1.8 mg/dL (1.6-2.6) 09/28/18 05:42 Urine Sodium 35.6 mEq/L 09/27/18 16:04 - VTE Documentation of Mechanical Device: Intermittent pneumatic compression device Consult Discharge Plan - Plan [facility]errals: [facility] [Primary Care Provider] -
[2018-09-28] MEDS ORDERED: Methocarbamol 750 MG TABLET PO PRN ×2 (10:34→12:49)
--- NOTE | 2018-09-28 11:43 | Internal Med Progress Note ---
Hospitalist Progress Note - Encounter Date of Encounter: 09/28/18 Time of Encounter: 11:41 - Subjective Interval History: Patient seen and examined at bedside. Patient states that he feels pretty good today. He has no complaints. He denies any weakness, confusion, tremors, seizure activity. - Exam Vitals: Temp Pulse Resp BP Pulse Ox 97.9 F 70 18 102/85 95 09/28/18 10:29 09/28/18 11:00 09/28/18 11:00 09/28/18 11:00 09/28/18 11:00 Exam: Gen.: Alert and oriented 3, no murmurs, rubs, gallops Heart: regular rate and rhythm, no murmurs, rubs, gallops Lungs: Clear to auscultation bilaterally, no rales, wheezes Neuro: cranial nerves 2-12 intact, no focal deficits noted - Assessment and Plan (1) Hyponatremia Current Visit: Yes Status: Acute Assessment and Plan: Secondary to beer potomania. This is recurrent for patient. Asymptomatic. Sodium has been trending in the right direction and acceptable correction rate. Discussed with nephrology and they recommended continuing fluid restriction and monitoring sodium. Recheck sodium every 4 hours. No indication for 3% saline at this time. (2) COPD (chronic obstructive pulmonary disease) Current Visit: No Status: Chronic Assessment and Plan: Stable. No evidence of acute exacerbation. Continue when necessary bronchodilators. (3) Metastatic lung cancer (metastasis from lung to other site) Current Visit: Yes Status: Chronic Assessment and Plan: Known diagnosis. Apparently was on hospice care. We will reevaluate hospice at discharge. (4) Alcohol abuse Current Visit: Yes Status: Acute Assessment and Plan: Chronic for patient. Does have a history of alcohol withdrawal symptoms. Continue CIWA protocol to monitor for withdrawal. Continue vitamin supplementation. (5) DVT prophylaxis Current Visit: No Status: Acute Assessment and Plan: EPCD - Time Spent with Patient Total time spent is greater than 50% in coordination of care (as documented) at patient's floor/unit and/or counseling patient: Internal Medicine: Result - Labs CBC & Chem 7: 09/28/18 05:42 09/28/18 08:18 Labs: Short CBC 09/27/18 09/28/18 Range/Units 13:12 05:42 WBC 6.3 4.3 (4.3-11.1) K/mcL Hgb 12.9 12.2 L (12.9-16.9) g/dL Hct 36.5 L 34.4 L (37.5-50.1) % Plt Count 356 344 (140-400) K/mcL Neutrophils # 3.8 (1.6-8.9) K/mcL BMP 09/27/18 09/27/18 09/27/18 13:12 16:38 19:16 Sodium 109 L* 107 L* 109 L* Potassium 5.4 H 4.8 5.1 Chloride 75 L 78 L 79 L Carbon Dioxide 21 L 25 24 BUN 7 L 6 L 6 L Creatinine 0.50 L 0.46 L 0.48 L Glucose 79 87 86 Calcium 9.7 9.0 8.7 09/27/18 09/28/18 09/28/18 22:07 01:58 05:42 Sodium 112 L* 115 L* 117 L* Potassium 4.6 4.4 5.3 H Chloride 80 L 83 L 85 L Carbon Dioxide 24 25 24 BUN 6 L 5 L 5 L Creatinine 0.50 L 0.53 L 0.55 L Glucose 80 89 92 Calcium 9.4 9.3 9.8 09/28/18 08:18 Sodium 117 L* Potassium 5.1 Chloride 85 L Carbon Dioxide 23 BUN 5 L Creatinine 0.62 L Glucose 97 Calcium 9.7 Cardiac Enzymes 09/27/18 Range/Units 13:12 Troponin I < 0.03 (< 0.04) ng/mL Liver Function 09/27/18 Range/Units 13:12 Total Bilirubin 0.4 (0.3-1.0) mg/dL Direct Bilirubin 0.1 (0.0-0.2) mg/dL AST 22 (13-39) Units/L ALT 12 (7-52) Units/L Alkaline Phosphatase 115 H (34-104) Units/L Albumin 4.5 (3.5-5.7) g/dL Urine 09/27/18 Range/Units 15:50 Urine Color Yellow (Yellow) Urine Clarity Clear (Clear) Urine pH 6.5 (5.0-8.0) pH Units Ur Specific [place] < 1.005 L (1.010-1.025) Urine Protein Negative (Neg-Trace) mg/dL Urine Glucose (UA) Normal (Normal) mg/dL - ABG Interpretation ABG results: PT/INR, D-dimer PT 12.7 Seconds (9.4-12.1) H 09/27/18 13:12 - Impressions Impressions Abdomen/Pelvis CT 09/27/18 12:28 IMPRESSION: Lack of intravenous contrast limits exam. However, relatively stable appearance of metastatic lesions in the abdomen and pelvis including bilateral adrenal masses, retroperitoneal lymphadenopathy and subcutaneous suprapubic soft tissue nodule. No evidence of bowel obstruction. Nonobstructing left renal stone. No evidence of obstructive uropathy or hydronephrosis. D/ : / 09/27/2018 14:10:30 Delio Valderrama MD / yael Interpreting Provider: Delio Valderrama MD Chest X-Ray 09/27/18 12:29 IMPRESSION: No radiograph evidence of acute process. Left upper lobe lesion seen on recent PET-CT is not visualized on this study. Hyperinflated lungs suggesting emphysematous changes. D/ / Kayode Evans / Kayode Evans Interpreting Provider: Kayode Evans - VTE Documentation of Mechanical Device: Intermittent pneumatic compression device Consult Discharge Plan - Plan [facility]errals[facility] [Primary Care Provider[facility] - (2) COPD (chronic obstructive pulmonary disease) Qualifiers: COPD type: chronic bronchitis Chronic bronchitis type: mucopurulent Qualified Code(s): J41.1 - Mucopurulent chronic bronchitis (3) Metastatic lung cancer (metastasis from lung to other site) Qualifiers: Laterality: unspecified laterality Qualified Code(s): C34.90 - Malignant rocky plasm of unspecified part of unspecified bronchus or lung
[2018-09-28] MEDS ORDERED: Naloxone 0.4 MG/ML INJ IVP PRN (12:49)
[2018-09-28] MEDS ORDERED: Acetaminophen 325 MG TABLET PO PRN (12:49)
[2018-09-28] MEDS ORDERED: *HR* LORazepam 2 MG/ML VIAL IVP PRN ×3 (12:49)
[2018-09-28] MEDS ORDERED: Ipratropium/Albuterol Neb 3 ML IH PRN (12:49)
[2018-09-28] MEDS ORDERED: Ondansetron 4 MG/2 ML VIAL IVP PRN (12:49)
[2018-09-28] MEDS ORDERED: *HR* OxyCODONE Immed Rel 5 MG TABLET PO PRN (12:49)
[2018-09-28] MEDS: *HR* HYDROcodone/Acet 5/325 mg TABLET PO PRN ×2 (14:19→20:01)
[2018-09-28 19:39] LABS: BUN/Creatinine Ratio 10 (6-26); Blood Urea Nitrogen 10 mg/dL (8-23); Calcium 9.4 mg/dL (8.6-10.3); Carbon Dioxide 24 mEq/L (23-29); Chloride 89 mEq/L (98-107); Glucose 101 mg/dL (70-105); Osmolality,Calculated 249 (280-300); Potassium 4.3 mEq/L (3.5-5.1); Sodium 120 mEq/L (136-145); eGFR For Non-African Americans > 60 (> 60)
[2018-09-28] MEDS: Melatonin 3 MG TABLET PO PRN (22:27)
[2018-09-28] MEDS: traZODone 50 MG TABLET PO SCH (22:27)
[2018-09-29] MEDS ORDERED: Methocarbamol 750 MG TABLET PO PRN (00:52)
[2018-09-29] MEDS: *HR* Heparin 5,000 UNIT/ML VIAL SQ SCH ×2 (05:57→16:50)
[2018-09-29 06:23] LABS: Basophils % 0.8 %; Eosinophils # 0.1 K/mcL (0.0-0.6); Eosinophils % 2.6 %; Hematocrit 34.6 % (37.5-50.1); Hemoglobin 11.6 g/dL (12.9-16.9); Immature Granulocytes % 0.3 % (0-4); Lymphocytes # 1.5 K/mcL (0.6-4.6); Lymphocytes % 39.4 %; Mean Corpuscular HGB Conc 33.5 g/dL (31.6-35.5); Mean Corpuscular Hemoglobin 27.7 pg (28.0-33.3); Mean Corpuscular Volume 82.6 fL (83.0-100.0); Mean Platelet Volume 9.7 fL (9.4-12.4); Monocytes # 0.7 K/mcL (0.0-1.3); Monocytes % 17.2 %; Neutrophils # 1.5 K/mcL (1.6-8.9); Platelet Count 313 K/mcL (140-400); Red Blood Count 4.19 M/mcL (4.19-5.50); Segmented Neutrophils % 39.7 %
[2018-09-29 06:48] LABS: BUN/Creatinine Ratio 14 (6-26); Blood Urea Nitrogen 11 mg/dL (8-23); Calcium 9.5 mg/dL (8.6-10.3); Carbon Dioxide 24 mEq/L (23-29); Chloride 91 mEq/L (98-107); Glucose 123 mg/dL (70-105); Osmolality,Calculated 259 (280-300); Potassium 4.7 mEq/L (3.5-5.1); Sodium 124 mEq/L (136-145); eGFR For Non-African Americans > 60 (> 60)
--- NOTE | 2018-09-29 07:15 | Nephrology Progress Note ---
Date of Encounter: 09/29/18 Time of Encounter: 09:00 - Assessment and Plan (1) Hyponatremia Current Visit: Yes Status: Acute Asymptomatic, and slowly correcting with simply a fluid restriction and avoiding Beer. Recommend a slow rate of correction. Will continue to monitor PNa. 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 Objective - Vital Signs Vital signs: Vital Signs Temp Pulse Resp BP Pulse Ox 09/29/18 04:25 98.3 F 71 16 113/70 95 09/29/18 00:16 97.5 F L 74 20 98/71 96 09/28/18 21:10 97.8 F 74 20 110/56 96 09/28/18 20:05 93 09/28/18 15:38 97.6 F 82 16 107/76 96 09/28/18 14:00 86 18 107/83 95 09/28/18 13:00 86 18 106/92 98 09/28/18 12:00 86 18 102/85 98 09/28/18 11:00 70 18 102/85 95 09/28/18 10:29 97.9 F 09/28/18 10:00 84 18 100/73 94 09/28/18 09:00 94 18 100/73 96 09/28/18 08:00 61 16 100/73 97 09/28/18 07:25 98.0 F Intake and Output 09/28/18 09/28/18 09/29/18 15:59 23:59 07:59 Intake Total 600 / 600 360 / 360 170 / 170 Balance 600 / 600 360 / 360 170 / 170 Intake: Oral 600 / 600 360 / 360 170 / 170 Other: Meal Lunch Dinner Percent of Meal Consumed 100% 100% # Voids 1 1 Weight 66.9 kg 65 kg Patient Weight 09/29/18 23:59 Weight 65 kg - General Appearance Exam: General appearance: well-developed, appears started age, cachectic EENT: ATNC, PERRL, mucous membranes moist Neck: supple Respiratory: wheezing Cardiology: no edema, regular rate, regular rhythm, normal S1, normal S2 Integumentary: warm and dry Neurologic: no focal deficit, no asterixis, alert and oriented x3 Musculoskeletal: no deformities, no erythema Psychiatric: mood/affect appropriate, cooperative - Lab 09/29/18 05:56 09/29/18 05:56 Most recent lab results Calcium 9.5 mg/dL (8.6-10.3) 09/29/18 05:56 Phosphorus 4.5 mg/dL (2.7-4.5) 09/28/18 05:42 Magnesium 1.8 mg/dL (1.6-2.6) 09/28/18 05:42 Urine Sodium 35.6 mEq/L 09/27/18 16:04 - VTE Documentation of Mechanical Device: Intermittent pneumatic compression device Consult Discharge Plan - Plan [facility]errals: [facility] [Primary Care Provider] -
[2018-09-29] MEDS: Folic Acid 1 MG TABLET PO SCH (08:23)
[2018-09-29] MEDS: Vitamin B Complex/Vit C/Vit E 1 EACH TABLET PO SCH (08:23)
[2018-09-29] MEDS: Thiamine (B-1) 100 MG TABLET PO SCH (08:23)
[2018-09-29] MEDS ORDERED: Thiamine (B-1) 100 MG TABLET PO SCH (09:00)
--- NOTE | 2018-09-29 17:53 | Internal Med Progress Note ---
Hospitalist Progress Note - Encounter Date of Encounter: 09/29/18 Time of Encounter: 17:51 - Subjective Interval History: Patient seen and examined at bedside. Patient states that he feels pretty good today. He seems to be more agitated and wanting to leave however he does recognize that he needs to stay. He denies any seizure activity, tremors, dominguez ucinations. - Exam Vitals: Temp Pulse Resp BP Pulse Ox 97.8 F 67 18 93/71 96 09/29/18 15:38 09/29/18 15:38 09/29/18 15:38 09/29/18 15:38 09/29/18 15:38 Exam: Gen.: Alert and oriented 3, no murmurs, rubs, gallops Heart: regular rate and rhythm, no murmurs, rubs, gallops Lungs: Clear to auscultation bilaterally, no rales, wheezes Neuro: cranial nerves 2-12 intact, no focal deficits noted. Mildly tremulous - Assessment and Plan (1) Hyponatremia Current Visit: Yes Status: Acute Assessment and Plan: Continues to prevent acceptable rate. Continue fluid restriction. Sodium 124 today. We will recheck in the morning. Asymptomatic. (2) COPD (chronic obstructive pulmonary disease) Current Visit: No Status: Chronic Assessment and Plan: Stable. No evidence of acute exacerbation. Continue when necessary bronchodilators. (3) Metastatic lung cancer (metastasis from lung to other site) Current Visit: Yes Status: Chronic Assessment and Plan: Known diagnosis. Apparently was on hospice care. We will reevaluate hospice at discharge. (4) Alcohol abuse Current Visit: Yes Status: Acute Assessment and Plan: Chronic for patient. Does have a history of alcohol withdrawal symptoms. Continue [facility] protocol to monitor for withdrawal. Patient does seem to be becoming more agitated and tremulous, likely early onset of alcohol withdrawal. We will continue to closely monitor. Patient is a high risk for neurologic sequelae related to alcohol withdrawal (5) DVT prophylaxis Current Visit: No Status: Acute Assessment and Plan: EPCD - Time Spent with Patient Total time spent is greater than 50% in coordination of care (as documented) at patient's floor/unit and/or counseling patient: Internal Medicine: Result - Labs CBC & Chem 7: 09/29/18 05:56 09/29/18 05:56 Labs: Short CBC 09/29/18 Range/Units 05:56 WBC 3.8 L (4.3-11.1) K/mcL Hgb 11.6 L (12.9-16.9) g/dL Hct 34.6 L (37.5-50.1) % Plt Count 313 (140-400) K/mcL Neutrophils # 1.5 L (1.6-8.9) K/mcL BMP 09/28/18 09/29/18 18:58 05:56 Sodium 120 L* 124 L Potassium 4.3 4.7 Chloride 89 L 91 L Carbon Dioxide 24 24 BUN 10 11 Creatinine 1.00 0.76 Glucose 101 123 H Calcium 9.4 9.5 - ABG Interpretation ABG results: PT/INR, D-dimer PT 12.7 Seconds (9.4-12.1) H 09/27/18 13:12 - Impressions Impressions Abdomen/Pelvis CT 09/27/18 12:28 IMPRESSION: Lack of intravenous contrast limits exam. However, relatively stable appearance of metastatic lesions in the abdomen and pelvis including bilateral adrenal masses, retroperitoneal lymphadenopathy and subcutaneous suprapubic soft tissue nodule. No evidence of bowel obstruction. Nonobstructing left renal stone. No evidence of obstructive uropathy or hydronephrosis. D/ / 09/27/2018 14:10:30 Delio Valderrama MD / yael Interpreting Provider: Delio Valderrama MD - VTE Documentation of Mechanical Device: Intermittent pneumatic compression device Consult Discharge Plan - Plan Referrals: [facility] [Primary Care Provider] - (2) COPD (chronic obstructive pulmonary disease) Qualifiers: COPD type: chronic bronchitis Chronic bronchitis type: mucopurulent Q ualified Code(s): J41.1 - Mucopurulent chronic bronchitis (3) Metastatic lung cancer (metastasis from lung to other site) Qualifiers: Laterality: unspecified laterality Qualified Code(s): C34.90 - Malignant neoplasm of unspecified part of unspecified bronchus or lung
[2018-09-29] MEDS: Melatonin 3 MG TABLET PO PRN (22:14)
[2018-09-29] MEDS: traZODone 50 MG TABLET PO SCH (22:14)
[2018-09-30] MEDS: *HR* Heparin 5,000 UNIT/ML VIAL SQ SCH (05:25)
[2018-09-30 06:27] LABS: Basophils % 0.5 %; Eosinophils # 0.2 K/mcL (0.0-0.6); Eosinophils % 3.6 %; Hematocrit 31.5 % (37.5-50.1); Hemoglobin 10.4 g/dL (12.9-16.9); Immature Granulocytes % 0.2 % (0-4); Lymphocytes # 1.6 K/mcL (0.6-4.6); Mean Corpuscular Hemoglobin 27.9 pg (28.0-33.3); Mean Corpuscular Volume 84.5 fL (83.0-100.0); Monocytes # 0.8 K/mcL (0.0-1.3); Monocytes % 18.4 %; Neutrophils # 1.6 K/mcL (1.6-8.9); Platelet Count 286 K/mcL (140-400); Red Blood Count 3.73 M/mcL (4.19-5.50); Segmented Neutrophils % 38.3 %
[2018-09-30 06:48] LABS: BUN/Creatinine Ratio 20 (6-26); Blood Urea Nitrogen 13 mg/dL (8-23); Calcium 9.3 mg/dL (8.6-10.3); Carbon Dioxide 25 mEq/L (23-29); Chloride 93 mEq/L (98-107); Glucose 110 mg/dL (70-105); Magnesium 1.6 mg/dL (1.6-2.6); Osmolality,Calculated 257 (280-300); Potassium 4.7 mEq/L (3.5-5.1); Sodium 123 mEq/L (136-145); eGFR For Non-African Americans > 60 (> 60)
[2018-09-30 06:56] LABS: Anisocytosis 1+ (Not Present); Platelet Estimate Normal (Normal)
--- NOTE | 2018-09-30 07:20 | Nephrology Progress Note ---
Date of Encounter: 09/30/18 Time of Encounter: 09:05 - Assessment and Plan (1) Hyponatremia Current Visit: Yes Status: Acute Hyponatremia 2/2 beer potomania and now that the hyponatremia has started to plateau, I rec adding NaCl 1gm po bid. 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 Objective - Vital Signs Vital signs: Vital Signs Temp Pulse Resp BP Pulse Ox 09/30/18 04:13 98.4 F 74 15 106/81 96 09/30/18 00:55 98.0 F 69 14 94/67 96 09/29/18 21:10 98.6 F 75 16 93/75 96 09/29/18 19:30 96 09/29/18 15:38 97.8 F 67 18 93/71 96 09/29/18 07:23 97.7 F 73 17 111/76 96 Intake and Output 09/29/18 09/29/18 09/30/18 15:59 23:59 07:59 Intake Total 240 / 240 0 / 0 Balance 240 / 240 0 / 0 Intake: Oral 240 / 240 0 / 0 Other: Meal Lunch Percent of Meal Consumed 75% # Voids 1 Weight 66.5 kg Patient Weight 09/30/18 23:59 Weight 66.5 kg - General Appearance Exam: General appearance: well-developed but quite thin, appears started age EENT: ATNC, PERRL, mucous membranes moist Neck: supple Respiratory: faint wheezing on exhalation Cardiology: no edema, regular rate, regular rhythm, normal S1, normal S2 Integumentary: warm and dry Neurologic: no focal deficit, no asterixis, alert and oriented x3 Musculoskeletal: no deformities, no erythema Psychiatric: mood/affect appropriate, cooperative - Lab 09/30/18 05:51 09/30/18 05:51 Most recent lab results Calcium 9.3 mg/dL (8.6-10.3) 09/30/18 05:51 Phosphorus 4.5 mg/dL (2.7-4.5) 09/28/18 05:42 Magnesium 1.6 mg/dL (1.6-2.6) 09/30/18 05:51 Urine Sodium 35.6 mEq/L 09/27/18 16:04 - VTE Documentation of Mechanical Device: Intermittent pneumatic compression device Consult Discharge Plan - Plan [facility]errals: [facility] [Primary Care Provider] -
[2018-09-30] MEDS: Vitamin B Complex/Vit C/Vit E 1 EACH TABLET PO SCH (09:08)
[2018-09-30] MEDS: Folic Acid 1 MG TABLET PO SCH (09:08)
[2018-09-30] MEDS: Thiamine (B-1) 100 MG TABLET PO SCH (09:08)
[2018-09-30 15:41] VITALS: BP 104/72
--- NOTE | 2018-09-30 16:14 | Internal Med Progress Note ---
Hospitalist Progress Note - Encounter Date of Encounter: 09/30/18 Time of Encounter: 16:11 - Subjective Interval History: Patient seen and examined at bedside. Patient states that he feels pretty good today. He denies any weakness, tremors, confusion, hallucinations. - Exam Vitals: Temp Pulse Resp BP Pulse Ox 97.6 F 75 20 104/72 100 09/30/18 15:39 09/30/18 15:39 09/30/18 15:39 09/30/18 15:39 09/30/18 15:39 Exam: Gen.: Alert and oriented 3, no acute distress Heart: regular rate and rhythm, no murmurs, rubs, gallops Lungs: Clear to auscultation bilaterally, no rales, wheezes Neuro: cranial nerves 2-12 intact, no focal deficits noted. No tremors noted - Assessment and Plan (1) Hyponatremia Current Visit: Yes Status: Acute Assessment and Plan: Sodium has plateaued, is 123 today. Discussed with nephrology, will start sodium chloride tablets. Recheck in the morning. Asymptomatic. (2) Acute cystitis Current Visit: Yes Status: Acute Assessment and Plan: Urine culture positive for Enterococcus faecalis, pansensitive. Start Macrobid 100 mg twice a day for 3 days. (3) COPD (chronic obstructive pulmonary disease) Current Visit: No Status: Chronic Assessment and Plan: Stable. No evidence of acute exacerbation. Continue when necessary bronchodil ators. (4) Metastatic lung cancer (metastasis from lung to other site) Current Visit: Yes Status: Chronic Assessment and Plan: Known diagnosis. Apparently was on hospice care. Plan for hospice care at d ischarge. (5) Alcohol abuse Current Visit: Yes Status: Acute Assessment and Plan: Chronic for patient. Does have a history of alcohol withdrawal symptoms. Continue [facility] protocol to monitor for withdrawal. No evidence of withdrawal at this time. We will continue to closely monitor. Patient is a high risk for neurologic sequelae related to alcohol withdrawal (6) DVT prophylaxis Current Visit: No Status: Acute Assessment and Plan: EPCD - Time Spent with Patient Total time spent is greater than 50% in coordination of care (as documented) at patient's floor/unit and/or counseling patient: Internal Medicine: Result - Labs CBC & Chem 7: 09/30/18 05:51 09/30/18 05:51 Labs: Short CBC 09/30/18 Range/Units 05:51 WBC 4.1 L (4.3-11.1) K/mcL Hgb 10.4 L (12.9-16.9) g/dL Hct 31.5 L (37.5-50.1) % Plt Count 286 (140-400) K/mcL Neutrophils # 1.6 (1.6-8.9) K/mcL BMP 09/30/18 05:51 Sodium 123 L Potassium 4.7 Chloride 93 L Carbon Dioxide 25 BUN 13 Creatinine 0.66 L Glucose 110 H Calcium 9.3 - ABG Interpretation ABG results: PT/INR, D-dimer PT 12.7 Seconds (9.4-12.1) H 09/27/18 13:12 - VTE Documentation of Mechanical Device: Intermittent pneumatic compression device Consult Discharge Plan - Plan [facility]errals: [facility] [Primary Care Provider] - (2) Acute cystitis Qualifiers: Hematuria presence: without hematuria Qualified Code(s): N30.00 - Acute cystitis without hematuria (3) COPD (chronic obstructive pulmonary disease) Qualifiers: COPD type: chronic bronchitis Chronic bronchitis type: mucopurulent Qualified Code(s): J41.1 - Mucopurulent chronic bronchitis (4) Metastatic lung cancer (metastasis from lung to other site) Qualifiers: Laterality: unspecified laterality Qualified Code(s): C34.90 - Malignant neoplasm of unspecified part of unspecified bronchus or lung
[2018-09-30] MEDS ORDERED: Nitrofurantoin (BID) 100 MG CAPSULE PO SCH (17:00)
== END 2018-09-30 19:02 | disposition left against medical advice (07) | DRG 426 ==
LOC: EMEROOARM 12:22 → ICNU 16:08 → SUATTDRO 16:08 → ICNU 16:53 → 2NENU 09-28 15:13
PROVIDERS: ADMIT Hospitalist; ATTEND Internal Medicine

== ENCOUNTER 2018-10-25 23:58 | Inpatient (IN) ==
[2018-10-26] MEDS ORDERED: MVI, adult with vitamin K 10 ML, Folic Acid 1 MG, Thiamine (B-1) 100 MG in 0.9 % Sodi... IVC ONE (00:05)
[2018-10-26] MEDS ORDERED: 0.9 % Sodium Chloride 1,000 ML IVC ONE (00:05)
[2018-10-26] MEDS ORDERED: *HR* Dextrose 50 % in Water (Syg) 50 ML SYRINGE IVP ONE ×2 (00:05→04:27)
[2018-10-26] MEDS ORDERED: Thiamine (B-1) 100 MG in D5% in Water 50 ML IVPB ONE ×2 (00:05→01:16)
[2018-10-26] MEDS ORDERED: Folic Acid 1 MG in D5% in Water 50 ML IVPB ONE ×2 (00:05→01:16)
--- NOTE | 2018-10-26 00:11 | Emergency Department Note ---
Disposition Clinical Impression: Hyponatremia Malnutrition Qualifiers: Malnutrition type: unspecified type Qualified Code(s): E46 - Unspecified protein-calorie malnutrition Disposition: Admitted As Inpatient Condition: Fair Referrals: NONE,PCP [Primary Care Provider] - Forms: ED Satisfaction Letter Time of Disposition: 01:37 General Adult HPI - General Time Seen by Provider: 10/26/18 00:00 Source: patient, EMS Mode of arrival: EMS Limitations: no limitations Nursing Notes Reviewed: Yes Vital Signs Reviewed: Yes - History of Present Illness HPI Narrative: 63M with active lung and throat cancer that presents with hypoglycemia. EMS reported that when they arrived after family called that his initial blood sugar was 29, they gave oral glucose, repeat glucose was then 22, and then 36. Initial glucose on presentation was 49. Pt states that he has not eaten anything for a few days, and has been drinking every day. Last drink was today. - Related Data Home Medications Medication Instructions Recorded Confirmed Albuterol Sulfate [Proair Hfa] 2 puff IH Q4H PRN 08/30/18 09/27/18 Ipratropium/Albuterol Neb [Duoneb] 3 ml IH Q6HR PRN 08/30/18 09/27/18 Melatonin [Melatin] 9 mg PO HS PRN 08/30/18 09/27/18 Methocarbamol [Robaxin] 750 mg PO Q8HR PRN 08/30/18 09/27/18 Paroxetine HCl [Paxil] 20 mg PO DAILY 08/30/18 09/27/18 Tiotropium [place] [Spiriva 2 puff IH 1200 08/30/18 09/27/18 Respimat] Trazodone HCl 100 mg PO HS PRN 08/30/18 09/27/18 Cholecalciferol (D-3) [Vitamin D] 2,000 unit PO DAILY 09/07/18 09/27/18 Folic Acid 1 mg PO DAILY 09/07/18 09/27/18 Gabapentin [Neurontin] 200 mg PO BID 09/07/18 09/27/18 Naproxen [Naprosyn] 500 mg PO BIDWM PRN 09/07/18 09/27/18 Pantoprazole Sodium [Protonix] 40 mg PO DAILY 09/07/18 09/27/18 Sucralfate [Carafate] 1 gm PO Q6H 09/07/18 09/27/18 Thiamine Mononitrate [Vitamin B-1] 100 mg PO DAILY 09/07/18 09/27/18 hydrOXYzine HCl [Hydroxyzine HCl] 25 mg PO QID PRN 09/07/18 09/27/18 Allergies Allergy/AdvReac Type Severity Reaction Status Date / Time No Known Allergies Allergy Verified 09/07/18 09:22 Limitations: ROS unobtainable due to patients medical condition Past Medical History - Past Medical History Medical history: Reports: asthma, cancer, COPD, GERD Surgical history: Reports: orthopedic, other Psychiatric history: Reports: no psych history - Social History Smoking Status: Current every day smoker Smokeless Tobacco Status: No Alcohol use: Reports: heavy Drug use: Reports: marijuana Physical Exam General: A&O x 1 - to self. Appears confused. Thin, cachetic. Head: atraumatic, normocephalic. ENT: No conjunctival injection, no scleral icterus. PERRLA. EOMI. Oropharynx non- erythematous. mucous membranes tacky. Neuro: No focal deficits, no speech deficit, no facial droop, mentating well. BUE/BLE Str 5/5. Pulm: Lung sounds diminished in all nascimento. Cardio: RRR no m/r/g. Chest not tender to palpation. Abd: Soft, non-distended. Normoactive bowel sounds. Non-tender to palpation. No guarding. Non rigid. Extremities: Radial pulses 2+ brianna, dorsalis pedis/posterior tibialis 2+ brianna. No LE edema. Cool extremities. Skin: Cool to the touch. Psych: Pleasantly confused. Cooperative with exam. Course Course Narrative: Ddx includes but is not limited to: alcohol withdrawal, cancer-associated pathology Workup: CBC, BMP, troponin, EKG, CXR, LFT. [facility] protocol. Seizure precautions. - Consultations Consultation #1: Spoke with Dr. Maher from nephrology who stated that he would like a repeat sodium level checked in 2 hours, make the patient nothing by mouth, placed him on 75 mils per hour of normal saline maintenance fluids if he looks dry, and that he would see him in the morning. Time: 01:10 Vital Signs Temperature 93.6 F L 10/25/18 23:59 Pulse Rate 74 10/25/18 23:59 Respiratory Rate 16 05/13/19 23:59 Blood Pressure 125/83 10/25/18 23:59 O2 Sat by Pulse Oximetry 100 10/25/18 23:59 Temperature 94.1 F L 10/26/18 01:17 Pulse Rate 81 10/26/18 01:17 Respiratory Rate 10 10/26/18 01:17 Blood Pressure 112/88 10/26/18 01:17 O2 Sat by Pulse Oximetry 98 10/26/18 01:17 Oxygen Delivery Oxygen Delivery Room Air Medical Decision Making - MDM Narrative Medical decision making narrative: Patient's chest x-ray showed chronic conditions but no acute coronary processes, EKG did not show any signs concerning for ischemia. Lab work revealed hyponatremia at 111, hyperkalemia at 5.5, glucose of 68. Patient's alcohol level was undetectable by blood. Patient was started on ciwa protocol, given 2 of Ativan, started on banana bag maintenance fluids at 75 miles per hour per recommendation from nephrology. See course details for full consult with nephrology. Patient was admitted to the hospitalist Dr. Lopez, who agreed to accept the patient to his service. Patient remained stable while in the department. - Medical Records Medical records reviewed: Yes I reviewed the patient's medical records. - Lab Data Lab results reviewed: Yes I reviewed the patient's lab results. Result diagrams: 10/26/18 00:18 10/26/18 00:18 Lab Results 10/26/18 10/26/18 10/26/18 Range/Units 00:18 00:18 00:18 WBC 5.3 (4.3-11.1) K/mcL RBC 4.97 (4.19-5.50) M/mcL Hgb 13.5 (12.9-16.9) g/dL Hct 39.6 (37.5-50.1) % MCV 79.7 L (83.0-100.0) fL MCH 27.2 L (28.0-33.3) pg MCHC 34.1 (31.6-35.5) g/dL RDW 15.9 H (11.5-14.5) % Plt Count 383 (140-400) K/mcL MPV 10.2 (9.4-12.4) fL Immature Gran % 0.2 (0-4) % Seg Neutrophils % 46.5 % Lymphocytes % 38.4 % Monocytes % 10.0 % Eosinophils % 4.3 % Basophils % 0.6 % Neutrophils # 2.5 (1.6-8.9) K/mcL Lymphocytes # 2.0 (0.6-4.6) K/mcL Monocytes # 0.5 (0.0-1.3) K/mcL Eosinophils # 0.2 (0.0-0.6) K/mcL Basophils # 0.0 (0.0-0.2) K/mcL PT 13.2 H (9.4-12.1) Seconds INR 1.2 Sodium 111 L* (136-145) mEq/L Potassium 5.5 H (3.5-5.1) mEq/L Chloride 77 L (98-107) mEq/L Carbon Dioxide 17 L (23-29) mEq/L BUN 34 H (8-23) mg/dL Creatinine 1.44 H (0.70-1.30) mg/dL Est GFR ( Amer) > 60 (> 60) Est GFR (Non-Af Amer) 50 L (> 60) BUN/Creatinine Ratio 24 (6-26) Glucose 68 L (70-105) mg/dL Calculated Osmolality 238 L (280-300) Calcium 9.5 (8.6-10.3) mg/dL Phosphorus 5.0 H (2.7-4.5) mg/dL Magnesium 2.0 (1.6-2.6) mg/dL Total Bilirubin 0.4 (0.3-1.0) mg/dL AST 27 (13-39) Units/L ALT 14 (7-52) Units/L Alkaline Phosphatase 94 (34-104) Units/L Serum Total Protein 7.8 (6.4-8.9) g/dL Albumin 4.3 (3.5-5.7) g/dL Globulin 3.5 (2.4-3.5) g/dL Albumin/Globulin Ratio 1.2 (1.1-2.2) Lipase 58 (11-82) Units/L Ethyl Alcohol < 10 (Less than 10) mg/dL - Radiology Data Radiology results reviewed: Yes I reviewed the patient's radiology results. Chest X-Ray 10/26/18 00:05 IMPRESSION: No pneumonia or any other acute cardiopulmonary abnormality. Hyperinflated lungs may be seen with obstructive small airways disease such as asthma or COPD. D/ / Lalo Polk / Lalo Polk Interpreting Provider: Lalo Polk - EKG Data EKG #1 EKG attestation: Yes I reviewed and interpreted this EKG. EKG results narrative: Heart rate 75, rhythm sinus, axis normal. [place] 162, QRS 116, QTc 457. No evidence of clinically significant ST elevation or depression.
[2018-10-26 00:35] LABS: Basophils % 0.6 %; Eosinophils # 0.2 K/mcL (0.0-0.6); Eosinophils % 4.3 %; Hematocrit 39.6 % (37.5-50.1); Hemoglobin 13.5 g/dL (12.9-16.9); Immature Granulocytes % 0.2 % (0-4); Lymphocytes % 38.4 %; Mean Corpuscular HGB Conc 34.1 g/dL (31.6-35.5); Mean Corpuscular Hemoglobin 27.2 pg (28.0-33.3); Mean Corpuscular Volume 79.7 fL (83.0-100.0); Mean Platelet Volume 10.2 fL (9.4-12.4); Monocytes # 0.5 K/mcL (0.0-1.3); Neutrophils # 2.5 K/mcL (1.6-8.9); Platelet Count 383 K/mcL (140-400); Red Blood Count 4.97 M/mcL (4.19-5.50); Red Cell Distribution Width 15.9 % (11.5-14.5); Segmented Neutrophils % 46.5 %
[2018-10-26 00:41] LABS: INR 1.2; Prothrombin Time 13.2 Seconds (9.4-12.1)
[2018-10-26 00:53] LABS: Alanine Aminotransferase 14 Units/L (7-52); Albumin 4.3 g/dL (3.5-5.7); Albumin/Globulin Ratio 1.2 (1.1-2.2); Alkaline Phosphatase 94 Units/L (34-104); Aspartate Amino Transferase 27 Units/L (13-39); BUN/Creatinine Ratio 24 (6-26); Bilirubin,Total 0.4 mg/dL (0.3-1.0); Blood Urea Nitrogen 34 mg/dL (8-23); Calcium 9.5 mg/dL (8.6-10.3); Carbon Dioxide 17 mEq/L (23-29); Chloride 77 mEq/L (98-107); Ethanol < 10 mg/dL (Less than 10); Globulin 3.5 g/dL (2.4-3.5); Glucose 68 mg/dL (70-105); Lipase 58 Units/L (11-82); Osmolality,Calculated 238 (280-300); Potassium 5.5 mEq/L (3.5-5.1); Sodium 111 mEq/L (136-145); Total Protein 7.8 g/dL (6.4-8.9); eGFR For Non-African Americans 50 (> 60)
[2018-10-26] MEDS ORDERED: *HR* Dextrose 50 % in Water (Syg) 50 ML SYRINGE ONE (00:58)
--- NOTE | 2018-10-26 00:58 | Emergency Department Note ---
Disposition Clinical Impression: Hyponatremia Malnutrition Qualifiers: Malnutrition type: unspecified type Qualified Code(s): E46 - Unspecified protein-calorie malnutrition Disposition: Admitted As Inpatient Referrals: NONE,PCP [Primary Care Provider] - General Adult HPI - General Chief complaint: ED Altered Mental Status Time Seen by Provider: 10/26/18 00:00 Source: patient, EMS Mode of arrival: EMS Limitations: no limitations - History of Present Illness Pain Scale: 6 - Related Data Home Medications Medication Instructions Recorded Confirmed Albuterol Sulfate [Proair Hfa] 2 puff IH Q4H PRN 08/30/18 09/27/18 Ipratropium/Albuterol Neb [Duoneb] 3 ml IH Q6HR PRN 08/30/18 09/27/18 Melatonin [Melatin] 9 mg PO HS PRN 08/30/18 09/27/18 Methocarbamol [Robaxin] 750 mg PO Q8HR PRN 08/30/18 09/27/18 Paroxetine HCl [Paxil] 20 mg PO DAILY 08/30/18 09/27/18 Tiotropium [place] [Spiriva 2 puff IH 1200 08/30/18 09/27/18 Respimat] Trazodone HCl 100 mg PO HS PRN 08/30/18 09/27/18 Cholecalciferol (D-3) [Vitamin D] 2,000 unit PO DAILY 09/07/18 09/27/18 Folic Acid 1 mg PO DAILY 09/07/18 09/27/18 Gabapentin [Neurontin] 200 mg PO BID 09/07/18 09/27/18 Naproxen [Naprosyn] 500 mg PO BIDWM PRN 09/07/18 09/27/18 Pantoprazole Sodium [Protonix] 40 mg PO DAILY 09/07/18 09/27/18 Sucralfate [Carafate] 1 gm PO Q6H 09/07/18 09/27/18 Thiamine Mononitrate [Vitamin B-1] 100 mg PO DAILY 09/07/18 09/27/18 hydrOXYzine HCl [Hydroxyzine HCl] 25 mg PO QID PRN 09/07/18 09/27/18 Allergies Allergy/AdvReac Type Severity Reaction Status Date / Time No Known Allergies Allergy Verified 09/07/18 09:22 Past Medical History - Past Medical History Medical history: Reports: asthma, cancer, COPD, GERD Surgical history: Reports: orthopedic, other Psychiatric history: Reports: no psych history - Social History Smoking Status: Current every day smoker Smokeless Tobacco Status: No Alcohol use: Reports: heavy, recent Drug use: Reports: marijuana Physical Exam - General Limitations: no limitations General appearance: alert, in no apparent distress, appears intoxicated Course Vital Signs Temperature 93.6 F L 10/25/18 23:59 Pulse Rate 74 10/25/18 23:59 Respiratory Rate 16 10/25/18 23:59 Blood Pressure 125/83 10/25/18 23:59 O2 Sat by Pulse Oximetry 100 10/25/18 23:59 Temperature 93.6 F L 10/25/18 23:59 Pulse Rate 74 10/25/18 23:59 Respiratory Rate 16 10/25/18 23:59 Blood Pressure 125/83 10/25/18 23:59 O2 Sat by Pulse Oximetry 100 10/25/18 23:59 Oxygen Delivery Oxygen Delivery Room Air Medical Decision Making - Lab Data Result diagrams: 10/26/18 00:18 Lab Results 10/26/18 10/26/18 Range/Units 00:18 00:18 WBC 5.3 (4.3-11.1) K/mcL RBC 4.97 (4.19-5.50) M/mcL Hgb 13.5 (12.9-16.9) g/dL Hct 39.6 (37.5-50.1) % MCV 79.7 L (83.0-100.0) fL MCH 27.2 L (28.0-33.3) pg MCHC 34.1 (31.6-35.5) g/dL RDW 15.9 H (11.5-14.5) % Plt Count 383 (140-400) K/mcL MPV 10.2 (9.4-12.4) fL Immature Gran % 0.2 (0-4) % Seg Neutrophils % 46.5 % Lymphocytes % 38.4 % Monocytes % 10.0 % Eosinophils % 4.3 % Basophils % 0.6 % Neutrophils # 2.5 (1.6-8.9) K/mcL Lymphocytes # 2.0 (0.6-4.6) K/mcL Monocytes # 0.5 (0.0-1.3) K/mcL Eosinophils # 0.2 (0.0-0.6) K/mcL Basophils # 0.0 (0.0-0.2) K/mcL PT 13.2 H (9.4-12.1) Seconds INR 1.2 Attestation Statement - Attestation Attestation: I examined this patient and my medical decision-making was reviewed with the Resident Physician. I agree with the documented findings, disposition and treatment plan as described except to the extent set forth below. 63 year old male presents to the eD with complaints of hypoglycemia and altered mental status. His originial glucose was 28 per EMS and now it is in the upper 50s for us. He is a chronic alcohoilc and is in stage 4 lung cancer. Patient has been hyponatremic in the past and and it apears it is likely secondary to beer potomania because he drinks alcohol rather than eating. Due to malnourished states we will do the alcohol malnutrition we will start vitamin infusions and IVF therapy and likely admit.
[2018-10-26] MEDS ORDERED: *HR* LORazepam 2 MG/ML VIAL IVP ONE (01:16)
[2018-10-26] MEDS ORDERED: *HR* LORazepam 2 MG/ML VIAL IVP PRN ×2 (01:18)
[2018-10-26] MEDS ORDERED: 0.9 % Sodium Chloride 1,000 ML IVC SCH (01:30)
--- NOTE | 2018-10-26 02:24 | Internal Med History&Physical ---
<Mikey Salter S - Last Filed: 10/26/18 06:23> Date of Encounter: 10/26/18 Time of Encounter: 02:51 Internal Medicine - H&P: HPI Chief complaint: AMS Admitted From: Emergency Dept Plans for Post Hospital Care: Home History of present illness: Mr. Aldana is a 63 year old male with PMH of COPD, lung cancer, GERD and alcoholism. He initially presented to the emergency room with hypoglycemia. EMS reported that when they arrived after family called that his initial blood sugar was 29, they gave oral glucose, repeat glucose was then 22, and then 36. Initial glucose on presentation was 49. Pt stated to ER resident that he has not eaten anything for a few days. He reportedly has a history of severe alcoholism and his last drink was today. When I saw the pt he was hard to arouse by sternal rub and wouldn't give me any history. He is guarding airway while in the room. EKG done in the ER showed no signs of ischemia. He was found to have a sodium of [address] 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 Past Med Surg Social Fam HX - Past Medical History Medical history: asthma, cancer, COPD, GERD Additional medical history: lung and abd cancer Psychiatric history: no psych history - Past Surgical History Surgical History: orthopedic, other Additional surgical history: rt hip - Social History Smoking Status: Current every day smoker Smokeless Tobacco Status: No Alcohol use: heavy, recent Drug use: marijuana - Family History Father Living Status: Hx Family Cardiac Disorders: Yes (CAD, Bypass) Hx Family Respiratory Disorders: No Hx Family Cancer: No Hx Family GI Disorders: No Hx Family Endocrine Disorder: No Hx Family Neuromuscular Disorders: No Hx Family Neurologic Disorders: Yes (Alzheimers) Hx Family HEENT Disorders: No Hx Family Autoimmune Disorders: No Brother Adopted: No Family Member Ethnicity: Non- Living Status: Still Living Hx Family Cardiac Disorders: No Hx Family Respiratory Disorders: No Hx Family Cancer: Yes (bowel) Hx Family GI Disorders: Yes (CA bowels) Hx Family Endocrine Disorder: No Hx Family Neuromuscular Disorders: No Hx Family Neurologic Disorders: No Hx Family HEENT Disorders: No Hx Family Autoimmune Disorders: No Internal Medicine - H&P: Meds Albuterol Sulfate [Proair Hfa] 2 puff IH Q4H PRN 08/30/18 [History] Ipratropium/Albuterol Neb [Duoneb] 3 ml IH Q6HR PRN 08/30/18 [History] Melatonin [Melatin] 5 mg PO HS PRN 08/30/18 [History] Methocarbamol [Robaxin] 750 mg PO Q8HR PRN 08/30/18 [History] Paroxetine HCl [Paxil] 20 mg PO DAILY 08/30/18 [History] Tiotropium [place] [Spiriva Respimat] 2 puff IH 1200 08/30/18 [History] Trazodone HCl 100 mg PO HS PRN 08/30/18 [History] Cholecalciferol (D-3) [Vitamin D] 2,000 unit PO DAILY 09/07/18 [History] Folic Acid 1 mg PO DAILY 09/07/18 [History] Gabapentin [Neurontin] 200 mg PO BID 09/07/18 [History] Naproxen [Naprosyn] 500 mg PO BIDWM PRN 09/07/18 [History] Pantoprazole Sodium [Protonix] 40 mg PO DAILY 09/07/18 [History] Sucralfate [Carafate] 1 gm PO Q6H 09/07/18 [History] Thiamine Mononitrate [Vitamin B-1] 100 mg PO DAILY 09/07/18 [History] hydrOXYzine HCl [Hydroxyzine HCl] 25 mg PO QID PRN 09/07/18 [History] Acetaminophen [Tylenol 325mg SUPP] 650 mg RC Q4HR 10/26/18 [History] Benzonatate [Tessalon] 100 mg PO TID 10/26/18 [History] LORazepam [Ativan] 0.5 mg PO Q4HR PRN 10/26/18 [History] Lactobacillus Acidophilus [Acidophilus] 1 each PO BID 10/26/18 [History] Morphine Sulfate [Morphine Oral Solution] 5 ml PO Q4H PRN 10/26/18 [History] Promethazine [Phenergan] 25 mg PO Q6HR PRN 10/26/18 [History] Promethazine [Phenergan] 25 mg RC Q6HR PRN 10/26/18 [History] Spiriva 10/26/18 [History] Tramadol HCl [Ultram] PO Q4HR 10/26/18 [History] Allergy/AdvReac Type Severity Reaction Status Date / Time No Known Allergies Allergy Verified 09/07/18 09:22 ROS unobtainable: due to mental status All Systems PM: A 10-system review of systems was performed and is negative for pertinent findings except as documented above in the HPI. - Constitutional Vitals: Temp Pulse Resp BP Pulse Ox 97.5 F L 77 16 95/69 100 10/26/18 02:19 10/26/18 02:19 10/26/18 02:19 10/26/18 02:10/26/18 02:19 General appearance: Present: A&O X 0, disheveled Exam: general - aox0, unable to arouse much to sternal rub, unable to provide a history heent - dry mucus membranes, NCAT eyes - no scleral icterus cardio - rrr, s1s2, cta lungs - ctab, no respiratory distress, guarding airway abd - soft, nontender, nondistended, no guarding or rebound extremities - moves extremities to pain neuro - unable to assess psych - unable to assess skin - multiple tattoos, no open wounds or sores Internal Med - H&P Results - Labs CBC & Chem 7: 10/26/18 00:18 10/26/18 02:19 Labs: Short CBC 10/26/18 Range/Units 00:18 WBC 5.3 (4.3-11.1) K/mcL Hgb 13.5 (12.9-16.9) g/dL Hct 39.6 (37.5-50.1) % Plt Count 383 (140-400) K/mcL Neutrophils # 2.5 (1.6-8.9) K/mcL BMP 10/26/18 00:18 Sodium 111 L* Potassium 5.5 H Chloride 77 L Carbon Dioxide 17 L BUN 34 H Creatinine 1.44 H Glucose 68 L Calcium 9.5 Liver Function 10/26/18 Range/Units 00:18 Total Bilirubin 0.4 (0.3-1.0) mg/dL AST 27 (13-39) Units/L ALT 14 (7-52) Units/L Alkaline Phosphatase 94 (34-104) Units/L Albumin 4.3 (3.5-5.7) g/dL - Impressions ITS Impressions Chest X-Ray 10/26/18 00:05 IMPRESSION: No pneumonia or any other acute cardiopulmonary abnormality. Hyperinflated lungs may be seen with obstructive small airways disease such as asthma or COPD. D/ / Lalo Polk / Lalo Polk Interpreting Provider: Lalo Polk - Assessment and Plan (1) Hyponatremia Current Visit: Yes Status: Acute Assessment and plan: Pt with severe alcoholism and active lung cancer presents with AMS - unable to give a history - differential includes beer's potomania vs SIADH - acute on chronic hyponatremia Sodium initially 111 on presentation, repeat 114 - has had a hx of hyponatremia, labs show a baseline in the mid to high teens/low 20's - Dr Maher spoke with ER resident who told to put on 0.9% NS - in the past, the pt has had low urine osmolality CT abd/pelvis from 09/2018: - relatively stable appearance of metastatic lesions in the abdomen and pelvis including bilateral adrenal masses, retroperitoneal lymphadenopathy and subcutaneous suprapubic soft tissue nodule. - There is a left adrenal mass measuring 5.3 x 4.6 x 6.3 cm in size. The right adrenal mass measures approximately 5 x 2.7 x 7.1 cm in size. PET scan from 08/2018 - metabolically active nodule in the medial left upper lobe near the apex may represent primary lung cancer. - metabolically active left hilar lymphadenopathy, smaller pulmonary nodules, bilateral necrotic adrenal masses, retroperitoneal lymph nodes, two muscular masses, and a subcutaneous nodule are all concerning for metastatic disease. Update 0400: spoke with Dr. Maher, who told me to hold IVF for now Update 0515: spoke with Dr. Maher regarding stress dose steroids, see below for adrenal insufficiency Plan: - UA pending - UDS pending - urine sodium, creatinine, and osmolality pending - nephrology consulted, appreciate recommendations - sodium levels q2h x 6 - plan to correct sodium slowly with a goal of no more than 6-8 mEq in 24 hrs - neuro checks - seizure precautions, HOB elevation - currently NPO, plan to make pt fluid restricted when cleared for PO - FEN: NPO, 75cc/hr 0.9% NS currently held - DVT prophylaxis: sq heparin - dispo: nephro to see PTOT consulted Palliative care did see the pt last visit, was sent home with hospice DNR-CC papers signed during last stay (2) Adrenal insufficiency Current Visit: Yes Status: Acute Assessment and plan: Pt with hyponatremia, hyperkalemia, and low BP's with masses in adrenal glands. - noted by nephrology that there may be a component of adrenal insufficiency BP 0430: 86/44 Repeat manual BP 0435: 84/45 Plan: - solu-cortef 100mg q6hr - continue to monitor electrolytes (3) Hypoglycemia Current Visit: Yes Status: Acute Assessment and plan: Initial glucose on admission was 49. Repeat 68. Continue to monitor. Update: 0430 glucose 78, given another amp of dextrose. Continue to monitor. (4) Malnutrition Current Visit: Yes Status: Acute Assessment and plan: nutrition consulted. Qualifiers: Malnutrition type: protein-calorie malnutrition Protein-calorie malnutrition severity: moderate Qualified Code(s): E44.0 - Moderate protein- calorie malnutrition (5) Adrenal mass Current Visit: Yes Status: Acute Assessment and plan: CT abd/pelvis from 09/2018: - relatively stable appearance of metastatic lesions in the abdomen and pelvis including bilateral adrenal masses, retroperitoneal lymphadenopathy and subcutaneous suprapubic soft tissue nodule. - There is a left adrenal mass measuring 5.3 x 4.6 x 6.3 cm in size. The right adrenal mass measures approximately 5 x 2.7 x 7.1 cm in size. See above for adrenal insufficiency. (6) Alcohol abuse Current Visit: Yes Status: Acute Assessment and plan: Pt with known hx of alcohol abuse. CIWA protocol, seizure protocol. (7) DVT prophylaxis Current Visit: No Status: Acute Assessment and plan: sq heparin (8) Metastatic cancer Current Visit: No Status: Chronic Assessment and plan: As evidenced by PET scan and CT scan. See above. (9) COPD (chronic obstructive pulmonary disease) Current Visit: No Status: Chronic Assessment and plan: NOT in acute exacerbation. Continue home rx. Qualifiers: COPD type: chronic bronchitis Chronic bronchitis type: mucopurulent Qu alified Code(s): J41.1 - Mucopurulent chronic bronchitis (10) Tobacco abuse Current Visit: No Status: Chronic Assessment and plan: chronic, continues to smoke. (11) Acute metabolic encephalopathy Current Visit: Yes Status: Acute Assessment and plan: Secondary to hyponatremia vs hypoglycemia. STAT head CT pending. See plan above. (12) AGNES (acute kidney injury) Current Visit: Yes Status: Acute Assessment and plan: Creatinine 1.44, baseline around 0.5-0.5 - likely pre-renal in the setting of hypotension/poor PO intake Plan: - nephrology consulted - urine studies pending - strict I&O - avoid nephrotoxins - Time Spent With Patient Total time spent is greater than 50% in coordination of care (as documented) at patient's floor/unit and/or counseling patient: 25 - 35 minutes <German Ureña - Last Filed: 10/26/18 07:47> Date of Encounter: 10/26/18 Internal Medicine - H&P: HPI History of present illness: Mr. Aldana is a 63 year old male All Systems PM: A 10-system review of systems was performed and is negative for pertinent findings except as documented above in the HPI. - Constitutional Vitals: Temp Pulse Resp BP Pulse Ox 98.7 F 90 18 96/62 97 10/26/18 04:30 10/26/18 04:30 10/26/18 04:30 10/26/18 04:30 10/26/18 04:30 Internal Med - H&P Results - Labs CBC & Chem 7: 10/26/18 06:35 10/26/18 02:19 Labs: Short CBC 10/26/18 10/26/18 Range/Units 00:18 06:35 WBC 5.3 3.7 L (4.3-11.1) K/mcL Hgb 13.5 11.5 L D (12.9-16.9) g/dL Hct 39.6 33.3 L (37.5-50.1) % Plt Count 383 338 (140-400) K/mcL Neutrophils # 2.5 (1.6-8.9) K/mcL BMP 10/26/18 10/26/18 00:18 02:19 Sodium 111 L* 114 L* Potassium 5.5 H Chloride 77 L Carbon Dioxide 17 L BUN 34 H Creatinine 1.44 H Glucose 68 L Calcium 9.5 Liver Function 10/26/18 Range/Units 00:18 Total Bilirubin 0.4 (0.3-1.0) mg/dL AST 27 (13-39) Units/L ALT 14 (7-52) Units/L Alkaline Phosphatase 94 (34-104) Units/L Albumin 4.3 (3.5-5.7) g/dL Urine 10/26/18 Range/Units 04:05 Urine Color Yellow (Yellow) Urine Clarity Clear (Clear) Urine pH 5.5 (5.0-8.0) pH Units Ur Specific [place] 1.013 (1.010-1.025) Urine Protein Negative (Neg-Trace) mg/dL Urine Glucose (UA) 100 H (Normal) mg/dL - Impressions ITS Impressions Chest X-Ray 10/26/18 00:05 IMPRESSION: No pneumonia or any other acute cardiopulmonary abnormality. Hyperinflated lungs may be seen with obstructive small airways disease such as asthma or COPD. D/ / Lalo Polk / Lalo Polk Interpreting Provider: Lalo Polk Head CT 10/26/18 04:16 IMPRESSION: No acute intracranial abnormality. D/ / Silvano Ramos MD / Silvano Ramos MD Interpreting Provider: Silvano Ramos MD - Assessment and Plan (1) COPD (chronic obstructive pulmonary disease) Current Visit: No Status: Chronic Qualifiers: COPD type: chronic bronchitis Chronic bronchitis type: mucopurulent Qualified Code(s): J41.1 - Mucopurulent chronic bronchitis (2) Tobacco abuse Current Visit: No Status: Chronic (3) Adrenal mass Current Visit: Yes Status: Acute (4) DVT prophylaxis Current Visit: No Status: Acute (5) Adrenal insufficiency Current Visit: Yes Status: Acute (6) Acute metabolic encephalopathy Current Visit: Yes Status: Acute (7) Hyponatremia Current Visit: Yes Status: Acute (8) Metastatic cancer Current Visit: No Status: Chronic (9) Alcohol abuse Current Visit: Yes Status: Acute (10) Malnutrition Current Visit: Yes Status: Acute Qualifiers: Malnutrition type: protein-calorie malnutrition Protein-calorie malnutrition severity: moderate Qualified Code(s): E44.0 - Moderate protein- calorie malnutrition (11) Hypoglycemia Current Visit: Yes Status: Acute (12) AGNES (acute kidney injury) Current Visit: Yes Status: Acute - Time Spent With Patient Total time spent is greater than 50% in coordination of care (as documented) at patient's floor/unit and/or counseling patient: - Attending Attestation I performed a history and physical examination of the patient and discussed his management with the resident. I reviewed the resident's note and agree with the assessment and plan of care. In short patient is a 63-year-old male with a past medical history of lung cancer and alcohol abuse currently under hospice care who was brought into the ED by her son due to findings of hypoglycemia. On arrival patient was found to be severely hyponatremic with a sodium of 111. Of note patient has had multiple admissions for severe hyponatremia presumably secondary to beer jahaira-tarsha and adrenal insufficiency in the setting of an adrenal mass. Patient's blood glucose was corrected in the ED. Nephrology was consulted and patient was started on normal saline at 75 mL an hour with sodium checks every 2 hours. Sodium increased to 115 on the next laboratory check. Nephrology was consult in recommended holding fluids for now. Shortly after arrival to floor patient remained hypotensive with a systolic blood pressure in the 80s to 90s. He remained lethargic and at times somnolent. Stat CT scan of the head was performed which showed no acute intracranial abnormality. Patient's blood glucose continued to remain low. Was given an additional amp of glucose on the floor which seemed to improve his mentation. Patient started on stress dose steroids due to concern for adrenal insufficiency. Blood pressure has since improved. Patient is DNR CC. Follow-up nephrology recommendations.
[2018-10-26] MEDS ORDERED: Naloxone 0.4 MG/ML INJ IVP PRN (02:46)
[2018-10-26 04:21] LABS: Bilirubin,Urine Negative (Negative); Blood,Urine Negative (Negative); Clarity,Urine Clear (Clear); Color,Urine Yellow (Yellow); Glucose,Urine (UA) 100 mg/dL (Normal); Ketones,Urine Trace mg/dL (Negative); Leukocyte Esterase,Urine Negative (Negative); Nitrite,Urine Negative (Negative); PH,Urine 5.5 pH Units (5.0-8.0); Protein,Urine Negative (Neg-Trace); Specific Gravity,Urine 1.013 (1.010-1.025); Urobilinogen,Urine Normal (Normal)
[2018-10-26 04:29] LABS: Amphetamine Screen,Urine Negative ng/mL (Cutoff=1000); Barbiturate Screen,Urine Negative ng/mL (Cutoff=200); Benzodiazepines Screen,Urine Negative ng/mL (Cutoff=200); Cannabinoid Screen,Urine Negative ng/mL (Cutoff = 50); Cocaine Screen,Urine Negative ng/mL (Cutoff= 300); Opiate Screen,Urine Negative ng/mL (Cutoff=300); Phencyclidine Screen,Urine Negative ng/mL (Cutoff=25); Sodium, Urine 43.5 mEq/L
[2018-10-26] MEDS: *HR* Heparin 5,000 UNIT/ML VIAL SQ SCH ×2 (05:06→18:06)
[2018-10-26] MEDS: Hydrocortisone Sodium Succ 100 MG/2 ML VIAL IVP SCH ×3 (06:08→18:06)
[2018-10-26 07:15] LABS: Hematocrit 33.3 % (37.5-50.1); Mean Corpuscular HGB Conc 34.5 g/dL (31.6-35.5); Mean Corpuscular Hemoglobin 27.4 pg (28.0-33.3); Mean Corpuscular Volume 79.5 fL (83.0-100.0); Mean Platelet Volume 10.4 fL (9.4-12.4); Platelet Count 338 K/mcL (140-400); Red Blood Count 4.19 M/mcL (4.19-5.50); Red Cell Distribution Width 15.7 % (11.5-14.5)
[2018-10-26 07:16] LABS: Hemoglobin 11.5 g/dL (12.9-16.9)
[2018-10-26 07:46] LABS: BUN/Creatinine Ratio 26 (6-26); Blood Urea Nitrogen 31 mg/dL (8-23); Calcium 9.3 mg/dL (8.6-10.3); Carbon Dioxide 18 mEq/L (23-29); Chloride 84 mEq/L (98-107); Glucose 101 mg/dL (70-105); Magnesium 1.8 mg/dL (1.6-2.6); Osmolality,Calculated 245 (280-300); Phosphorous 3.8 mg/dL (2.7-4.5); Potassium 4.9 mEq/L (3.5-5.1); Sodium 114 mEq/L (136-145); eGFR For Non-African Americans > 60 (> 60)
--- NOTE | 2018-10-26 12:31 | Nephrology Consult Note ---
Date of Encounter: 10/26/18 Time of Encounter: 12:31 Assessment and Plan (1) Hyponatremia Current Visit: Yes Status: Acute Patient relatively severe acute on chronic hyponatremia that is asymptomatic. Etiology is unclear, but likely multifactorial (cancer, likely poor eating, alcoholism). Patient seems to respond to fluid and steroids. Maintain current sodium level of 117 until midnight tonight. Can then give gentle saline at a slow rate for a goal serum sodium of no more than 124 for the next 24 hours. (2) Alcohol abuse Current Visit: Yes Status: Acute Monitor for withdrawl. (3) Hypoglycemia Current Visit: Yes Status: Acute Resolved. Patient mental status at baseline. (4) Malnutrition Current Visit: Yes Status: Acute Qualifiers: Malnutrition type: protein-calorie malnutrition Protein-calorie malnutrition severity: moderate Qualified Code(s): E44.0 - Moderate protein- calorie malnutrition (5) Anemia Current Visit: No Status: Chronic Monitor for bleeding and transfuse as needed. Qualifiers: Anemia type: unspecified type Qualified Code(s): D64.9 - Anemia, unspecified (6) COPD (chronic obstructive pulmonary disease) Current Visit: No Status: Chronic no wheezing on exam. Qualifiers: COPD type: chronic bronchitis Chronic bronchitis type: mucopurulent Qualified Code(s): J41.1 - Mucopurulent chronic bronchitis (7) Metastatic lung cancer (metastasis from lung to other site) Current Visit: No Status: Chronic Qualifiers: Laterality: unspecified laterality Qualified Code(s): C34.90 - Malignant neoplasm of unspecified part of unspecified bronchus or lung History of Present Illness - Reason for Consult Consult date: 10/26/18 hyponatremia - Chief Complaint Hyponatremia - History of Present Illness Mr. Aldana is a 63 yo man with a history of COPD, alcoholism and lung cancer who presents secondary to hypoglycemia. Upon presentation he was found to have asymptomatic hyponatremia. [facility] was consulted for management of hyponatremia. The patient was seen and evaluated. He denies chest pain. He has chronic dyspnea. He denies nausea or vomiting. He states his appetite is stable. His review of systems otherwise stable. Past Med Surg Social Fam HX - Past Medical History Medical history: asthma, cancer, COPD, GERD Additional medical history: lung and abd cancer Psychiatric history: no psych history - Past Surgical History Surgical History: orthopedic, other Additional surgical history: rt hip - Social History Smoking Status: Current every day smoker Smokeless Tobacco Status: No Alcohol use: heavy, recent Drug use: marijuana - Family History Father Living Status: Hx Family Cardiac Disorders: Yes (CAD, Bypass) Hx Family Respiratory Disorders: No Hx Family Cancer: No Hx Family GI Disorders: No Hx Family Endocrine Disorder: No Hx Family Neuromuscular Disorders: No Hx Family Neurologic Disorders: Yes (Alzheimers) Hx Family HEENT Disorders: No Hx Family Autoimmune Disorders: No Brother Adopted: No Family Member Ethnicity: Non- Living Status: Still Living Hx Family Cardiac Disorders: No Hx Family Respiratory Disorders: No Hx Family Cancer: Yes (bowel) Hx Family GI Disorders: Yes (CA bowels) Hx Family Endocrine Disorder: No Hx Family Neuromuscular Disorders: No Hx Family Neurologic Disorders: No Hx Family HEENT Disorders: No Hx Family Autoimmune Disorders: No Medications and Allergies Melatonin [Melatin] 5 mg PO HS PRN 08/30/18 [History] Methocarbamol [Robaxin] 750 mg PO QID PRN 08/30/18 [History] Paroxetine HCl [Paxil] 40 mg PO DAILY 08/30/18 [History] Trazodone HCl 200 mg PO HS PRN 08/30/18 [History] Gabapentin [Neurontin] 200 mg PO BID 09/07/18 [History] Pantoprazole Sodium [Protonix] 40 mg PO DAILY 09/07/18 [History] Sucralfate [Carafate] 1 gm PO Q6H 09/07/18 [History] Acetaminophen [Tylenol 325mg SUPP] 650 mg RC Q4HR PRN 10/26/18 [History] Benzonatate [Tessalon] 100 mg PO TID 10/26/18 [History] Budesonide/Formoterol 80/4.5 [Symbicort 80/4.5] 1 puff IH Q4H PRN 10/26/18 [History] Hyoscyamine SL [Levsin Sl] 0.125 mg PO Q2H PRN 10/26/18 [History] LORazepam [Ativan] 0.5 mg PO Q4HR PRN 10/26/18 [History] Lactobacillus Acidophilus [Acidophilus] 1 each PO BID 10/26/18 [History] Morphine Sulfate [Morphine Oral Solution] 5 ml PO Q4H PRN 10/26/18 [History] Promethazine [Phenergan] 25 mg PO Q6HR PRN 10/26/18 [History] Promethazine [Phenergan] 25 mg RC Q6HR PRN 10/26/18 [History] Tiotropium [place] [Spiriva Respimat] 2 puff IH DAILY 10/26/18 [History] Tramadol HCl [Ultram] 50 mg PO Q4HR PRN 10/26/18 [History] Allergy/AdvReac Type Severity Reaction Status Date / Time No Known Allergies Allergy Verified 09/07/18 09:22 Review of Systems All Systems: reviewed and no additional remarkable complaints except as stated (As per history of present illness) Exam - Vital Signs Vital signs: Initial Vital Signs Temp Pulse Resp BP Pulse Ox 93.6 F L 74 16 125/83 100 10/25/18 23:59 10/25/18 23:59 10/25/18 23:59 10/25/18 23:59 10/25/18 23:59 Vital Signs - Last 8 Hours Temp Pulse Resp BP Pulse Ox 10/26/18 12:01 98.1 F 79 18 88/71 95 10/26/18 09:00 94 10/26/18 08:23 74 10/26/18 08:09 98.2 F 75 16 94/83 74 Intake and Output 10/25/18 10/26/18 10/26/18 23:59 07:59 15:59 Intake Total 1000 / 1480 480 / 1480 Output Total 500 / 1450 950 / 1450 Balance 500 / 30 -470 / 30 Intake: IV Fluids 1000 / 1000 0.9 % Sodium Chloride 1,000 ML 1000 / 1000 @ 999 mls/hr IVC .Q1H1M ONE Rx# :[id number] Oral 0 / 480 480 / 480 Output: Urine 500 / 850 350 / 850 Urine/Stool Mix 600 / 600 Other: Weight 63.73 kg 63.7 kg Blood Glucose* 196 176 Patient Weight 10/26/18 23:59 Weight 63.7 kg - General Appearance General appearance: well-developed, chronically ill, frail EENT: ATNC Neck: supple Respiratory: course breath sounds Cardiology: no edema, regular rate Gastrointestinal: no tenderness Integumentary: warm and dry Neurologic: alert and oriented x3 Musculoskeletal: no cyanosis Psychiatric: mood/affect appropriate Results - Lab Results 10/26/18 06:35 10/26/18 12:54 Most recent lab results 10/26/18 10/26/18 10/26/18 00:18 04:05 06:35 Calcium 9.5 9.3 Phosphorus 5.0 H 3.8 Magnesium 2.0 1.8 Urine Creatinine 67 Urine Sodium 43.5 Consult Discharge Plan - Plan Referrals: NONE,PCP [Primary Care Provider] -
[2018-10-26] MEDS: Nicotine 21 MG PATCH.TD24 TD SCH (14:52)
[2018-10-26] MEDS: Folic Acid 1 MG TABLET PO SCH (14:52)
[2018-10-26] MEDS: Thiamine (B-1) 100 MG TABLET PO SCH (14:52)
[2018-10-26] MEDS: Methocarbamol 750 MG TABLET PO PRN (15:43)
--- NOTE | 2018-10-26 15:58 | Event Note ---
Date of Encounter: 10/26/18 Time of Encounter: 15:56 Patient seen and examined at bedside. Patient states that he feels okay today. He does seem slightly confused of his baseline but is able to answer questions appropriately. 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 Patient has had multiple admissions in the last several months for this same issue. He is extremely noncompliant. He has known lung cancer with adrenal metastasis that he does not want treatment for and is not compliant with any outpatient follow-ups. Fluid restriction diet, no IV fluids, check sodium every 6 hours.
--- NOTE | 2018-10-26 17:38 | Electrocardiograph Report ---
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
[2018-10-26] MEDS ORDERED: *HR* Morphine Soln 10 MG/5 ML UDC PO PRN (20:10)
[2018-10-26] MEDS ORDERED: Melatonin 3 MG TABLET PO PRN (20:10)
[2018-10-26] MEDS ORDERED: traZODone 50 MG TABLET PO PRN (20:41)
[2018-10-26] MEDS: Benzonatate 100 MG CAPSULE PO SCH (21:58)
[2018-10-26] MEDS: Sucralfate 1 GM TABLET PO SCH (21:59)
[2018-10-26] MEDS: Gabapentin 100 MG CAPSULE PO SCH (22:01)
[2018-10-26] MEDS: Budesonide/Formoterol 80/4.5 MDI IH SCH (22:19)
[2018-10-27] MEDS: Methocarbamol 750 MG TABLET PO PRN ×2 (00:30→07:50)
[2018-10-27] MEDS: Hydrocortisone Sodium Succ 100 MG/2 ML VIAL IVP SCH ×3 (00:35→10:49)
[2018-10-27] MEDS: traMADol 50 MG TABLET PO PRN ×3 (01:16→10:54)
[2018-10-27 05:31] LABS: BUN/Creatinine Ratio 27 (6-26); Blood Urea Nitrogen 25 mg/dL (8-23); Carbon Dioxide 18 mEq/L (23-29); Chloride 90 mEq/L (98-107); Glucose 208 mg/dL (70-105); Magnesium 1.6 mg/dL (1.6-2.6); Osmolality,Calculated 262 (280-300); Potassium 4.5 mEq/L (3.5-5.1); Sodium 121 mEq/L (136-145); eGFR For Non-African Americans > 60 (> 60)
[2018-10-27] MEDS: Sucralfate 1 GM TABLET PO SCH ×4 (06:08→20:27)
[2018-10-27] MEDS: *HR* Heparin 5,000 UNIT/ML VIAL SQ SCH ×2 (06:12→16:53)
[2018-10-27] MEDS ORDERED: *HR* Dextrose 50 % in Water (Syg) 50 ML SYRINGE IVP PRN (07:02)
[2018-10-27] MEDS ORDERED: D5% in Water 1,000 ML IVC PRN (07:02)
[2018-10-27] MEDS ORDERED: Dextrose Gel 15 GM/37.5 ML TUBE PO PRN ×2 (07:02)
[2018-10-27] MEDS: Budesonide/Formoterol 80/4.5 MDI IH SCH ×2 (07:22→21:30)
[2018-10-27] MEDS: Nicotine 21 MG PATCH.TD24 TD SCH (07:50)
[2018-10-27] MEDS: Folic Acid 1 MG TABLET PO SCH (07:50)
[2018-10-27] MEDS: Benzonatate 100 MG CAPSULE PO SCH ×3 (07:50→20:27)
[2018-10-27] MEDS: Gabapentin 100 MG CAPSULE PO SCH ×2 (07:50→20:27)
[2018-10-27] MEDS: Thiamine (B-1) 100 MG TABLET PO SCH (07:50)
[2018-10-27] MEDS: Insulin LISPRO 300 UNITS/3 ML VIAL SQ SCH ×4 (08:11→20:13)
--- NOTE | 2018-10-27 11:44 | Nephrology Progress Note ---
Date of Encounter: 10/27/18 Time of Encounter: 11:44 - Assessment and Plan (1) Hyponatremia Current Visit: Yes Status: Acute Patient relatively severe acute on chronic hyponatremia that is asymptomatic. Etiology is unclear, but likely multifactorial (cancer, likely poor eating, alcoholism). Patient seems to respond to fluid and steroids. Ok for gradual rise of sodium by 5-8 meq/l/day. [place] salt intake. Patient remains asymptomatic. (2) Alcohol abuse Current Visit: Yes Status: Acute Monitor for withdrawl. (3) Hypoglycemia Current Visit: Yes Status: Resolved (4) Malnutrition Current Visit: Yes Status: Acute Qualifiers: Malnutrition type: protein-calorie malnutrition Protein-calorie malnutrition severity: severe Qualified Code(s): E43 - Unspecified severe protein-calorie malnutrition (5) Anemia Current Visit: No Status: Chronic Qualifiers: Anemia type: unspecified type Qualified Code(s): D64.9 - Anemia, unspecified (6) COPD (chronic obstructive pulmonary disease) Current Visit: No Status: Chronic Qualifiers: COPD type: chronic bronchitis Chronic bronchitis type: mucopurulent Qualified Code(s): J41.1 - Mucopurulent chronic bronchitis (7) Metastatic lung cancer (metastasis from lung to other site) Current Visit: No Status: Chronic Qualifiers: Laterality: unspecified laterality Qualified Code(s): C34.90 - Malignant neoplasm of unspecified part of unspecified bronchus or lung Subjective Principal diagnosis: hyponatremia Interval history: Patient seen. He is asleep. No new report. Objective - Vital Signs Vital signs: Vital Signs Temp Pulse Resp BP Pulse Ox 10/27/18 11:00 98.7 F 80 17 88/52 10/27/18 07:59 85 10/27/18 07:58 98.7 F 74 16 82/58 96 10/27/18 07:23 16 99 10/27/18 05:19 98.4 F 74 16 92/69 100 10/27/18 04:14 80 84/68 98 10/26/18 23:52 98.7 F 86 16 99/78 100 10/26/18 22:19 14 100 10/26/18 20:15 85/60 100 10/26/18 19:43 98.4 F 88 18 71/51 99 10/26/18 16:21 98.1 F 84 18 87/63 94 10/26/18 12:01 98.1 F 79 18 88/71 95 Intake and Output 10/26/18 10/27/18 10/27/18 23:59 07:59 15:59 Intake Total 200 / 920 720 / 920 Output Total 500 / 500 Balance -300 / 420 720 / 420 Intake: Oral 200 / 920 720 / 920 Output: Urine 500 / 500 Other: Meal Breakfast Percent of Meal Consumed 100% Blood Glucose* 258 196 - General Appearance General appearance: Present: well-developed, well-nourished EENT: Present: ATNC Neck: Present: supple Cardiology: Present: regular rate - Lab 10/26/18 06:35 10/28/18 19:14 Most recent lab results 10/27/18 04:16 Calcium 9.0 Magnesium 1.6 Consult Discharge Plan - Plan [facility]errals: [facility] [Non-Partnered Physician] - 11/03/18 10:00 am ([facility] team)
--- NOTE | 2018-10-27 12:18 | Internal Med Progress Note ---
Hospitalist Progress Note - Encounter Date of Encounter: 10/27/18 Time of Encounter: 12:16 - Subjective Interval History: Patient seen and examined at bedside. Patient states that he feels better today. He states he was taking regularly. He denies any weakness, confusion, seizure activity. - Exam Vitals: Temp Pulse Resp BP Pulse Ox 98.7 F 80 17 88/52 96 10/27/18 11:00 10/27/18 11:00 10/27/18 11:00 10/27/18 11:00 10/27/18 07:58 Exam: Gen.: Alert and oriented 3, no acute distress Heart: Regular rate and rhythm, no murmurs, rubs or gallops Neuro: Strength 5 out of 5 in the upper extremities, no focal deficits, no tremors or seizure activity noted. - Assessment and Plan (1) Acute metabolic encephalopathy Current Visit: Yes Status: Acute Assessment and Plan: Likely secondary to hyponatremia, resolved at this time is hyponatremic continues to improve. (2) Hyponatremia Current Visit: Yes Status: Acute Assessment and Plan: Secondary to beer potomania with possibly some mild underlying SIADH in the setting of lung cancer contributing. Sodium is recovering in an appropriate rate. Patient is asymptomatic. Continue fluid restriction. Check sodium every 6 hours. (3) Adrenal insufficiency Current Visit: Yes Status: Acute Assessment and Plan: Patient mildly hypertensive on presentation and is known to have adrenal metastasis so unclear patient has adrenal insufficiency. Patient was given stress dose steroids, he is a been discontinued for now, will closely monitor blood pressure to determine if the patient needs to be on steroids long-term. (4) COPD (chronic obstructive pulmonary disease) Current Visit: No Status: Chronic Assessment and Plan: No evidence of acute exacerbation. Continue when necessary bronchodilators. (5) Adrenal mass Current Visit: Yes Status: Acute (6) Metastatic cancer Current Visit: No Status: Chronic Assessment and Plan: Patient has known metastatic lung cancer and is not interested in any treatment. He is noncompliant with outpatient follow-ups and does not want any further treatment. He is currently DNR CC and utilizes hospice as an outpatient. (7) Alcohol abuse Current Visit: Yes Status: Acute Assessment and Plan: Patient is currently alcohol use is not interested in quitting or cutting treatment. He is aware that this is what leads to his recurrent admissions and continues to want to drink alcohol. (8) Malnutrition Current Visit: Yes Status: Acute Assessment and Plan: Patient noted of severe protein calorie malnutrition related to excessive alcohol intake and reduce intake of nutrients. Nutrition following and appreciate recommendations. (9) Hypoglycemia Current Visit: Yes Status: Resolved Assessment and Plan: Resolved at this time. (10) AGNES (acute kidney injury) Current Visit: Yes Status: Resolved Assessment and Plan: Creatinine is normalized. Resolved. Continue urine output. (11) DVT prophylaxis Current Visit: No Status: Acute - Time Spent with Patient Total time spent is greater than 50% in coordination of care (as documented) at patient's floor/unit and/or counseling patient: Internal Medicine: Result - Labs CBC & Chem 7: 10/26/18 06:35 10/27/18 04:16 Labs: BMP 10/26/18 10/26/18 10/26/18 10:39 12:54 16:15 Sodium 117 L* 117 L* 117 L* Potassium Chloride Carbon Dioxide BUN Creatinine Glucose Calcium 10/26/18 10/27/18 22:24 04:16 Sodium 119 L* 121 L Potassium 4.5 Chloride 90 L Carbon Dioxide 18 L BUN 25 H Creatinine 0.92 Glucose 208 H Calcium 9.0 - ABG Interpretation ABG results: PT/INR, D-dimer PT 13.2 Seconds (9.4-12.1) H 10/26/18 00:18 Consult Discharge Plan - Plan [facility]errals: [facility] [Non-Partnered Physician] - 11/03/18 10:00 am ([facility] team) (4) COPD (chronic obstructive pulmonary disease) Qualifiers: COPD type: chronic bronchitis Chronic bronchitis type: mucopurulent Qualified Code(s): J41.1 - Mucopurulent chronic bronchitis (8) Malnutrition Qualifiers: Malnutrition type: protein-calorie malnutrition Protein-calorie malnutrition severity: severe Qualified Code(s): E43 - Unspecified severe protein-calorie malnutrition
[2018-10-27] MEDS: *HR* LORazepam 2 MG/ML VIAL IVP PRN (22:17)
[2018-10-28] MEDS: Sucralfate 1 GM TABLET PO SCH ×4 (02:23→21:33)
[2018-10-28] MEDS: *HR* Heparin 5,000 UNIT/ML VIAL SQ SCH ×2 (06:18→17:42)
[2018-10-28] MEDS: *HR* LORazepam 2 MG/ML VIAL IVP PRN (07:05)
[2018-10-28] MEDS: Budesonide/Formoterol 80/4.5 MDI IH SCH ×2 (07:56→19:49)
[2018-10-28] MEDS: Insulin LISPRO 300 UNITS/3 ML VIAL SQ SCH ×3 (08:15→17:18)
[2018-10-28] MEDS: Benzonatate 100 MG CAPSULE PO SCH ×3 (08:16→21:34)
[2018-10-28] MEDS: Folic Acid 1 MG TABLET PO SCH (08:16)
[2018-10-28] MEDS: Nicotine 21 MG PATCH.TD24 TD SCH (08:16)
[2018-10-28] MEDS: Gabapentin 100 MG CAPSULE PO SCH ×2 (08:16→21:33)
[2018-10-28] MEDS: Thiamine (B-1) 100 MG TABLET PO SCH (08:16)
[2018-10-28] MEDS: traMADol 50 MG TABLET PO PRN (08:19)
--- NOTE | 2018-10-28 11:09 | Internal Med Progress Note ---
Hospitalist Progress Note - Encounter Date of Encounter: 10/28/18 Time of Encounter: 11:07 - Subjective Interval History: Patient seen and examined at bedside. Patient states that he feels that his breathing is improved today. He feels slightly more confused. He is more tremulous today. - Exam Vitals: Temp Pulse Resp BP Pulse Ox 98.1 F 64 16 110/71 94 10/28/18 04:13 10/28/18 08:25 10/28/18 07:56 10/28/18 07:51 10/28/18 07:56 Exam: Heart: Regular rate and rhythm, no rubs, gallops Lungs: Clear to auscultation bilaterally, rubs, wheezes Neuro: Speech present, no focal deficits. Moderately tremulous. Psychiatric: No auditory or visual visual hallucinations. - Assessment and Plan (1) Acute metabolic encephalopathy Current Visit: Yes Status: Acute Assessment and Plan: Mental status is slightly worse today due to acute alcohol withdrawal. Continue Ativan per CIWA protocol and add Librium (2) Alcohol withdrawal syndrome Current Visit: No Status: Acute Assessment and Plan: Patient tremulous on exam and appears to be going through acute alcohol wi thdrawal. No seizure activity noted. Continue Ativan and start Librium as discussed above. (3) Hyponatremia Current Visit: Yes Status: Acute Assessment and Plan: Improving today, sodium up to 126. Continue fluid restriction. (4) Alcohol abuse Current Visit: Yes Status: Acute Assessment and Plan: Patient is currently alcohol use is not interested in quitting or cutting treatment. He is aware that this is what leads to his recurrent admissions and continues to want to drink alcohol. (5) Adrenal insufficiency Current Visit: Yes Status: Acute Assessment and Plan: Steroid has been stopped and blood pressure remained stable. We will hold off on further steroids at this time. (6) COPD (chronic obstructive pulmonary disease) Current Visit: No Status: Chronic Assessment and Plan: No evidence of acute exacerbation. Continue when necessary bronchodilators. (7) Metastatic cancer Current Visit: No Status: Chronic Assessment and Plan: Patient has known metastatic lung cancer and is not interested in any treatment. He is noncompliant with outpatient follow-ups and does not want any further treatment. He is currently DNR CC and utilizes hospice as an outpatient. (8) Malnutrition Current Visit: Yes Status: Acute Assessment and Plan: Patient noted of severe protein calorie malnutrition related to excessive alcoho l intake and reduce intake of nutrients. Nutrition following and appreciate recommendations. (9) Hypoglycemia Current Visit: Yes Status: Resolved (10) AGNES (acute kidney injury) Current Visit: Yes Status: Resolved Assessment and Plan: Creatinine is normalized. Resolved. Continue urine output. (11) DVT prophylaxis Current Visit: No Status: Acute - Time Spent with Patient Total time spent is greater than 50% in coordination of care (as documented) at patient's floor/unit and/or counseling patient: Internal Medicine: Result - Labs CBC & Chem 7: 10/26/18 06:35 10/28/18 06:53 Labs: BMP 10/27/18 10/27/18 10/28/18 13:38 18:46 01:25 Sodium 121 L 123 L 124 L 10/28/18 06:53 Sodium 126 L - ABG Interpretation ABG results: PT/INR, D-dimer PT 13.2 Seconds (9.4-12.1) H 10/26/18 00:18 Consult Discharge Plan - Plan [facility]errals: [facility] [Non-Partnered Physician] - 11/03/18 10:00 am ([facility]) (2) Alcohol withdrawal syndrome Qualifiers: Complication of substance-induced condition: uncomplicated Qualified Code(s): F10.230 - Alcohol dependence with withdrawal, uncomplicated (6) COPD (chronic obstructive pulmonary disease) Qualifiers: COPD type: chronic bronchitis Chronic bronchitis type: mucopurulent Qualified Code(s): J41.1 - Mucopurulent chronic bronchitis (8) Malnutrition Qualifiers: Malnutrition type: protein-calorie malnutrition Protein-calorie malnutrition severity: severe Qualified Code(s): E43 - Unspecified severe protein-calorie malnutrition
--- NOTE | 2018-10-28 16:07 | Nephrology Progress Note ---
Date of Encounter: 10/28/18 Time of Encounter: 16:05 - Assessment and Plan (1) Hyponatremia Current Visit: Yes Status: Acute (2) Alcohol abuse Current Visit: Yes Status: Acute (3) Hypoglycemia Current Visit: Yes Status: Resolved (4) Malnutrition Current Visit: Yes Status: Acute Qualifiers: Malnutrition type: protein-calorie malnutrition Protein-calorie malnutrition severity: severe Qualified Code(s): E43 - Unspecified severe protein-calorie malnutrition (5) Anemia Current Visit: No Status: Chronic Qualifiers: Anemia type: unspecified type Qualified Code(s): D64.9 - Anemia, unspecified (6) COPD (chronic obstructive pulmonary disease) Current Visit: No Status: Chronic Qualifiers: COPD type: chronic bronchitis Chronic bronchitis type: mucopurulent Qualified Code(s): J41.1 - Mucopurulent chronic bronchitis (7) Metastatic lung cancer (metastasis from lung to other site) Current Visit: No Status: Chronic Qualifiers: Laterality: unspecified laterality Qualified Code(s): C34.90 - Malignant neoplasm of unspecified part of unspecified bronchus or lung Subjective Principal diagnosis: hypon Objective - Vital Signs Vital signs: Vital Signs Temp Pulse Resp BP Pulse Ox 10/28/18 12:06 97.3 F L 69 18 100/61 98 10/28/18 12:00 70 10/28/18 08:25 64 10/28/18 07:56 16 94 10/28/18 07:51 73 16 110/71 10/28/18 04:13 98.1 F 65 12 111/68 10/27/18 23:18 97.9 F 73 14 104/60 94 10/27/18 21:30 16 97 10/27/18 20:30 76 10/27/18 18:46 98.4 F 77 14 108/87 10/27/18 16:39 72 16 122/73 Intake and Output 10/28/18 10/28/18 10/28/18 07:59 15:59 23:59 Intake Total 0 / 0 Output Total 0 / 0 Balance 0 / 0 Intake: Oral 0 / 0 Output: Urine 0 / 0 Other: Blood Glucose* 101 115 - Lab 10/26/18 06:35 10/28/18 19:14 Consult Discharge Plan - Plan Referrals: [facility] [Non-Partnered Physician] - 11/03/18 10:00 am ([facility])
[2018-10-29] MEDS: Insulin LISPRO 300 UNITS/3 ML VIAL SQ SCH ×5 (00:53→21:04)
[2018-10-29] MEDS: Sucralfate 1 GM TABLET PO SCH ×5 (03:30→21:20)
[2018-10-29] MEDS: *HR* Heparin 5,000 UNIT/ML VIAL SQ SCH ×2 (06:02→18:57)
[2018-10-29] MEDS: Budesonide/Formoterol 80/4.5 MDI IH SCH ×2 (07:38→20:54)
[2018-10-29] MEDS ORDERED: traMADol 50 MG TABLET PO PRN (08:19)
[2018-10-29] MEDS ORDERED: Benzonatate 100 MG CAPSULE PO PRN (08:19)
[2018-10-29] MEDS ORDERED: *HR* Morphine Soln 10 MG/5 ML UDC PO PRN (08:19)
[2018-10-29] MEDS: Gabapentin 100 MG CAPSULE PO SCH ×2 (08:23→21:19)
[2018-10-29] MEDS: Folic Acid 1 MG TABLET PO SCH (08:23)
[2018-10-29] MEDS: Nicotine 21 MG PATCH.TD24 TD SCH (08:23)
[2018-10-29] MEDS: Thiamine (B-1) 100 MG TABLET PO SCH (08:23)
--- NOTE | 2018-10-29 10:20 | Internal Med Progress Note ---
Hospitalist Progress Note - Encounter Date of Encounter: 10/29/18 Time of Encounter: 10:19 - Subjective Interval History: Patient seen and examined at bedside. Patient mildly tremulous. He reports mild confusion and is having some mild visual hallucinations. - Exam Vitals: Temp Pulse Resp BP Pulse Ox 97.5 F L 64 16 94/61 97 10/29/18 08:16 10/29/18 08:16 10/29/18 08:16 10/29/18 08:16 10/29/18 08:16 Exam: Heart: Regular rate and rhythm, no rubs, gallops Lungs: Clear to auscultation bilaterally, rubs, wheezes Neuro: Speech present, no focal deficits. Moderately tremulous. Psychiatric: Mild visual hallucinations. - Assessment and Plan (1) Acute metabolic encephalopathy Current Visit: Yes Status: Acute Assessment and Plan: Mental status is slightly worse today due to acute alcohol withdrawal. Continue Ativan per CIWA protocol and add Librium, will slowly taper Librium (2) Alcohol withdrawal syndrome Current Visit: No Status: Acute Assessment and Plan: Patient tremulous on exam and appears to be going through acute alcohol withdrawal. No seizure activity noted. Continue Ativan and taper Librium as discussed above. (3) Hyponatremia Current Visit: Yes Status: Acute Assessment and Plan: Sodium has returned to baseline in the low 130s. Continue fluid restriction diet. (4) Alcohol abuse Current Visit: Yes Status: Acute Assessment and Plan: Patient is currently alcohol use is not interested in quitting or pursuing treatment. He is aware that this is what leads to his recurrent admissions and continues to want to drink alcohol. (5) Adrenal insufficiency Current Visit: Yes Status: Acute (6) COPD (chronic obstructive pulmonary disease) Current Visit: No Status: Chronic (7) Metastatic cancer Current Visit: No Status: Chronic (8) Malnutrition Current Visit: Yes Status: Acute (9) Hypoglycemia Current Visit: Yes Status: Resolved (10) AGNES (acute kidney injury) Current Visit: Yes Status: Resolved (11) DVT prophylaxis Current Visit: No Status: Acute - Time Spent with Patient Total time spent is greater than 50% in coordination of care (as documented) at patient's floor/unit and/or counseling patient: Internal Medicine: Result - Labs CBC & Chem 7: 10/26/18 06:35 10/29/18 08:42 Labs: BMP 0510/28/18 10/29/18 12:57 19:14 01:56 Sodium 129 L 130 L 131 L 10/29/18 08:42 Sodium 128 L - ABG Interpretation ABG results: PT/INR, D-dimer PT 13.2 Seconds (9.4-12.1) H 10/26/18 00:18 Consult Discharge Plan - Plan Referrals: [facility] [Non-Partnered Physician] - 11/03/18 10:00 am ([facility] team) (2) Alcohol withdrawal syndrome Qualifiers: Complication of substance-induced condition: uncomplicated Qualified Code(s): F10.230 - Alcohol dependence with withdrawal, uncomplicated (6) COPD (chronic obstructive pulmonary disease) Qualifiers: COPD type: chronic bronchitis Chronic bronchitis type: mucopurulent Qualified Code(s): J41.1 - Mucopurulent chronic bronchitis (8) Malnutrition Qualifiers: Malnutrition type: protein-calorie malnutrition Protein-calorie malnutrition severity: severe Qualified Code(s): E43 - Unspecified severe protein-calorie malnutrition
--- NOTE | 2018-10-29 11:33 | Nephrology Progress Note ---
Date of Encounter: 10/29/18 Time of Encounter: 10:15 - Assessment and Plan (1) Hyponatremia Current Visit: Yes Status: Acute Acute on chronic hyponatremia, secondary to his pulmonary malignancy, SIADH, and beer potomania. The hyponatremia has safely and slowly improved back to his baseline. I recommend he avoiding the following: thiazide-type diuretics, SSRIs, antiepileptic drugs, and avoid excessive alcohol intake. I will sign off at this point, but please feel free to call or page me with any nephrology related questions. (2) COPD (chronic obstructive pulmonary disease) Current Visit: No Status: Chronic Qualifiers: COPD type: chronic bronchitis Chronic bronchitis type: mucopurulent Qualified Code(s): J41.1 - Mucopurulent chronic bronchitis (3) Anemia Current Visit: No Status: Chronic Qualifiers: Anemia type: unspecified type Qualified Code(s): D64.9 - Anemia, unspecified (4) Metastatic lung cancer (metastasis from lung to other site) Current Visit: No Status: Chronic Qualifiers: Laterality: unspecified laterality Qualified Code(s): C34.90 - Malignant neoplasm of unspecified part of unspecified bronchus or lung (5) Alcohol abuse Current Visit: Yes Status: Acute (6) Malnutrition Current Visit: Yes Status: Acute Qualifiers: Malnutrition type: protein-calorie malnutrition Protein-calorie malnutrition severity: severe Qualified Code(s): E43 - Unspecified severe protein-calorie malnutrition (7) Hypoglycemia Current Visit: Yes Status: Resolved Subjective Principal diagnosis: hyponatremia Interval history: the pt was s/e and he was largely sedated by the Alcohol WD protocol, which limits this subjective hx and exam. I discussed his care in detail with the ospitalist. Objective - Vital Signs Vital signs: Vital Signs Temp Pulse Resp BP Pulse Ox 10/29/18 08:16 97.5 F L 64 16 94/61 97 10/29/18 04:38 97.5 F L 67 17 97/64 95 10/29/18 00:05 97.5 F L 62 17 94/60 96 10/28/18 20:43 97.7 F 65 18 96/63 97 10/28/18 19:51 16 96 10/28/18 19:40 97.5 F L 71 18 90/60 96 10/28/18 16:55 97.8 F 77 18 94/62 98 10/28/18 12:06 97.3 F L 69 18 100/61 98 10/28/18 12:00 70 Intake and Output 10/28/18 10/29/18 10/29/18 23:59 07:59 15:59 Intake Total 1160 / 1160 120 / 120 Output Total 300 / 300 Balance 860 / 860 120 / 120 Intake: Oral 1160 / 1160 120 / 120 Output: Urine 300 / 300 Other: Meal goldfish and ada aric ice cream 2 hayden grahams 1 coffee 1 ada chocolate ice cream Breakfast Percent of Meal Consumed 10% Weight 63.9 kg 65.5 kg Blood Glucose* 132 99 Patient Weight 10/29/18 23:59 Weight 65.5 kg - General Appearance General appearance: Present: cachectic, frail Respiratory: Present: wheezing Cardiology: Present: no edema, normal S1, normal S2 Gastrointestinal: Present: normoactive bowel sounds. Absent: distended Additional Comments: sleeping and thus limited neuro exam Musculoskeletal: Present: no cyanosis - Lab 10/26/18 06:35 10/29/18 08:42 Consult Discharge Plan - Plan [facility]errals: [facility] [Non-Partnered Physician] - 11/03/18 10:00 am ([facility] team)
[2018-10-30] MEDS: Budesonide/Formoterol 80/4.5 MDI IH SCH ×2 (07:38→22:07)
[2018-10-30] MEDS: *HR* Heparin 5,000 UNIT/ML VIAL SQ SCH ×2 (07:40→17:00)
[2018-10-30] MEDS: Thiamine (B-1) 100 MG TABLET PO SCH (07:54)
[2018-10-30] MEDS: Folic Acid 1 MG TABLET PO SCH (07:54)
[2018-10-30] MEDS: Gabapentin 100 MG CAPSULE PO SCH ×2 (07:54→20:39)
[2018-10-30] MEDS: Sucralfate 1 GM TABLET PO SCH ×4 (07:54→21:45)
[2018-10-30] MEDS: Insulin LISPRO 300 UNITS/3 ML VIAL SQ SCH ×4 (07:55→21:39)
[2018-10-30] MEDS: Nicotine 21 MG PATCH.TD24 TD SCH (07:55)
--- NOTE | 2018-10-30 12:39 | Internal Med Progress Note ---
Hospitalist Progress Note - Encounter Date of Encounter: 10/30/18 Time of Encounter: 14:35 - Subjective Interval History: feeling shaky no hallucinaitons no chest pain, dyspnea, dizziness, n, v, abd pain - Exam Vitals: Temp Pulse Resp BP Pulse Ox 98.0 F 70 17 95/60 95 10/30/18 11:19 10/30/18 11:19 10/30/18 11:19 10/30/18 11:19 10/30/18 11:19 Exam: Heart: Regular rate and rhythm, no rubs, gallops Lungs: Clear to auscultation bilaterally, rubs, wheezes soft, NT, ND, no guarding or rebound Neuro: Speech present, no focal deficits. Mildly tremulous. Oriented to Trump, 2018, October, bt drowsy and takes a long time to think before responding Psychiatric: No hallucinations. - Assessment and Plan (1) Alcohol withdrawal syndrome Current Visit: No Status: Acute (2) Hyponatremia Current Visit: No Status: Acute (3) COPD (chronic obstructive pulmonary disease) Current Visit: No Status: Chronic (4) DVT prophylaxis Current Visit: No Status: Acute (5) Acute metabolic encephalopathy Current Visit: Yes Status: Acute (6) Hypoglycemia Current Visit: Yes Status: Resolved (7) AGNES (acute kidney injury) Current Visit: Yes Status: Resolved - Summary of Assessment and Plan Summary of Assessment and Plan: Per H&P: """Mr. Aldana is a 63 year old male with PMH of COPD, lung cancer, GERD and alcoholism. He initially presented to the emergency room with hypoglycemia. EMS reported that when they arrived after family called that his initial blood sugar was 29, they gave oral glucose, repeat glucose was then 22, and then 36. Initial glucose on presentation was 49. Pt stated to ER resident that he has not eaten anything for a few days. He reportedly has a history of severe alcoholism and his last drink was today. When I saw the pt he was hard to arouse by sternal rub and wouldn't give me any history. He is guarding airway while in the room. EKG done in the ER showed no signs of ischemia. He was found to have a sodium of [address] Maher, credit risk analyst, was contacted by ER resident who recommended hydration with normal saline. """ (1) Acute metabolic encephalopathy (2) Alcohol withdrawal syndrome (3) Alcohol abuse - Continue Ativan per [facility] protocol and cont Librium taper - Patient is currently alcohol use is not interested in quitting or pursuing treatment. He is aware that this is what leads to his recurrent admissions and continues to want to drink alcohol. (4) Hyponatremia - due to pulmonary malignancy, SIADH, and beer potomania - Sodium has returned to baseline in the low 130s. Continue fluid restriction diet. - Nephrology appreciated: avoiding the following: thiazide-type diuretics, SSRIs, antiepileptic drugs, and avoid excessive alcohol intake. (5) Adrenal insufficiency (6) COPD (chronic obstructive pulmonary disease) (7) Lung cancer (8) Malnutrition (9) Hypoglycemia, resolved (10) AGNES (acute kidney injury) (11) DVT prophylaxis heparin SubQ - Time Spent with Patient Total time spent is greater than 50% in coordination of care (as documented) at patient's floor/unit and/or counseling patient: Internal Medicine: Result - Labs CBC & Chem 7: 10/26/18 06:35 10/29/18 08:42 - ABG Interpretation ABG results: PT/INR, D-dimer PT 13.2 Seconds (9.4-12.1) H 10/26/18 00:18 Consult Discharge Plan - Plan [facility]errals: [facility] [Non-Partnered Physician] - 11/03/18 10:00 am ([facility] team) (1) Alcohol withdrawal syndrome Qualifiers: Complication of substance-induced condition: uncomplicated Qualified Code(s): F10.230 - Alcohol dependence with withdrawal, uncomplicated (3) COPD (chronic obstructive pulmonary disease) Qualifiers: COPD type: chronic bronchitis Chronic bronchitis type: mucopurulent Qualified Code(s): J41.1 - Mucopurulent chronic bronchitis
[2018-10-31] MEDS: Sucralfate 1 GM TABLET PO SCH ×4 (06:41→20:45)
[2018-10-31] MEDS: *HR* Heparin 5,000 UNIT/ML VIAL SQ SCH ×2 (06:41→17:28)
[2018-10-31 06:51] LABS: BUN/Creatinine Ratio 22 (6-26); Blood Urea Nitrogen 16 mg/dL (8-23); Calcium 9.8 mg/dL (8.6-10.3); Carbon Dioxide 27 mEq/L (23-29); Chloride 91 mEq/L (98-107); Glucose 89 mg/dL (70-105); Osmolality,Calculated 263 (280-300); Potassium 4.6 mEq/L (3.5-5.1); Sodium 126 mEq/L (136-145); eGFR For Non-African Americans > 60 (> 60)
[2018-10-31] MEDS: Budesonide/Formoterol 80/4.5 MDI IH SCH ×2 (08:06→20:18)
[2018-10-31] MEDS: Insulin LISPRO 300 UNITS/3 ML VIAL SQ SCH ×4 (08:09→20:48)
[2018-10-31] MEDS: Gabapentin 100 MG CAPSULE PO SCH ×2 (10:10→20:45)
[2018-10-31] MEDS: Folic Acid 1 MG TABLET PO SCH (10:11)
[2018-10-31] MEDS: Nicotine 21 MG PATCH.TD24 TD SCH (10:12)
[2018-10-31] MEDS: Thiamine (B-1) 100 MG TABLET PO SCH (10:26)
--- NOTE | 2018-10-31 12:15 | Internal Med Progress Note ---
Hospitalist Progress Note - Encounter Date of Encounter: 10/31/18 Time of Encounter: 12:12 - Subjective Interval History: feeling shaky no hallucinaitons no chest pain, dyspnea, dizziness, n, v, abd pain "Doc, will I be like this for the rest of my life?" - Exam Vitals: Temp Pulse Resp BP Pulse Ox 98.5 F 69 16 94/68 94 10/31/18 11:00 10/31/18 11:00 10/31/18 11:00 10/31/18 11:00 10/31/18 11:00 Exam: Noc ardioresp distress Heart: Regular rate and rhythm, no rubs, gallops Lungs: Clear to auscultation bilaterally, no wheezes soft, NT, ND, no guarding or rebound Neuro: Speech present, no focal deficits. Not tremulous. Oriented, awake, takes a long time to think before responding Psychiatric: No hallucinations. - Assessment and Plan (1) Alcohol withdrawal syndrome Current Visit: No Status: Acute (2) Hyponatremia Current Visit: No Status: Acute (3) COPD (chronic obstructive pulmonary disease) Current Visit: No Status: Chronic (4) DVT prophylaxis Current Visit: No Status: Acute (5) Acute metabolic encephalopathy Current Visit: Yes Status: Acute (6) Hypoglycemia Current Visit: Yes Status: Resolved (7) AGNES (acute kidney injury) Current Visit: Yes Status: Resolved - Summary of Assessment and Plan Summary of Assessment and Plan: Per H&P: """Mr. Aldana is a 63 year old male with PMH of COPD, lung cancer, GERD and alcoholism. He initially presented to the emergency room with hypoglycemia. EMS reported that when they arrived after family called that his initial blood sugar was 29, they gave oral glucose, repeat glucose was then 22, and then 36. Initial glucose on presentation was 49. Pt stated to ER resident that he has not eaten anything for a few days. He reportedly has a history of severe alcoholism and his last drink was today. When I saw the pt he was hard to arouse by sternal rub and wouldn't give me any history. He is guarding airway while in the room. EKG done in the ER showed no signs of ischemia. He was found to have a sodium of [address] Maher, hot cell technician, was contacted by ER resident who recommended hydration with normal saline. """ (1) Acute metabolic encephalopathy (2) Alcohol withdrawal syndrome (3) Alcohol abuse - Continue Ativan per [facility] protocol - Cont Librium taper (4) Hyponatremia - due to pulmonary malignancy, SIADH, and beer potomania - Sodium 111 on admission --> has returned to baseline in high 120s-low 130s. - Continue fluid restriction - Nephrology appreciated: avoid thiazide-type diuretics, SSRIs, antiepileptic drugs, and avoid excessive alcohol intake. (5) Adrenal insufficiency (6) COPD (chronic obstructive pulmonary disease) (7) Lung cancer (8) Malnutrition (9) Hypoglycemia, resolved (10) AGNES (acute kidney injury) (11) DVT prophylaxis heparin SubQ - Time Spent with Patient Total time spent is greater than 50% in coordination of care (as documented) at patient's floor/unit and/or counseling patient: Internal Medicine: Result - Labs CBC & Chem 7: 10/26/18 06:35 10/31/18 05:36 Labs: BMP 10/31/18 05:36 Sodium 126 L Potassium 4.6 Chloride 91 L Carbon Dioxide 27 BUN 16 Creatinine 0.72 Glucose 89 Calcium 9.8 - ABG Interpretation ABG results: PT/INR, D-dimer PT 13.2 Seconds (9.4-12.1) H 10/26/18 00:18 Consult Discharge Plan - Plan [facility]errals: [facility] [Non-Partnered Physician] - 11/03/18 10:00 am ([facility]) __ (1) Alcohol withdrawal syndrome Qualifiers: Complication of substance-induced condition: uncomplicated Qualified Code(s): F10.230 - Alcohol dependence with withdrawal, uncomplicated (3) COPD (chronic obstructive pulmonary disease) Qualifiers: COPD type: chronic bronchitis Chronic bronchitis type: mucopurulent Qualified Code(s): J41.1 - Mucopurulent chronic bronchitis
[2018-11-01] MEDS: *HR* Heparin 5,000 UNIT/ML VIAL SQ SCH ×2 (05:24→17:10)
[2018-11-01] MEDS: Insulin LISPRO 300 UNITS/3 ML VIAL SQ SCH ×4 (07:02→21:47)
[2018-11-01 07:13] LABS: Hematocrit 30.7 % (37.5-50.1); Hemoglobin 10.3 g/dL (12.9-16.9); Mean Corpuscular HGB Conc 33.6 g/dL (31.6-35.5); Mean Corpuscular Hemoglobin 27.8 pg (28.0-33.3); Mean Platelet Volume 10.2 fL (9.4-12.4); Platelet Count 358 K/mcL (140-400); Red Cell Distribution Width 16.7 % (11.5-14.5)
[2018-11-01 07:37] LABS: BUN/Creatinine Ratio 20 (6-26); Blood Urea Nitrogen 13 mg/dL (8-23); Calcium 9.6 mg/dL (8.6-10.3); Carbon Dioxide 27 mEq/L (23-29); Chloride 92 mEq/L (98-107); Glucose 91 mg/dL (70-105); Osmolality,Calculated 264 (280-300); Potassium 4.7 mEq/L (3.5-5.1); Sodium 127 mEq/L (136-145); eGFR For Non-African Americans > 60 (> 60)
[2018-11-01] MEDS: Budesonide/Formoterol 80/4.5 MDI IH SCH ×2 (07:37→20:29)
[2018-11-01] MEDS: Sucralfate 1 GM TABLET PO SCH ×4 (08:35→20:17)
[2018-11-01] MEDS: Folic Acid 1 MG TABLET PO SCH (08:36)
[2018-11-01] MEDS: Thiamine (B-1) 100 MG TABLET PO SCH (08:36)
[2018-11-01] MEDS: Gabapentin 100 MG CAPSULE PO SCH ×2 (08:36→20:16)
[2018-11-01] MEDS: Nicotine 21 MG PATCH.TD24 TD SCH (08:36)
--- NOTE | 2018-11-01 11:02 | Internal Med Progress Note ---
Hospitalist Progress Note - Encounter Date of Encounter: 11/01/18 Time of Encounter: 11:01 - Subjective Interval History: Generalized weakness and fatigue. Limited communication. Better symptoms and alcohol withdrawal but is still get intermittent shaking but did not require Ativan and last 24-hour. Review of the lab is still low sodium level but impr oving. Better blood glucose level Denies fever chills vomiting headache dizziness chest pain short of breath diarrhea or abdominal pain. Complained of nausea - Exam Vitals: Temp Pulse Resp BP Pulse Ox 97.6 F 72 16 101/68 93 11/01/18 06:57 11/01/18 06:57 11/01/18 07:38 11/01/18 06:57 11/01/18 07:38 Exam: Alert awake oriented, no acute distress. Slow in speech with limited complication Heart: Regular rate and rhythm, no rubs, gallops Lungs: Clear to auscultation bilaterally, no wheezes Abdomen -soft, NT, ND, no guarding or rebound Neuro: no focal deficits. Not tremulous. Oriented, awake, takes a long time to think before responding Psychiatric: No hallucinations. - Assessment and Plan (1) Alcohol withdrawal syndrome Current Visit: No Status: Acute Assessment and Plan: History patient is not tremulous on exam but has intermittent tremors. Did not require Ativan and 24 hour. High dose of chlordiazepoxide. Will try to wean down today and if he continues to tolerate then plan to discharge tomorrow otherwise concern for rebound. No seizure activity noted. Patient has generalized weakness therefore PTOT onboard. Patient also has home hospice at home Possible discharge tomorrow (2) COPD (chronic obstructive pulmonary disease) Current Visit: No Status: Chronic Assessment and Plan: No evidence of acute exacerbation. Continue when necessary bronchodilators. (3) Adrenal insufficiency Current Visit: Yes Status: Acute Assessment and Plan: Steroid has been stopped and blood pressure remained stable. We will hold off on further steroids at this time. (4) Acute metabolic encephalopathy Current Visit: Yes Status: Acute Assessment and Plan: Stable mentally status. (5) Hyponatremia Current Visit: Yes Status: Acute Assessment and Plan: Sodium is improving steadily low. Chronic hyponatremia history. Continue fluid restriction diet. (6) Metastatic cancer Current Visit: No Status: Chronic Assessment and Plan: Patient has known metastatic lung cancer and is not interested in any treatment. He is noncompliant with outpatient follow-ups and does not want any further treatment. He is currently DNR CC and utilizes hospice as an outpatient. (7) Alcohol abuse Current Visit: Yes Status: Acute Assessment and Plan: Patient is currently alcohol use is not interested in quitting or pursuing isaias atment. He is aware that this is what leads to his recurrent admissions and continues to want to drink alcohol. Please see above (8) Malnutrition Current Visit: Yes Status: Acute Assessment and Plan: Patient noted of severe protein calorie malnutrition related to excessive alcohol intake and reduce intake of nutrients. Onboard dietitian (9) Hypoglycemia Current Visit: Yes Status: Resolved Assessment and Plan: Resolved at this time. (10) AGNES (acute kidney injury) Current Visit: Yes Status: Resolved Assessment and Plan: Creatinine is normalized. Resolved. Continue urine output. (11) DVT prophylaxis Current Visit: No Status: Acute Assessment and Plan: sq heparin - Time Spent with Patient Total time spent is greater than 50% in coordination of care (as documented) at patient's floor/unit and/or counseling patient: 25 - 35 minutes Plan of Care Discussed with: patient Internal Medicine: Result - Labs CBC & Chem 7: 11/01/18 07:01 11/01/18 07:01 Labs: Short CBC 11/01/18 Range/Units 07:01 WBC 5.8 D (4.3-11.1) K/mcL Hgb 10.3 L (12.9-16.9) g/dL Hct 30.7 L (37.5-50.1) % Plt Count 358 (140-400) K/mcL BMP 11/01/18 07:01 Sodium 127 L Potassium 4.7 Chloride 92 L Carbon Dioxide 27 BUN 13 Creatinine 0.66 L Glucose 91 Calcium 9.6 - ABG Interpretation ABG results: PT/INR, D-dimer PT 13.2 Seconds (9.4-12.1) H 10/26/18 00:18 Consult Discharge Plan - Plan [facility]errals: [facility] [Non-Partnered Physician] - 11/03/18 10:00 am ([facility] team) ____ (1) Alcohol withdrawal syndrome Qualifiers: Complication of substance-induced condition: uncomplicated Qualified Code(s): F10.230 - Alcohol dependence with withdrawal, uncomplicated (2) COPD (chronic obstructive pulmonary disease) Qualifiers: COPD type: chronic bronchitis Chronic bronchitis type: mucopurulent Qualified Code(s): J41.1 - Mucopurulent chronic bronchitis (8) Malnutrition Qualifiers: Malnutrition type: protein-calorie malnutrition Protein-calorie malnutrition severity: severe Qualified Code(s): E43 - Unspecified severe protein-calorie malnutrition
[2018-11-02] MEDS: *HR* Heparin 5,000 UNIT/ML VIAL SQ SCH (05:34)
[2018-11-02] MEDS: Thiamine (B-1) 100 MG TABLET PO SCH ×2 (08:11→08:22)
[2018-11-02] MEDS: Insulin LISPRO 300 UNITS/3 ML VIAL SQ SCH ×2 (08:12→11:38)
[2018-11-02] MEDS: Nicotine 21 MG PATCH.TD24 TD SCH (08:12)
[2018-11-02] MEDS: Sucralfate 1 GM TABLET PO SCH ×3 (08:12→13:01)
[2018-11-02] MEDS: Gabapentin 100 MG CAPSULE PO SCH ×2 (08:12→08:22)
[2018-11-02] MEDS: Folic Acid 1 MG TABLET PO SCH ×2 (08:12→08:22)
[2018-11-02] MEDS: Budesonide/Formoterol 80/4.5 MDI IH SCH (09:35)
[2018-11-02 10:15] LABS: BUN/Creatinine Ratio 19 (6-26); Blood Urea Nitrogen 14 mg/dL (8-23); Calcium 9.4 mg/dL (8.6-10.3); Carbon Dioxide 27 mEq/L (23-29); Chloride 92 mEq/L (98-107); Glucose 88 mg/dL (70-105); Osmolality,Calculated 266 (280-300); Potassium 4.5 mEq/L (3.5-5.1); Sodium 128 mEq/L (136-145); eGFR For Non-African Americans > 60 (> 60)
[2018-11-02 11:10] VITALS: BP 104/68
--- NOTE | 2018-11-02 11:52 | Discharge Summary ---
- NOTES TO OUTPATIENT PROVIDER Notes to Outpatient Provider: Follow with PCP-BMP monitoring as per PCP, free water restriction. Continue home hospice Date of Encounter: 11/02/18 Time of Encounter: 12:17 - Discharge Diagnosis (1) Alcohol withdrawal syndrome Priority: Primary Status: Acute Assessment and Plan: History patient is not tremulous on exam but has intermittent tremors. Did not require Ativan and 48 hour and also tapered off Librium. Patient tolerated well. Patient is almost back to his baseline therefore will discharge today on home hospice. outside maintenance worker on board Qualifiers: Complication of substance-induced condition: uncomplicated Qualified Code(s): F10.230 - Alcohol dependence with withdrawal, uncomplicated (2) COPD (chronic obstructive pulmonary disease) Priority: Secondary Status: Chronic Assessment and Plan: No evidence of acute exacerbation. Continue when necessary bronchodilators. Qualifiers: COPD type: chronic bronchitis Chronic bronchitis type: mucopurulent Qualified Code(s): J41.1 - Mucopurulent chronic bronchitis (3) Adrenal insufficiency Priority: Primary Status: Acute Assessment and Plan: Steroid has been stopped and blood pressure remained stable. We will hold off on further steroids at this time. (4) Acute metabolic encephalopathy Priority: Primary Status: Acute Assessment and Plan: Stable mentally status. Most likely due to low sodium and low blood glucose level. (5) Hyponatremia Priority: Primary Status: Acute Assessment and Plan: Sodium is improving steadily low and almost back to baseline. Chronic hyponatremia history. Continue fluid restriction diet. (6) Metastatic cancer Priority: Secondary Status: Chronic Assessment and Plan: Patient has known metastatic lung cancer and is not interested in any treatment. He is noncompliant with outpatient follow-ups and does not want any further treatment. He is currently DNR CC and utilizes hospice as an outpatient. (7) Malnutrition Priority: Primary Status: Acute Assessment and Plan: Patient noted of severe protein calorie malnutrition related to excessive alcohol intake and reduce intake of nutrients. Onboard dietitian Qualifiers: Malnutrition type: protein-calorie malnutrition Protein-calorie malnutrition severity: severe Qualified Code(s): E43 - Unspecified severe protein-calorie malnutrition (8) Hypoglycemia Priority: Primary Status: Resolved Assessment and Plan: Resolved at this time. (9) AGNES (acute kidney injury) Priority: Primary Status: Resolved Assessment and Plan: Creatinine is normalized. Resolved. Hospital course: Mr. Aldana is a 63 year old male patient got admitted for altered mental status most likely secondary to low blood glucose level and low sodium level. Patient has chronic alcohol abuse and has been on home hospice. Coal Deliverer was consulted and his sodium level is started to trend up almost back to baseline but is still not to normal range. Patient also is started to clinically i mprove. Please see detail in diagnosis section of discharge summary. At the time of discharge patient clinically hemodynamically stable tolerating oral diet. He is slow in response in his speech but seems like baseline. Not on alcohol withdrawal symptoms. Coal Deliverer okay to discharge patient from [facility]. Advise fluid restriction 1.5 L per day and also educated to stop alcohol. Discharge discussed with: patient, nurse, social work, case management - Time Spent with Patient Total time spent providing and/or coordinating discharge services: Time spent: Greater than 30 minutes - Discharge Medications Prescriptions: New Folic Acid 1 mg PO DAILY #30 tablet Thiamine (B-1) [Vitamin B-1] 100 mg PO DAILY #30 tablet Continued Methocarbamol [Robaxin] 750 mg PO QID PRN PRN Reason: Muscle Spasm Trazodone HCl 200 mg PO HS PRN PRN Reason: Sleep Paroxetine HCl [Paxil] 40 mg PO DAILY Melatonin [Melatin] 5 mg PO HS PRN PRN Reason: Sleep Gabapentin [Neurontin] 200 mg PO BID Pantoprazole Sodium [Protonix] 40 mg PO DAILY Sucralfate [Carafate] 1 gm PO Q6H Promethazine [Phenergan] 25 mg PO Q6HR PRN PRN Reason: nausea/vomiting Promethazine [Phenergan] 25 mg RC Q6HR PRN PRN Reason: Vomiting LORazepam [Ativan] 0.5 mg PO Q4HR PRN PRN Reason: Anxiety Lactobacillus Acidophilus [Acidophilus] 1 each PO BID Benzonatate [Tessalon] 100 mg PO TID Acetaminophen [Tylenol 325mg SUPP] 650 mg RC Q4HR PRN PRN Reason: Fever Tramadol HCl [Ultram] 50 mg PO Q4HR PRN PRN Reason: Pain Tiotropium [place] [Spiriva Respimat] 2 puff IH DAILY Morphine Sulfate [Morphine Oral Solution] 5 ml PO Q4H PRN PRN Reason: Pain Hyoscyamine SL [Levsin Sl] 0.125 mg PO Q2H PRN PRN Reason: Secretions Budesonide/Formoterol 80/4.5 [Symbicort 80/4.5] 1 puff IH Q4H PRN PRN Reason: Shortness Of Breath Home Medications: Melatonin [Melatin] 5 mg PO HS PRN 08/30/18 [History] Methocarbamol [Robaxin] 750 mg PO QID PRN 08/30/18 [History] Paroxetine HCl [Paxil] 40 mg PO DAILY 08/30/18 [History] Trazodone HCl 200 mg PO HS PRN 08/30/18 [History] Gabapentin [Neurontin] 200 mg PO BID 09/07/18 [History] Pantoprazole Sodium [Protonix] 40 mg PO DAILY 09/07/18 [History] Sucralfate [Carafate] 1 gm PO Q6H 09/07/18 [History] Acetaminophen [Tylenol 325mg SUPP] 650 mg RC Q4HR PRN 10/26/18 [History] Benzonatate [Tessalon] 100 mg PO TID 10/26/18 [History] Budesonide/Formoterol 80/4.5 [Symbicort 80/4.5] 1 puff IH Q4H PRN 10/26/18 [History] Hyoscyamine SL [Levsin Sl] 0.125 mg PO Q2H PRN 10/26/18 [History] LORazepam [Ativan] 0.5 mg PO Q4HR PRN 10/26/18 [History] Lactobacillus Acidophilus [Acidophilus] 1 each PO BID 10/26/18 [History] Morphine Sulfate [Morphine Oral Solution] 5 ml PO Q4H PRN 10/26/18 [History] Promethazine [Phenergan] 25 mg PO Q6HR PRN 10/26/18 [History] Promethazine [Phenergan] 25 mg RC Q6HR PRN 10/26/18 [History] Tiotropium [place] [Spiriva Respimat] 2 puff IH DAILY 10/26/18 [History] Tramadol HCl [Ultram] 50 mg PO Q4HR PRN 10/26/18 [History] Folic Acid 1 mg PO DAILY #30 tablet 11/02/18 [Rx] Thiamine (B-1) [Vitamin B-1] 100 mg PO DAILY #30 tablet 11/02/18 [Rx] Allergies/Adverse Reactions: Allergy/AdvReac Type Severity Reaction Status Date / Time No Known Allergies Allergy Verified 09/07/18 09:22 Date of admission: 10/26/18 04:20 Primary care physician: PCP NONE Consults: 10/26/18 01:21 Consult to Nephrology [CONS] Stat Consulting Provider: [facility]/DEBORAH/MANOJ/BERTHA Reason for Consult: beer potomania, hyponatremia Time Notified: 01:21 Call Completed: Yes 10/26/18 03:11 Consult to Nutrition [CONS] Stat Comment: Consulting Provider: NUTRITION Reason for Dietary Consult: Diet Education Consult to Physical Therapy [CONS] Stat Comment: Evaluate, develop and implement POC Reason for Consult: ptot eval Does patient have active BEDREST order?: No Is patient medically & hemodynamically stable?: Yes Patient assessed for mobility or mobilized this visit?: No 11/01/18 11:00 Consult to Occupational Therapy [CONS] Routine Comment: Evaluate, develop and implement POC Reason for Consult: Generalized weakness Does patient have active BEDREST order?: No Is patient medically & hemodynamically stable?: Yes Patient assessed for mobility or mobilized this visit?: No 11/01/18 11:01 Consult to Glaucoma Specialist [CONS] Routine Reason for SW Consult: Discharge plan - Constitutional Vitals: Temp Pulse Resp BP Pulse Ox 98.4 F 82 16 104/68 96 11/02/18 11:03 11/02/18 11:03 11/02/18 11:03 11/02/18 11:03 11/02/18 11:03 Exam: Alert awake oriented, no acute distress. Slow in speech with limited communication Heart: Regular rate and rhythm, no rubs, gallops Lungs: Clear to auscultation bilaterally, no wheezes Abdomen -soft, NT, ND, no guarding or rebound Neuro: no focal deficits. Not tremulous. Oriented, awake, takes a long time to think before responding Psychiatric: No hallucinations. - Patient Status Disposition: Hospice - Home Condition: Fair Overall status at discharge: patient is progressing back to baseline - Discharge Instructions Follow Up With: [facility] [Non-Partnered Physician] - 11/03/18 10:00 am ([facility] team) - Diet and Activity Activity: as per physical therapy Diet: advance to your usual diet
--- NOTE | 2018-11-02 12:06 | Physician Discharge Referral ---
Home Health/Hosp Referral Info Transfer to: Hospice - Diagnosis (1) Alcohol withdrawal syndrome Priority: Primary Status: Acute (2) COPD (chronic obstructive pulmonary disease) Priority: Secondary Status: Chronic (3) Adrenal insufficiency Priority: Primary Status: Acute (4) Acute metabolic encephalopathy Priority: Primary Status: Acute (5) Hyponatremia Priority: Primary Status: Acute (6) Metastatic cancer Priority: Primary Status: Chronic (7) Malnutrition Priority: Primary Status: Acute (8) Hypoglycemia Priority: Primary Status: Resolved (9) AGNES (acute kidney injury) Priority: Primary Status: Resolved - Respiratory Orders Smoking Cessation: Smoking cessation has been advised. For more information, call the [place] Tobacco Quit Line at 0-892-PYSW-NOW. - Services Needed Following services are medically necessary services: Nursing, Physical Therapy, Occupational Therapy - Transfer Medications Prescriptions: Folic Acid 1 mg PO DAILY #30 tablet Thiamine (B-1) [Vitamin B-1] 100 mg PO DAILY #30 tablet Home Medications: Melatonin [Melatin] 5 mg PO HS PRN 08/30/18 [History] Methocarbamol [Robaxin] 750 mg PO QID PRN 08/30/18 [History] Paroxetine HCl [Paxil] 40 mg PO DAILY 08/30/18 [History] Trazodone HCl 200 mg PO HS PRN 08/30/18 [History] Gabapentin [Neurontin] 200 mg PO BID 09/07/18 [History] Pantoprazole Sodium [Protonix] 40 mg PO DAILY 09/07/18 [History] Sucralfate [Carafate] 1 gm PO Q6H 09/07/18 [History] Acetaminophen [Tylenol 325mg SUPP] 650 mg RC Q4HR PRN 10/26/18 [History] Benzonatate [Tessalon] 100 mg PO TID 10/26/18 [History] Budesonide/Formoterol 80/4.5 [Symbicort 80/4.5] 1 puff IH Q4H PRN 10/26/18 [History] Hyoscyamine SL [Levsin Sl] 0.125 mg PO Q2H PRN 10/26/18 [History] LORazepam [Ativan] 0.5 mg PO Q4HR PRN 10/26/18 [History] Lactobacillus Acidophilus [Acidophilus] 1 each PO BID 10/26/18 [History] Morphine Sulfate [Morphine Oral Solution] 5 ml PO Q4H PRN 10/26/18 [History] Promethazine [Phenergan] 25 mg PO Q6HR PRN 10/26/18 [History] Promethazine [Phenergan] 25 mg RC Q6HR PRN 10/26/18 [History] Tiotropium [place] [Spiriva Respimat] 2 puff IH DAILY 10/26/18 [History] Tramadol HCl [Ultram] 50 mg PO Q4HR PRN 10/26/18 [History] Folic Acid 1 mg PO DAILY #30 tablet 11/02/18 [Rx] Thiamine (B-1) [Vitamin B-1] 100 mg PO DAILY #30 tablet 11/02/18 [Rx] Allergies/Adverse Reactions: Allergy/AdvReac Type Severity Reaction Status Date / Time No Known Allergies Allergy Verified 09/07/18 09:22 Certification: Further, I certify that my clinical findings support that this patient is homebound (i.e. absences from home require considerable and taxing effort and are for medical reasons or buddhist services or infrequently or short duration when for other reasons) because: Homebound Reason: Patient requires assistance of a person or device to safely leave home Attestation: My signature below is to certify that this patient is under my care and that I, or nurse practitioner, or a physician's general office assistant working with me, has a [id number] encounter with this patient.
== END 2018-11-02 14:20 | disposition hospice, home (50) | DRG 426 ==
LOC: 2NNU 23:58 → EMEROOARM 23:58 → 2NNU 10-26 04:15 → SUATTDRO 10-26 04:20 → 2ANU 10-28 20:34
PROVIDERS: ADMIT Internal Medicine; ATTEND Internal Medicine